=== PATIENT | female | born 1970 | race Caucasian/White ===

== ENCOUNTER 2016-08-20 13:36 | Observation (INO) | payer OTHER ==
[2016-08-20] VITALS (9 sets, daily range): BP systolic 126–146; BP diastolic 61–79; PULSE 78–102; RESP 16–20; TEMP 98–98.3; O2SAT 92–99
[~2016-08-20] VITALS: Ht 182.9 cm; Wt 97.7 kg
[~2016-08-20 13:36] MED LIST: DUONSOL2 NEB; FLUO-1 PO; HYDR7.5T76; PROZ40CA PO; TRAZ100 PO; TRAZ150T75 PO; XANA1TAB6 PO
[2016-08-20] MEDS ORDERED: PROZ40CA PO (14:59)
[2016-08-20] MEDS ORDERED: TRAZ300T2 PO (14:59)
[2016-08-20] MEDS ORDERED: XANA1TAB2 PO (14:59)
[2016-08-20] MEDS ORDERED: SODIUM CHLORIDE 0.9% FLUSH 5 ML FLUSH IVF PRN (16:00)
[2016-08-20] MEDS ORDERED: methylPREDNISolone SOD SUCC 125 MG/2 ML VIAL IVP ONE (16:00)
--- NOTE | 2016-08-20 16:10 | RADRPT ---
EXAM DATE/TIME: 08/20/2016 16:00 [facility] COMPARISON: No previous studies available for comparison. INDICATIONS : Short of breath MEDICAL HISTORY : None. SURGICAL HISTORY : None. ENCOUNTER: Initial ACUITY: 2 months PAIN SCORE: 0/10 LOCATION: Bilateral chest FINDINGS: A single view of the chest demonstrates the lungs to be symmetrically aerated without evidence of mas s, infiltrate or effusion. The cardiomediastinal contours are unremarkable. Osseous structures are intact. CONCLUSION: No evidence of acute cardiopulmonary disease. Jalil Martinez MD on August 20, 2016 at 16:08 Board Certified Radiologist. This report was verified electronically.
--- NOTE | 2016-08-20 16:11 | RADRPT ---
EXAM DATE/TIME: 08/20/2016 16:01 [facility] COMPARISON: No previous studies available for comparison. INDICATIONS : Syncope for two months. RADIATION DOSE: 56.35 CTDIvol (mGy) MEDICAL HISTORY : None SURGICAL HISTORY : None. ENCOUNTER: Initial ACUITY: 1 day PAIN SCALE: 0/10 LOCATION: Bilateral head TECHNIQUE: Multiple contiguous axial images were obtained of the head. Using automated exposure control and adj ustment of the mA and/or kV according to patient size, radiation dose was kept as low as reasonably a chievable to obtain optimal diagnostic quality images. FINDINGS: CEREBRUM: The ventricles are normal for age. No evidence of midline shift, mass lesion, hemorrhage or acute in farction. No extra-axial fluid collections are seen. POSTERIOR FOSSA: The cerebellum and brainstem are intact. The 4th ventricle is midline. The cerebellopontine angle i s unremarkable. EXTRACRANIAL: The visualized portion of the orbits is intact. SKULL: The calvaria is intact. No evidence of skull fracture. CONCLUSION: Negative noncontrast head CT. Jalil Martinez MD on August 20, 2016 at 16:09 Board Certified Radiologist. This report was verified electronically.
[2016-08-20 16:24] LABS: AUTOMATED NEUTROPHIL # 6.7 TH/MM3 (1.8-7.7); BASOPHIL % 0.6 % (0.0-2.0); EOSINOPHIL % 0.1 % (0.0-4.0); HEMATOCRIT 44.2 % (35.0-46.0); HEMO FLAGS DIFF FINAL; LYMPH % 9.1 % (9.0-44.0); LYMPHOCYTE # 0.7 TH/MM3 (1.0-4.8); MEAN CELL VOLUME 101.6 FL (80.0-100.0); MEAN CORPUSCULAR HEMOGLOBIN 34.9 PG (27.0-34.0); MEAN CORPUSCULAR HGB CONC 34.4 % (32.0-36.0); MONO % 1.6 % (0.0-8.0); NEUT % 88.6 % (16.0-70.0); PLATELET COUNT 220 TH/MM3 (150-450); RED BLOOD COUNT 4.35 MIL/MM3 (4.00-5.30); RED CELL DISTRIBUTION WIDTH 15.5 % (11.6-17.2); WHITE BLOOD COUNT 7.5 TH/MM3 (4.0-11.0)
[2016-08-20 16:41] LABS: PROTHROMBIN TIME - PATIENT 11.4 SEC (9.8-11.6)
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
[2016-08-20 16:46] LABS: ALKALINE PHOSPHATASE 168 U/L (45-117); ALT (GPT) 56 U/L (10-53); ANION GAP 16 MEQ/L (5-15); AST (GOT) 105 U/L (15-37); BLOOD UREA NITROGEN 5 MG/DL (7-18); CHLORIDE 95 MEQ/L (98-107); CREATINE KINASE 136 U/L (26-192); GLOMERULAR FILTRATION RATE 122 ML/MIN (>89); POTASSIUM 3.2 MEQ/L (3.5-5.1); SODIUM (NA) 136 MEQ/L (136-145); TOTAL BILIRUBIN ADULT 0.9 MG/DL (0.2-1.0)
[2016-08-20 16:58] LABS: CKMB 1.6 NG/ML (0.5-3.6)
[2016-08-20] MEDS ORDERED: LEVOFLOXACIN 750 MG PREMIX INJ 150 ML IV ONE (17:00)
[2016-08-20] MEDS ORDERED: ASPIRIN 325 MG TAB PO ONE (17:00)
[2016-08-20] MEDS: RESP: ALBUTEROL 2.5 MG/IPRATROPIUM 0.5 MG NEB (SCH) INH (17:09)
[2016-08-20] MEDS ORDERED: ACETAMINOPHEN 325 MG TAB PO PRN (18:00)
[2016-08-20] MEDS ORDERED: NALOXONE HCL 0.4 MG/ML AMP IV PRN (18:00)
[2016-08-20] MEDS ORDERED: MAGNESIUM HYDROXIDE SUSP 30 ML CUP PO PRN (18:00)
[2016-08-20] MEDS ORDERED: ONDANSETRON HCL 4 MG/2 ML VIAL IVP PRN (18:00)
[2016-08-20] MEDS ORDERED: SODIUM CHLORIDE 0.9% FLUSH 5 ML FLUSH FLUSH PRN (18:00)
[2016-08-20] MEDS ORDERED: ENOXAPARIN SODIUM 40 MG/0.4 ML SYRINGE SQ SCH (18:00)
[2016-08-20] MEDS ORDERED: POTASSIUM CHLORIDE 10 MEQ CONTROLLED RELEASE TAB PO ONE (18:00)
[2016-08-20 18:04] LABS: BACTERIA, URINE FEW /hpf; BLOOD, URINE NEG (NEG); COMMENT (UR) CULTURE INDICATED; CULTURE IF INDICATED CULTURE INDICATED; GLUCOSE,URINE NEG (NEG); KETONE, URINE 40 mg/dL (NEG); MUCUS URINE FEW /lpf (OCC); SQUAMOUS EPITHELIAL CELL URINE 5 /hpf (0-5)
[2016-08-20 18:06] LABS: NITRITE,URINE POS (NEG)
[2016-08-20 18:07] LABS: URINE COLOR AMBER (YELLW/STRAW)
[2016-08-20] MEDS ORDERED: RESP: ALBUTEROL 2.5 MG/IPRATROPIUM 0.5 MG NEB (PRN) NEB (18:15)
--- NOTE | 2016-08-20 18:17 | HHI.HP ---
[facility] Unknown Admission Diagnosis syncope Diagnoses: Chief Complaint: Shortness of breath, cough and syncope Travel History International Travel<30 Days: No Contact w/Intl Traveler <30 Da: No Traveled to Known Affected Are: No History of Present Illness This is a 45-year-old obese female patient with a past medical history which includes asthma, COPD, anxiety/depression. Patient reports over the past 2 months she's had multiple syncopal episodes. Patient describes the syncopal episodes as she begins to feel dizzy then her legs get weak and then someone is there to catch her and lower her to the ground or the couch. Patient does report loss of consciousness for a few seconds but is able to be awoken by her . Patient does drive she reports that these episodes never happened while driving and also never happened outside of the home. These syncopal events only occur inside of the home when there is someone present to catch her. Patient also reports that she's had shortness of breath with a productive cough for the past 2 weeks. Patient reports she's been coughing up green phlegm for the past 2-3 days. Patient reports diaphoresis and, "hot sweats." She has not taken her temperature but reports subjective fever, denies chills. Denies sick contacts. The cough has associated vomiting therefore she reports she has not had much to eat in the past 3 days although she is asking when her food tray will arrive. Patient denies chest pain diarrhea constipation. Review of Systems Other All other systems reviewed and negative except as mentioned in history of present illness Past Family Social History Past Medical History asthma, COPD, anxiety/depression Past Surgical History Cholecystectomy, ventral hernia repair, 2 tubal pregnancies with surgical removal, back surgery and skin grafting to person chest and arms Reported Medications Prozac (Fluoxetine HCl) 40 Mg Cap 40 Mg PO DAILY Xanax (Alprazolam) 1 Mg Tab 1 Mg PO HS Trazodone (Trazodone HCl) 300 Mg Tab 300 Mg PO HS Allergies: Coded Allergies: No Known Allergies (Verified , 08/20/16) Active Ordered Medications Current Medications Medications (Trade) Dose Ordered Sig/Ariel Route Start Time Stop Time Status Last Admin IV Flush 2 ml 2 ml UNSCH PRN IVF 08/20/16 16:00 (Levaquin 750 Mg Premix Inj) 150 ml @ 100 mls/hr ONCE ONCE IV 08/20/16 17:00 08/20/16 18:29 08/20/16 17:20 Family History Mother had breast cancer, father is 95 still living and has an irregular heartbeat Social History Patient lives at home with her and father Smokes half a pack of cigarettes a day drinks occasionally does report she drank heavily this weekend as it was New 's brittany. Physical Exam Vital Signs Vital Signs Date Time Temp Pulse Resp B/P Pulse Ox O2 Delivery O2 Flow Rate FiO2 08/20/16 17:12 98 Nasal Cannula 2.00 08/20/16 15:00 18 97 Room Air 08/20/16 13:37 98.2 102 16 137/69 92 Room Air Physical Exam GENERAL: This is an obese female patient with productive cough several times throughout the interview and diaphoresis HEAD: Atraumatic. Normocephalic. No temporal or scalp tenderness. ENT: Nose without bleeding, purulent drainage or septal hematoma. Throat without erythema, tonsillar hypertrophy or exudate. Uvula midline. Airway patent. NECK: Trachea midline. No JVD or lymphadenopathy. Supple, nontender, no meningeal signs. CARDIOVASCULAR: Regular rate and rhythm without murmurs, gallops, or rubs. RESPIRATORY: Coarse with scattered expiratory wheezes GASTROINTESTINAL: Abdomen soft, non-tender, nondistended. No hepato-splenomegaly , or palpable masses. No guarding. MUSCULOSKELETAL: Has bilateral lower extremity edema No calf tenderness. Negative Homans sign bilaterally. NEUROLOGICAL: Awake and alert. No focal deficit identified. Motor and sensory grossly within normal limits. Five out of 5 muscle strength in all muscle groups. Normal speech. Laboratory Laboratory Tests Test 08/20/16 15:30 White Blood Count 7.5 Red Blood Count 4.35 Hemoglobin 15.2 Hematocrit 44.2 Mean Corpuscular Volume 101.6 Mean Corpuscular Hemoglobin 34.9 Mean Corpuscular Hemoglobin 34.4 Concent Red Cell Distribution Width 15.5 Platelet Count 220 Mean Platelet Volume 8.6 Neutrophils (%) (Auto) 88.6 Lymphocytes (%) (Auto) 9.1 Monocytes (%) (Auto) 1.6 Eosinophils (%) (Auto) 0.1 Basophils (%) (Auto) 0.6 Neutrophils # (Auto) 6.7 Lymphocytes # (Auto) 0.7 Monocytes # (Auto) 0.1 Eosinophils # (Auto) 0.0 Basophils # (Auto) 0.0 CBC Comment DIFF FINAL Differential Comment Prothrombin Time 11.4 Prothromb Time International 1.0 Ratio Activated Partial 28.0 Thromboplast Time D-Dimer Quantitative (PE/DVT) 0.34 Sodium Level 136 Potassium Level 3.2 Chloride Level 95 Carbon Dioxide Level 25.0 Anion Gap 16 Blood Urea Nitrogen 5 Creatinine 0.54 Estimat Glomerular Filtration 122 Rate Random Glucose 168 Calcium Level 9.4 Total Bilirubin 0.9 Aspartate Amino Transf 105 (AST/SGOT) Alanine Aminotransferase 56 (ALT/SGPT) Alkaline Phosphatase 168 Total Creatine Kinase 136 Creatine Kinase MB 1.6 Troponin I LESS THAN 0.02 B-Type Natriuretic Peptide 5 Total Protein 8.1 Albumin 3.7 Date/Time Procedure Status Source Growth 08/20/16 16:42 Influenza Types A,B Antigen ([facility]) - Final Complete Nasal Aspirate NEGATIVE FOR FLU A AND B ANTIGEN.... 08/20/16 16:20 Aerobic Blood Culture Received Blood Peripheral Pending 08/20/16 16:20 Anaerobic Blood Culture Received Blood Peripheral Pending Result Diagram: 08/20/16 1530 08/20/16 1530 Assessment and Plan Problem List: (1) COPD exacerbation ICD Code: J44.1 Status: Acute (2) Syncope and collapse ICD Code: R55 Status: Acute Assessment and Plan This is a 45-year-old obese female patient with a past medical history which includes asthma, COPD, anxiety/depression. Patient reports over the past 2 months she's had multiple syncopal episodes also with shortness of breath and productive cough times 2 weeks. COPD exacerbation with productive cough Duo nebs every 6 hours and when necessary Chest x-ray reviewed by myself as well as Dr. Shen no acute process identified Solumedrol 40 mg IV twice a day Azithromycin 250 mg by mouth daily starting tomorrow morning did receive Levaquin IV emergency department Abnormal UA: On Levaquin IV pending urine culture Syncopal episodes- occurring for the past 2 months only occur in patients home will continue to monitor patient on telemetry, bilateral carotid ultrasound, orthostatic vital signs Hypokalemia will replace with 30 meq potassium chloride orally Also check add on magnesium level recheck in AM AST noted to be elevated patient admitted to heavy drinking this prior weekend as it was New Year's Brittany On excessive alcohol use last binge drinking encouraged to abstain CMP in AM Tobacco abuse Patient counseled on tobacco abuse and health risk encouraged to abstain DVT prophylaxis Lovenox Discussed with patient RN and ER provider Written by Henna Gruber, acting as scribe for Dr. Shen on 08/20/16 at 18 :13. The documentation accurately reflects the work performed [id number] by me on at 218:13. Code Status Full code Henna Gruber Aug 20, 2016 18:17 Sanjiv Shen MD Aug 20, 2016 20:42
[2016-08-20] MEDS: RESP: ALBUTEROL 2.5 MG/IPRATROPIUM 0.5 MG NEB (SCH) NEB (20:38)
[2016-08-20] MEDS: methylPREDNISolone SOD SUCC 40 MG/1 ML VIAL IV PUSH SCH (21:51)
[2016-08-20] MEDS: SODIUM CHLORIDE 0.9% FLUSH 5 ML FLUSH FLUSH SCH (21:52)
[2016-08-21] MEDS: RESP: ALBUTEROL 2.5 MG/IPRATROPIUM 0.5 MG NEB (SCH) NEB ×2 (03:03→09:42)
[2016-08-21 04:17] VITALS: BP 137/65; PULSE 85; RESP 20; TEMP 97.4; O2SAT 95
[2016-08-21 08:00] VITALS: BP 139/65; PULSE 75; RESP 20; TEMP 97.6; O2SAT 96
[2016-08-21 08:12] LABS: AUTOMATED NEUTROPHIL # 7.9 TH/MM3 (1.8-7.7); BASOPHIL % 0.3 % (0.0-2.0); HEMATOCRIT 40.9 % (35.0-46.0); HEMO FLAGS DIFF FINAL; LYMPH % 10.5 % (9.0-44.0); MEAN CELL VOLUME 101.3 FL (80.0-100.0); MEAN CORPUSCULAR HGB CONC 34.5 % (32.0-36.0); NEUT % 82.2 % (16.0-70.0); PLATELET COUNT 217 TH/MM3 (150-450); RED BLOOD COUNT 4.03 MIL/MM3 (4.00-5.30); RED CELL DISTRIBUTION WIDTH 15.4 % (11.6-17.2); WHITE BLOOD COUNT 9.6 TH/MM3 (4.0-11.0)
[2016-08-21 08:42] LABS: ALKALINE PHOSPHATASE 144 U/L (45-117); ALT (GPT) 40 U/L (10-53); ANION GAP 12 MEQ/L (5-15); AST (GOT) 45 U/L (15-37); BICARBONATE 30.4 MEQ/L (21.0-32.0); BLOOD UREA NITROGEN 7 MG/DL (7-18); CHLORIDE 95 MEQ/L (98-107); GLOMERULAR FILTRATION RATE 98 ML/MIN (>89); POTASSIUM 3.1 MEQ/L (3.5-5.1); SODIUM (NA) 137 MEQ/L (136-145); TOTAL BILIRUBIN ADULT 0.8 MG/DL (0.2-1.0)
[2016-08-21] MEDS ORDERED: DOXYCYCLINE HYCLATE 100 MG TAB PO SCH (09:00)
[2016-08-21] MEDS ORDERED: AZITHROMYCIN 250 MG TAB PO SCH (09:00)
[2016-08-21] MEDS ORDERED: FLUoxetine HCL 20 MG CAP PO SCH (09:00)
[2016-08-21] MEDS: methylPREDNISolone SOD SUCC 40 MG/1 ML VIAL IV PUSH SCH (09:28)
[2016-08-21] MEDS: SODIUM CHLORIDE 0.9% FLUSH 5 ML FLUSH FLUSH SCH (09:29)
[2016-08-21 09:30] VITALS: PULSE 63
--- NOTE | 2016-08-21 09:42 | HHI.PR ---
Subjective Remarks Follow-up syncope 08/21/16-patient seen and examined; no syncopal episodes since admission. Denies any dizziness or chest pain . Currently afebrile. Objective Vitals Vital Signs Date Time Temp Pulse Resp B/P Pulse Ox O2 Delivery O2 Flow Rate FiO2 08/21/16 04:17 97.4 85 20 137/65 95 08/20/16 23:51 98.0 84 20 126/61 95 126/70 126/79 08/20/16 22:00 91 08/20/16 20:40 96 Nasal Cannula 2.00 08/20/16 20:21 98.3 100 20 146/71 99 08/20/16 19:15 83 18 141/69 97 08/20/16 17:12 98 Nasal Cannula 2.00 08/20/16 16:00 78 18 138/67 97 Nasal Cannula 2 08/20/16 15:00 18 97 Room Air 08/20/16 13:37 98.2 102 16 137/69 92 Room Air I/O 08/20/16 08/20/16 08/20/16 08/21/16 08/21/16 08/21/16 07:00 15:00 23:00 07:00 15:00 23:00 Intake Total 240 ml Balance 240 ml Intake Oral 240 ml # Voids 3 Result Diagram: 08/21/16 0745 08/21/16 0745 Imaging Last Impressions Head CT 08/20/16 1550 Signed Impressions: Service Date/Time: Saturday, August 20, 2016 16:01 - CONCLUSION: Negative noncontrast head CT. Jalil Martinez MD Chest X-Ray 08/20/16 1550 Signed Impressions: Service Date/Time: Saturday, August 20, 2016 16:00 - CONCLUSION: No evidence of acute cardiopulmonary disease. Jalil Martinez MD Objective Remarks GENERAL: NAD SKIN: Warm and dry. HEAD: Normocephalic. EYES: No scleral icterus. No injection or drainage. NECK: Supple, trachea midline. No JVD or lymphadenopathy. CARDIOVASCULAR: Regular rate and rhythm without murmurs, gallops, or rubs. RESPIRATORY: Breath sounds equal bilaterally. No accessory muscle use. GASTROINTESTINAL: Abdomen soft, non-tender, nondistended. MUSCULOSKELETAL: No cyanosis, or edema. BACK: Nontender without obvious deformity. No CVA tenderness. A/P Problem List: (1) COPD exacerbation ICD Code: J44.1 Status: Acute (2) Syncope and collapse ICD Code: R55 Status: Resolved Assessment and Plan This is a 45-year-old obese female patient with a past medical history which includes asthma, COPD, anxiety/depression. Patient reports over the past 2 months she's had multiple syncopal episodes also with shortness of breath and productive cough times 2 weeks. COPD exacerbation with productive cough Duo nebs every 6 hours and when necessary and start Spiriva and Symbicort Chest x-ray reviewed Discontinue Solumedrol 40 mg IV twice a day and start by mouth prednisone s/p Levaquin IV and starts doxy 100 mg by mouth twice a day Abnormal UA: s/p Levaquin IV and starts doxycycline 100 mg by mouth twice a day pending urine culture Syncopal episodes- occurring for the past 2 months only occur in patients home- stable since admission continue to monitor patient on telemetry, bilateral carotid ultrasound, orthostatic vital signs Hypokalemia: Replace electrolyte and monitor AST noted to be elevated patient admitted to heavy drinking this prior weekend as it was New Year's Brittany On excessive alcohol use last binge drinking encouraged to abstain-LFTs improving Tobacco abuse Patient counseled on tobacco abuse and health risk encouraged to abstain DVT prophylaxis Lovenox Discharge Planning Discharge patient to home Condition on discharge: Improved Regular Diet as tolerated Ad Roxanne activity Rx written:see EMR Follow-up with primary care physician in 1 week Sanjiv Shen MD Aug 21, 2016 09:42
[2016-08-21] MEDS ORDERED: DOXY100T PO (09:47)
[2016-08-21] MEDS ORDERED: IPRA17I INH (09:47)
[2016-08-21] MEDS ORDERED: SYMB80AE INH (09:47)
[2016-08-21] MEDS ORDERED: PRED20 PO (09:47)
[2016-08-21] MEDS ORDERED: SPIRCAP INH (09:47)
--- NOTE | 2016-08-21 10:03 | RADRPT ---
EXAM DATE/TIME: 08/21/2016 08:43 [facility] COMPARISON: No previous studies available for comparison. INDICATIONS : Syncope. MEDICAL HISTORY : Chronic obstructive pulmonary disease. Asthma. Asthma. SURGICAL HISTORY : Cholecystectomy. Gynecologic surgery, ectopic x 2. ENCOUNTER: Initial ACUITY: 2 days PAIN SCORE: 0/10 LOCATION: Bilateral neck PEAK SYSTOLIC VELOCITIES (cm/sec): ICA/CCA RATIO: Right: 0.9 Left: 0.8 ICA: Right: 83 Left: 81 CCA: Right: 94 Left: 104 ECA: Right: 132 Left: 102 VERTEBRAL: Right: 47 antegrade Left: 36 antegrade Elevated flow velocities and ICA/CCA ratios have been found to correlate with increased degrees of vessel stenosis, calculated as percentage of diameter relative to a normal segment of distal ICA/CCA FINDINGS: RIGHT CAROTID: Mild eccentric calcific plaque.. The waveforms are within normal limits. LEFT CAROTID: Slightly centered calcific plaque. The waveforms are within normal limits. VERTEBRAL ARTERIES: Antegrade flow is seen in both vertebral arteries. MISCELLANEOUS: None. CONCLUSION: No evidence of flow-limiting carotid stenosis. Jalil Vieira MD on August 21, 2016 at 10:01 Board Certified Radiologist. This report was verified electronically.
[2016-08-21 10:52] VITALS: O2SAT 95
[2016-08-21 12:00] VITALS: BP 135/66; PULSE 86; RESP 20; TEMP 97.7; O2SAT 91
[2016-08-21] MEDS ORDERED: BUDESONIDE-FORMOTEROL 80/4.5 MCG INHALER INH SCH (21:00)
--- NOTE | 2016-08-21 23:56 | EKG ---
Date Performed: 08/20/2016 Time Performed: 16:49:52 PTAGE: 45 years EKG: Sinus rhythm NORMAL ECG PREVIOUS TRACING : 06/30/2008 00.11 DOCTOR: Diandra Grant Interpretating Date/Time 08/21/2016 23:48:38
[2016-08-22] MEDS ORDERED: predniSONE 20 MG TAB PO SCH (09:00)
[2016-08-22] MEDS ORDERED: TIOTROPIUM BROMIDE 18 MCG INH INH SCH (09:00)
== END 2016-08-21 15:53 | disposition home or self-care (01) ==
LOC: NEPA 13:36 → NEDA 17:02 → NEPHCDU 20:09
PROVIDERS: ADMIT Hospitalist; ATTEND Hospitalist
DX: R55 Syncope and collapse (principal); J44.1 Chronic obstructive pulmonary disease with (acute) exacerbation; R06.02 Shortness of breath; R05 Cough; J45.909 Unspecified asthma, uncomplicated; F41.9 Anxiety disorder, unspecified; F17.200 Nicotine dependence, unspecified, uncomplicated; Z79.899 Other long term (current) drug therapy; R11.10 Vomiting, unspecified; E87.6 Hypokalemia; F10.10 Alcohol abuse, uncomplicated
CPT/HCPCS: 70450; 71010; 80053; 81001; 82550; 82552; 83735; 83880; 84484; 85025; 85379; 85610; 85730; 87040; 87086; 87804; 93005; 93880; 94640; 94664; 96374; 99285; G0378; J1650; J1956; J2405; J2920; J2930

== ENCOUNTER 2017-03-26 17:13 | Emergency (ER) | payer SELFPAY ==
[~2017-03-26] VITALS: Ht 182.9 cm; Wt 87.0 kg
[~2017-03-26 17:13] MED LIST changes: +DOXY100T PO; -DUONSOL2 NEB; -FLUO-1 PO; -HYDR7.5T76; +IPRA17I INH; +PRED20 PO; +SPIRCAP INH; +SYMB80AE INH; -TRAZ100 PO; -TRAZ150T75 PO; +TRAZ300T2 PO; +XANA1TAB2 PO; -XANA1TAB6 PO
[2017-03-26 17:15] VITALS: BP 124/62; PULSE 106; RESP 16; TEMP 98.5; O2SAT 95
--- NOTE | 2017-03-26 17:54 | PD ---
Physical Exam Time Seen by Provider: 17:54 Narrative 46 y/o female here with abdominal pain, swelling for the past few months, as well as a cough. Vital signs reviewed. Seen at triage desk. Awaiting bed placement. Data Data Last Documented VS Vital Signs Date Time Temp Pulse Resp B/P Pulse Ox O2 Delivery O2 Flow Rate FiO2 03/26/17 17:15 98.5 106 16 124/62 95 MDM Medical Record Reviewed: Yes Supervised Visit with COLTON: Ronni Long Mar 26, 2017 17:54
[2017-03-26 21:45] VITALS: RESP 22; O2SAT 96
[2017-03-26] MEDS ORDERED: SODIUM CHLORIDE 0.9% FLUSH 10 ML FLUSH IVF PRN (21:45)
[2017-03-26] MEDS ORDERED: methylPREDNISolone SOD SUCC 125 MG/2 ML VIAL IVP ONE (21:45)
[2017-03-26] MEDS: RESP: ALBUTEROL 2.5 MG/IPRATROPIUM 0.5 MG NEB (SCH) INH ×3 (21:54→22:53)
--- NOTE | 2017-03-26 22:04 | PD ---
HPI Chief Complaint: GI Complaint Time Seen by Provider: 21:56 Travel History International Travel<30 days: No Contact w/Intl Traveler<30days: No Traveled to known affect area: No History of Present Illness HPI Patient is a 46-year-old female presenting to emergency department evaluation of shortness of breath and abdominal distention. Patient states she's been short of breath for over one month, she went to her primary doctor on March 11 and was prescribed antibiotics and steroids. She states despite this she continues to feel this way. She reports a productive cough with yellow-brown sputum. Patient smokes one pack per day. She reports that her abdomen is distended for several months, she has had diarrhea several times a day. Patient states she did not discuss this with her primary doctor at her last visit. She denies any fever, chills, nausea, vomiting, headache, chest pain. She presents emergency department today because her symptoms have been exacerbated over the last several days. She states her past medical history significant for COPD. She denies any excessive alcohol use. PFSH Past Medical History Asthma: Yes Blood Disorders: No Anxiety: Yes Depression: Yes Cancer: No Cardiovascular Problems: No COPD: Yes Endocrine: No Genitourinary: No Immune Disorder: No Neurologic: No Reproductive: No Respiratory: Yes Tetanus Vaccination: Unknown Influenza Vaccination: No ?: Not Ectopic : Yes Past Surgical History Abdominal Surgery: Yes (hernia) Cholecystectomy: Yes Gynecologic Surgery: Yes Social History Alcohol Use: No Tobacco Use: Yes (10/20 PPD) Substance Use: No Allergies-Medications (Allergen,Severity, Reaction): Coded Allergies: No Known Allergies (Verified , 03/26/17) Reported Meds & Prescriptions Reported Meds & Active Scripts Active Prednisone 50 Mg Tab 50 Mg PO DAILY 5 Days Cipro (Ciprofloxacin HCl) 500 Mg Tab 500 Mg PO BID 10 Days Percocet (Oxycodone-Acetaminophen) 5-325 mg Tab 1 Tab PO Q6H PRN Atrovent HFA 12.9 GM Inh (Ipratropium [place]) 17 Mcg/Act Aer 2 Puff INH QID Spiriva Handihaler (Tiotropium Inh) 18 Mcg Cap 18 Mcg INH DAILY Symbicort Inh (Budesonide/Formoterol Fumarate) 80-4.5 Mcg/Act Aero 2 Puff INH Q12HR Reported Xanax (Alprazolam) 1 Mg Tab 1 Mg PO HS Trazodone (Trazodone HCl) 300 Mg Tab 300 Mg PO HS Review of Systems Except as stated in HPI: all other systems reviewed are Neg General / Constitutional: No: Fever, Chills Eyes: No: Blurred Vision HENT: No: Headaches Cardiovascular: Positive: Dyspnea on exertion, No: Chest Pain or Discomfort Respiratory: Positive: Cough, Shortness of Breath, Wheezing, Orthopnea, Pleuritic Pain Gastrointestinal: Positive: Diarrhea, Abdominal Pain (distention), No: Nausea , Vomiting Genitourinary: No: Dysuria Musculoskeletal: No: Myalgias Neurologic: No: Weakness, Dizziness, Syncope, Focal Abnormalities Physical Exam Narrative GENERAL: Overweight, well-developed, alert female. Appears older than stated age. Resting comfortably in no acute distress. SKIN: Warm and dry. HEAD: Atraumatic. Normocephalic. EYES: Pupils equal and round. No scleral icterus. No injection or drainage. ENT: No nasal bleeding or discharge. Mucous membranes pink and moist. NECK: Trachea midline. No JVD. CARDIOVASCULAR: Tachycardic RESPIRATORY: No accessory muscle use. Diminished in bases with expiratory wheezes throughout. GASTROINTESTINAL: Abdomen soft, tender to palpation diffusely, mildly distended. Hepatic and splenic margins not palpable. MUSCULOSKELETAL: Extremities without clubbing, cyanosis, or edema. No obvious deformities. NEUROLOGICAL: Awake and alert. No obvious cranial nerve deficits. Motor grossly within normal limits. Five out of 5 muscle strength in the arms and legs. Normal speech. PSYCHIATRIC: Appropriate mood and affect; insight and judgment normal. Data Data Last Documented VS Vital Signs Date Time Temp Pulse Resp B/P Pulse Ox O2 Delivery O2 Flow Rate FiO2 03/26/17 21:45 22 96 Nasal Cannula 2 03/26/17 17:15 98.5 106 124/62 Orders Complete Blood Count With Diff (03/26/17 21:41) Comprehensive Metabolic Panel (03/26/17 21:41) B-Type Natriuretic Peptide (03/26/17 21:41) Iv Access Insert/Monitor (03/26/17 21:41) Electrocardiogram (03/26/17 21:41) Ecg Monitoring (03/26/17 21:41) Oximetry (03/26/17 21:41) Oxygen Administration (03/26/17 21:41) Chest, Single Ap (03/26/17 21:41) Sodium Chloride 0.9% Flush (Ns Flush) (03/26/17 21:45) Methylprednisolone So Succ Inj (Solumedr (03/26/17 21:45) Albuterol-Ipratropium Neb (Duoneb Neb) (03/26/17 21:45) Ct Abd/Pel W Iv Contrast(Rout) (03/26/17 ) Sputum Culture And Gram Stain (03/26/17 21:41) Magnesium (Mg) (03/26/17 22:49) Potassium Chlor 20 Meq Premix (Kcl 20 Me (03/26/17 23:00) Potassium Chloride (Kcl) (03/26/17 23:00) Alcohol (Ethanol) (03/26/17 21:00) Iohexol 350 Inj (Omnipaque 350 Inj) (03/26/17 23:53) Sodium Chlor 0.9% 1000 Ml Inj (Ns 1000 M (03/27/17 00:30) Ciprofloxacin (Cipro) (03/27/17 00:45) Labs Laboratory Tests Test 03/26/17 21:00 White Blood Count 13.4 TH/MM3 Red Blood Count 3.33 MIL/MM3 Hemoglobin 11.3 GM/DL Hematocrit 34.7 % Mean Corpuscular Volume 104.3 FL Mean Corpuscular Hemoglobin 33.9 PG Mean Corpuscular Hemoglobin 32.5 % Concent Red Cell Distribution Width 22.1 % Platelet Count 298 TH/MM3 Mean Platelet Volume 8.1 FL Neutrophils (%) (Auto) 69.7 % Lymphocytes (%) (Auto) 20.4 % Monocytes (%) (Auto) 8.6 % Eosinophils (%) (Auto) 0.8 % Basophils (%) (Auto) 0.5 % Neutrophils # (Auto) 9.4 TH/MM3 Lymphocytes # (Auto) 2.7 TH/MM3 Monocytes # (Auto) 1.2 TH/MM3 Eosinophils # (Auto) 0.1 TH/MM3 Basophils # (Auto) 0.1 TH/MM3 CBC Comment AUTO DIFF Differential Comment AUTO DIFF CONFIRMED Sodium Level 134 MEQ/L Potassium Level 2.4 MEQ/L Chloride Level 94 MEQ/L Carbon Dioxide Level 28.6 MEQ/L Anion Gap 11 MEQ/L Blood Urea Nitrogen 5 MG/DL Creatinine 0.50 MG/DL Estimat Glomerular Filtration 132 ML/MIN Rate Random Glucose 132 MG/DL Calcium Level 8.9 MG/DL Magnesium Level 1.8 MG/DL Total Bilirubin 1.2 MG/DL Aspartate Amino Transf 63 U/L (AST/SGOT) Alanine Aminotransferase 22 U/L (ALT/SGPT) Alkaline Phosphatase 274 U/L B-Type Natriuretic Peptide 13 PG/ML Total Protein 7.9 GM/DL Albumin 3.5 GM/DL Ethyl Alcohol Level 40 MG/DL MDM Medical Decision Making Medical Screen Exam Complete: Yes Emergency Medical Condition: Yes Medical Record Reviewed: Yes Interpretation(s) Vital Signs Date Time Temp Pulse Resp B/P Pulse Ox O2 Delivery O2 Flow Rate FiO2 03/26/17 21:32 24 03/26/17 17:15 98.5 106 16 124/62 95 Differential Diagnosis COPD exacerbation vs pna vs CHF vs ascites vs obstruction vs metabolic abnormality Narrative Course Patient is a 46 year female presenting to emergency for evaluation of shortness of breath as well as abdominal distention. Both complaints have been ongoing for over a month. Patient continues to smoke despite COPD. She is mildly tachycardic on arrival, exam reveals expiratory wheezing throughout. Labs and imaging ordered and pending. IV access established, patient placed on telemetry monitoring and continuous pulse oximetry. DuoNeb and IV Solu-Medrol ordered. Chest x-ray shows no acute disease. CBC with a white count of 13.4 with no left shift. CMP w/ a K+ of 2.4. IV and oral replacement ordered. Magnesium level added on. Total bilirubin 1.2, AST 63. Sputum culture ordered, obtained and pending. Ct scan of the abd/pelvis pending. Care of patient transferred to Dr. Morton at the end of my shift. He will determine patients disposition. Scripts Prednisone 50 Mg Tab50 Mg PO DAILY 5 Days Ref 0 Prov:Pablito Morton MD 03/27/17 Ciprofloxacin (Cipro)500 Mg [id number] Mg PO BID 10 Days Ref 0 Prov:Pablito Morton MD 03/27/17 Oxycodone-Acetaminophen (Percocet)5-325 mg Tab1 Tab PO Q6H PRN (PAIN) #10 TAB Ref 0 Prov:Pablito Morton MD 03/27/17 Heidy Randhawa [facility] Mar 26, 2017 22:04
--- NOTE | 2017-03-26 22:28 | RADRPT ---
EXAM DATE/TIME: 03/26/2017 21:40 [facility] COMPARISON: CHEST SINGLE AP, August 20, 2016, 16:00. INDICATIONS : Shortness of breath. MEDICAL HISTORY : Chronic obstructive pulmonary disease. Smoker. SURGICAL HISTORY : None. ENCOUNTER: Initial ACUITY: 2 weeks PAIN SCORE: 0/10 LOCATION: Bilateral chest FINDINGS: A single view of the chest demonstrates the lungs to be symmetrically aerated without evidence of mas s, infiltrate or effusion. The cardiomediastinal contours are unremarkable. Osseous structures are intact. CONCLUSION: 1. No acute findings. Todd Barber MD on March 26, 2017 at 22:25 Board Certified Radiologist. This report was verified electronically.
[2017-03-26 22:30] LABS: AUTOMATED NEUTROPHIL # 9.4 TH/MM3 (1.8-7.7); BASOPHIL # 0.1 TH/MM3 (0-0.2); BASOPHIL % 0.5 % (0.0-2.0); EOSINOPHIL # 0.1 TH/MM3 (0-0.4); EOSINOPHIL % 0.8 % (0.0-4.0); HEMATOCRIT 34.7 % (35.0-46.0); LYMPH % 20.4 % (9.0-44.0); LYMPHOCYTE # 2.7 TH/MM3 (1.0-4.8); MEAN CELL VOLUME 104.3 FL (80.0-100.0); MEAN CORPUSCULAR HEMOGLOBIN 33.9 PG (27.0-34.0); MEAN CORPUSCULAR HGB CONC 32.5 % (32.0-36.0); MONO % 8.6 % (0.0-8.0); NEUT % 69.7 % (16.0-70.0); PLATELET COUNT 298 TH/MM3 (150-450); RED BLOOD COUNT 3.33 MIL/MM3 (4.00-5.30); RED CELL DISTRIBUTION WIDTH 22.1 % (11.6-17.2); WHITE BLOOD COUNT 13.4 TH/MM3 (4.0-11.0)
[2017-03-26 22:32] LABS: HEMO FLAGS AUTO DIFF
[2017-03-26 22:43] LABS: ALKALINE PHOSPHATASE 274 U/L (45-117); ALT (GPT) 22 U/L (10-53); ANION GAP 11 MEQ/L (5-15); AST (GOT) 63 U/L (15-37); BICARBONATE 28.6 MEQ/L (21.0-32.0); BLOOD UREA NITROGEN 5 MG/DL (7-18); CHLORIDE 94 MEQ/L (98-107); GLOMERULAR FILTRATION RATE 132 ML/MIN (>89); SODIUM (NA) 134 MEQ/L (136-145); TOTAL BILIRUBIN ADULT 1.2 MG/DL (0.2-1.0)
[2017-03-26 22:48] LABS: POTASSIUM 2.4 MEQ/L (3.5-5.1)
[2017-03-26] MEDS ORDERED: POTASSIUM CHLOR 20 MEQ PREMIX 100 ML IV ONE (23:00)
[2017-03-26] MEDS ORDERED: POTASSIUM CHLORIDE 20 MEQ CONTROLLED RELEASE TAB PO ONE (23:00)
[2017-03-26 23:20] LABS: MAGNESIUM 1.8 MG/DL (1.5-2.5)
[2017-03-26 23:24] LABS: SCAN/DIFF AUTO DIFF CONFIRMED
[2017-03-26] MEDS ORDERED: IOHEXOL 350 MG/ML 10 ML VIAL (for RAD DIAG) IV ONE (23:53)
--- NOTE | 2017-03-27 00:02 | RADRPT ---
EXAM DATE/TIME: 03/26/2017 23:40 [facility] COMPARISON: No previous studies available for comparison. INDICATIONS : Abdominal distention and pain. IV CONTRAST: 96 cc Omnipaque 350 (iohexol) IV ORAL CONTRAST: No oral contrast ingested. RADIATION DOSE: 14.92 CTDIvol (mGy) MEDICAL HISTORY : Chronic obstructive pulmonary disease. SURGICAL HISTORY : Cholecystectomy. ENCOUNTER: Initial ACUITY: 1 day PAIN SCALE: 7/10 LOCATION: All quadrants. TECHNIQUE: Volumetric scanning of the abdomen and pelvis was performed. Using automated exposure control and ad justment of the mA and/or kV according to patient size, radiation dose was kept as low as reasonably achievable to obtain optimal diagnostic quality images. DICOM format image data is available electro nically for review and comparison. FINDINGS: There is diffuse inhomogeneous fatty infiltration of the liver and hepatomegaly up to 25 cm in cephal ocaudal dimension. Cholecystectomy clips are noted. The spleen, pancreas, adrenals, kidneys are unrem arkable. Atherosclerotic calcification of the aorta is identified. There is focal ectasia of the infr arenal abdominal aorta at the level of the TIANA takeoff measuring 2.9 x 2.2 cm in transverse and AP di mension. The urinary bladder is normal. There are 2 enhancing masses within the uterus, within the jessica dy of the left atrium 0.2 x 2.9 cm mass, and at the fundus anteriorly a 2.2 x 2.1 cm mass, these are felt to represent uterine fibroids. The ovaries are unremarkable. There is diverticulosis of the sigm oid and descending colon. There is circumferential bowel wall thickening of the large bowel from the transverse colon to the ascending colon with submucosal fat proliferation suggesting a chronic appear ance. There no signs of bowel obstruction, free fluid or free air. Lung bases are clear. Osseous stru ctures are intact. CONCLUSION: 1. Hepatomegaly and inhomogeneous hepatic steatosis. 2. Diverticulosis without diverticulitis. 3. Atherosclerosis with focal ectasia of the infrarenal abdominal aorta up to 2.9 cm. 4. There is chronic appearing bowel wall thickening of the large bowel. Leo Soliz MD on March 26, 2017 at 23:57 Board Certified Radiologist. This report was verified electronically.
[2017-03-27] MEDS ORDERED: SODIUM CHLOR 0.9% 1000 ML INJ 1,000 ML IV ONE (00:30)
[2017-03-27] MEDS ORDERED: PERC5TAB12 PO (00:31)
[2017-03-27] MEDS ORDERED: CIPR-9 PO (00:31)
--- NOTE | 2017-03-27 00:31 | PD ---
Data Data Last Documented VS Vital Signs Date Time Temp Pulse Resp B/P Pulse Ox O2 Delivery O2 Flow Rate FiO2 03/26/17 21:45 22 96 Nasal Cannula 2 03/26/17 17:15 98.5 106 124/62 Orders Complete Blood Count With Diff (03/26/17 21:41) Comprehensive Metabolic Panel (03/26/17 21:41) B-Type Natriuretic Peptide (03/26/17 21:41) Iv Access Insert/Monitor (03/26/17 21:41) Electrocardiogram (03/26/17 21:41) Ecg Monitoring (03/26/17 21:41) Oximetry (03/26/17 21:41) Oxygen Administration (03/26/17 21:41) Chest, Single Ap (03/26/17 21:41) Sodium Chloride 0.9% Flush (Ns Flush) (03/26/17 21:45) Methylprednisolone So Succ Inj (Solumedr (03/26/17 21:45) Albuterol-Ipratropium Neb (Duoneb Neb) (03/26/17 21:45) Ct Abd/Pel W Iv Contrast(Rout) (03/26/17 ) Sputum Culture And Gram Stain (03/26/17 21:41) Magnesium (Mg) (03/26/17 22:49) Potassium Chlor 20 Meq Premix (Kcl 20 Me (03/26/17 23:00) Potassium Chloride (Kcl) (03/26/17 23:00) Alcohol (Ethanol) (03/26/17 21:00) Iohexol 350 Inj (Omnipaque 350 Inj) (03/26/17 23:53) Sodium Chlor 0.9% 1000 Ml Inj (Ns 1000 M (03/27/17 00:30) Ciprofloxacin (Cipro) (03/27/17 00:45) Labs Laboratory Tests Test 03/26/17 21:00 White Blood Count 13.4 TH/MM3 Red Blood Count 3.33 MIL/MM3 Hemoglobin 11.3 GM/DL Hematocrit 34.7 % Mean Corpuscular Volume 104.3 FL Mean Corpuscular Hemoglobin 33.9 PG Mean Corpuscular Hemoglobin 32.5 % Concent Red Cell Distribution Width 22.1 % Platelet Count 298 TH/MM3 Mean Platelet Volume 8.1 FL Neutrophils (%) (Auto) 69.7 % Lymphocytes (%) (Auto) 20.4 % Monocytes (%) (Auto) 8.6 % Eosinophils (%) (Auto) 0.8 % Basophils (%) (Auto) 0.5 % Neutrophils # (Auto) 9.4 TH/MM3 Lymphocytes # (Auto) 2.7 TH/MM3 Monocytes # (Auto) 1.2 TH/MM3 Eosinophils # (Auto) 0.1 TH/MM3 Basophils # (Auto) 0.1 TH/MM3 CBC Comment AUTO DIFF Differential Comment AUTO DIFF CONFIRMED Sodium Level 134 MEQ/L Potassium Level 2.4 MEQ/L Chloride Level 94 MEQ/L Carbon Dioxide Level 28.6 MEQ/L Anion Gap 11 MEQ/L Blood Urea Nitrogen 5 MG/DL Creatinine 0.50 MG/DL Estimat Glomerular Filtration 132 ML/MIN Rate Random Glucose 132 MG/DL Calcium Level 8.9 MG/DL Magnesium Level 1.8 MG/DL Total Bilirubin 1.2 MG/DL Aspartate Amino Transf 63 U/L (AST/SGOT) Alanine Aminotransferase 22 U/L (ALT/SGPT) Alkaline Phosphatase 274 U/L B-Type Natriuretic Peptide 13 PG/ML Total Protein 7.9 GM/DL Albumin 3.5 GM/DL Ethyl Alcohol Level 40 MG/DL MDM Supervised Visit with [facility]: Yes Narrative Course I, Dr. Morton, have reviewed the advance practice practitioner's documentation and am in agreement, met with the patient face to face, made the diagnosis, and the medical decision making was done by me. See her note for further details. Briefly this a 46-year-old female who is here for evaluation of shortness of breath and abdominal distention. The patient smokes cigarettes daily and was noted to have wheezing on exam. Abdominal pain has been going on for the last 2 months. She has been worked up for this by her primary care physician, however she states her discomfort is not getting better. Initial vital signs show heart rate 106, blood pressure 124/62, pulse ox 95% on room air, oral temp of 98.5F. CBC shows WBC 13.4, hemoglobin 11.3, hematocrit 34.7, platelets 298. CMP is remarkable for potassium 2.4 which was replaced parenterally and orally. Alkaline phosphatase is 274. Lactic acid is 1.8. Alcohol level is 40. Chest x-ray shows no acute disease. CT abdomen pelvis: CONCLUSION: 1. Hepatomegaly and inhomogeneous hepatic steatosis. 2. Diverticulosis without diverticulitis. 3. Atherosclerosis with focal ectasia of the infrarenal abdominal aorta up to 2.9 cm. 4. There is chronic appearing bowel wall thickening of the large bowel. Patient's alcohol level is 40. When asked about this she states that she drinks alcohol occasionally maybe 3 or 4 times a week. She is denying daily alcohol use. Patient was given 3 DuoNeb treatments and IV Solu-Medrol. On my assessment she is sleeping comfortably. Lung sounds are clear and equal bilaterally. She is in no respiratory distress. She has mild abdominal tenderness that is diffuse. There are no peritoneal signs. I will treat her for her colitis. Again her potassium has been replaced parenterally and orally. The symptoms have been going on for quite some time now. Patient made aware of all findings. She is stable for discharge home with outpatient follow-up with her primary care physician this week. She was informed on when to return to the emergency department. She was provided a copy of her CT report. She verbalizes understanding and agreement with plan. Diagnosis Primary Impression: COPD exacerbation Additional Impression: Colitis Referrals: Primary Care Physician 3 days Additional Instruction: Follow-up with your primary care physician this week. Return to the emergency department for worsening symptoms or any other concerns. Scripts Prednisone 50 Mg Tab50 Mg PO DAILY 5 Days Ref 0 Prov:Pablito Morton MD 03/27/17 Ciprofloxacin (Cipro)500 Mg [id number] Mg PO BID 10 Days Ref 0 Prov:Pablito Morton MD 03/27/17 Oxycodone-Acetaminophen (Percocet)5-325 mg Tab1 Tab PO Q6H PRN (PAIN) #10 TAB Ref 0 Prov:Pablito Morton MD 03/27/17 Disposition: 01 DISCHARGE HOME Condition: Stable Pablito Morton MD Mar 27, 2017 00:31
[2017-03-27] MEDS ORDERED: PRED50 PO (00:32)
[2017-03-27] MEDS ORDERED: CIPROFLOXACIN 500 MG TAB PO ONE (00:45)
--- NOTE | 2017-03-27 08:23 | EKG ---
Date Performed: 03/26/2017 Time Performed: 22:09:37 PTAGE: 46 years EKG: ECTOPIC ATRIAL TACHYCARDIA NONSPECIFIC ST & T-WAVE ABNORMALITY ABNORMAL RHYTHM ECG PREVIOUS TRACING : 08/20/2016 16.49 DOCTOR: Mati Farris Interpretating Date/Time 03/27/2017 08:22:15
== END 2017-03-27 04:00 | disposition home or self-care (01) ==
LOC: NEPC 17:13
DX: J44.1 Chronic obstructive pulmonary disease with (acute) exacerbation (principal); K52.9 Noninfective gastroenteritis and colitis, unspecified; R16.0 Hepatomegaly, not elsewhere classified; K76.0 Fatty (change of) liver, not elsewhere classified; K57.90 Diverticulosis of intestine, part unspecified, without perforation or abscess without bleeding; R94.31 Abnormal electrocardiogram [ECG] [EKG]; I47.1 Supraventricular tachycardia; F41.9 Anxiety disorder, unspecified; F17.200 Nicotine dependence, unspecified, uncomplicated
CPT/HCPCS: 71010; 74177; 80053; 80307; 83735; 83880; 85025; 87070; 87205; 93005; 94640; 94664; 96374; 96375; 99285; J2930; J3480; J7030; Q9967

== ENCOUNTER 2017-05-29 23:06 | Inpatient (IN) | payer OTHER ==
[~2017-05-29] VITALS: Ht 182.9 cm; Wt 86.0 kg
[~2017-05-29 23:06] MED LIST changes: +CIPR-9 PO; -DOXY100T PO; +PERC5TAB12 PO; -PRED20 PO; +PRED50 PO; -PROZ40CA PO
[2017-05-29 23:14] VITALS: BP 114/58; PULSE 95; RESP 16; TEMP 99.1; O2SAT 95
[2017-05-29 23:37] VITALS: O2SAT 95
[2017-05-29] MEDS: RESP: ALBUTEROL 2.5 MG/IPRATROPIUM 0.5 MG NEB (SCH) INH ×2 (23:42→23:43)
[2017-05-29 23:45] VITALS: O2SAT 95
[2017-05-29] MEDS ORDERED: methylPREDNISolone SOD SUCC 125 MG/2 ML VIAL IV PUSH ONE (23:45)
[2017-05-29] MEDS ORDERED: SODIUM CHLORIDE 0.9% FLUSH 10 ML FLUSH IVF PRN (23:45)
[2017-05-30] VITALS (11 sets, daily range): BP systolic 118–135; BP diastolic 57–72; PULSE 91–108; RESP 16–22; TEMP 98–98.5; O2SAT 91–99
--- NOTE | 2017-05-30 00:16 | RADRPT ---
EXAM DATE/TIME: 05/29/2017 23:39 [facility] COMPARISON: CHEST SINGLE AP, March 26, 2017, 21:40. INDICATIONS : Shortness of breath. MEDICAL HISTORY : Chronic obstructive pulmonary disease. SURGICAL HISTORY : None. ENCOUNTER: Initial ACUITY: 1 day PAIN SCORE: 0/10 LOCATION: Bilateral chest FINDINGS: Mild streaky bibasilar parenchymal opacities. No significant effusion. Cardiac contours are satisfact ory for technique and projection. CONCLUSION: Mild bibasilar parenchymal opacities. Jalil Vieira MD on May 30, 2017 at 0:14 Board Certified Radiologist. This report was verified electronically.
[2017-05-30 00:17] LABS: AUTOMATED NEUTROPHIL # 8.6 TH/MM3 (1.8-7.7); BASOPHIL % 0.4 % (0.0-2.0); EOSINOPHIL # 0.2 TH/MM3 (0-0.4); EOSINOPHIL % 1.3 % (0.0-4.0); HEMO FLAGS DIFF FINAL; LYMPH % 20.3 % (9.0-44.0); LYMPHOCYTE # 2.6 TH/MM3 (1.0-4.8); MEAN CELL VOLUME 118.4 FL (80.0-100.0); MEAN CORPUSCULAR HEMOGLOBIN 39.1 PG (27.0-34.0); MONO % 9.8 % (0.0-8.0); NEUT % 68.2 % (16.0-70.0); PLATELET COUNT 193 TH/MM3 (150-450); RED BLOOD COUNT 3.12 MIL/MM3 (4.00-5.30); RED CELL DISTRIBUTION WIDTH 17.5 % (11.6-17.2); WHITE BLOOD COUNT 12.7 TH/MM3 (4.0-11.0)
--- NOTE | 2017-05-30 00:21 | PD ---
HPI Chief Complaint: OD/ Ingestion Time Seen by Provider: 23:23 Travel History International Travel<30 days: No Contact w/Intl Traveler<30days: No Traveled to known affect area: No History of Present Illness HPI 46yo F with psych history brought in under Combs Act for suicidal attempt. She took 30 pills of acetaminophen-codeine 300-30mg today. Pt states she had an argument with and that's why she took it. Said she is unsure when she took it but maybe an hour. Pt has COPD and said she is always sob. She was found to be wheezing and hypoxic at 88-89% on RA and does not use oxygen at home. +Chronic cough. Denies any fever, n/v, abdominal pain, focal weakness or numbness. PFSH Past Medical History Asthma: Yes Blood Disorders: No Anxiety: Yes Depression: Yes Cancer: No Cardiovascular Problems: No COPD: Yes Diminished Hearing: Yes Endocrine: No Genitourinary: No Immune Disorder: No Medical other: Yes (HERNIA) Neurologic: No Reproductive: No Respiratory: Yes (COPD) Tetanus Vaccination: Unknown ?: Not Menopausal: Yes Ectopic : Yes Past Surgical History Abdominal Surgery: Yes Cholecystectomy: Yes Gynecologic Surgery: Yes Social History Alcohol Use: Yes Tobacco Use: Yes Substance Use: Yes Allergies-Medications (Allergen,Severity, Reaction): Coded Allergies: No Known Allergies (Verified , 03/26/17) Reported Meds & Prescriptions Reported Meds & Active Scripts Active Prednisone 50 Mg Tab 50 Mg PO DAILY 5 Days Cipro (Ciprofloxacin HCl) 500 Mg Tab 500 Mg PO BID 10 Days Percocet (Oxycodone-Acetaminophen) 5-325 mg Tab 1 Tab PO Q6H PRN Atrovent HFA 12.9 GM Inh (Ipratropium [place]) 17 Mcg/Act Aer 2 Puff INH QID Spiriva Handihaler (Tiotropium Inh) 18 Mcg Cap 18 Mcg INH DAILY Symbicort Inh (Budesonide/Formoterol Fumarate) 80-4.5 Mcg/Act Aero 2 Puff INH Q12HR Reported Xanax (Alprazolam) 1 Mg Tab 1 Mg PO HS Trazodone (Trazodone HCl) 300 Mg Tab 300 Mg PO HS Review of Systems Except as stated in HPI: all other systems reviewed are Neg Physical Exam Narrative GENERAL: 46yo F in mild distress. SKIN: Focused skin assessment warm/dry. HEAD: Atraumatic. Normocephalic. EYES: Pupils equal and round. No scleral icterus. No injection or drainage. CARDIOVASCULAR: Regular rate and rhythm. No murmur appreciated. RESPIRATORY: Expiratory wheezing bilaterally. GASTROINTESTINAL: Abdomen softly distended. No rebound tenderness or guarding. MUSCULOSKELETAL: No obvious deformities. No clubbing. No cyanosis. +Bilateral lower ext edema. NEUROLOGICAL: Awake and alert. No obvious cranial nerve deficits. Motor grossly within normal limits. Normal speech. Data Data Last Documented VS Vital Signs Date Time Temp Pulse Resp B/P (MAP) Pulse Ox O2 Delivery O2 Flow Rate FiO2 05/29/17 23:45 95 Nasal Cannula 3.00 05/29/17 23:37 95 05/29/17 23:14 99.1 95 16 114/58 (76) Orders Orders Complete Blood Count With Diff (05/29/17 23:32) Basic Metabolic Panel (Bmp) (05/29/17 23:32) B-Type Natriuretic Peptide (05/29/17 23:32) Magnesium (Mg) (05/29/17 23:32) Troponin I (05/29/17 23:32) Arterial Blood Gas (Abg) (05/29/17 23:32) Iv Access Insert/Monitor (05/29/17 23:32) Electrocardiogram (05/29/17:32) Ecg Monitoring (05/29/17:32) Oximetry (05/29/17 23:32) Oxygen Administration (05/29/17 23:32) Chest, Single Ap (05/29/17 23:32) Sodium Chloride 0.9% Flush (Ns Flush) (05/29/17 23:45) Methylprednisolone So Succ Inj (Solumedr (05/29/17 23:45) Albuterol-Ipratropium Neb (Duoneb Neb) (05/29/17 23:45) Tylenol (Acetaminophen) (05/29/17 23:32) Salicylates (Aspirin) (05/29/17 23:32) Hepatic Functional Panel (05/29/17 23:32) Bhcg Screen Qualitative (05/29/17 23:32) Call Poison Control (05/29/17 23:36) Ceftriaxone Inj (Rocephin Inj) (05/30/17 00:30) Azithromycin (Zithromax) (05/30/17 00:30) Blood Culture (05/30/17 00:22) Lactic Acid Sepsis Protocol (05/30/17 00:22) Alcohol (Ethanol) (05/30/17 01:24) Admit Order (Ed Use Only) (05/30/17 01:41) Labs Laboratory Tests Test 05/29/17 23:49 05/30/17 00:00 05/30/17 00:35 Blood Gas Puncture Site RT RADIAL Blood Gas Patient Temperature 98.6 Blood Gas HCO3 27 mmol/L Blood Gas Base Excess 2.9 mmol/L Blood Gas Oxygen Saturation 89 % Arterial Blood pH 7.42 Arterial Blood Partial Pressure CO2 43 mmHg Arterial Blood Partial Pressure O2 74 mmHG Arterial Blood Oxygen Content 14.9 Vol % Arterial Blood Carboxyhemoglobin 4.8 % Arterial Blood Methemoglobin 0.4 % Blood Gas Hemoglobin 11.9 G/DL Oxygen Delivery Device NASAL CANNULA Blood Gas Liter Flow 3 L/M White Blood Count 12.7 TH/MM3 Red Blood Count 3.12 MIL/MM3 Hemoglobin 12.2 GM/DL Hematocrit 37.0 % Mean Corpuscular Volume 118.4 FL Mean Corpuscular Hemoglobin 39.1 PG Mean Corpuscular Hemoglobin Concent 33.0 % Red Cell Distribution Width 17.5 % Platelet Count 193 TH/MM3 Mean Platelet Volume 8.5 FL Neutrophils (%) (Auto) 68.2 % Lymphocytes (%) (Auto) 20.3 % Monocytes (%) (Auto) 9.8 % Eosinophils (%) (Auto) 1.3 % Basophils (%) (Auto) 0.4 % Neutrophils # (Auto) 8.6 TH/MM3 Lymphocytes # (Auto) 2.6 TH/MM3 Monocytes # (Auto) 1.2 TH/MM3 Eosinophils # (Auto) 0.2 TH/MM3 Basophils # (Auto) 0.0 TH/MM3 CBC Comment DIFF FINAL Differential Comment Blood Urea Nitrogen 3 MG/DL Creatinine 0.35 MG/DL Random Glucose 108 MG/DL Total Protein 7.2 GM/DL Albumin 2.5 GM/DL Calcium Level 8.0 MG/DL Magnesium Level 1.8 MG/DL Alkaline Phosphatase 289 U/L Aspartate Amino Transf (AST/SGOT) 82 U/L Alanine Aminotransferase (ALT/SGPT) 15 U/L Total Bilirubin 2.8 MG/DL Direct Bilirubin 2.2 MG/DL Sodium Level 138 MEQ/L Potassium Level 2.9 MEQ/L Chloride Level 100 MEQ/L Carbon Dioxide Level 27.6 MEQ/L Anion Gap 10 MEQ/L Estimat Glomerular Filtration Rate 200 ML/MIN Indirect Bilirubin 0.6 MG/DL Total Creatine Kinase 26 U/L Troponin I LESS THAN 0.02 NG/ML B-Type Natriuretic Peptide 30 PG/ML Beta HCG, Qualitative 3 MIU/ML Salicylates Level LESS THAN 1.7 MG/DL Acetaminophen Level 32.0 MCG/ML Ethyl Alcohol Level 231 MG/DL Lactic Acid Level 2.2 mmol/L [facility] Medical Decision Making Medical Screen Exam Complete: Yes Emergency Medical Condition: Yes Interpretation(s) EKG: Sinus tachycardia at 106bpm. Normal axis. QRS narrow. QTc 432ms. Differential Diagnosis Suicidal attempt with overdose vs. acetaminophen toxicity Narrative Course 46yo F with COPD and depression here under Combs Act for suicidal attempt with acetaminophen-codeine. Pt is AAOx3, a little sleepy but arousable with voice only. Pt is hypoxic at 87-88% on RA and has wheezing bilaterally. Pt given methylprednisolone and duonebs x3. Pt reevaluated at bedside and feels better. However, when I turn off the oxygen, she is still hypoxic in the high 80s and she does not have oxygen at home. Labs reviewed, mild leukocytosis at 12.7. Lactic acid mildly elevated at 2.2. Mild hypokalemia at 2.9. AST elevated at 82 but pt is a chronic alcoholic and has that before. Troponin negative. BNP 30. Acetaminophen level at 32. Salicylate less than 1.7. Discussed with poison control who recommends repeat acetaminophen level at 4 hours of ingestion. ABG showed O2 sat 89% on 3 L NC. CXR showed mild bibasilar parenchymal opacities. Pt given ceftriaxone and azithromycin. Discussed with Dr. Arriola and accepted to her service. Repeat acetaminophen level is 25.1. Blood alcohol 231. Critical Care Narrative Aggregate critical care time was 45 minutes. Time to perform other separately billable procedures was not included in the critical care time. My time did not include minutes spent treating any other patients simultaneously or on activities that did not directly contribute to the patient's treatment. The services I provided to this patient were to treat and/or prevent clinically significant deterioration that could result in: cardiovascular collapse or . I provided critical care services requiring my management, as noted below: Chart data review, documentation time, medication orders and management, vital sign assessments/reviewing monitor data, ordering and reviewing lab tests, ordering and interpreting/reviewing x-rays and diagnostic studies, care of the patient and discussion of the patient with the admitting physicians. Diagnosis Primary Impression: COPD exacerbation Additional Impressions: Suicide attempt Pneumonia Qualified Codes: J18.9 - Pneumonia, unspecified organism Admitting Information Admitting Physician Requests: Jenny Santana DO May 30, 2017 00:21
[2017-05-30] MEDS ORDERED: AZITHROMYCIN 250 MG TAB PO ONE (00:30)
[2017-05-30] MEDS ORDERED: cefTRIAXone INJ 1,000 MG in SODIUM CHLORIDE 0.9% INJ 100 ML IV ONE (00:30)
[2017-05-30 00:51] LABS: ALKALINE PHOSPHATASE 289 U/L (45-117); ALT (GPT) 15 U/L (10-53); ANION GAP 10 MEQ/L (5-15); AST (GOT) 82 U/L (15-37); BICARBONATE 27.6 MEQ/L (21.0-32.0); BLOOD UREA NITROGEN 3 MG/DL (7-18); CHLORIDE 100 MEQ/L (98-107); GLOMERULAR FILTRATION RATE 200 ML/MIN (>89); INDIRECT BILIRUBIN 0.6 MG/DL (0.0-0.8); MAGNESIUM 1.8 MG/DL (1.5-2.5); SODIUM (NA) 138 MEQ/L (136-145)
[2017-05-30 00:55] LABS: BHCG SCREEN QUALITATIVE 3 MIU/ML (0-5); TOTAL BILIRUBIN ADULT 2.8 MG/DL (0.2-1.0)
[2017-05-30 00:59] LABS: POTASSIUM 2.9 MEQ/L (3.5-5.1)
[2017-05-30 01:36] LABS: BLOOD GAS BASE EXCESS 2.9 mmol/L (-2-2); BLOOD GAS CARBOXYHEMOGLOBIN 4.8 % (0-4); BLOOD GAS HCO3 27 mmol/L (22-26); BLOOD GAS METHEMOGLOBIN 0.4 % (0-2); BLOOD GAS O2 HGB SATURATION 89 % (90-100); BLOOD GAS OXYGEN CONTENT 14.9 Vol % (12.0-20.0); BLOOD GAS PCO2 43 mmHg (38-42); BLOOD GAS PO2 74 mmHG (61-120); BLOOD GAS TOTAL HGB 11.9 G/DL (12.0-16.0); CRITICAL VALUE YES; TEMP CORR TO 98.6
[2017-05-30 01:37] LABS: DRAW SITE RT RADIAL; LITER FLOW 3 L/M; NUMBER OF ARTERIAL PUNCTURES 1; OXYGEN DEVICE NASAL CANNULA; STAT YES; ULNAR PULSE PRESENT
[2017-05-30] MEDS ORDERED: SODIUM CHLOR 0.9% 1000 ML INJ 1,000 ML IV SCH (01:40)
[2017-05-30] MEDS ORDERED: NALOXONE HCL 0.4 MG/ML AMP IV PUSH PRN (01:45)
[2017-05-30] MEDS ORDERED: RESP: ALBUTEROL 2.5 MG/IPRATROPIUM 0.5 MG NEB (PRN) NEB (01:45)
[2017-05-30] MEDS ORDERED: SODIUM CHLORIDE 0.9% FLUSH 10 ML FLUSH IV FLUSH PRN (01:45)
[2017-05-30] MEDS ORDERED: POTASSIUM CHLORIDE 20 MEQ CONTROLLED RELEASE TAB PO ONE (01:45)
[2017-05-30] MEDS ORDERED: SODIUM CHLOR 0.9% 1000 ML INJ 1,000 ML IV ONE (01:45)
[2017-05-30] MEDS ORDERED: FLUMAZENIL 0.5 MG/5 ML VIAL IV PUSH PRN (02:00)
[2017-05-30] MEDS: POTASSIUM CHLOR 20 MEQ PREMIX 100 ML IV SCH ×2 (02:00→04:00)
[2017-05-30] MEDS ORDERED: HALOPERIDOL LACTATE 5 MG/ML AMP IM PRN (02:00)
[2017-05-30] MEDS ORDERED: LORazepam 2 MG/ML VIAL IV PUSH PRN ×4 (02:00)
[2017-05-30] MEDS ORDERED: LORazepam 1 MG TAB PO PRN (02:00)
[2017-05-30] MEDS: POTASSIUM CHLORIDE 20 MEQ CONTROLLED RELEASE TAB PO ONE ×2 (02:08→04:54)
[2017-05-30 02:45] LABS: LACTIC ACID GHOST NOT REPORTABLE
[2017-05-30] MEDS: RESP: ALBUTEROL 2.5 MG/IPRATROPIUM 0.5 MG NEB (SCH) NEB ×4 (03:53→20:41)
--- NOTE | 2017-05-30 04:16 | HHI.HP ---
HPI Service [facility] Primary Care Physician No Primary Care Physician Admission Diagnosis Pneumonia, COPD exacerbation, overdose Diagnoses: Chief Complaint: Ingesting pills Travel History International Travel<30 Days: No Contact w/Intl Traveler <30 Da: No Traveled to Known Affected Are: No History of Present Illness Written by FERNANDO Lemus acting as scribe for [Zeinab] on 05/30/17 at 04: 08. 46 y/o female with history of COPD, and anxiety was brought to the ED under a combs act after ingesting 30 pills of Tylenol #3. Patient states niece saw her take them and called evac. She said it was a suicide attempt at that time, denies feeling that way now. Upon arrival she became short of breath and hypoxic with an o2 sat of 85%. She states she is usually always sob with a cough. She states for the last 2 weeks she has had yellow sputum. She also complains of dysuria and pain with urination, Diarrhea for a few months, and Leg swelling. She denies any history of cirrhosis. She denies any chest pain, fever or chills. Review of Systems Except as stated in HPI: all other systems reviewed are Neg Past Family Social History Past Medical History COPD Anxiety Past Surgical History Cholecystectomy Back Surgery Hernia repair Tubal pregnancies x 2 Reported Medications Reported Meds & Active Scripts Active Prednisone 50 Mg Tab 50 Mg PO DAILY 5 Days Cipro (Ciprofloxacin HCl) 500 Mg Tab 500 Mg PO BID 10 Days Percocet (Oxycodone-Acetaminophen) 5-325 mg Tab 1 Tab PO Q6H PRN Atrovent HFA 12.9 GM Inh (Ipratropium [place]) 17 Mcg/Act Aer 2 Puff INH QID Spiriva Handihaler (Tiotropium Inh) 18 Mcg Cap 18 Mcg INH DAILY Symbicort Inh (Budesonide/Formoterol Fumarate) 80-4.5 Mcg/Act Aero 2 Puff INH Q12HR Reported Xanax (Alprazolam) 1 Mg Tab 1 Mg PO HS Trazodone (Trazodone HCl) 300 Mg Tab 300 Mg PO HS Allergies: Coded Allergies: No Known Allergies (Verified , 03/26/17) Active Ordered Medications Current Medications Medications (Trade) Dose Ordered Sig/Ariel Route Start Time Stop Time Status Last Admin Sodium Chloride 1,000 ml @ 100 mls/hr Q10H IV 05/30/17 01:40 (NS Flush) 2 ml UNSCH PRN IV FLUSH 05/30/17 01:45 (NS Flush) 2 ml BID IV FLUSH 05/30/17 09:00 (Narcan Inj) 0.4 mg UNSCH PRN IV PUSH 05/30/17 01:45 (Duoneb Neb) 1 ampule Q6HR NEB NEB 05/30/17 04:00 05/30/17 03:53 (Duoneb Neb) 1 ampule Q2HR NEB PRN NEB 05/30/17 01:45 (SoluMEDROL INJ) 40 mg Q6HR IV PUSH 05/30/17 06:00 (Protonix) 40 mg DAILY PO 05/30/17 09:00 Potassium Chloride 100 ml @ 50 mls/hr Q2H IV 05/30/17 02:00 05/30/17 05:59 Sodium Chloride 1,000 ml @ 100 mls/hr Q10H IV 05/30/17 02:00 (Romazicon Inj) 0.2 mg Q1M PRN IV PUSH 05/30/17 02:00 (Ativan) 1 mg Q4H PRN PO 05/30/17 02:00 (Ativan Inj) 1 mg Q4H PRN IV PUSH 05/30/17 02:00 (Ativan) 2 mg Q2H PRN PO 05/30/17 02:00 (Ativan Inj) 2 mg Q2H PRN IV PUSH 05/30/17 02:00 (Ativan Inj) 2 mg Q1H PRN IV PUSH 05/30/17 02:00 (Ativan Inj) 2 mg Q15M PRN IV PUSH 05/30/17 02:00 (Haldol Inj) 2 mg Q15M PRN IM 05/30/17 02:00 Family History Father: Irregular HR Mom: Breast cancer Social History Tobacco use: 1 PPD Alcohol use: Daily Illicit drug use: Marijuana Physical Exam Vital Signs Vital Signs Date Time Temp Pulse Resp B/P (MAP) Pulse Ox O2 Delivery O2 Flow Rate FiO2 05/30/17 04:01 101 16 118/60 (79) 95 Nasal Cannula 3.00 05/29/17 23:45 95 Nasal Cannula 3.00 05/29/17 23:37 95 3.00 05/29/17 23:37 Nasal Cannula 3.00 95 05/29/17 23:28 94 Nasal Cannula 3.00 05/29/17 23:14 99.1 95 16 114/58 (76) 95 Physical Exam GENERAL: This is a well-nourished, obese patient in no acute distress. SKIN: No rashes, ecchymoses or lesions. Cool and dry. HEAD: Atraumatic. Normocephalic. EYES: Pupils equal round and reactive. Extraocular motions intact. ENT: Nose without bleeding, purulent drainage or septal hematoma. Airway patent. NECK: Trachea midline. No JVD or lymphadenopathy. CARDIOVASCULAR: Regular rate and rhythm without murmurs, gallops, or rubs. RESPIRATORY: Clear to auscultation. Breath sounds equal bilaterally. No wheezes , rales, or rhonchi. GASTROINTESTINAL: Abdomen soft, non-tender, distended. No guarding. MUSCULOSKELETAL: Bilateral lower extremity +1 edema . No calf tenderness. NEUROLOGICAL: Awake and alert. Motor and sensory grossly within normal limits. Normal speech. Laboratory Laboratory Tests Test 05/29/17 23:49 05/30/17 00:00 05/30/17 00:35 05/30/17 03:30 Blood Gas Puncture Site RT RADIAL Blood Gas Patient Temperature 98.6 Blood Gas HCO3 27 Blood Gas Base Excess 2.9 Blood Gas Oxygen Saturation 89 Arterial Blood pH 7.42 Arterial Blood Partial Pressure CO2 43 Arterial Blood Partial Pressure O2 74 Arterial Blood Oxygen Content 14.9 Arterial Blood Carboxyhemoglobin 4.8 Arterial Blood Methemoglobin 0.4 Blood Gas Hemoglobin 11.9 Oxygen Delivery Device NASAL CANNULA Blood Gas Liter Flow 3 White Blood Count 12.7 Red Blood Count 3.12 Hemoglobin 12.2 Hematocrit 37.0 Mean Corpuscular Volume 118.4 Mean Corpuscular Hemoglobin 39.1 Mean Corpuscular Hemoglobin Concent 33.0 Red Cell Distribution Width 17.5 Platelet Count 193 Mean Platelet Volume 8.5 Neutrophils (%) (Auto) 68.2 Lymphocytes (%) (Auto) 20.3 Monocytes (%) (Auto) 9.8 Eosinophils (%) (Auto) 1.3 Basophils (%) (Auto) 0.4 Neutrophils # (Auto) 8.6 Lymphocytes # (Auto) 2.6 Monocytes # (Auto) 1.2 Eosinophils # (Auto) 0.2 Basophils # (Auto) 0.0 CBC Comment DIFF FINAL Differential Comment Blood Urea Nitrogen 3 Creatinine 0.35 Random Glucose 108 Total Protein 7.2 Albumin 2.5 Calcium Level 8.0 Magnesium Level 1.8 Alkaline Phosphatase 289 Aspartate Amino Transf (AST/SGOT) 82 Alanine Aminotransferase (ALT/SGPT) 15 Total Bilirubin 2.8 Direct Bilirubin 2.2 Sodium Level 138 Potassium Level 2.9 Chloride Level 100 Carbon Dioxide Level 27.6 Anion Gap 10 Estimat Glomerular Filtration Rate 200 Indirect Bilirubin 0.6 Total Creatine Kinase 26 Troponin I LESS THAN 0.02 B-Type Natriuretic Peptide 30 Beta HCG, Qualitative 3 Salicylates Level LESS THAN 1.7 Acetaminophen Level 32.0 Ethyl Alcohol Level 231 Lactic Acid Level 2.2 Date/Time Source Procedure Growth Status 05/30/17 00:35 Blood Peripheral Aerobic Blood Culture Pending Received 05/30/17 00:35 Blood Peripheral Anaerobic Blood Culture Pending Received Result Diagram: 05/30/17 0000 05/30/17 0000 Imaging Last Impressions Chest X-Ray 05/29/17 [id number] Signed Impressions: Service Date/Time: Monday, May 29, 2017 23:39 - CONCLUSION: Mild bibasilar parenchymal opacities. MD Raina Messer VTE Risk Assessment Raina VTE Risk Assessment: No/Low Risk (score <= 1) Caprini Risk Assessment Model Point Value = 1 Point Value = 2 Point Value = 3 Point Value = 5 Age 41-60 Minor surgery BMI > 25 kg/m2 Swollen legs Varicose veins or History of unexplained or recurrent spontaneous Oral contraceptives or hormone replacement Sepsis (< 1 month) Serious lung disease, including pneumonia (< 1 month) Abnormal pulmonary function Acute myocardial infarction Congestive heart failure (< 1 month) History of inflammatory bowel disease Medical patient at bed rest Age 61-74 Arthroscopic surgery Major open surgery (> 45 min) Laparoscopic surgery (> 45 min) Malignancy Confined to bed (> 72 hours) Immobilizing plaster cast Central venous access Age >= 75 History of VTE Family history of VTE Factor V Leiden Prothrombin [id number] Lupus anticoagulant Anticardiolipin antibodies Elevated serum homocysteine Heparin-induced thrombocytopenia Other congenital or acquired thrombophilia Stroke (< 1 month) Elective arthroplasty Hip, pelvis, or leg fracture Acute spinal cord injury (< 1 month) Prophylaxis Regimen Total Risk Factor Score Risk Level Prophylaxis Regimen 0-1 Low Early ambulation 2 Moderate Order ONE of the following: *Sequential Compression Device (SCD) *Heparin 5000 units SQ BID 3-4 Higher Order ONE of the following medications: *Heparin 5000 units SQ TID *Enoxaparin/Lovenox 40 mg SQ daily (WT < 150 kg, CrCl > 30 mL/min) *Enoxaparin/Lovenox 30 mg SQ daily (WT < 150 kg, CrCl > 10-29 mL/min) *Enoxaparin/Lovenox 30 mg SQ BID (WT < 150 kg, CrCl > 30 mL/min) AND/OR *Sequential Compression Device (SCD) 5 or more Highest Order ONE of the following medications: *Heparin 5000 units SQ TID (Preferred with Epidurals) *Enoxaparin/Lovenox 40 mg SQ daily (WT < 150 kg, CrCl > 30 mL/min) *Enoxaparin/Lovenox 30 mg SQ daily (WT < 150 kg, CrCl > 10-29 mL/min) *Enoxaparin/Lovenox 30 mg SQ BID (WT < 150 kg, CrCl > 30 mL/min) AND *Sequential Compression Device (SCD) Assessment and Plan Problem List: (1) COPD exacerbation ICD Code: J44.1 - Chronic obstructive pulmonary disease with (acute) exacerbation Status: Acute (2) Pneumonia ICD Code: J18.9 - Pneumonia, unspecified organism Status: Acute (3) Suicide attempt ICD Code: T14.91XA - Suicide attempt, initial encounter Status: Acute Assessment and Plan 46 y/o female with history of COPD, and anxiety was brought to the ED under a combs act after ingesting 30 pills of Tylenol #3. Acute respiratory failure, on chronic COPD, 85% on room air -DuoNeb's scheduled and when necessary -IV Solu-Medrol -Oxygen 2 L Leukocytosis, suspect pneumonia Chest x-ray reviewed and shows bilateral basilar parenchymal opacity WBCs 12.7 -Levaquin IV -Incentive spirometer -UA ordered Urinary retention, likely due to cirrhosis -BladderScan patient, insert Bar patient is unable to void Drug overdose, patient ingested 30 Tylenol 3's, suicidal thoughts Tylenol level 32 -Continue Combs act -Consult psychiatry -Repeat Tylenol level l Hypo-kalemia, potassium 2.9 -Supplementation ordered, BMP in a.m., will replace as needed Lactic acidosis, lactic acid 2.2-->4.4, patient was in respiratory distress at time of second lactic acid suspect elevated lactic due to liver disease -Abdominal ultrasound ordered -Repeat lactic acid Diarrhea, chronic for 2 months -C. difficile and other stool studies ordered Alcohol abuse, patient does not know the amount that she drinks with states she drinks throughout the day -Encouraged -CIWA protocol -Seizure precautions DVT prophylaxis SCDs Discussed Condition With patient and RN Physician Certification 2 Midnight Certification Type: Admission for Inpatient Services Order for Inpatient Services The services are ordered in accordance with Medicare regulations or non- Medicare payer requirements, as applicable. In the case of services not specified as inpatient-only, they are appropriately provided as inpatient services in accordance with the 2-midnight benchmark. Estimated LOS (days): 3 days is the estimated time the patient will need to remain in the hospital, assuming treatment plan goals are met and no additional complications. Post-Hospital Plan: Not yet determined Problem Qualifiers (1) Pneumonia: Qualified Codes: J18.9 - Pneumonia, unspecified organism Rama Myers May 30, 2017 04:16
[2017-05-30] MEDS: SODIUM CHLOR 0.9% 1000 ML INJ 1,000 ML IV SCH ×3 (05:21→20:53)
[2017-05-30] MEDS: methylPREDNISolone SOD SUCC 40 MG/1 ML VIAL IV PUSH SCH ×3 (05:50→18:18)
[2017-05-30] MEDS ORDERED: THIAMINE HCL 100 MG TAB PO ONE (08:45)
[2017-05-30] MEDS: SODIUM CHLORIDE 0.9% FLUSH 10 ML FLUSH IV FLUSH SCH ×2 (09:00→20:53)
[2017-05-30] MEDS ORDERED: THIAMINE HCL 100 MG TAB PO SCH (09:00)
[2017-05-30] MEDS: LEVOFLOXACIN 750 MG PREMIX INJ 150 ML IV SCH (09:03)
[2017-05-30] MEDS: chlordiazePOXIDE 25 MG CAP PO SCH ×3 (09:03→18:18)
[2017-05-30] MEDS: PANTOPRAZOLE SOD 40 MG DELAYED RELEASE TAB PO SCH (09:03)
--- NOTE | 2017-05-30 10:21 | RADRPT ---
EXAM DATE/TIME: 05/30/2017 09:14 [place] COMPARISON: CT ABDOMEN & PELVIS W CONTRAST, March 26, 2017, 23:40. INDICATIONS : Abdominal pain. Ascites. MEDICAL HISTORY : Chronic obstructive pulmonary disease. Asthma. History of ectopic . Hearing loss. Hernia . Substance use. Depression. Anxiety. SURGICAL HISTORY : Cholecystectomy. Blood transfusions. Ectopic removal. ENCOUNTER: Initial ACUITY: 1 day PAIN SCORE: 2/10 LOCATION: Abdomen. MEASUREMENTS: LIVER: 19.8 cm length COMMON DUCT: 7 mm RIGHT KIDNEY: 12.9 x 5.3 x 6.6 cm LEFT KIDNEY: 12.5 x 5.8 x 5.6 cm SPLEEN: 12.9 cm length AORTA: 1.2cm maximal FINDINGS: Ultrasound of the upper abdomen demonstrates increased echogenicity of the liver compatible with fatt y infiltration or hepatocellular disease. There is hepatopedal flow within the portal vein.there are prominent vessels in the splenic hilum characteristic of varices. The spleen is unremarkable. Moderat e ascites is present. Ultrasound of the kidneys demonstrate normal size shape and echogenicity. No hy dronephrosis or mass lesions are identified. The pancreas is not visualized secondary to overlying jessica wel gas. The gallbladder is normal without wall thickening or pericholecystic fluid. CONCLUSION: 1. Findings of cirrhosis with possible portal hypertension 2. Ascites Doe Moss MD on May 30, 2017 at 10:08 Board Certified Radiologist. This report was verified electronically.
--- NOTE | 2017-05-30 11:11 | PD.PSY.CON ---
Provisional Diagnosis Admission Date May 30, 2017 at 01:45 [place] I. Adjustment disorder with depressed mood Vs MDD, Hx of Anxiety and depression, alcohol use disorder [place] II. Deferred [place] III. COPD, lower back pain [place] IV. Family conflicts [place] V. 40 History of Present Illness Service Psychiatry Consult Requested By Reason for Consult Suicide attempt Primary Care Physician No Primary Care Physician HPI The patient is a 46-year-old woman, domiciled her in [place], unemployed, with psychiatric history of depression, anxiety, alcohol use disorder, no previous psychiatric hospitalizations, one previous suicidal attempt by overdosing, she is on Trazodone 300 and 71 mg in the morning and 2 mg at night prescribed by PCP, with medical history of COPD and lower back pain , who was brought to the ED under a carmona act after ingesting 30 pills of Tylenol #3. Patient states niece saw her take them and called evac. She said it was a suicide attempt at that time, denies feeling that way now. Upon arrival she became short of breath and hypoxic with an o2 sat of 85%. She states she is usually always sob with a cough. She states for the last 2 weeks she has had yellow sputum. She also complains of dysuria and pain with urination, Diarrhea for a few months, and Leg swelling. She denies any history of cirrhosis. She denies any chest pain, fever or chills. On psychiatric evaluation today patient is irritable, oppositional and resistant. She says that she overdosed last night with 30 pill, or even more, of Tylenol 3 with intentions to . Patient says that after an argument with her she felt that she did not want to continue living anymore. Patient refused to provide information about the motivation and content of argument with her . She says that is not in the past and she doesn't want to anymore. Patient reported that she has been stable in current psychotropic regimen for many years, but sometimes she relapsed in her depression by moment "and alcohol doesn't help". She reports the last night she was drinking "as I do almost everyday". He reports daily use of alcohol, but fails to quantify. She also reports occasional use of marijuana. At this moment the patient denies suicidal ideation, homicidal ideation, visual and auditory hallucinations. No paranoia, no delusions, no agitation or aggressive behavior reported or observed. Patient is oriented 3, attention deficit, no fluctuation of consciousness present. Review of Systems Constitutional: DENIES: Diaphoretic episodes, Fatigue, Fever, Weight gain, Weight loss, Chills, Dizziness, Change in appetite, Night Sweats Endocrine: DENIES: Abnorml menstrual pattern, Heat/cold intolerance, Polydipsia , Polyuria, Polyphagia Eyes: DENIES: Blurred vision, Diplopia, Eye inflammation, Eye pain, Vision loss , Photosensitivity, Double Vision Ears, nose, mouth, throat: DENIES: Tinnitus, Hearing loss, Vertigo, Nasal discharge, Oral lesions, Throat pain, Hoarseness, Ear Pain, Running Nose, Epistaxis, Sinus Pain, Toothache, Odynophagia Respiratory: DENIES: Apneas, Cough, Snoring, Wheezing, Hemoptysis, Sputum production, Shortness of breath Cardiovascular: DENIES: Chest pain, Palpitations, Syncope, Dyspnea on Exertion , PND, Lower Extremity Edema, Orthopnea, Claudication Gastrointestinal: DENIES: Abdominal pain, Black stools, Bloody stools, Constipation, Diarrhea, Nausea, Vomiting, Difficulty Swallowing, Anorexia Musculoskeletal: DENIES: Joint pain, Muscle aches, Stiffness, Joint Swelling, Back pain, Neck pain Integumentary: DENIES: Abnormal pigmentation, Pruritus, Rash, Nail changes, Breast masses, Breast skin changes, Nipple discharge Hematologic/lymphatic: DENIES: Bruising, Lymphadenopathy Immunologic/allergic: DENIES: Eczema, Urticaria Neurologic: DENIES: Abnormal gait, Headache, Localized weakness, Paresthesias, Seizures, Speech Problems, Tremor, Poor Balance Psychiatric: DENIES: Anxiety, Confusion, Mood changes, Depression, Hallucinations, Agitation, Suicidal Ideation, Homicidal Ideation, Delusions Past Family Social History Coded Allergies: No Known Allergies (Verified , 03/26/17) Active Scripts Prednisone (Prednisone) 50 Mg Tab, 50 MG PO DAILY for 5 Days, TAB 0 Refills Prov:Pablito Morton MD 03/27/17 Ciprofloxacin (Cipro) 500 Mg Tab, 500 MG PO BID for Infection for 10 Days, TAB 0 Refills Prov:Pablito Morton MD 03/27/17 Oxycodone-Acetaminophen (Percocet) 5-325 mg Tab, 1 TAB PO Q6H Y for PAIN, #10 TAB 0 Refills Prov:Pablito Morton MD 03/27/17 Ipratropium HFA 12.9 GM Inh (Atrovent HFA 12.9 GM Inh) 17 Mcg/Act Aer, 2 PUFF INH QID for Breathing Treatment, #1 INHALER 0 Refills Prov:Sanjiv Shen MD 08/21/16 Tiotropium Inh (Spiriva Handihaler) 18 Mcg Cap, 18 MCG INH DAILY for Breathing Treatment, #30 CAP Prov:Sanjiv Shen MD 08/21/16 Budesonide-Formoterol Inh (Symbicort Inh) 80-4.5 Mcg/Act Aero, 2 PUFF INH Q12HR for Breathing Treatment, #60 INHALER Prov:Sanjiv Shen MD 08/21/16 Reported Medications Alprazolam (Xanax) 1 Mg Tab, 1 MG PO HS for ANXIETY, TAB 0 Refills 08/20/16 Trazodone (Trazodone) 300 Mg Tab, 300 MG PO HS for Control Depression, #30 TAB 0 Refills 08/20/16 Current Medications Medications (Trade) Dose Ordered Sig/Ariel Route Start Time Stop Time Status Last Admin (NS Flush) 2 ml UNSCH PRN IV FLUSH 05/30/17 01:45 (NS Flush) 2 ml BID IV FLUSH 05/30/17 09:00 (Narcan Inj) 0.4 mg UNSCH PRN IV PUSH 05/30/17 01:45 (Duoneb Neb) 1 ampule Q6HR NEB NEB 05/30/17 04:00 05/30/17 10:24 (Duoneb Neb) 1 ampule Q2HR NEB PRN NEB 05/30/17 01:45 (SoluMEDROL INJ) 40 mg Q6HR IV PUSH 05/30/17 06:00 05/30/17 05:50 (Protonix) 40 mg DAILY PO 05/30/17 09:00 05/30/17 09:03 Sodium Chloride 1,000 ml @ 100 mls/hr Q10H IV 05/30/17 02:00 05/30/17 05:21 (Romazicon Inj) 0.2 mg Q1M PRN IV PUSH 05/30/17 02:00 (Ativan) 1 mg Q4H PRN PO 05/30/17 02:00 (Ativan Inj) 1 mg Q4H PRN IV PUSH 05/30/17 02:00 (Ativan) 2 mg Q2H PRN PO 05/30/17 02:00 (Ativan Inj) 2 mg Q2H PRN IV PUSH 05/30/17 02:00 (Ativan Inj) 2 mg Q1H PRN IV PUSH 05/30/17 02:00 (Ativan Inj) 2 mg Q15M PRN IV PUSH 05/30/17 02:00 (Haldol Inj) 2 mg Q15M PRN IM 05/30/17 02:00 (Librium) 25 mg TID PO 05/30/17 09:00 05/30/17 09:03 Levofloxacin/ Dextrose 150 ml @ 100 mls/hr Q24H IV 05/30/17 09:00 05/30/17 09:03 (Vitamin B1) 500 mg ONCE ONCE PO 05/30/17 08:45 05/30/17 08:46 UNV (Vitamin B1) 100 mg DAILY PO 05/30/17 09:00 UNV Family Psych History Her mother was diagnosed with depression Social History Patient was born racing [facility], she lives in [place] with her , she is unemployed, highest level of education is 2 years college Patient's Strengths (min. 2) Verbal communication Physical Exam No tremors, no EPS, no withdrawal symptoms, no psychomotor agitation or retardation, no gait disturbances Vital Signs Vital Signs Date Time Temp Pulse Resp B/P (MAP) Pulse Ox O2 Delivery O2 Flow Rate FiO2 05/30/17 07:39 98.0 106 20 125/64 (84) 92 05/30/17 04:01 Nasal Cannula 3.00 05/29/17 23:37 95 I/O 05/30/17 05/30/17 05/31/17 08:00 16:00 00:00 Intake Total 1100 ml Balance 1100 ml Lab Results Test 05/29/17 23:49 05/30/17 00:00 05/30/17 00:35 05/30/17 03:30 Blood Gas Puncture Site RT RADIAL Blood Gas Patient Temperature 98.6 Blood Gas HCO3 27 mmol/L Blood Gas Base Excess 2.9 mmol/L Blood Gas Oxygen Saturation 89 % Arterial Blood pH 7.42 Arterial Blood Partial Pressure CO2 43 mmHg Arterial Blood Partial Pressure O2 74 mmHG Arterial Blood Oxygen Content 14.9 Vol % Arterial Blood Carboxyhemoglobin 4.8 % Arterial Blood Methemoglobin 0.4 % Blood Gas Hemoglobin 11.9 G/DL Oxygen Delivery Device NASAL CANNULA Blood Gas Liter Flow 3 L/M White Blood Count 12.7 TH/MM3 Red Blood Count 3.12 MIL/MM3 Hemoglobin 12.2 GM/DL Hematocrit 37.0 % Mean Corpuscular Volume 118.4 FL Mean Corpuscular Hemoglobin 39.1 PG Mean Corpuscular Hemoglobin Concent 33.0 % Red Cell Distribution Width 17.5 % Platelet Count 193 TH/MM3 Mean Platelet Volume 8.5 FL Neutrophils (%) (Auto) 68.2 % Lymphocytes (%) (Auto) 20.3 % Monocytes (%) (Auto) 9.8 % Eosinophils (%) (Auto) 1.3 % Basophils (%) (Auto) 0.4 % Neutrophils # (Auto) 8.6 TH/MM3 Lymphocytes # (Auto) 2.6 TH/MM3 Monocytes # (Auto) 1.2 TH/MM3 Eosinophils # (Auto) 0.2 TH/MM3 Basophils # (Auto) 0.0 TH/MM3 CBC Comment DIFF FINAL Differential Comment Blood Urea Nitrogen 3 MG/DL Creatinine 0.35 MG/DL Random Glucose 108 MG/DL Total Protein 7.2 GM/DL Albumin 2.5 GM/DL Calcium Level 8.0 MG/DL Magnesium Level 1.8 MG/DL Alkaline Phosphatase 289 U/L Aspartate Amino Transf (AST/SGOT) 82 U/L Alanine Aminotransferase (ALT/SGPT) 15 U/L Total Bilirubin 2.8 MG/DL Direct Bilirubin 2.2 MG/DL Sodium Level 138 MEQ/L Potassium Level 2.9 MEQ/L Chloride Level 100 MEQ/L Carbon Dioxide Level 27.6 MEQ/L Anion Gap 10 MEQ/L Estimat Glomerular Filtration Rate 200 ML/MIN Indirect Bilirubin 0.6 MG/DL Total Creatine Kinase 26 U/L Troponin I LESS THAN 0.02 NG/ML B-Type Natriuretic Peptide 30 PG/ML Beta HCG, Qualitative 3 MIU/ML Salicylates Level LESS THAN 1.7 MG/DL Acetaminophen Level 32.0 MCG/ML Ethyl Alcohol Level 231 MG/DL Lactic Acid Level 2.2 mmol/L 4.4 mmol/L Test 05/30/17 04:40 05/30/17 10:04 Acetaminophen Level 25.1 MCG/ML Lactic Acid Level 7.5 mmol/L Date/Time Source Procedure Growth Status 05/30/17 00:35 Blood Peripheral Aerobic Blood Culture Pending Received 05/30/17 00:35 Blood Peripheral Anaerobic Blood Culture Pending Received Mental Status Examination Appearance: Appropriate Consciousness: Alert Orientation: x4 Motor Activity: Normal gait Speech: Unremarkable Language: Adequate Fund of Knowledge: Adequate Attention and Concentration: Adequate Memory: Unremarkable Mood: Irritable Affect: Irritable Thought Process & Associations: Intact Thought Content: Appropriate Hallucination Type: None Delusion Type: None Suicidal Ideation: No Suicidal Plan: No Suicidal Intention: No Homicidal Ideation: No Homicidal Plan: No Homicidal Intention: No Insight: Adequate Judgment: Adequate Assessment & Plan Problem List: (1) Adjustment disorder with depressed mood ICD Codes: F43.21 - Adjustment disorder with depressed mood Assessment & Plan: The patient has a psychiatric history of depression, anxiety and alcohol use disorder. She has history of previous suicidal attempts by overdosing. She presents to the ER after a very lethal suicidal attempt by overdosing with over 30 pills of Tylenol 3 with intentions to . Patient seems to be unable to elaborate about the reason, emotions and circumstances that led to suicidal attempt. During the evaluation she didn't mostly resistant, irritable and oppositional. Collateral information could not be reached at this moment. Patient has an elevator recent of danger to herself at this moment and needs psychiatric admission for stabilization, no psychotropics will be recommended at this moment. Patient will be transferred to psychiatry once medically appropriate. Extensive support, motivation psycho education provided. She should remain in [employer] protocol and 1:1 sitter in the ER. Assessment & Plan Estimated LOS: Joseph Kaufman MD May 30, 2017 11:11
[2017-05-30] MEDS ORDERED: ALBUMIN 25% INJ 100 ML IV ONE (11:15)
--- NOTE | 2017-05-30 12:23 | EKG ---
Date Performed: 05/30/2017 Time Performed: 00:39:13 PTAGE: 46 years EKG: SINUS TACHYCARDIA WITH OCCASIONAL SUPRAVENTRICULAR PREMATURE COMPLEXES ST DEVIATION AND MOD ERATE T-WAVE ABNORMALITY, CONSIDER INFERIOR ISCHEMIA ABNORMAL ECG PREVIOUS TRACING : 05/30/2017 00.38 Compared to prior tracing no significant change DOCTOR: Amparo Villegas Interpretating Date/Time 05/30/2017 12:18:17
--- NOTE | 2017-05-30 12:28 | PD.CONS ---
HPI History of Present Illness This is a 46 year old with a history of alcohol abuse and anxiety and depression , who ingested 30 Tylenol with codeine last night in a suicide attempt. She cannot tell me the exact time, but according to the ER report, EVAC was called around 12 mn after her niece witnessed her take the Tylenol. The patient also admits to daily ETOH use and drinking alcohol off and on throughout the day prior to taking the Tylenol. She cannot quantify the amount, but states it was a large amount of ETOH. Her niece witnessed this and called for help and she was brought to the emergency room as a Combs Act. She is currently tachypneic with labored breathing and is getting ready to go down for a paracentesis. She denies any known history of liver disease or cirrhosis, but her US does appreciate findings suggestive of cirrhosis and ascites. She reports that her abdomen has been swollen for "quite a while." She has never had a paracentesis. She reports that she drinks every day, but is not able to quantify the amount. She has vomited twice today- purple color. She states that it did not look like blood and the nurse has not witnessed any vomiting. She denies any abdominal pain, but does have mild diffuse tenderness on exam. She reports that she has a low grade fever in the ambulance, but has not otherwise had any temperatures. She reports "constant diarrhea" x 4 months. She states that she is constantly "running to the toilet" with urgency and loose stools. Again, she cannot quantify the amount but thinks this is more than 10 times in a 24 hour period. She denies any melena or hematochezia. (Giselle Snyder) [facility] Past Medical History Asthma COPD Anxiety/Depression Prior drug overdose ETOH abuse Past Surgical History Cholecystectomy Back Surgery Abdominal hernia repair Tubal pregnancies x 2 (Giselle Snyder) Coded Allergies: No Known Allergies (Verified , 03/26/17) Medications Allergies Coded Allergies Type Severity Reaction Last Updated Verified No Known Allergies 03/26/17 Yes Active Scripts Medications Dose Route/Sig Max Daily Dose Days Date Category Prednisone 50 Mg Tab 50 Mg PO DAILY 5 03/27/17 Rx Cipro- pt denies (Ciprofloxacin HCl) 500 Mg Tab 500 Mg PO BID 10 03/27/17 Rx Percocet- pt denies (Oxycodone-Acetaminophen) 5-325 mg Tab 1 Tab PO Q6H PRN 03/27/17 Rx Atrovent HFA 12.9 GM Inh (Ipratropium [place]) 17 Mcg/Act Aer 2 Puff INH QID 08/21/16 Rx Spiriva Handihaler (Tiotropium Inh) 18 Mcg Cap 18 Mcg INH DAILY 08/21/16 Rx Symbicort Inh (Budesonide/Formoterol Fumarate) 80-4.5 Mcg/Act Aero 2 Puff INH Q12HR 08/21/16 Rx Xanax (Alprazolam) 1 Mg Tab 1 Mg PO HS 08/20/16 Reported Trazodone (Trazodone HCl) 300 Mg Tab 300 Mg PO HS 08/20/16 Reported Pt states she is only taking trazodone and xanax and denies taking the percocet and cipro listed on this list Family History Father with atrial fibrillation Mother with breast cancer Social History Smokes 1 PPD Daily ETOH use, but unable to quantify Marijuana use (Giselle Snyder) Review of Systems Constitutional: COMPLAINS OF: Fatigue, Fever, DENIES: Weight loss, Chills, Change in appetite Respiratory: DENIES: Cough Cardiovascular: DENIES: Chest pain Gastrointestinal: COMPLAINS OF: Abdominal pain, Diarrhea, Nausea, Vomiting, Swelling of Abdomen, DENIES: Black stools, Bloody stools, Constipation, Heartburn, Hematemesis Hematologic/lymphatic: DENIES: Bruising Neurologic: DENIES: Headache Psychiatric: DENIES: Confusion (Giselle Snyder) GI Exam Vitals I&O Vital Signs Date Time Temp Pulse Resp B/P (MAP) Pulse Ox O2 Delivery O2 Flow Rate FiO2 05/30/17 11:29 98.0 97 18 124/60 (81) 91 05/30/17 07:39 98.0 106 20 125/64 (84) 92 05/30/17 05:15 98.2 108 19 118/57 (77) 94 05/30/17 04:01 101 16 118/60 (79) 95 Nasal Cannula 3.00 05/29/17 23:45 95 Nasal Cannula 3.00 05/29/17 23:37 95 3.00 05/29/17 23:37 Nasal Cannula 3.00 95 05/29/17 23:28 94 Nasal Cannula 3.00 05/29/17 23:14 99.1 95 16 114/58 (76) 95 I/O 05/29/17 05/29/17 05/29/17 05/30/17 05/30/17 05/30/17 07:00 15:00 23:00 07:00 15:00 23:00 Intake Total 1100 ml Balance 1100 ml Intake IV Total 1100 ml Imaging Last Impressions Abdomen Ultrasound 05/30/17 0000 Signed Impressions: Service Date/Time: May 09:14 - CONCLUSION: 1. Findings of cirrhosis with possible portal hypertension 2. Ascites Doe Moss MD Chest X-Ray 05/29/17 2332 Signed Impressions: Service Date/Time: Monday, May 29, 2017 23:39 - CONCLUSION: Mild bibasilar parenchymal opacities. Jalil Vieira MD Laboratory Test 05/29/17 23:49 05/30/17 00:00 05/30/17 00:35 05/30/17 03:30 Blood Gas Puncture Site RT RADIAL Blood Gas Patient Temperature 98.6 Blood Gas HCO3 27 mmol/L Blood Gas Base Excess 2.9 mmol/L Blood Gas Oxygen Saturation 89 % Arterial Blood pH 7.42 Arterial Blood Partial Pressure CO2 43 mmHg Arterial Blood Partial Pressure O2 74 mmHG Arterial Blood Oxygen Content 14.9 Vol % Arterial Blood Carboxyhemoglobin 4.8 % Arterial Blood Methemoglobin 0.4 % Blood Gas Hemoglobin 11.9 G/DL Oxygen Delivery Device NASAL CANNULA Blood Gas Liter Flow 3 L/M White Blood Count 12.7 TH/MM3 Red Blood Count 3.12 MIL/MM3 Hemoglobin 12.2 GM/DL Hematocrit 37.0 % Mean Corpuscular Volume 118.4 FL Mean Corpuscular Hemoglobin 39.1 PG Mean Corpuscular Hemoglobin Concent 33.0 % Red Cell Distribution Width 17.5 % Platelet Count 193 TH/MM3 Mean Platelet Volume 8.5 FL Neutrophils (%) (Auto) 68.2 % Lymphocytes (%) (Auto) 20.3 % Monocytes (%) (Auto) 9.8 % Eosinophils (%) (Auto) 1.3 % Basophils (%) (Auto) 0.4 % Neutrophils # (Auto) 8.6 TH/MM3 Lymphocytes # (Auto) 2.6 TH/MM3 Monocytes # (Auto) 1.2 TH/MM3 Eosinophils # (Auto) 0.2 TH/MM3 Basophils # (Auto) 0.0 TH/MM3 CBC Comment DIFF FINAL Differential Comment Blood Urea Nitrogen 3 MG/DL Creatinine 0.35 MG/DL Random Glucose 108 MG/DL Total Protein 7.2 GM/DL Albumin 2.5 GM/DL Calcium Level 8.0 MG/DL Magnesium Level 1.8 MG/DL Alkaline Phosphatase 289 U/L Aspartate Amino Transf (AST/SGOT) 82 U/L Alanine Aminotransferase (ALT/SGPT) 15 U/L Total Bilirubin 2.8 MG/DL Direct Bilirubin 2.2 MG/DL Sodium Level 138 MEQ/L Potassium Level 2.9 MEQ/L Chloride Level 100 MEQ/L Carbon Dioxide Level 27.6 MEQ/L Anion Gap 10 MEQ/L Estimat Glomerular Filtration Rate 200 ML/MIN Indirect Bilirubin 0.6 MG/DL Total Creatine Kinase 26 U/L Troponin I LESS THAN 0.02 NG/ML B-Type Natriuretic Peptide 30 PG/ML Beta HCG, Qualitative 3 MIU/ML Salicylates Level LESS THAN 1.7 MG/DL Acetaminophen Level 32.0 MCG/ML Ethyl Alcohol Level 231 MG/DL Lactic Acid Level 2.2 mmol/L 4.4 mmol/L Test 05/30/17 04:40 05/30/17 10:04 Acetaminophen Level 25.1 MCG/ML Lactic Acid Level 7.5 mmol/L Total Creatine Kinase 22 U/L Date/Time Source Procedure Growth Status 05/30/17 00:35 Blood Peripheral Aerobic Blood Culture Pending Received 05/30/17 00:35 Blood Peripheral Anaerobic Blood Culture Pending Received Physical Examination HEENT: Normocephalic; atraumatic; no jaundice. CHEST: Resp shallow/labored, tachypneic, diminished CARDIAC: ST ABDOMEN: Soft, large amount of ascites, diffuse tenderness; bowel sounds are present in all four quadrants. EXTREMITIES: No clubbing, cyanosis, or edema. SKIN: Normal; no rash; no jaundice. LATRINE CLEANER: No focal deficits; lethargic and oriented times three. (Giselle Snyder) Assessment and Plan Plan ASSESSMENT: - Tylenol Toxicity/Tylenol OD with ETOH in patient with underlying liver cirrhosis and ETOH abuse. Pt took 30 Tyelnol #3 ~ mn along with drinking alcohol throughout the day with underlying liver disease. Acetaminophen level on admission 32.0---> 25.1, Ethyl alcohol 231. LFT T. Bili 2.8, Direct 2.2, indirect 0.6, AST 82, ALT 15, Alk Phosph 289. Stat PT/INR, CMP, Ammonia ordered and then will need to be done q4h. Acetylcysteine IV protocol. - Ascites. US guided paracentesis ordered with fluid analysis. WBC 12.7. Levaquin. - Liver cirrhosis, based on imaging. Pt denies any known history of this. US ( 05/30/17)---> Findings of cirrhosis with possible portal hypertension. Ascites. Reports daily ETOH use, unable to quantify. Denies any hx of hepatitis. Will get liver workup. - Fever, leukocytosis, elevated lactic acid. Pt reports fever in ambulance. WBC 12.7 on admission. No repeat labs. Lactic acid has gone from 2.2---> 7.5. Blood cx pending. ? SBP vs. pna vs. diarrheal infection. - Diarrhea. Pt reports that she "always" has diarrhea with > 10 loose stools per day. Will get stool studies, cdiff. - Resp. Insufficiency with Asthma, COPD. CXR (05/29/17)---> mild bibasilar parenchymal opacities. Levaquin, Solumedrol. Her breathing is shallow/labored/tachypneic, but feel much of this is related to her ascites and will likely improve some after her paracentesis. - SA, Depression. BA per psych. PLAN: - NPO for now - Stat PT, INR, Ammonia, CMP- Spoke to nurse and called and spoke to lab - Start Acetylcysteine IV per protocol - US guided paracentesis with fluid analysis - CMP, PT/INR, Ammonia q4h - CBC in am - Send stool for cdiff, o&p, giardia, and c/s - Cont. Levaquin - AFP level - Hepatitis profile - LIMA, ASMA, AMA - Ceruloplasmin, ALpha 1 antitrypsin - Ferritin, Iron saturation - Follow acetaminophen level - Spoke to nurse, poison control contacted - Tx to intensive care for closer monitoring - Notify GI of any change in mental status/clinical status - Supportive care - Further recommendations to follow based on results of above - Pt seen and examined by Dr. Lobo and myself and this note is written on his behalf (Giselle Snyder) Physician Comments Seen and examined with FITTING ROOM INSPECTOR, acute acetaminophen toxicity in the background of chronic liver disease possible cirrhosis due to etoh. Liver treadwell ordered. IV mucomyst, notify poison control. ICU monitoring. NOt a candidate for liver transplant evaluation due to active etoh and suicide attempt.Will follow. (Brittanie Lobo MD) Giselle Snyder May 30, 2017 12:28 Brittanie Lobo MD May 30, 2017 16:57
[2017-05-30] MEDS ORDERED: SODIUM CHLORIDE 0.9% FLUSH 10 ML FLUSH IVF PRN (12:30)
[2017-05-30 12:58] LABS: INTERNATIONAL NORMALIZED RATIO 1.3 RATIO
[2017-05-30 13:03] LABS: BASOPHIL # 0.1 TH/MM3 (0-0.2); BASOPHIL % 0.7 % (0.0-2.0); EOSINOPHIL % 0.1 % (0.0-4.0); HEMATOCRIT 34.5 % (35.0-46.0); HEMO FLAGS DIFF FINAL; LYMPH % 5.9 % (9.0-44.0); LYMPHOCYTE # 0.7 TH/MM3 (1.0-4.8); MEAN CELL VOLUME 119.6 FL (80.0-100.0); MEAN CORPUSCULAR HEMOGLOBIN 39.2 PG (27.0-34.0); MEAN CORPUSCULAR HGB CONC 32.7 % (32.0-36.0); NEUT % 89.3 % (16.0-70.0); PLATELET COUNT 179 TH/MM3 (150-450); RED BLOOD COUNT 2.88 MIL/MM3 (4.00-5.30); RED CELL DISTRIBUTION WIDTH 17.3 % (11.6-17.2); WHITE BLOOD COUNT 11.2 TH/MM3 (4.0-11.0)
[2017-05-30 13:11] LABS: INTERNATIONAL NORMALIZED RATIO 1.2 RATIO; PROTHROMBIN TIME - PATIENT 13.8 SEC (9.8-11.6)
[2017-05-30 13:12] LABS: BLOOD GAS BASE EXCESS -0.1 mmol/L (-2-2); BLOOD GAS CARBOXYHEMOGLOBIN 2.2 % (0-4); BLOOD GAS HCO3 23 mmol/L (22-26); BLOOD GAS METHEMOGLOBIN 0.4 % (0-2); BLOOD GAS O2 HGB SATURATION 90 % (90-100); BLOOD GAS OXYGEN CONTENT 14.1 Vol % (12.0-20.0); BLOOD GAS PCO2 35 mmHg (38-42); BLOOD GAS PO2 64 mmHG (61-120); BLOOD GAS TOTAL HGB 11.2 G/DL (12.0-16.0); CRITICAL VALUE NO; DRAW SITE LT RADIAL; LITER FLOW 2 L/M; NUMBER OF ARTERIAL PUNCTURES 1; OXYGEN DEVICE NASAL CANNULA; STAT YES; TEMP CORR TO 98.6; ULNAR PULSE PRESENT
[2017-05-30 13:22] LABS: BICARBONATE 22.3 MEQ/L (21.0-32.0); INDIRECT BILIRUBIN 0.6 MG/DL (0.0-0.8); POTASSIUM 3.5 MEQ/L (3.5-5.1); TOTAL BILIRUBIN ADULT 2.5 MG/DL (0.2-1.0)
[2017-05-30] MEDS ORDERED: LIDOCAINE HCL 1% PF 30 ML VIAL ONE (14:50)
--- NOTE | 2017-05-30 15:13 | RADRPT ---
EXAM DATE/TIME: 05/30/2017 13:15 [facility] COMPARISON: No previous studies available for comparison. INDICATIONS : Ascites. MEDICAL HISTORY : Chronic obstructive pulmonary disease. Asthma. History of ectopic . Hearing loss. Hernia. Substance use. Depression. Anxiety. SURGICAL HISTORY : Cholecystectomy Blood transfusions. Ectopic removal. ENCOUNTER: Initial ACUITY: 1 week PAIN SCORE: 7/10 LOCATION: Left lower quadrant FLUID: Total volume of 3800 cc of clear, yellow fluid was removed. Fluid was sent to lab for ordered studies. Post procedure scanning reveals no hematoma or other complication. TECHNIQUE: 1. Ultrasound guidance for abdominal paracentesis. 2. Paracentesis. The risks, benefits, and alternatives to ultrasound guided paracentesis were explained to the patient in detail including the risk of bleeding and infection. Written and verbal informed consent was obt ained. With the patient on the ultrasound table, ultrasound imaging was used to select the most appropriate approach for paracentesis. Overlying skin was prepped and draped in the usual sterile fashion and wi th a local anesthetic, a dermatotomy was made with an 11 blade scalpel. A 6 [place] [id number] ca theter was introduced into the peritoneal cavity and fluid was collected. The patient tolerated the procedure well and left the ultrasound suite in stable condition. CONCLUSION: Uncomplicated ultrasound guided paracentesis. Pipe Sarah Jr., MD on May 30, 2017 at 15:11 Board Certified Radiologist. This report was verified electronically.
[2017-05-30 17:31] LABS: PERITONEAL HISTIOCYTES 7 %; PERITONEAL LYMPHS 14 %; PERITONEAL MESOTHELIAL 31 %; PERITONEAL MONOS 39 %; PERITONEAL POLYS(SEGS) 9 %; PERITONEAL WBC 200 /MM3 (0-10)
[2017-05-30] MEDS ORDERED: CHLORHEXIDINE GLUCONATE 2 % 1 PACK (2 CLOTHS)(extra cloths) TOPICAL PRN (17:45)
[2017-05-30] MEDS ORDERED: WATER IV SCH ×2 (18:00)
[2017-05-30] MEDS ORDERED: DEXTROSE 5% IV SCH ×4 (18:00→20:00)
[2017-05-30] MEDS ORDERED: ACETYLCYSTEINE IV SCH ×4 (18:00→20:00)
[2017-05-30] MEDS ORDERED: WATE IV SCH ×2 (20:00)
[2017-05-30 20:52] LABS: BLOOD, URINE NEG (NEG); COMMENT (UR) CULT NOT INDICATED; CULTURE IF INDICATED CULT NOT INDICATED; GLUCOSE,URINE TRACE mg/dL (NEG); KETONE, URINE 40 mg/dL (NEG); MUCUS URINE FEW /lpf (OCC); NITRITE,URINE NEG (NEG); SQUAMOUS EPITHELIAL CELL URINE 1 /hpf (0-5); URINE COLOR YELLOW (YELLW/STRAW)
[2017-05-30] MEDS: LORazepam 2 MG TAB PO PRN (20:53)
[2017-05-30] MEDS ORDERED: MUPIROCIN 2% OINT 1 APPLIC/GM SYR NASAL SCH (21:00)
[2017-05-30 22:13] LABS: INTERNATIONAL NORMALIZED RATIO 1.4 RATIO; PROTHROMBIN TIME - PATIENT 15.4 SEC (9.8-11.6)
[2017-05-30 22:16] LABS: ALT (GPT) 22 U/L (10-53); ANION GAP 7 MEQ/L (5-15); AST (GOT) 52 U/L (15-37); BICARBONATE 28.9 MEQ/L (21.0-32.0); BLOOD UREA NITROGEN 4 MG/DL (7-18); CHLORIDE 101 MEQ/L (98-107); GLOMERULAR FILTRATION RATE 187 ML/MIN (>89); POTASSIUM 3.5 MEQ/L (3.5-5.1); SODIUM (NA) 137 MEQ/L (136-145)
[2017-05-30 22:24] LABS: ALKALINE PHOSPHATASE 223 U/L (45-117); FERRITIN 208 NG/ML (8-252); TOTAL BILIRUBIN ADULT 2.5 MG/DL (0.2-1.0); TRANSFERRIN IRON PROFILE 129 MG/DL (200-360)
[2017-05-30 22:31] LABS: C. DIFF EPI 027 PRESUMPTIVE NEGATIVE (NEGATIVE)
[2017-05-31] VITALS (16 sets, daily range): BP systolic 131–159; BP diastolic 60–74; PULSE 86–112; RESP 15–28; TEMP 98.1–99.2; O2SAT 93–100
[2017-05-31] MEDS ORDERED: DEXTROSE 5% IV ONE ×2
[2017-05-31] MEDS ORDERED: ACETYLCYSTEINE IV ONE ×2
[2017-05-31] MEDS ORDERED: WATE IV ONE ×2
[2017-05-31] MEDS: methylPREDNISolone SOD SUCC 40 MG/1 ML VIAL IV PUSH SCH ×5 (00:02→23:01)
[2017-05-31] MEDS: LORazepam 2 MG TAB PO PRN ×3 (00:02→23:01)
[2017-05-31 02:05] LABS: INTERNATIONAL NORMALIZED RATIO 1.3 RATIO
[2017-05-31 02:22] LABS: ANION GAP 9 MEQ/L (5-15); AST (GOT) 51 U/L (15-37); BICARBONATE 25.6 MEQ/L (21.0-32.0); BLOOD UREA NITROGEN 5 MG/DL (7-18); CHLORIDE 100 MEQ/L (98-107); GLOMERULAR FILTRATION RATE 166 ML/MIN (>89); POTASSIUM 3.5 MEQ/L (3.5-5.1); SODIUM (NA) 135 MEQ/L (136-145)
[2017-05-31 02:25] LABS: ALKALINE PHOSPHATASE 242 U/L (45-117); ALT (GPT) 20 U/L (10-53); TOTAL BILIRUBIN ADULT 2.7 MG/DL (0.2-1.0)
[2017-05-31] MEDS: RESP: ALBUTEROL 2.5 MG/IPRATROPIUM 0.5 MG NEB (SCH) NEB ×4 (03:26→20:37)
[2017-05-31] MEDS: CHLORHEXIDINE GLUCONATE 2 % 1 PACK (2 CLOTHS)(taper/protocol) TOPICAL SCH ×2 (04:00→23:01)
[2017-05-31 05:20] LABS: INTERNATIONAL NORMALIZED RATIO 1.3 RATIO
[2017-05-31] MEDS: SODIUM CHLOR 0.9% 1000 ML INJ 1,000 ML IV SCH ×2 (05:47→18:00)
[2017-05-31 08:12] LABS: BLOOD UREA NITROGEN 5 MG/DL (7-18)
[2017-05-31 08:13] LABS: GLOMERULAR FILTRATION RATE 308 ML/MIN (>89)
[2017-05-31 08:14] LABS: ALKALINE PHOSPHATASE 230 U/L (45-117); ALT (GPT) 13 U/L (10-53); ANION GAP 11 MEQ/L (5-15); AST (GOT) 50 U/L (15-37); BICARBONATE 21.8 MEQ/L (21.0-32.0); CHLORIDE 101 MEQ/L (98-107); POTASSIUM 3.3 MEQ/L (3.5-5.1); SODIUM (NA) 134 MEQ/L (136-145); TOTAL BILIRUBIN ADULT 2.8 MG/DL (0.2-1.0)
[2017-05-31] MEDS: LEVOFLOXACIN 750 MG PREMIX INJ 150 ML IV SCH (09:23)
[2017-05-31] MEDS: chlordiazePOXIDE 25 MG CAP PO SCH ×3 (09:24→17:22)
[2017-05-31] MEDS: THIAMINE HCL 100 MG TAB PO SCH (09:24)
[2017-05-31] MEDS: PANTOPRAZOLE SOD 40 MG DELAYED RELEASE TAB PO SCH (09:24)
[2017-05-31] MEDS: SODIUM CHLORIDE 0.9% FLUSH 10 ML FLUSH IV FLUSH SCH ×2 (09:24→19:54)
[2017-05-31] MEDS ORDERED: INFLUENZA VIRUS VACCINE (QUADRIVALENT) 0.5 ML SYR IM ONE (10:00)
--- NOTE | 2017-05-31 10:53 | HHI.GIFU ---
Subjective Remarks Continues to have diarrhea. No n/v. Denies abdominal pain, but has some mild diffuse tenderness on exam. Multiple small loose stools. Tolerating diet. Breathing better today. (Giselle Snyder) Objective Vitals I&O Vital Signs Date Time Temp Pulse Resp B/P (MAP) Pulse Ox O2 Delivery O2 Flow Rate FiO2 05/31/17 06:00 95 05/31/17 04:00 108 05/31/17 04:00 98.9 97 20 145/61 (89) 95 05/31/17 02:00 102 05/31/17 00:00 98.9 112 28 149/68 (95) 93 05/31/17 00:00 101 05/30/17 22:00 102 05/30/17 20:41 99 Nasal Cannula 3.00 05/30/17 20:00 Nasal Cannula 3.50 05/30/17 20:00 104 05/30/17 20:00 98.4 100 17 132/63 (86) 94 05/30/17 18:00 101 05/30/17 17:45 98.0 97 21 133/63 (86) 05/30/17 15:10 98.5 92 22 130/65 (86) 94 05/30/17 14:55 98.1 91 22 135/72 (93) 92 05/30/17 11:29 98.0 97 18 124/60 (81) 91 I/O 05/30/17 05/30/17 05/30/17 05/31/17 05/31/17 05/31/17 07:00 15:00 23:00 07:00 15:00 23:00 Intake Total 1100 ml 2143.75 ml 2380.25 ml Output Total 550 ml Balance 1100 ml 1593.75 ml 2380.25 ml Intake Oral 480 ml IV Total 1100 ml 1779.75 ml 1900.25 ml Tube Feeding 364 ml Output Urine Total 550 ml # Voids 3 # Bowel Movements 6 Laboratory Laboratory Tests Test 05/30/17 12:20 05/30/17 12:40 05/30/17 13:00 05/30/17 14:20 Prothrombin Time 14.0 13.8 Prothromb Time International Ratio 1.3 1.2 White Blood Count 11.2 Red Blood Count 2.88 Hemoglobin 11.3 Hematocrit 34.5 Mean Corpuscular Volume 119.6 Mean Corpuscular Hemoglobin 39.2 Mean Corpuscular Hemoglobin Concent 32.7 Red Cell Distribution Width 17.3 Platelet Count 179 Mean Platelet Volume 8.7 Neutrophils (%) (Auto) 89.3 Lymphocytes (%) (Auto) 5.9 Monocytes (%) (Auto) 4.0 Eosinophils (%) (Auto) 0.1 Basophils (%) (Auto) 0.7 Neutrophils # (Auto) 10.0 Lymphocytes # (Auto) 0.7 Monocytes # (Auto) 0.4 Eosinophils # (Auto) 0.0 Basophils # (Auto) 0.1 CBC Comment DIFF FINAL Differential Comment Blood Urea Nitrogen 3 Creatinine 0.51 Random Glucose 223 Total Protein 7.5 Albumin 2.9 Calcium Level 8.3 Alkaline Phosphatase 279 Aspartate Amino Transf (AST/SGOT) 67 Alanine Aminotransferase (ALT/SGPT) 15 Total Bilirubin 2.5 Direct Bilirubin 1.9 Sodium Level 135 Potassium Level 3.5 Chloride Level 101 Carbon Dioxide Level 22.3 Anion Gap 12 Estimat Glomerular Filtration Rate 129 Lactic Acid Level 6.1 Indirect Bilirubin 0.6 Ammonia 20 Acetaminophen Level LESS THAN 2.0 Blood Gas Puncture Site LT RADIAL Blood Gas Patient Temperature 98.6 Blood Gas HCO3 23 Blood Gas Base Excess -0.1 Blood Gas Oxygen Saturation 90 Arterial Blood pH 7.45 Arterial Blood Partial Pressure CO2 35 Arterial Blood Partial Pressure O2 64 Arterial Blood Oxygen Content 14.1 Arterial Blood Carboxyhemoglobin 2.2 Arterial Blood Methemoglobin 0.4 Blood Gas Hemoglobin 11.2 Oxygen Delivery Device NASAL CANNULA Blood Gas Liter Flow 2 Peritoneal Fluid WBC 200 Peritoneal Fluid RBC 50 Peritoneal Fluid Neutrophils 9 Peritoneal Fluid Lymphocytes 14 Peritoneal Fluid Monocytes 39 Peritoneal Fluid Histiocytes 7 Peritoneal Fluid Mesothelial Cells 31 Peritoneal Fluid Albumin 0.8 Test 05/30/17 15:45 05/30/17 20:18 05/30/17 21:36 05/31/17 01:35 Nasal Screen MRSA (PCR) MRSA NOT DETECTED Urine Color YELLOW Urine Turbidity HAZY Urine pH 6.0 Urine Specific [place] 1.023 Urine Protein TRACE Urine Glucose (UA) TRACE Urine Ketones 40 Urine Occult Blood NEG Urine Nitrite NEG Urine Bilirubin NEG Urine Urobilinogen 2.0 Urine Leukocyte Esterase TRACE Urine RBC 1 Urine WBC 3 Urine Squamous Epithelial Cells 1 Urine Mucus FEW Microscopic Urinalysis Comment CULT NOT INDICATED Stool C. difficile Toxin (PCR) POSITIVE Stl C. difficile Toxin Epiderm 027 PRESUMPTIVE NEGATIVE Prothrombin Time 15.4 15.0 Prothromb Time International Ratio 1.4 1.3 Blood Urea Nitrogen 4 5 Creatinine 0.37 0.41 Random Glucose 216 167 Total Protein 6.7 7.0 Albumin 2.5 2.6 Calcium Level 8.1 8.4 Alkaline Phosphatase 223 242 Aspartate Amino Transf (AST/SGOT) 52 51 Alanine Aminotransferase (ALT/SGPT) 22 20 Total Bilirubin 2.5 2.7 Sodium Level 137 135 Potassium Level 3.5 3.5 Chloride Level 101 100 Carbon Dioxide Level 28.9 25.6 Anion Gap 7 9 Estimat Glomerular Filtration Rate 187 166 Iron Level 97 Total Iron Binding Capacity 181 Percent Iron Saturation 53.7 Ferritin 208 Ammonia 51 18 Tumor Marker Alpha Fetoprotein 3.0 Test 05/31/17 05:05 Prothrombin Time 15.0 Prothromb Time International Ratio 1.3 Blood Urea Nitrogen 5 Creatinine 0.24 Random Glucose 179 Total Protein 6.6 Albumin 2.4 Calcium Level 8.8 Alkaline Phosphatase 230 Aspartate Amino Transf (AST/SGOT) 50 Alanine Aminotransferase (ALT/SGPT) 13 Total Bilirubin 2.8 Sodium Level 134 Potassium Level 3.3 Chloride Level 101 Carbon Dioxide Level 21.8 Anion Gap 11 Estimat Glomerular Filtration Rate 308 Ammonia 28 Date/Time Source Procedure Growth Status 05/30/17 00:35 Blood Peripheral Aerobic Blood Culture Pending Received 05/30/17 00:35 Blood Peripheral Anaerobic Blood Culture Pending Received 05/30/17 14:20 Fluid Peritoneal Fluid Gram Stain - Final Resulted 05/30/17 14:20 Fluid Peritoneal Fluid Body Fluid Culture Pending Resulted 05/30/17 20:18 Stool Stool Cryptosporidium Exam - Final NEGATIVE - NO CRYPTOSPORIDIUM ANTIGEN... Complete 05/30/17 20:18 Stool Stool Stool Pus (EDWAR) - Final RARE WBC Complete 05/30/17 20:18 Stool Stool Giardia Antigen (EDWAR) - Final NEGATIVE - NO GIARDIA ANTIGEN DETECTE... Complete Imaging Last Impressions Cyst Biopsy Asp-Paracentesis US 05/30/17 0000 Signed Impressions: Service Date/Time: May 13:15 - CONCLUSION: Uncomplicated ultrasound guided paracentesis. Pipe Sarah Jr., MD Abdomen Ultrasound 05/30/17 0000 Signed Impressions: Service Date/Time: May 09:14 - CONCLUSION: 1. Findings of cirrhosis with possible portal hypertension 2. Ascites Doe Moss MD Chest X-Ray 05/29/17 [id number] Signed Impressions: Service Date/Time: Monday, May 29, 2017 23:39 - CONCLUSION: Mild bibasilar parenchymal opacities. Jalil Vieira MD Physical Exam HEENT: Normocephalic; atraumatic; no jaundice. CHEST: Resp even/unlabored, expiratory wheezing CARDIAC: ST ABDOMEN: Soft, ascites, mild diffuse tenderness; bowel sounds are present in all four quadrants. EXTREMITIES: No clubbing, cyanosis, or edema. SKIN: Normal; no rash; no jaundice. 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 (Giselle Snyder) Assessment and Plan Plan ASSESSMENT: - Tylenol Toxicity/Tylenol OD with ETOH in patient with underlying liver cirrhosis and ETOH abuse. Pt took 30 Tyelnol #3 ~ mn along with drinking alcohol throughout the day with underlying liver disease. Acetaminophen level on admission 32.0---> 25.1, Ethyl alcohol 231. Acetylcysteine IV protocol. Labs stable. PT 15.0, INR 1.3, T. Bili 2.8, AST 50, ALT 13, Alk Phosph 230, Ammonia 28. Cont. Acetylcysteine and recheck labs in am. - Ascites. S/P US guided paracentesis (05/31/17)---> 3,800cc removed. WBC 11.2. Peritoneal WBC 200, RBC 50, Neutrophils 9. Cx pending. Cytology pending. Levaquin. Add Lasix 20mg po daily, Spironolactone 25mg po daily. - Liver cirrhosis, based on imaging. Pt denies any known history of this. US ( 05/30/17)---> Findings of cirrhosis with possible portal hypertension. Ascites. Reports daily ETOH use, unable to quantify. Denies any hx of hepatitis. Hepatitis profile pending, LIMA pending, AMA pending, ASMA pending, AFP 3.0, Iron saturation 53.7%, Ferritin 208, Alpha 1 antitrypsin pending, Ceruloplasmin pending. T. Bili 2.8, AST 50, ALT 13, Alk Phosph 230. Suspect this is related to ETOH abuse, but will await liver workup - Fever, leukocytosis, elevated lactic acid. Pt reports fever in ambulance. WBC 12.7 on admission. No repeat labs. Lactic acid has gone from 2.2---> 7.5. Blood cx pending. ? SBP vs. pna vs. diarrheal infection. - C Difficile diarrhea. 1st episode. CDiff (+). Cryptosporidium negative, stool pus rare wbc, giardia negative. Enteric cx pending. Will add Flagyl. - Resp. Insufficiency with Asthma, COPD. CXR (05/29/17)---> mild bibasilar parenchymal opacities. Levaquin, Solumedrol. This has improved after paracentesis. Still with some wheezing. - SA, Depression. BA per psych. PLAN: - Heart healthy diet - Acetylcysteine IV per protocol - Await cytology from peritoneal culture - Await c/s from peritoneal culture - Add Flagyl 500mg IVPB q8h - Cont. Levaquin - Await Hepatitis profile, LIMA, ASMA, AMA, Ceruloplasmin, ALpha 1 antitrypsin - Notify GI of any change in mental status/clinical status - Supportive care - Further recommendations to follow based on results of above - Pt seen and examined by Dr. Lobo and myself and this note is written on his behalf (Giselle Snyder) Physician Comments Seen and examined with FERNANDO, looking better today. Tested for C . Diff. On antibiotics. S/P paracentesis. Monitor labs (Brittanie Lobo MD) Giselle Snyder May 31, 2017 10:53 Brittanie Lobo MD May 31, 2017 12:51
--- NOTE | 2017-05-31 11:33 | HHI.PR ---
Subjective Remarks 46 y/o female with history of COPD, and anxiety was brought to the ED under a combs act after ingesting 30 pills of Tylenol #3. Patient states niece saw her take them and called evac. She said it was a suicide attempt at that time, denies feeling that way now. Upon arrival she became short of breath and hypoxic with an o2 sat of 85%. She states she is usually always sob with a cough. She states for the last 2 weeks she has had yellow sputum. She also complains of dysuria and pain with urination, Diarrhea for a few months, and Leg swelling. She denies any history of cirrhosis. She denies any chest pain, fever or chills. 05-31 still on iv mucomyst await hepatitis panel still confused- did not know president or year positive CDT STARTED ON FLAGYL Objective Vitals Vital Signs Date Time Temp Pulse Resp B/P (MAP) Pulse Ox O2 Delivery O2 Flow Rate FiO2 05/31/17 10:00 96 05/31/17 09:45 99.2 95 19 142/62 (88) 05/31/17 08:00 96 05/31/17 07:00 99 Nasal Cannula 2.00 05/31/17 06:00 95 05/31/17 04:00 108 05/31/17 04:00 98.9 97 20 145/61 (89) 95 05/31/17 02:00 102 05/31/17 00:00 98.9 112 28 149/68 (95) 93 05/31/17 00:00 101 05/30/17 22:00 102 05/30/17 20:41 99 Nasal Cannula 3.00 05/30/17 20:00 Nasal Cannula 3.50 05/30/17 20:00 104 05/30/17 20:00 98.4 100 17 132/63 (86) 94 05/30/17 18:00 101 05/30/17 17:45 98.0 97 21 133/63 (86) 05/30/17 15:10 98.5 92 22 130/65 (86) 94 05/30/17 14:55 98.1 91 22 135/72 (93) 92 05/30/17 11:29 98.0 97 18 124/60 (81) 91 I/O 05/30/17 05/30/17 05/30/17 05/31/1713/17 10/13/17 07:00 15:00 23:00 07:00 15:00 23:00 Intake Total 1100 ml 2143.75 ml 2380.25 ml Output Total 550 ml Balance 1100 ml 1593.75 ml 2380.25 ml Intake Oral 480 ml IV Total 1100 ml 1779.75 ml 1900.25 ml Tube Feeding 364 ml Output Urine Total 550 ml # Voids 3 # Bowel Movements 6 Result Diagram: 05/30/17 1240 05/31/17 0505 Other Results Laboratory Tests Test 05/29/17 23:49 05/30/17 00:00 05/30/17 00:35 05/30/17 03:30 Blood Gas Puncture Site RT RADIAL Blood Gas Patient Temperature 98.6 Blood Gas HCO3 27 mmol/L Blood Gas Base Excess 2.9 mmol/L Blood Gas Oxygen Saturation 89 % Arterial Blood pH 7.42 Arterial Blood Partial Pressure CO2 43 mmHg Arterial Blood Partial Pressure O2 74 mmHG Arterial Blood Oxygen Content 14.9 Vol % Arterial Blood Carboxyhemoglobin 4.8 % Arterial Blood Methemoglobin 0.4 % Blood Gas Hemoglobin 11.9 G/DL Oxygen Delivery Device NASAL CANNULA Blood Gas Liter Flow 3 L/M White Blood Count 12.7 TH/MM3 Red Blood Count 3.12 MIL/MM3 Hemoglobin 12.2 GM/DL Hematocrit 37.0 % Mean Corpuscular Volume 118.4 FL Mean Corpuscular Hemoglobin 39.1 PG Mean Corpuscular Hemoglobin Concent 33.0 % Red Cell Distribution Width 17.5 % Platelet Count 193 TH/MM3 Mean Platelet Volume 8.5 FL Neutrophils (%) (Auto) 68.2 % Lymphocytes (%) (Auto) 20.3 % Monocytes (%) (Auto) 9.8 % Eosinophils (%) (Auto) 1.3 % Basophils (%) (Auto) 0.4 % Neutrophils # (Auto) 8.6 TH/MM3 Lymphocytes # (Auto) 2.6 TH/MM3 Monocytes # (Auto) 1.2 TH/MM3 Eosinophils # (Auto) 0.2 TH/MM3 Basophils # (Auto) 0.0 TH/MM3 CBC Comment DIFF FINAL Differential Comment Blood Urea Nitrogen 3 MG/DL Creatinine 0.35 MG/DL Random Glucose 108 MG/DL Total Protein 7.2 GM/DL Albumin 2.5 GM/DL Calcium Level 8.0 MG/DL Magnesium Level 1.8 MG/DL Alkaline Phosphatase 289 U/L Aspartate Amino Transf (AST/SGOT) 82 U/L Alanine Aminotransferase (ALT/SGPT) 15 U/L Total Bilirubin 2.8 MG/DL Direct Bilirubin 2.2 MG/DL Sodium Level 138 MEQ/L Potassium Level 2.9 MEQ/L Chloride Level 100 MEQ/L Carbon Dioxide Level 27.6 MEQ/L Anion Gap 10 MEQ/L Estimat Glomerular Filtration Rate 200 ML/MIN Indirect Bilirubin 0.6 MG/DL Total Creatine Kinase 26 U/L Troponin I LESS THAN 0.02 NG/ML B-Type Natriuretic Peptide 30 PG/ML Beta HCG, Qualitative 3 MIU/ML Salicylates Level LESS THAN 1.7 MG/DL Acetaminophen Level 32.0 MCG/ML Ethyl Alcohol Level 231 MG/DL Lactic Acid Level 2.2 mmol/L 4.4 mmol/L Test 05/30/17 04:40 05/30/17 10:04 05/30/17 12:20 05/30/17 12:40 Acetaminophen Level 25.1 MCG/ML LESS THAN 2.0 MCG/ML Lactic Acid Level 7.5 mmol/L 6.1 mmol/L Total Creatine Kinase 22 U/L Prothrombin Time 14.0 SEC 13.8 SEC Prothromb Time International Ratio 1.3 RATIO 1.2 RATIO White Blood Count 11.2 TH/MM3 Red Blood Count 2.88 MIL/MM3 Hemoglobin 11.3 GM/DL Hematocrit 34.5 % Mean Corpuscular Volume 119.6 FL Mean Corpuscular Hemoglobin 39.2 PG Mean Corpuscular Hemoglobin Concent 32.7 % Red Cell Distribution Width 17.3 % Platelet Count 179 TH/MM3 Mean Platelet Volume 8.7 FL Neutrophils (%) (Auto) 89.3 % Lymphocytes (%) (Auto) 5.9 % Monocytes (%) (Auto) 4.0 % Eosinophils (%) (Auto) 0.1 % Basophils (%) (Auto) 0.7 % Neutrophils # (Auto) 10.0 TH/MM3 Lymphocytes # (Auto) 0.7 TH/MM3 Monocytes # (Auto) 0.4 TH/MM3 Eosinophils # (Auto) 0.0 TH/MM3 Basophils # (Auto) 0.1 TH/MM3 CBC Comment DIFF FINAL Differential Comment Blood Urea Nitrogen 3 MG/DL Creatinine 0.51 MG/DL Random Glucose 223 MG/DL Total Protein 7.5 GM/DL Albumin 2.9 GM/DL Calcium Level 8.3 MG/DL Alkaline Phosphatase 279 U/L Aspartate Amino Transf (AST/SGOT) 67 U/L Alanine Aminotransferase (ALT/SGPT) 15 U/L Total Bilirubin 2.5 MG/DL Direct Bilirubin 1.9 MG/DL Sodium Level 135 MEQ/L Potassium Level 3.5 MEQ/L Chloride Level 101 MEQ/L Carbon Dioxide Level 22.3 MEQ/L Anion Gap 12 MEQ/L Estimat Glomerular Filtration Rate 129 ML/MIN Indirect Bilirubin 0.6 MG/DL Ammonia 20 MCMOL/L Test 05/30/17 13:00 05/30/17 14:20 05/30/17 15:45 05/30/17 20:18 Blood Gas Puncture Site LT RADIAL Blood Gas Patient Temperature 98.6 Blood Gas HCO3 23 mmol/L Blood Gas Base Excess -0.1 mmol/L Blood Gas Oxygen Saturation 90 % Arterial Blood pH 7.45 Arterial Blood Partial Pressure CO2 35 mmHg Arterial Blood Partial Pressure O2 64 mmHG Arterial Blood Oxygen Content 14.1 Vol % Arterial Blood Carboxyhemoglobin 2.2 % Arterial Blood Methemoglobin 0.4 % Blood Gas Hemoglobin 11.2 G/DL Oxygen Delivery Device NASAL CANNULA Blood Gas Liter Flow 2 L/M Peritoneal Fluid WBC 200 /MM3 Peritoneal Fluid RBC 50 /MM3 Peritoneal Fluid Neutrophils 9 % Peritoneal Fluid Lymphocytes 14 % Peritoneal Fluid Monocytes 39 % Peritoneal Fluid Histiocytes 7 % Peritoneal Fluid Mesothelial Cells 31 % Peritoneal Fluid Albumin 0.8 G/DL Nasal Screen MRSA (PCR) MRSA NOT DETECTED Urine Color YELLOW Urine Turbidity HAZY Urine pH 6.0 Urine Specific Biddle 1.023 Urine Protein TRACE mg/dL Urine Glucose (UA) TRACE mg/dL Urine Ketones 40 mg/dL Urine Occult Blood NEG Urine Nitrite NEG Urine Bilirubin NEG Urine Urobilinogen 2.0 MG/DL Urine Leukocyte Esterase TRACE Urine RBC 1 /hpf Urine WBC 3 /hpf Urine Squamous Epithelial Cells 1 /hpf Urine Mucus FEW /lpf Microscopic Urinalysis Comment CULT NOT INDICATED Stool C. difficile Toxin (PCR) POSITIVE Stl C. difficile Toxin Epiderm 027 PRESUMPTIVE NEGATIVE Test 05/30/17 21:36 05/31/17 01:35 05/31/17 05:05 Prothrombin Time 15.4 SEC 15.0 SEC 15.0 SEC Prothromb Time International Ratio 1.4 RATIO 1.3 RATIO 1.3 RATIO Blood Urea Nitrogen 4 MG/DL 5 MG/DL 5 MG/DL Creatinine 0.37 MG/DL 0.41 MG/DL 0.24 MG/DL Random Glucose 216 MG/DL 167 MG/DL 179 MG/DL Total Protein 6.7 GM/DL 7.0 GM/DL 6.6 GM/DL Albumin 2.5 GM/DL 2.6 GM/DL 2.4 GM/DL Calcium Level 8.1 MG/DL 8.4 MG/DL 8.8 MG/DL Alkaline Phosphatase 223 U/L 242 U/L 230 U/L Aspartate Amino Transf (AST/SGOT) 52 U/L 51 U/L 50 U/L Alanine Aminotransferase (ALT/SGPT) 22 U/L 20 U/L 13 U/L Total Bilirubin 2.5 MG/DL 2.7 MG/DL 2.8 MG/DL Sodium Level 137 MEQ/L 135 MEQ/L 134 MEQ/L Potassium Level 3.5 MEQ/L 3.5 MEQ/L 3.3 MEQ/L Chloride Level 101 MEQ/L 100 MEQ/L 101 MEQ/L Carbon Dioxide Level 28.9 MEQ/L 25.6 MEQ/L 21.8 MEQ/L Anion Gap 7 MEQ/L 9 MEQ/L 11 MEQ/L Estimat Glomerular Filtration Rate 187 ML/MIN 166 ML/MIN 308 ML/MIN Iron Level 97 MCG/DL Total Iron Binding Capacity 181 MCG/DL Percent Iron Saturation 53.7 % Ferritin 208 NG/ML Ammonia 51 MCMOL/L 18 MCMOL/L 28 MCMOL/L Tumor Marker Alpha Fetoprotein 3.0 NG/ML Imaging Last Impressions Cyst Biopsy Asp-Paracentesis US 05/30/17 0000 Signed Impressions: Service Date/Time: May 13:15 - CONCLUSION: Uncomplicated ultrasound guided paracentesis. Pipe Sarah Jr., MD Abdomen Ultrasound 05/30/17 0000 Signed Impressions: Service Date/Time: May 09:14 - CONCLUSION: 1. Findings of cirrhosis with possible portal hypertension 2. Ascites Doe Moss MD Chest X-Ray 05/29/17 [id number] Signed Impressions: Service Date/Time: Monday, May 29, 2017 23:39 - CONCLUSION: Mild bibasilar parenchymal opacities. Jalil Vieira MD Objective Remarks GENERAL: CONFUSED BUT ALERT SKIN: Warm and dry. HEAD: Atraumatic. Normocephalic. EYES: Pupils equal and round. No scleral icterus. No injection or drainage. EOMI ENT: No nasal bleeding or discharge. Mucous membranes pink and moist.TONGUE MIDLINE NECK: Trachea midline. No JVD. SUPPLE CARDIOVASCULAR: Regular rate and rhythm. S1, S2 NO S3 OR S4 RESPIRATORY: No accessory muscle use. Clear to auscultation. Breath sounds equal bilaterally. GASTROINTESTINAL: Abdomen soft, non-tender, nondistended. Hepatic and splenic margins not palpable. OBESE MUSCULOSKELETAL: Extremities without clubbing, cyanosis, or edema. No obvious deformities. NEUROLOGICAL: Awake and alert. No obvious cranial nerve deficits. Motor grossly within normal limits. 4 out of 5 muscle strength in the arms and legs. Normal speech. PSYCHIATRIC: INAppropriate mood and affect; insight and judgment ABnormal. Procedures NONE Medications and IVs Current Medications Sodium Chloride (NS Flush) 2 ml UNSCH PRN IVF FLUSH AFTER USING IV ACCESS; Start 05/29/17 at 23:45; Stop 05/30/17 at 01:48; Status DC Methylprednisolone Sodium Succinate (SoluMEDROL INJ) 60 mg ONCE ONCE IV PUSH Last administered on 05/29/17 23:56; Start 05/29/17 at 23:45; Stop 05/29/17 at 23:46; Status DC Albuterol/ Ipratropium (Duoneb Neb) 1 ampule Q15M INH Last administered on 23:43; Start 05/29/17 at 23:45; Stop 05/30/17 at 00:16; Status DC Ceftriaxone Sodium 1000 mg/ Sodium Chloride 100 ml @ 200 mls/hr ONCE ONCE IV Last administered on 05/30/17 00:50; Start 05/30/17 at 00:30; Stop 05/30/17 at 00:59; Status DC Azithromycin (Zithromax) 500 mg ONCE ONCE PO Last administered on 05/30/17 00:55; Start 05/30/17 at 00:30; Stop 05/30/17 at 00:31; Status DC Potassium Chloride (KCl) 60 meq ONCE ONCE PO Last administered on 05/30/17 01:59; Start 05/30/17 at 01:45; Stop 05/30/17 at 01:46; Status DC Sodium Chloride 1,000 ml @ 999 mls/hr BOLUS ONCE IV Last administered on 01:59; Start 05/30/17 at 01:45; Stop 05/30/17 at 02:45; Status DC Sodium Chloride 1,000 ml @ 100 mls/hr Q10H IV ; Start 05/30/17 at 01:40; Stop 05/30/17 at 04:23; Status DC Sodium Chloride (NS Flush) 2 ml UNSCH PRN IV FLUSH FLUSH AFTER USING IV ACCESS ; Start 05/30/17 at 01:45 Sodium Chloride (NS Flush) 2 ml BID IV FLUSH Last administered on 05/31/17 09 :24; Start 05/30/17 at 09:00 Naloxone HCl (Narcan Inj) 0.4 mg UNSCH PRN IV PUSH SEE LABEL COMMENTS; Start 05/30/17 at 01:45 Albuterol/ Ipratropium (Duoneb Neb) 1 ampule Q6HR NEB NEB Last administered on 05/31/17 09:03; Start 05/30/17 at 04:00 Albuterol/ Ipratropium (Duoneb Neb) 1 ampule Q2HR NEB PRN NEB wheezing; Start 05/30/17 at 01:45 Methylprednisolone Sodium Succinate (SoluMEDROL INJ) 40 mg Q6HR IV PUSH Last administered on 05/31/17 05:47; Start 05/30/17 at 06:00 Pantoprazole Sodium (Protonix) 40 mg DAILY PO Last administered on 05/31/17 09:24; Start 05/30/17 at 09:00 Potassium Chloride 100 ml @ 50 mls/hr Q2H IV ; Start 05/30/17 at 02:00; Stop 05/30/17 at 05:59; Status DC Potassium Chloride (KCl) 40 meq ONCE ONCE PO Last administered on 05/30/17 04:54; Start 05/30/17 at 02:00; Stop 05/30/17 at 02:01; Status DC Sodium Chloride 1,000 ml @ 100 mls/hr Q10H IV Last administered on 05/31/17 05:47; Start 05/30/17 at 02:00 Flumazenil (Romazicon Inj) 0.2 mg Q1M PRN IV PUSH SEE LABEL COMMENTS; Start at 02:00 Lorazepam (Ativan) 1 mg Q4H PRN PO CIWA 8 - 10 Last administered on 05/30/17 12:35; Start 05/30/17 at 02:00 Lorazepam (Ativan Inj) 1 mg Q4H PRN IV PUSH CIWA 8 - 10; Start 05/30/17 at 02: 00 Lorazepam (Ativan) 2 mg Q2H PRN PO CIWA 11-14 Last administered on 05/31/17 03:03; Start 05/30/17 at 02:00 Lorazepam (Ativan Inj) 2 mg Q2H PRN IV PUSH CIWA 11-14; Start 05/30/17 at 02: 00 Lorazepam (Ativan Inj) 2 mg Q1H PRN IV PUSH CIWA 15-20; Start 05/30/17 at 02: 00 Lorazepam (Ativan Inj) 2 mg Q15M PRN IV PUSH CIWA > 20; Start 05/30/17 at 02: 00 Haloperidol Lactate (Haldol Inj) 2 mg Q15M PRN IM SEE LABEL COMMENTS; Start at 02:00 Chlordiazepoxide (Librium) 25 mg TID PO Last administered on 05/31/17 09:24; Start 05/30/17 at 09:00 Levofloxacin/ Dextrose 150 ml @ 100 mls/hr Q24H IV Last administered on 09:23; Start 05/30/17 at 09:00 Thiamine HCl (Vitamin B1) 500 mg ONCE ONCE PO Last administered on 05/30/17 11:17; Start 05/30/17 at 08:45; Stop 05/30/17 at 11:04; Status DC Thiamine HCl (Vitamin B1) 100 mg DAILY PO ; Start 05/30/17 at 09:00; Stop 08/04 at 11:12; Status DC Albumin Human 100 ml @ 60 mls/hr ONCE ONCE IV Last administered on 11:37; Start 05/30/17 at 11:15; Stop 05/30/17 at 12:54; Status DC Thiamine HCl (Vitamin B1) 100 mg DAILY PO Last administered on 05/31/17 09:24 ; Start 05/31/17 at 09:00 Sodium Chloride (NS Flush) 2 ml UNSCH PRN IVF FLUSH AFTER USING IV ACCESS; Start 05/30/17 at 12:30 Acetylcysteine 42742 mg/Dextrose 263.75 ml @ 200 mls/ hr ONCE IV Last administered on 05/30/17 18:09; Start 05/30/17 at 18:00; Stop 05/30/17 at 18 :01; Status DC Acetylcysteine 4250 mg/Dextrose 521.25 ml @ 125 mls/ hr ONCE IV Last administered on 05/30/17 19:40; Start 05/30/17 at 20:00; Stop 05/30/17 at 20 :01; Status DC Acetylcysteine 8500 mg/Dextrose 1,042.5 ml @ 62.5 mls/ hr ONCE ONCE IV Last administered on 05/31/17 00:02; Start 05/31/17 at 00:00; Stop 05/31/17 at 16 :40 Lidocaine HCl (Xylocaine-Mpf 1% Inj) 30 ml STK-MED ONCE .ROUTE Last administered on 05/30/17 14:50; Start 05/30/17 at 14:50; Stop 05/30/17 at 14 :51; Status DC Miscellaneous Information Patient in critical care unit? Ass... [id number] ; Start 05/30/17 at 17:45 Mupirocin (Bactroban Nasal 2% Oint) 1 applic BID NASAL ; Start 05/30/17 at 21: 00; Stop 05/30/17 at 21:00; Status DC Chlorhexidine Gluconate (Chlorhexidine 2% Cloth) 3 pack DAILY@04 TOPICAL Last administered on 05/31/17 04:00; Start 05/31/17 at 04:00; Stop 06/04/17 at 04 :01 Chlorhexidine Gluconate (Chlorhexidine 2% Cloth) 3 pack UNSCH PRN TOPICAL HYGIENIC CARE; Start 05/30/17 at 17:45; Stop 06/04/17 at 17:39 Influenza Virus Vaccine (Flu (Quadrivalent) Vaccine Inj) 0.5 ml ONCE ONCE IM Last administered on 05/31/17 09:28; Start 05/31/17 at 10:00; Stop 05/31/17 at 10:01; Status DC Metronidazole 100 ml @ 100 mls/hr Q8H IV ; Start 05/31/17 at 10:45 Urinary Catheter: No Vascular Central Line Catheter: No A/P Problem List: (1) COPD exacerbation ICD Code: J44.1 - Chronic obstructive pulmonary disease with (acute) exacerbation Status: Acute (2) Pneumonia ICD Code: J18.9 - Pneumonia, unspecified organism Status: Acute (3) Suicide attempt ICD Code: T14.91XA - Suicide attempt, initial encounter Status: Acute (4) Colitis ICD Code: K52.9 - Noninfective gastroenteritis and colitis, unspecified Status: Acute (5) Mood disorder ICD Code: F39 - Episodic mood disorder Status: Acute Assessment and Plan 46 y/o female with history of COPD, and anxiety was brought to the ED under a combs act after ingesting 30 pills of Tylenol #3. Acute respiratory failure, on chronic COPD, 85% on room air -DuoNeb's scheduled and when necessary -IV Solu-Medrol -Oxygen 2 L Leukocytosis, suspect pneumonia Chest x-ray reviewed and shows bilateral basilar parenchymal opacity WBCs 12.7 -Levaquin IV -Incentive spirometer -UA ordered Urinary retention, likely due to cirrhosis -BladderScan patient, insert Bar patient is unable to void Drug overdose, patient ingested 30 Tylenol 3's, suicidal thoughts Tylenol level 32 -Continue Combs act -Consult psychiatry -Repeat Tylenol level IV MUCOMYST PER GI l Hypo-kalemia, potassium 2.9 -Supplementation ordered, BMP in a.m., will replace as needed Lactic acidosis, lactic acid 2.2-->4.4, patient was in respiratory distress at time of second lactic acid suspect elevated lactic due to liver disease -Abdominal ultrasound ordered -Repeat lactic acid Diarrhea, chronic for 2 months -C. difficile and other stool studies ordered CDT POSITIVE STARTED ON FLAGYL BY GI Alcohol abuse, patient does not know the amount that she drinks with states she drinks throughout the day -Encouraged -CIWA protocol -Seizure precautions DVT prophylaxis SCDs HYPOKALEMIA REPLACE BY PROTOCOLS Discharge Planning NOT MEDICALLY CLEARED YET WILL NEED INPT PSYCHIATRY AT [facility] Problem Qualifiers (1) Pneumonia: Qualified Codes: J18.9 - Pneumonia, unspecified organism Barry Tubbs DO May 31, 2017 11:33
[2017-05-31] MEDS ORDERED: POTASSIUM CHLOR 20 MEQ PREMIX 100 ML IV PRN ×2 (11:45)
[2017-05-31] MEDS ORDERED: SODIUM PHOSPHATE INJ 30 MMOL in SODIUM CHLOR 0.9% 250 ML INJ 240 ML IV PRN (11:45)
[2017-05-31] MEDS ORDERED: POTASSIUM PHOSPHATE INJ 30 MMOL in SODIUM CHLOR 0.9% 250 ML INJ 250 ML IV PRN (11:45)
[2017-05-31] MEDS ORDERED: POTASSIUM PHOSPHATE MONOBASIC 500 MG TAB PO/TUBE PRN (11:45)
[2017-05-31] MEDS ORDERED: POTASSIUM PHOSPHATE MONOBASIC 500 MG TAB PO PRN (11:45)
[2017-05-31] MEDS ORDERED: MAGNESIUM OXIDE 400 MG TAB PO PRN (11:45)
[2017-05-31] MEDS ORDERED: POTASSIUM CHLORIDE 25 MEQ EFFERVESCENT TAB PO PRN (11:45)
[2017-05-31] MEDS ORDERED: MAGNESIUM SULFATE INJ 2 GM in SODIUM CHLORIDE 0.9% INJ 96 ML IV PRN (11:45)
[2017-05-31] MEDS ORDERED: POTASSIUM CHLOR 40 MEQ PREMIX 100 ML IV PRN ×2 (11:45)
[2017-05-31] MEDS ORDERED: MAGNESIUM SULFATE INJ 4 GM in SODIUM CHLORIDE 0.9% INJ 92 ML IV PRN (11:45)
[2017-05-31 11:49] LABS: INTERNATIONAL NORMALIZED RATIO 1.3 RATIO; PROTHROMBIN TIME - PATIENT 14.4 SEC (9.8-11.6)
[2017-05-31 11:54] LABS: ANA SCREEN NEG (NEG)
[2017-05-31 12:03] LABS: ANION GAP 10 MEQ/L (5-15); AST (GOT) 45 U/L (15-37); BICARBONATE 24.7 MEQ/L (21.0-32.0); BLOOD UREA NITROGEN 5 MG/DL (7-18); CHLORIDE 103 MEQ/L (98-107); GLOMERULAR FILTRATION RATE 187 ML/MIN (>89); SODIUM (NA) 138 MEQ/L (136-145)
[2017-05-31 12:05] LABS: ALT (GPT) 13 U/L (10-53)
[2017-05-31 12:07] LABS: ALKALINE PHOSPHATASE 210 U/L (45-117); TOTAL BILIRUBIN ADULT 2.5 MG/DL (0.2-1.0)
[2017-05-31] MEDS: metroNIDAZOLE 500 MG INJ 100 ML IV SCH ×2 (12:17→17:23)
[2017-05-31] MEDS ORDERED: POTASSIUM CHLORIDE 20 MEQ CONTROLLED RELEASE TAB PO ONE (13:30)
[2017-05-31 13:43] LABS: MAGNESIUM 1.7 MG/DL (1.5-2.5)
[2017-05-31] MEDS ORDERED: POTASSIUM CHLORIDE 10 MEQ CONTROLLED RELEASE TAB PO ONE (15:30)
[2017-05-31 19:49] LABS: INTERNATIONAL NORMALIZED RATIO 1.3 RATIO; PROTHROMBIN TIME - PATIENT 15.1 SEC (9.8-11.6)
[2017-05-31 20:01] LABS: ANION GAP 10 MEQ/L (5-15); AST (GOT) 57 U/L (15-37); BICARBONATE 23.9 MEQ/L (21.0-32.0); BLOOD UREA NITROGEN 5 MG/DL (7-18); CHLORIDE 105 MEQ/L (98-107); GLOMERULAR FILTRATION RATE 206 ML/MIN (>89); POTASSIUM 3.7 MEQ/L (3.5-5.1); SODIUM (NA) 139 MEQ/L (136-145)
[2017-05-31 20:05] LABS: ALKALINE PHOSPHATASE 210 U/L (45-117); ALT (GPT) 14 U/L (10-53); TOTAL BILIRUBIN ADULT 2.6 MG/DL (0.2-1.0)
[2017-06-01] VITALS (10 sets, daily range): BP systolic 127–144; BP diastolic 63–73; PULSE 88–99; RESP 15–26; TEMP 97.2–98.6; O2SAT 91–97
[2017-06-01] MEDS: metroNIDAZOLE 500 MG INJ 100 ML IV SCH ×3 (02:23→18:11)
[2017-06-01] MEDS: SODIUM CHLOR 0.9% 1000 ML INJ 1,000 ML IV SCH ×3 (02:41→21:47)
[2017-06-01] MEDS: RESP: ALBUTEROL 2.5 MG/IPRATROPIUM 0.5 MG NEB (SCH) NEB ×4 (03:26→21:17)
[2017-06-01] MEDS: methylPREDNISolone SOD SUCC 40 MG/1 ML VIAL IV PUSH SCH ×3 (04:57→21:41)
[2017-06-01 06:25] LABS: AUTOMATED NEUTROPHIL # 9.4 TH/MM3 (1.8-7.7); BASOPHIL % 0.1 % (0.0-2.0); EOSINOPHIL % 0.3 % (0.0-4.0); HEMATOCRIT 34.7 % (35.0-46.0); LYMPHOCYTE # 0.5 TH/MM3 (1.0-4.8); MEAN CELL VOLUME 119.1 FL (80.0-100.0); MEAN CORPUSCULAR HEMOGLOBIN 39.5 PG (27.0-34.0); MEAN CORPUSCULAR HGB CONC 33.1 % (32.0-36.0); MONO % 6.8 % (0.0-8.0); NEUT % 87.8 % (16.0-70.0); PLATELET COUNT 177 TH/MM3 (150-450); RED BLOOD COUNT 2.92 MIL/MM3 (4.00-5.30); RED CELL DISTRIBUTION WIDTH 17.3 % (11.6-17.2); WHITE BLOOD COUNT 10.7 TH/MM3 (4.0-11.0)
[2017-06-01 06:28] LABS: HEMO FLAGS AUTO DIFF
[2017-06-01 06:32] LABS: INTERNATIONAL NORMALIZED RATIO 1.3 RATIO; PROTHROMBIN TIME - PATIENT 14.5 SEC (9.8-11.6)
[2017-06-01 06:34] LABS: ANION GAP 8 MEQ/L (5-15); AST (GOT) 72 U/L (15-37); BLOOD UREA NITROGEN 6 MG/DL (7-18); CHLORIDE 107 MEQ/L (98-107); GLOMERULAR FILTRATION RATE 206 ML/MIN (>89); MAGNESIUM 1.7 MG/DL (1.5-2.5); POTASSIUM 3.9 MEQ/L (3.5-5.1); SODIUM (NA) 138 MEQ/L (136-145)
[2017-06-01 06:42] LABS: ALKALINE PHOSPHATASE 205 U/L (45-117); ALT (GPT) 15 U/L (10-53); FREE T4 1.45 NG/DL (0.76-1.46); TOTAL BILIRUBIN ADULT 2.7 MG/DL (0.2-1.0)
--- NOTE | 2017-06-01 08:11 | HHI.PR ---
Subjective Remarks in no acute distress. on three liters of oxygen via N/C. no abdominal pain, nausea or vomiting. still with diarrhea. no fever. d/w the RN. Objective Vitals Vital Signs Date Time Temp Pulse Resp B/P (MAP) Pulse Ox O2 Delivery O2 Flow Rate FiO2 06/01/17 07:43 96 Nasal Cannula 3.00 06/01/17 06:00 99 06/01/17 04:00 93 06/01/17 04:00 98.6 93 18 127/68 (87) 97 06/01/17 02:00 90 06/01/17 00:00 98.3 95 15 136/72 (93) 96 06/01/17 00:00 95 05/31/17 22:00 99 05/31/17 20:37 95 Nasal Cannula 3.00 05/31/17 20:00 98.3 92 15 133/60 (84) 96 05/31/17 20:00 92 05/31/17 19:00 96 Nasal Cannula 2.00 05/31/17 18:00 95 05/31/17 17:45 98.1 98 19 131/67 (88) 94 05/31/17 16:00 89 05/31/17 14:00 86 05/31/17 13:45 98.3 99 22 159/74 (102) 94 05/31/17 12:00 89 05/31/17 10:00 96 05/31/17 09:45 99.2 95 19 142/62 (88) I/O 05/31/17 05/31/17 05/31/17 06/01/17 06/01/17 06/01/17 07:00 15:00 23:00 07:00 15:00 23:00 Intake Total 2380.25 ml 250 ml 1275 ml 400 ml Balance 2380.25 ml 250 ml 1275 ml 400 ml Intake Oral 480 ml 675 ml 400 ml IV Total 1900.25 ml 250 ml 600 ml # Voids 3 10 5 # Bowel Movements 6 10 12 Result Diagram: 06/01/17 0606/01/17 06 Imaging Last Impressions Cyst Biopsy Asp-Paracentesis US 05/30/17 0000 Signed Impressions: Service Date/Time: May 13:15 - CONCLUSION: Uncomplicated ultrasound guided paracentesis. Pipe Sarah Jr., MD Abdomen Ultrasound 05/30/17 0000 Signed Impressions: Service Date/Time: May 09:14 - CONCLUSION: 1. Findings of cirrhosis with possible portal hypertension 2. Ascites Doe Moss MD Chest X-Ray 05/29/17 2332 Signed Impressions: Service Date/Time: Monday, May 29, 2017 23:39 - CONCLUSION: Mild bibasilar parenchymal opacities. aJlil Vieira MD Objective Remarks GENERAL: This is a well-nourished, well-developed patient, in no apparent distress. CARDIOVASCULAR: Regular rate and regular rhythm without murmurs, gallops, or rubs. RESPIRATORY:mild wheezing. GASTROINTESTINAL: Abdomen soft, non-tender, mildly distended. Normal, active bowel sounds MUSCULOSKELETAL: Extremities without clubbing, cyanosis, or edema. NEURO: Alert & Oriented x4 to person, place, time, situation. Moves all ext x4 Procedures NONE Medications and IVs Current Medications Sodium Chloride (NS Flush) 2 ml UNSCH PRN IVF FLUSH AFTER USING IV ACCESS; Start 05/29/17 at 23:45; Stop 05/30/17 at 01:48; Status DC Methylprednisolone Sodium Succinate (SoluMEDROL INJ) 60 mg ONCE ONCE IV PUSH Last administered on 05/29/17 23:56; Start 05/29/17 at 23:45; Stop 05/29/17 at 23:46; Status DC Albuterol/ Ipratropium (Duoneb Neb) 1 ampule Q15M INH Last administered on 23:43; Start 05/29/17 at 23:45; Stop 05/30/17 at 00:16; Status DC Ceftriaxone Sodium 1000 mg/ Sodium Chloride 100 ml @ 200 mls/hr ONCE ONCE IV Last administered on 05/30/17 00:50; Start 05/30/17 at 00:30; Stop 05/30/17 at 00:59; Status DC Azithromycin (Zithromax) 500 mg ONCE ONCE PO Last administered on 05/30/17 00:55; Start 05/30/17 at 00:30; Stop 05/30/17 at 00:31; Status DC Potassium Chloride (KCl) 60 meq ONCE ONCE PO Last administered on 05/30/17 01:59; Start 05/30/17 at 01:45; Stop 05/30/17 at 01:46; Status DC Sodium Chloride 1,000 ml @ 999 mls/hr BOLUS ONCE IV Last administered on 01:59; Start 05/30/17 at 01:45; Stop 05/30/17 at 02:45; Status DC Sodium Chloride 1,000 ml @ 100 mls/hr Q10H IV ; Start 05/30/17 at 01:40; Stop 05/30/17 at 04:23; Status DC Sodium Chloride (NS Flush) 2 ml UNSCH PRN IV FLUSH FLUSH AFTER USING IV ACCESS ; Start 05/30/17 at 01:45 Sodium Chloride (NS Flush) 2 ml BID IV FLUSH Last administered on 05/31/17 19 :54; Start 05/30/17 at 09:00 Naloxone HCl (Narcan Inj) 0.4 mg UNSCH PRN IV PUSH SEE LABEL COMMENTS; Start 05/30/17 at 01:45 Albuterol/ Ipratropium (Duoneb Neb) 1 ampule Q6HR NEB NEB Last administered on 06/01/17 07:43; Start 05/30/17 at 04:00 Albuterol/ Ipratropium (Duoneb Neb) 1 ampule Q2HR NEB PRN NEB wheezing; Start 05/30/17 at 01:45 Methylprednisolone Sodium Succinate (SoluMEDROL INJ) 40 mg Q6HR IV PUSH Last administered on 06/01/17 04:57; Start 05/30/17 at 06:00 Pantoprazole Sodium (Protonix) 40 mg DAILY PO Last administered on 05/31/17 09:24; Start 05/30/17 at 09:00 Potassium Chloride 100 ml @ 50 mls/hr Q2H IV ; Start 05/30/17 at 02:00; Stop 05/30/17 at 05:59; Status DC Potassium Chloride (KCl) 40 meq ONCE ONCE PO Last administered on 05/30/17 04:54; Start 05/30/17 at 02:00; Stop 05/30/17 at 02:01; Status DC Sodium Chloride 1,000 ml @ 100 mls/hr Q10H IV Last administered on 06/01/17 02:41; Start 05/30/17 at 02:00 Flumazenil (Romazicon Inj) 0.2 mg Q1M PRN IV PUSH SEE LABEL COMMENTS; Start at 02:00 Lorazepam (Ativan) 1 mg Q4H PRN PO CIWA 8 - 10 Last administered on 05/30/17 12:35; Start 05/30/17 at 02:00 Lorazepam (Ativan Inj) 1 mg Q4H PRN IV PUSH CIWA 8 - 10; Start 05/30/17 at 02: 00 Lorazepam (Ativan) 2 mg Q2H PRN PO CIWA 11-14 Last administered on 05/31/17 23:01; Start 05/30/17 at 02:00 Lorazepam (Ativan Inj) 2 mg Q2H PRN IV PUSH CIWA 11-14; Start 05/30/17 at 02: 00 Lorazepam (Ativan Inj) 2 mg Q1H PRN IV PUSH CIWA 15-20; Start 05/30/17 at 02: 00 Lorazepam (Ativan Inj) 2 mg Q15M PRN IV PUSH CIWA > 20; Start 05/30/17 at 02: 00 Haloperidol Lactate (Haldol Inj) 2 mg Q15M PRN IM SEE LABEL COMMENTS; Start at 02:00 Chlordiazepoxide (Librium) 25 mg TID PO Last administered on 05/31/17 17:22; Start 05/30/17 at 09:00 Levofloxacin/ Dextrose 150 ml @ 100 mls/hr Q24H IV Last administered on 09:23; Start 05/30/17 at 09:00 Thiamine HCl (Vitamin B1) 500 mg ONCE ONCE PO Last administered on 05/30/17 11:17; Start 05/30/17 at 08:45; Stop 05/30/17 at 11:04; Status DC Thiamine HCl (Vitamin B1) 100 mg DAILY PO ; Start 05/30/17 at 09:00; Stop 08/04 at 11:12; Status DC Albumin Human 100 ml @ 60 mls/hr ONCE ONCE IV Last administered on 11:37; Start 05/30/17 at 11:15; Stop 05/30/17 at 12:54; Status DC Thiamine HCl (Vitamin B1) 100 mg DAILY PO Last administered on 05/31/17 09:24 ; Start 05/31/17 at 09:00 Sodium Chloride (NS Flush) 2 ml UNSCH PRN IVF FLUSH AFTER USING IV ACCESS; Start 05/30/17 at 12:30 Acetylcysteine 64533 mg/Dextrose 263.75 ml @ 200 mls/ hr ONCE IV Last administered on 05/30/17 18:09; Start 05/30/17 at 18:00; Stop 05/30/17 at 18 :01; Status DC Acetylcysteine 4250 mg/Dextrose 521.25 ml @ 125 mls/ hr ONCE IV Last administered on 05/30/17 19:40; Start 05/30/17 at 20:00; Stop 05/30/17 at 20 :01; Status DC Acetylcysteine 8500 mg/Dextrose 1,042.5 ml @ 62.5 mls/ hr ONCE ONCE IV Last administered on 05/31/17 00:02; Start 05/31/17 at 00:00; Stop 05/31/17 at 16 :40; Status DC Lidocaine HCl (Xylocaine-Mpf 1% Inj) 30 ml STK-MED ONCE .ROUTE Last administered on 05/30/17 14:50; Start 05/30/17 at 14:50; Stop 05/30/17 at 14 :51; Status DC Miscellaneous Information Patient in critical care unit? Ass... [id number] .XX ; Start 05/30/17 at 17:45 Mupirocin (Bactroban Nasal 2% Oint) 1 applic BID NASAL ; Start 05/30/17 at 21: 00; Stop 05/30/17 at 21:00; Status DC Chlorhexidine Gluconate (Chlorhexidine 2% Cloth) 3 pack DAILY@04 TOPICAL Last administered on 05/31/17 23:01; Start 05/31/17 at 04:00; Stop 06/04/17 at 04 :01 Chlorhexidine Gluconate (Chlorhexidine 2% Cloth) 3 pack UNSCH PRN TOPICAL HYGIENIC CARE; Start 05/30/17 at 17:45; Stop 06/04/17 at 17:39 Influenza Virus Vaccine (Flu (Quadrivalent) Vaccine Inj) 0.5 ml ONCE ONCE IM Last administered on 05/31/17 09:28; Start 05/31/17 at 10:00; Stop 05/31/17 at 10:01; Status DC Metronidazole 100 ml @ 100 mls/hr Q8H IV Last administered on 06/01/17t 02:23 ; Start 05/31/17 at 10:45 Potassium Chloride 100 ml @ 50 mls/hr Q2H PRN IV For Potassium 2.8 - 3.2 mEq/L ; Start 05/31/17 at 11:45 Potassium Chloride 100 ml @ 50 mls/hr Q2H PRN IV For Potassium 2.8 - 3.2 mEq/L ; Start 05/31/17 at 11:45 Potassium Bicarb/ Potassium Chloride (K-Lyte Cl Eff) 50 meq UNSCH PRN PO For Potassium 3.3 - 3.5 mEq/L; Start 05/31/17 at 11:45 Potassium Chloride 100 ml @ 25 mls/hr UNSCH PRN IV For Potassium 3.3 - 3.5 mEq /L; Start 05/31/17 at 11:45 Potassium Chloride 100 ml @ 50 mls/hr Q2H PRN IV For Potassium 3.3 - 3.5 mEq/L ; Start 05/31/17 at 11:45 Magnesium Sulfate 4 gm/Sodium Chloride 100 ml @ 50 mls/hr UNSCH PRN IV For Magnesium 0.9 - 1.1 mg/dL; Start 05/31/17 at 11:45 Magnesium Oxide (Mag-Ox) 800 mg UNSCH PRN PO For Magnesium 1.2 - 1.6 mg/dL; Start 05/31/17 at 11:45 Magnesium Sulfate 2 gm/Sodium Chloride 100 ml @ 50 mls/hr UNSCH PRN IV For Magnesium 1.2 - 1.6 mg/dL; Start 05/31/17 at 11:45 Potassium Phosphate (K-Phos) 2,000 mg Q4H PRN PO For Phosphorus < 2.5 mg/dL; Start 05/31/17 at 11:45 Sodium Phosphate 30 mmol/Sodium Chloride 250 ml @ 42 mls/hr UNSCH PRN IV For Phosphorus < 2.5 mg/dL; Start 05/31/17 at 11:45 Potassium Phosphate (K-Phos) 2,000 mg UNSCH PRN PO/TUBE SEE LABEL COMMENTS; Start 05/31/17 at 11:45 Potassium Phosphate 30 mmol/ Sodium Chloride 260 ml @ 42 mls/hr UNSCH PRN IV SEE LABEL COMMENTS; Start 05/31/17 at 11:45 Potassium Chloride (KCl) 40 meq ONCE ONCE PO Last administered on 05/31/17 13:52; Start 05/31/17 at 13:30; Stop 05/31/17 at 13:38; Status DC Potassium Chloride (KCl) 40 meq ONCE ONCE PO Last administered on 05/31/17 17:23; Start 05/31/17 at 15:30; Stop 05/31/17 at 15:31; Status DC A/P Problem List: (1) COPD exacerbation ICD Code: J44.1 - Chronic obstructive pulmonary disease with (acute) exacerbation Status: Acute (2) Pneumonia ICD Code: J18.9 - Pneumonia, unspecified organism Status: Acute (3) Suicide attempt ICD Code: T14.91XA - Suicide attempt, initial encounter Status: Acute (4) Colitis ICD Code: K52.9 - Noninfective gastroenteritis and colitis, unspecified Status: Acute (5) Mood disorder ICD Code: F39 - Episodic mood disorder Status: Acute Assessment and Plan A/P Acute respiratory failure, on chronic COPD, 85% on room air -DuoNeb's scheduled and when necessary -taper down IV Solu-Medrol -taper down Oxygen to keep O2 sat > 90%. Leukocytosis, suspect pneumonia Chest x-ray reviewed and shows bilateral basilar parenchymal opacity -Levaquin IV -Incentive spirometer Drug overdose, patient ingested 30 Tylenol 3's, suicidal thoughts Tylenol level 32 -Continue Combs act -Consulted psychiatry; recommended psych treatment. -received IV MUCOMYST PER GI Cirrhosis with ascites- s/p paracentesis with removal of 3800 ml of fluid GI following. Hypokalemia-replaced. hypophosphatemia; replace per protocol. Lactic acidosis, lactic acid 2.2-->4.4, patient was in respiratory distress at time of second lactic acid suspect elevated lactic due to liver disease -Abdominal ultrasound with cirrhosis/ascites Diarrhea, chronic for 2 months- c-diff colitis -continue Flagyl -GI following. Alcohol abuse, patient does not know the amount that she drinks with states she drinks throughout the day -Encouraged -CIWA protocol -Seizure precautions DVT prophylaxis SCDs transfer to telemetry. d/w the RN. Discharge Planning dc to psych when stable. Problem Qualifiers (1) Pneumonia: Qualified Codes: J18.9 - Pneumonia, unspecified organism Husam Farley MD Jun 01, 2017 08:11
[2017-06-01] MEDS: LEVOFLOXACIN 750 MG PREMIX INJ 150 ML IV SCH (09:13)
[2017-06-01] MEDS: chlordiazePOXIDE 25 MG CAP PO SCH ×3 (09:13→17:11)
[2017-06-01] MEDS: PANTOPRAZOLE SOD 40 MG DELAYED RELEASE TAB PO SCH (09:13)
[2017-06-01] MEDS: THIAMINE HCL 100 MG TAB PO SCH (09:13)
[2017-06-01] MEDS: SODIUM CHLORIDE 0.9% FLUSH 10 ML FLUSH IV FLUSH SCH ×2 (09:13→21:42)
[2017-06-01 11:07] LABS: TOXIC GRANULATION 2+ (NORMAL)
[2017-06-01 11:08] LABS: SCAN/DIFF AUTO DIFF CONFIRMED
[2017-06-01 12:48] LABS: HEMOGLOBIN A1a 1.6 %; HEMOGLOBIN A1b 0.5 %; HEMOGLOBIN Ao 86.7 %; HEMOGLOBIN F 1.5 %; HEMOGLOBIN LA1C 2.1 %; HEMOGLOBIN P3 4.2 %
--- NOTE | 2017-06-01 16:45 | HHI.GIFU ---
Subjective Remarks Resting in bed. No complaints, feeling much better. She was transferred out of unit today. Hoping to go home soon. Diarrhea less frequent, although still having multiple small loose stools. no bleeding. (Giselle Snyder) Objective Vitals I&O Vital Signs Date Time Temp Pulse Resp B/P (MAP) Pulse Ox O2 Delivery O2 Flow Rate FiO2 06/01/17 12:00 91 06/01/17 12:00 98.4 91 26 140/73 (95) 91 06/01/17 08:00 94 06/01/17 08:00 97.8 94 18 132/65 (87) 94 06/01/17 07:43 96 Nasal Cannula 3.00 06/01/17 07:00 91 Nasal Cannula 2.00 06/01/17 06:00 99 06/01/17 04:00 93 06/01/17 04:00 98.6 93 18 127/68 (87) 97 06/01/17 02:00 90 06/01/17 00:00 98.3 95 15 136/72 (93) 96 06/01/17 00:00 95 05/31/17 22:00 99 05/31/17 20:37 95 Nasal Cannula 3.00 05/31/17 20:00 98.3 92 15 133/60 (84) 96 05/31/17 20:00 92 05/31/17 19:00 96 Nasal Cannula 2.00 05/31/17 18:00 95 05/31/17 17:45 98.1 98 19 131/67 (88) 94 I/O 05/31/17 05/31/17 05/31/17 06/01/17 06/01/17 06/01/17 07:00 15:00 23:00 07:00 15:00 23:00 Intake Total 2380.25 ml 250 ml 1275 ml 400 ml 2449 ml 944 ml Balance 2380.25 ml 250 ml 1275 ml 400 ml 2449 ml 944 ml Intake Oral 480 ml 675 ml 400 ml 944 ml IV Total 1900.25 ml 250 ml 600 ml 2449 ml # Voids 3 10 5 4 # Bowel Movements 6 10 12 8 Laboratory Laboratory Tests Test 05/31/17 19:29 06/01/17 06:00 06/01/17 10:46 Prothrombin Time 15.1 14.5 Prothromb Time International Ratio 1.3 1.3 Blood Urea Nitrogen 5 6 Creatinine 0.34 0.34 Random Glucose 158 133 Total Protein 6.6 6.1 Albumin 2.5 2.3 Calcium Level 9.0 8.6 Alkaline Phosphatase 210 205 Aspartate Amino Transf (AST/SGOT) 57 72 Alanine Aminotransferase (ALT/SGPT) 14 15 Total Bilirubin 2.6 2.7 Sodium Level 139 138 Potassium Level 3.7 3.9 Chloride Level 105 107 Carbon Dioxide Level 23.9 23.0 Anion Gap 10 8 Estimat Glomerular Filtration Rate 206 206 Ammonia LESS THAN 10 28 White Blood Count 10.7 Red Blood Count 2.92 Hemoglobin 11.5 Hematocrit 34.7 Mean Corpuscular Volume 119.1 Mean Corpuscular Hemoglobin 39.5 Mean Corpuscular Hemoglobin Concent 33.1 Red Cell Distribution Width 17.3 Platelet Count 177 Mean Platelet Volume 8.9 Neutrophils (%) (Auto) 87.8 Lymphocytes (%) (Auto) 5.0 Monocytes (%) (Auto) 6.8 Eosinophils (%) (Auto) 0.3 Basophils (%) (Auto) 0.1 Neutrophils # (Auto) 9.4 Lymphocytes # (Auto) 0.5 Monocytes # (Auto) 0.7 Eosinophils # (Auto) 0.0 Basophils # (Auto) 0.0 CBC Comment AUTO DIFF Differential Comment AUTO DIFF CONFIRMED Toxic Granulation 2+ Toxic Vacuolation Red Cell Morphology Comment Phosphorus Level 1.9 Magnesium Level 1.7 Hemoglobin A1c 4.4 Free Thyroxine 1.45 Thyroid Stimulating Hormone 3rd Gen 1.250 Lactic Acid Level 1.8 Date/Time Source Procedure Growth Status 05/30/17 00:35 Blood Peripheral Aerobic Blood Culture - Preliminary NO GROWTH IN 2 DAYS Resulted 05/30/17 00:35 Blood Peripheral Anaerobic Blood Culture - Preliminary NO GROWTH IN 2 DAYS Resulted 05/30/17 14:20 Fluid Peritoneal Fluid Gram Stain - Final Resulted 05/30/17 14:20 Fluid Peritoneal Fluid Body Fluid Culture - Preliminary NO GROWTH IN 48 HOURS. Resulted 05/30/17 20:18 Stool Stool Cryptosporidium Exam - Final NEGATIVE - NO CRYPTOSPORIDIUM ANTIGEN... Complete 05/30/17 20:18 Stool Stool Stool Pus (EDWAR) - Final RARE WBC Complete 05/30/17 20:18 Stool Stool Giardia Antigen (EDWAR) - Final NEGATIVE - NO GIARDIA ANTIGEN DETECTE... Complete Imaging Last Impressions Cyst Biopsy Asp-Paracentesis US 05/30/17 0000 Signed Impressions: Service Date/Time: May 13:15 - CONCLUSION: Uncomplicated ultrasound guided paracentesis. Pipe Sarah Jr., MD Abdomen Ultrasound 05/30/17 0000 Signed Impressions: Service Date/Time: , May 30, 2017 09:14 - CONCLUSION: 1. Findings of cirrhosis with possible portal hypertension 2. Ascites Doe Moss MD Chest X-Ray 05/29/17 2332 Signed Impressions: Service Date/Time: Monday, May 29, 2017 23:39 - CONCLUSION: Mild bibasilar parenchymal opacities. Jalil Vieira MD Physical Exam HEENT: Normocephalic; atraumatic; no jaundice. CHEST: Resp even/unlabored, expiratory wheezing CARDIAC: ST ABDOMEN: Soft, ascites, mild diffuse tenderness; bowel sounds are present in all four quadrants. EXTREMITIES: No clubbing, cyanosis, or edema. SKIN: Normal; no rash; no jaundice. MANAGER INFRASTRUCTURE: No focal deficits; alert and oriented times three. (Giselle Snyder [facility]) Assessment and Plan Plan ASSESSMENT: - Tylenol Toxicity/Tylenol OD with ETOH in patient with underlying liver cirrhosis and ETOH abuse. Pt took 30 Tyelnol #3 ~ mn along with drinking alcohol throughout the day with underlying liver disease. Acetaminophen level on admission 32.0---> 25.1, Ethyl alcohol 231. S/P Acetylcysteine IV protocol. Labs stable. T. Bili 2.7, AST 72, ALT 15, Alk Phosph 205, Ammonia 28. Clinically doing well. Cont. to monitor labs and avoid hepatotoxins. - Ascites. S/P US guided paracentesis (05/31/17)---> 3,800cc removed. WBC 11.2. Peritoneal WBC 200, RBC 50, Neutrophils 9. Cx neg. Cytology pending. Lasix 20mg po daily, Spironolactone 25mg po daily. - Liver cirrhosis, based on imaging. Pt denies any known history of this. US ( 05/30/17)---> Findings of cirrhosis with possible portal hypertension. Ascites. Reports daily ETOH use, unable to quantify. Denies any hx of hepatitis. Hepatitis profile negative, LIMA neg, AMA pending , ASMA neg, AFP 3.0, Iron saturation 53.7%, Ferritin 208, Alpha 1 antitrypsin 247, Ceruloplasmin pending. T. Bili 2.8, AST 50, ALT 13, Alk Phosph 230. Suspect this is related to ETOH abuse, but will await liver workup - Fever, leukocytosis, elevated lactic acid. Pt reports fever in ambulance. WBC 12.7 on admission. No repeat labs. Lactic acid has gone from 2.2---> 7.5. Blood cx pending. ? SBP vs. pna vs. diarrheal infection. - C Difficile diarrhea. 1st episode. CDiff (+). Cryptosporidium negative, stool pus rare wbc, giardia negative. Enteric cx pending. Flagyl. Add probiotic. Pt had 22 bowel movements documented yesterday- although these are very small amounts. - Resp. Insufficiency with Asthma, COPD. CXR (05/29/17)---> mild bibasilar parenchymal opacities. Levaquin, Solumedrol. This has improved after paracentesis. Still with some wheezing. - SA, Depression. BA per psych. PLAN: - Heart healthy diet - S/P Acetylcysteine IV per protocol - Await cytology from peritoneal culture - Cont. Flagyl 500mg IVPB q8h - Add Lactinex - Await AMA, Ceruloplasmin - Monitor stool output - LFT in am - Supportive care - Okay to d/c Levaquin from GI standpoint- no evidence of SBP, but will defer to attending given her COPD exacerbation - Further recommendations to follow based on results of above - Pt seen and examined by Dr. Lobo and myself and this note is written on his behalf (Giselle Snyder) Physician Comments Seen and examined with FERNANDO, doing better. Can dc home with gi fu 1 week. (Brittanie Lobo MD) Giselle Snyder Jun 01, 2017 16:45 Brittanie Lobo MD Jun 02, 2017 10:33
[2017-06-01] MEDS: LACTOBACILLUS ACIDOPHILUS TAB PO SCH (17:11)
[2017-06-02] VITALS (10 sets, daily range): BP systolic 135–149; BP diastolic 69–76; PULSE 77–101; RESP 17–20; TEMP 96.1–97; O2SAT 94–98
[2017-06-02] MEDS: RESP: ALBUTEROL 2.5 MG/IPRATROPIUM 0.5 MG NEB (SCH) NEB ×4 (02:57→21:42)
[2017-06-02] MEDS: metroNIDAZOLE 500 MG INJ 100 ML IV SCH ×3 (03:47→17:10)
[2017-06-02] MEDS: CHLORHEXIDINE GLUCONATE 2 % 1 PACK (2 CLOTHS)(taper/protocol) TOPICAL SCH (03:49)
[2017-06-02] MEDS: methylPREDNISolone SOD SUCC 40 MG/1 ML VIAL IV PUSH SCH ×3 (06:18→21:56)
[2017-06-02 07:25] LABS: ANION GAP 12 MEQ/L (5-15); AST (GOT) 53 U/L (15-37); BICARBONATE 24.9 MEQ/L (21.0-32.0); BLOOD UREA NITROGEN 5 MG/DL (7-18); CHLORIDE 103 MEQ/L (98-107); GLOMERULAR FILTRATION RATE 193 ML/MIN (>89); POTASSIUM 3.4 MEQ/L (3.5-5.1); SODIUM (NA) 140 MEQ/L (136-145)
[2017-06-02 07:27] LABS: ALT (GPT) 16 U/L (10-53)
[2017-06-02 07:29] LABS: ALKALINE PHOSPHATASE 190 U/L (45-117); TOTAL BILIRUBIN ADULT 3.2 MG/DL (0.2-1.0)
[2017-06-02] MEDS: LEVOFLOXACIN 750 MG PREMIX INJ 150 ML IV SCH (08:56)
[2017-06-02] MEDS: chlordiazePOXIDE 25 MG CAP PO SCH ×3 (08:58→17:11)
[2017-06-02] MEDS: THIAMINE HCL 100 MG TAB PO SCH (08:58)
[2017-06-02] MEDS: PANTOPRAZOLE SOD 40 MG DELAYED RELEASE TAB PO SCH (08:58)
[2017-06-02] MEDS: SODIUM CHLORIDE 0.9% FLUSH 10 ML FLUSH IV FLUSH SCH ×2 (08:59→21:59)
[2017-06-02] MEDS: SODIUM CHLOR 0.9% 1000 ML INJ 1,000 ML IV SCH ×2 (09:02→22:02)
[2017-06-02] MEDS: LACTOBACILLUS ACIDOPHILUS TAB PO SCH ×3 (09:03→17:11)
--- NOTE | 2017-06-02 10:14 | HHI.PR ---
Subjective Remarks in no acute distress. still with loose BM. denies abdominal pain, nausea or vomiting. no fever. Objective Vitals Vital Signs Date Time Temp Pulse Resp B/P (MAP) Pulse Ox O2 Delivery O2 Flow Rate FiO2 06/02/17 09:08 98 Nasal Cannula 2.00 06/02/17 08:00 96.4 89 17 141/70 (93) 95 06/02/17 02:57 97 Nasal Cannula 2.00 06/02/17 01:42 101 06/02/17 00:00 97.0 95 20 149/69 (95) 94 06/01/17 21:17 97 Nasal Cannula 2.00 06/01/17 20:00 97.2 94 20 131/63 (85) 94 06/01/17 16:46 Nasal Cannula 2.00 06/01/17 16:00 97.7 88 17 144/73 (96) 97 06/01/17 12:00 91 06/01/17 12:00 98.4 91 26 140/73 (95) 91 I/O 06/01/17 06/01/17 06/01/17 06/02/17 06/02/17 06/02/17 07:00 15:00 23:00 07:00 15:00 23:00 Intake Total 400 ml 2449 ml 2914 ml 600 ml Output Total 950 ml 500 ml Balance 400 ml 2449 ml 1964 ml 100 ml Intake Oral 400 ml 1664 ml 500 ml IV Total 2449 ml 1250 ml 100 ml Output Urine Total 950 ml 500 ml # Voids 5 4 # Bowel Movements 12 13 3 Result Diagram: 06/01/17 0600 06/02/17 0614 Imaging Last Impressions Cyst Biopsy Asp-Paracentesis US 05/30/17 0000 Signed Impressions: Service Date/Time: May 13:15 - CONCLUSION: Uncomplicated ultrasound guided paracentesis. Pipe Sarah Jr., MD Abdomen Ultrasound 05/30/17 0000 Signed Impressions: Service Date/Time: May 09:14 - CONCLUSION: 1. Findings of cirrhosis with possible portal hypertension 2. Ascites Doe Moss MD Chest X-Ray 05/29/17 2631 Signed Impressions: Service Date/Time: Monday, May 29, 2017 23:39 - CONCLUSION: Mild bibasilar parenchymal opacities. Jalil Vieira MD Objective Remarks GENERAL: This is a well-nourished, well-developed patient, in no apparent distress. CARDIOVASCULAR: Regular rate and regular rhythm without murmurs, gallops, or rubs. RESPIRATORY:bilateral air entry present. GASTROINTESTINAL: Abdomen soft, non-tender, mildly distended. Normal, active bowel sounds MUSCULOSKELETAL: Extremities without clubbing, cyanosis, or edema. NEURO: Alert & Oriented x4 to person, place, time, situation. Moves all ext x4 Procedures NONE Medications and IVs Current Medications Sodium Chloride (NS Flush) 2 ml UNSCH PRN IVF FLUSH AFTER USING IV ACCESS; Start 05/29/17 at 23:45; Stop 05/30/17 at 01:48; Status DC Methylprednisolone Sodium Succinate (SoluMEDROL INJ) 60 mg ONCE ONCE IV PUSH Last administered on 05/29/17 23:56; Start 05/29/17 at 23:45; Stop 05/29/17 at 23:46; Status DC Albuterol/ Ipratropium (Duoneb Neb) 1 ampule Q15M INH Last administered on 23:43; Start 05/29/17 at 23:45; Stop 05/30/17 at 00:16; Status DC Ceftriaxone Sodium 1000 mg/ Sodium Chloride 100 ml @ 200 mls/hr ONCE ONCE IV Last administered on 05/30/17 00:50; Start 05/30/17 at 00:30; Stop 05/30/17 at 00:59; Status DC Azithromycin (Zithromax) 500 mg ONCE ONCE PO Last administered on 05/30/17 00:55; Start 05/30/17 at 00:30; Stop 05/30/17 at 00:31; Status DC Potassium Chloride (KCl) 60 meq ONCE ONCE PO Last administered on 05/30/17 01:59; Start 05/30/17 at 01:45; Stop 05/30/17 at 01:46; Status DC Sodium Chloride 1,000 ml @ 999 mls/hr BOLUS ONCE IV Last administered on 01:59; Start 05/30/17 at 01:45; Stop 05/30/17 at 02:45; Status DC Sodium Chloride 1,000 ml @ 100 mls/hr Q10H IV ; Start 05/30/17 at 01:40; Stop 05/30/17 at 04:23; Status DC Sodium Chloride (NS Flush) 2 ml UNSCH PRN IV FLUSH FLUSH AFTER USING IV ACCESS ; Start 05/30/17 at 01:45 Sodium Chloride (NS Flush) 2 ml BID IV FLUSH Last administered on 06/01/17 21 :42; Start 05/30/17 at 09:00 Naloxone HCl (Narcan Inj) 0.4 mg UNSCH PRN IV PUSH SEE LABEL COMMENTS; Start 05/30/17 at 01:45 Albuterol/ Ipratropium (Duoneb Neb) 1 ampule Q6HR NEB NEB Last administered on 06/02/17 09:06; Start 05/30/17 at 04:00 Albuterol/ Ipratropium (Duoneb Neb) 1 ampule Q2HR NEB PRN NEB wheezing; Start 05/30/17 at 01:45 Methylprednisolone Sodium Succinate (SoluMEDROL INJ) 40 mg Q6HR IV PUSH Last administered on 06/01/17 04:57; Start 05/30/17 at 06:00; Stop 06/01/17 at 08 :13; Status DC Pantoprazole Sodium (Protonix) 40 mg DAILY PO Last administered on 06/02/17 08:58; Start 05/30/17 at 09:00 Potassium Chloride 100 ml @ 50 mls/hr Q2H IV ; Start 05/30/17 at 02:00; Stop 05/30/17 at 05:59; Status DC Potassium Chloride (KCl) 40 meq ONCE ONCE PO Last administered on 05/30/17 04:54; Start 05/30/17 at 02:00; Stop 05/30/17 at 02:01; Status DC Sodium Chloride 1,000 ml @ 100 mls/hr Q10H IV Last administered on 06/02/17 09:02; Start 05/30/17 at 02:00 Flumazenil (Romazicon Inj) 0.2 mg Q1M PRN IV PUSH SEE LABEL COMMENTS; Start at 02:00 Lorazepam (Ativan) 1 mg Q4H PRN PO CIWA 8 - 10 Last administered on 05/30/17 12:35; Start 05/30/17 at 02:00 Lorazepam (Ativan Inj) 1 mg Q4H PRN IV PUSH CIWA 8 - 10; Start 05/30/17 at 02: 00 Lorazepam (Ativan) 2 mg Q2H PRN PO CIWA 11-14 Last administered on 05/31/17 23:01; Start 05/30/17 at 02:00 Lorazepam (Ativan Inj) 2 mg Q2H PRN IV PUSH CIWA 11-14; Start 05/30/17 at 02: 00 Lorazepam (Ativan Inj) 2 mg Q1H PRN IV PUSH CIWA 15-20; Start 05/30/17 at 02: 00 Lorazepam (Ativan Inj) 2 mg Q15M PRN IV PUSH CIWA > 20; Start 05/30/17 at 02: 00 Haloperidol Lactate (Haldol Inj) 2 mg Q15M PRN IM SEE LABEL COMMENTS; Start at 02:00 Chlordiazepoxide (Librium) 25 mg TID PO Last administered on 06/02/17 08:58; Start 05/30/17 at 09:00 Levofloxacin/ Dextrose 150 ml @ 100 mls/hr Q24H IV Last administered on 08:56; Start 05/30/17 at 09:00 Thiamine HCl (Vitamin B1) 500 mg ONCE ONCE PO Last administered on 05/30/17 11:17; Start 05/30/17 at 08:45; Stop 05/30/17 at 11:04; Status DC Thiamine HCl (Vitamin B1) 100 mg DAILY PO ; Start 05/30/17 at 09:00; Stop 08/04 at 11:12; Status DC Albumin Human 100 ml @ 60 mls/hr ONCE ONCE IV Last administered on 11:37; Start 05/30/17 at 11:15; Stop 05/30/17 at 12:54; Status DC Thiamine HCl (Vitamin B1) 100 mg DAILY PO Last administered on 06/02/17 08:58 ; Start 05/31/17 at 09:00 Sodium Chloride (NS Flush) 2 ml UNSCH PRN IVF FLUSH AFTER USING IV ACCESS; Start 05/30/17 at 12:30 Acetylcysteine 11708 mg/Dextrose 263.75 ml @ 200 mls/ hr ONCE IV Last administered on 05/30/17 18:09; Start 05/30/17 at 18:00; Stop 05/30/17 at 18 :01; Status DC Acetylcysteine 4250 mg/Dextrose 521.25 ml @ 125 mls/ hr ONCE IV Last administered on 05/30/17 19:40; Start 05/30/17 at 20:00; Stop 05/30/17 at 20 :01; Status DC Acetylcysteine 8500 mg/Dextrose 1,042.5 ml @ 62.5 mls/ hr ONCE ONCE IV Last administered on 05/31/17 00:02; Start 05/31/17 at 00:00; Stop 05/31/17 at 16 :40; Status DC Lidocaine HCl (Xylocaine-Mpf 1% Inj) 30 ml STK-MED ONCE .ROUTE Last administered on 05/30/17 14:50; Start 05/30/17 at 14:50; Stop 05/30/17 at 14 :51; Status DC Miscellaneous Information Patient in critical care unit? Ass... [id number] .XX ; Start 05/30/17 at 17:45 Mupirocin (Bactroban Nasal 2% Oint) 1 applic BID NASAL ; Start 05/30/17 at 21: 00; Stop 05/30/17 at 21:00; Status DC Chlorhexidine Gluconate (Chlorhexidine 2% Cloth) 3 pack DAILY@04 TOPICAL Last administered on 06/02/17 03:49; Start 05/31/17 at 04:00; Stop 06/04/17 at 04 :01 Chlorhexidine Gluconate (Chlorhexidine 2% Cloth) 3 pack UNSCH PRN TOPICAL HYGIENIC CARE; Start 05/30/17 at 17:45; Stop 06/04/17 at 17:39 Influenza Virus Vaccine (Flu (Quadrivalent) Vaccine Inj) 0.5 ml ONCE ONCE IM Last administered on 05/31/17 09:28; Start 05/31/17 at 10:00; Stop 05/31/17 at 10:01; Status DC Metronidazole 100 ml @ 100 mls/hr Q8H IV Last administered on 06/02/17 03:47 ; Start 05/31/17 at 10:45 Potassium Chloride 100 ml @ 50 mls/hr Q2H PRN IV For Potassium 2.8 - 3.2 mEq/L ; Start 05/31/17 at 11:45; Stop 06/01/17 at 15:12; Status DC Potassium Chloride 100 ml @ 50 mls/hr Q2H PRN IV For Potassium 2.8 - 3.2 mEq/L ; Start 05/31/17 at 11:45; Stop 06/01/17 at 15:12; Status DC Potassium Bicarb/ Potassium Chloride (K-Lyte Cl Eff) 50 meq UNSCH PRN PO For Potassium 3.3 - 3.5 mEq/L; Start 05/31/17 at 11:45; Stop 06/01/17 at 15:12; Status DC Potassium Chloride 100 ml @ 25 mls/hr UNSCH PRN IV For Potassium 3.3 - 3.5 mEq /L; Start 05/31/17 at 11:45; Stop 06/01/17 at 15:13; Status DC Potassium Chloride 100 ml @ 50 mls/hr Q2H PRN IV For Potassium 3.3 - 3.5 mEq/L ; Start 05/31/17 at 11:45; Stop 06/01/17 at 15:13; Status DC Magnesium Sulfate 4 gm/Sodium Chloride 100 ml @ 50 mls/hr UNSCH PRN IV For Magnesium 0.9 - 1.1 mg/dL; Start 05/31/17 at 11:45; Stop 06/01/17 at 15:13; Status DC Magnesium Oxide (Mag-Ox) 800 mg UNSCH PRN PO For Magnesium 1.2 - 1.6 mg/dL; Start 05/31/17 at 11:45; Stop 06/01/17 at 15:13; Status DC Magnesium Sulfate 2 gm/Sodium Chloride 100 ml @ 50 mls/hr UNSCH PRN IV For Magnesium 1.2 - 1.6 mg/dL; Start 05/31/17 at 11:45; Stop 06/01/17 at 15:13; Status DC Potassium Phosphate (K-Phos) 2,000 mg Q4H PRN PO For Phosphorus < 2.5 mg/dL; Start 05/31/17 at 11:45; Stop 06/01/17 at 15:13; Status DC Sodium Phosphate 30 mmol/Sodium Chloride 250 ml @ 42 mls/hr UNSCH PRN IV For Phosphorus < 2.5 mg/dL Last administered on 06/01/17t 10:52; Start 05/31/17 at 11:45; Stop 06/01/17 at 15:14; Status DC Potassium Phosphate (K-Phos) 2,000 mg UNSCH PRN PO/TUBE SEE LABEL COMMENTS; Start 05/31/17 at 11:45; Stop 06/01/17 at 15:14; Status DC Potassium Phosphate 30 mmol/ Sodium Chloride 260 ml @ 42 mls/hr UNSCH PRN IV SEE LABEL COMMENTS; Start 05/31/17 at 11:45; Stop 06/01/17 at 15:14; Status DC Potassium Chloride (KCl) 40 meq ONCE ONCE PO Last administered on 05/31/17 13:52; Start 05/31/17 at 13:30; Stop 05/31/17 at 13:38; Status DC Potassium Chloride (KCl) 40 meq ONCE ONCE PO Last administered on 05/31/17 17:23; Start 05/31/17 at 15:30; Stop 05/31/17 at 15:31; Status DC Methylprednisolone Sodium Succinate (SoluMEDROL INJ) 40 mg Q8HR IV PUSH Last administered on 06/02/17 06:18; Start 06/01/17 at 14:00 Lactobacillus Acidophilus (Lactinex) 1 tab TID PO Last administered on 09:03; Start 06/01/17 at 18:00 A/P Problem List: (1) COPD exacerbation ICD Code: J44.1 - Chronic obstructive pulmonary disease with (acute) exacerbation Status: Acute (2) Pneumonia ICD Code: J18.9 - Pneumonia, unspecified organism Status: Acute (3) Suicide attempt ICD Code: T14.91XA - Suicide attempt, initial encounter Status: Acute (4) Colitis ICD Code: K52.9 - Noninfective gastroenteritis and colitis, unspecified Status: Acute (5) Mood disorder ICD Code: F39 - Episodic mood disorder Status: Acute Assessment and Plan A/P Acute respiratory failure, on chronic COPD, 85% on room air -DuoNeb's scheduled and when necessary -change to po prednisone -taper down Oxygen to keep O2 sat > 90%. Leukocytosis, suspect pneumonia Chest x-ray reviewed and shows bilateral basilar parenchymal opacity -change to po Levaquin -Incentive spirometer Drug overdose, patient ingested 30 Tylenol 3's, suicidal thoughts Tylenol level 32 -Continue Combs act -Consulted psychiatry; recommended psych treatment. -received IV MUCOMYST PER GI Cirrhosis with ascites- s/p paracentesis with removal of 3800 ml of fluid Hypokalemia-replaced. hypophosphatemia; replace per protocol. Lactic acidosis, resolved. -Abdominal ultrasound with cirrhosis/ascites Diarrhea, chronic for 2 months- c-diff colitis -continue Flagyl -will add cholestyramine -GI following; cleared for discharge- GI reconsult as needed. Alcohol abuse, patient does not know the amount that she drinks with states she drinks throughout the day -Encouraged -CIWA protocol -Seizure precautions DVT prophylaxis SCDs Discharge Planning dc to psych today. see med list. f/u; pcp , psych and GI- as needed. d/w the patient,RN. d/w GI. time spent 35 min. Problem Qualifiers (1) Pneumonia: Qualified Codes: J18.9 - Pneumonia, unspecified organism Husam Farley MD Jun 02, 2017 10:14
[2017-06-02] MEDS ORDERED: METR-1 PO (10:19)
[2017-06-02] MEDS ORDERED: LEVA500T20 PO (10:19)
[2017-06-02] MEDS ORDERED: PRED5TAB PO (10:19)
[2017-06-02] MEDS ORDERED: CHOL4POW3 PO ×2 (10:19→10:26)
--- NOTE | 2017-06-02 10:20 | HHI.DS ---
Discharge Summary Admission Date May 30, 2017 at 01:45 Discharge Date: Jun 02, 2017 Admitting Diagnosis Pneumonia, COPD exacerbation, overdose (1) COPD exacerbation ICD Code: J44.1 - Chronic obstructive pulmonary disease with (acute) exacerbation Diagnosis: Principal Status: Acute (2) Pneumonia ICD Code: J18.9 - Pneumonia, unspecified organism Diagnosis: Principal Status: Acute (3) Suicide attempt ICD Code: T14.91XA - Suicide attempt, initial encounter Diagnosis: Principal Status: Acute (4) Colitis ICD Code: K52.9 - Noninfective gastroenteritis and colitis, unspecified Diagnosis: Principal Status: Acute (5) Mood disorder ICD Code: F39 - Episodic mood disorder Diagnosis: Principal Status: Acute Procedures NONE Brief History - From Admission Written by FERNANDO Lemus acting as scribe for [Zeinab] on 05/30/17 at 04: 08. 46 y/o female with history of COPD, and anxiety was brought to the ED under a combs act after ingesting 30 pills of Tylenol #3. Patient states niece saw her take them and called evac. She said it was a suicide attempt at that time, denies feeling that way now. Upon arrival she became short of breath and hypoxic with an o2 sat of 85%. She states she is usually always sob with a cough. She states for the last 2 weeks she has had yellow sputum. She also complains of dysuria and pain with urination, Diarrhea for a few months, and Leg swelling. She denies any history of cirrhosis. She denies any chest pain, fever or chills. CBC/BMP: 06/01/17 0600 06/02/17 0614 Significant Findings Laboratory Tests Test 05/30/17 12:20 05/30/17 12:40 05/30/17 13:00 05/30/17 14:20 Prothrombin Time 14.0 SEC (9.8-11.6) 13.8 SEC (9.8-11.6) White Blood Count 11.2 TH/MM3 (4.0-11.0) Red Blood Count 2.88 MIL/MM3 (4.00-5.30) Hemoglobin 11.3 GM/DL (11.6-15.3) Hematocrit 34.5 % (35.0-46.0) Mean Corpuscular Volume 119.6 FL (80.0-100.0) Mean Corpuscular Hemoglobin 39.2 PG (27.0-34.0) Red Cell Distribution Width 17.3 % (11.6-17.2) Neutrophils (%) (Auto) 89.3 % (16.0-70.0) Lymphocytes (%) (Auto) 5.9 % (9.0-44.0) Neutrophils # (Auto) 10.0 TH/MM3 (1.8-7.7) Lymphocytes # (Auto) 0.7 TH/MM3 (1.0-4.8) Blood Urea Nitrogen 3 MG/DL (7-18) Random Glucose 223 MG/DL (74-106) Albumin 2.9 GM/DL (3.4-5.0) Calcium Level 8.3 MG/DL (8.5-10.1) Alkaline Phosphatase 279 U/L (45-117) Aspartate Amino Transf (AST/SGOT) 67 U/L (15-37) Total Bilirubin 2.5 MG/DL (0.2-1.0) Direct Bilirubin 1.9 MG/DL (0.0-0.2) Sodium Level 135 MEQ/L (136-145) Lactic Acid Level 6.1 mmol/L (0.4-2.0) Acetaminophen Level LESS THAN 2.0 MCG/ML Arterial Blood pH 7.45 (7.380-7.420) Arterial Blood Partial Pressure CO2 35 mmHg (38-42) Blood Gas Hemoglobin 11.2 G/DL (12.0-16.0) Peritoneal Fluid WBC 200 /MM3 (0-10) Peritoneal Fluid RBC 50 /MM3 (0-0) Test 05/30/17 15:45 05/30/17 20:18 05/30/17 21:36 05/31/17 01:35 Urine Turbidity HAZY (CLEAR) Urine Ketones 40 mg/dL (NEG) Urine Leukocyte Esterase TRACE (NEG) Urine Mucus FEW /lpf (OCC) Stool C. difficile Toxin (PCR) POSITIVE (NEGATIVE) Prothrombin Time 15.4 SEC (9.8-11.6) 15.0 SEC (9.8-11.6) Blood Urea Nitrogen 4 MG/DL (7-18) 5 MG/DL (7-18) Creatinine 0.37 MG/DL (0.50-1.00) 0.41 MG/DL (0.50-1.00) Random Glucose 216 MG/DL (74-106) 167 MG/DL (74-106) Albumin 2.5 GM/DL (3.4-5.0) 2.6 GM/DL (3.4-5.0) Calcium Level 8.1 MG/DL (8.5-10.1) 8.4 MG/DL (8.5-10.1) Alkaline Phosphatase 223 U/L (45-117) 242 U/L (45-117) Aspartate Amino Transf (AST/SGOT) 52 U/L (15-37) 51 U/L (15-37) Total Bilirubin 2.5 MG/DL (0.2-1.0) 2.7 MG/DL (0.2-1.0) Total Iron Binding Capacity 181 MCG/DL (250-450) Percent Iron Saturation 53.7 % (20-50) Ammonia 51 MCMOL/L (11-32) [id number] 247 mg/dL (100 - 190) Sodium Level 135 MEQ/L (136-145) Test 05/31/17 05:05 05/31/17 11:24 05/31/17 19:29 06/01/17 06:00 Prothrombin Time 15.0 SEC (9.8-11.6) 14.4 SEC (9.8-11.6) 15.1 SEC (9.8-11.6) 14.5 SEC (9.8-11.6) Blood Urea Nitrogen 5 MG/DL (7-18) 5 MG/DL (7-18) 5 MG/DL (7-18) 6 MG/DL (7- 18) Creatinine 0.24 MG/DL (0.50-1.00) 0.37 MG/DL (0.50-1.00) 0.34 MG/DL (0.50-1.00) 0.34 MG/DL (0.50-1.00) Random Glucose 179 MG/DL (74-106) 156 MG/DL (74-106) 158 MG/DL (74-106) 133 MG/DL (74-106) Albumin 2.4 GM/DL (3.4-5.0) 2.5 GM/DL (3.4-5.0) 2.5 GM/DL (3.4-5.0) 2.3 GM/DL (3.4-5.0) Alkaline Phosphatase 230 U/L (45-117) 210 U/L (45-117) 210 U/L (45-117) 205 U/L (45-117) Aspartate Amino Transf (AST/SGOT) 50 U/L (15-37) 45 U/L (15-37) 57 U/L (15-37) 72 U/L (15-37) Total Bilirubin 2.8 MG/DL (0.2-1.0) 2.5 MG/DL (0.2-1.0) 2.6 MG/DL (0.2-1.0) 2.7 MG/DL (0.2-1.0) Sodium Level 134 MEQ/L (136-145) Potassium Level 3.3 MEQ/L (3.5-5.1) 3.0 MEQ/L (3.5-5.1) Phosphorus Level 1.4 MG/DL (2.5-4.9) 1.9 MG/DL (2.5-4.9) Ammonia 10 MCMOL/L (11-32) LESS THAN 10 MCMOL/L Red Blood Count 2.92 MIL/MM3 (4.00-5.30) Hemoglobin 11.5 GM/DL (11.6-15.3) Hematocrit 34.7 % (35.0-46.0) Mean Corpuscular Volume 119.1 FL (80.0-100.0) Mean Corpuscular Hemoglobin 39.5 PG (27.0-34.0) Red Cell Distribution Width 17.3 % (11.6-17.2) Neutrophils (%) (Auto) 87.8 % (16.0-70.0) Lymphocytes (%) (Auto) 5.0 % (9.0-44.0) Neutrophils # (Auto) 9.4 TH/MM3 (1.8-7.7) Lymphocytes # (Auto) 0.5 TH/MM3 (1.0-4.8) Toxic Granulation 2+ (NORMAL) Total Protein 6.1 GM/DL (6.4-8.2) Test 06/01/17 10:46 06/02/17 06:14 Blood Urea Nitrogen 5 MG/DL (7-18) Creatinine 0.36 MG/DL (0.50-1.00) Random Glucose 134 MG/DL (74-106) Total Protein 6.3 GM/DL (6.4-8.2) Albumin 2.7 GM/DL (3.4-5.0) Alkaline Phosphatase 190 U/L (45-117) Aspartate Amino Transf (AST/SGOT) 53 U/L (15-37) Total Bilirubin 3.2 MG/DL (0.2-1.0) Potassium Level 3.4 MEQ/L (3.5-5.1) Imaging Last Impressions Cyst Biopsy Asp-Paracentesis US 05/30/17 0000 Signed Impressions: Service Date/Time: May 13:15 - CONCLUSION: Uncomplicated ultrasound guided paracentesis. Pipe Sarah Jr., MD Abdomen Ultrasound 05/30/17 0000 Signed Impressions: Service Date/Time: May 09:14 - CONCLUSION: 1. Findings of cirrhosis with possible portal hypertension 2. Ascites Doe Moss MD Chest X-Ray 05/29/17 2332 Signed Impressions: Service Date/Time: Monday, May 29, 2017 23:39 - CONCLUSION: Mild bibasilar parenchymal opacities. Jalil Vieira MD PE at Discharge GENERAL: This is a well-nourished, well-developed patient, in no apparent distress. CARDIOVASCULAR: Regular rate and regular rhythm without murmurs, gallops, or rubs. RESPIRATORY:bilateral air entry present. GASTROINTESTINAL: Abdomen soft, non-tender, mildly distended. Normal, active bowel sounds MUSCULOSKELETAL: Extremities without clubbing, cyanosis, or edema. NEURO: Alert & Oriented x4 to person, place, time, situation. Moves all ext x4 Hospital Course Acute respiratory failure, on chronic COPD, 85% on room air -DuoNeb's scheduled and when necessary -change to po prednisone -taper down Oxygen to keep O2 sat > 90%. Leukocytosis, suspect pneumonia Chest x-ray reviewed and shows bilateral basilar parenchymal opacity -change to po Levaquin -Incentive spirometer Drug overdose, patient ingested 30 Tylenol 3's, suicidal thoughts Tylenol level 32 -Continue Combs act -Consulted psychiatry; recommended psych treatment. -received IV MUCOMYST PER GI Cirrhosis with ascites- s/p paracentesis with removal of 3800 ml of fluid Hypokalemia-replaced. hypophosphatemia; replace per protocol. Lactic acidosis, resolved. -Abdominal ultrasound with cirrhosis/ascites Diarrhea, chronic for 2 months- c-diff colitis -continue Flagyl -will add cholestyramine -GI following; cleared for discharge- GI reconsult as needed. Alcohol abuse, patient does not know the amount that she drinks with states she drinks throughout the day -Encouraged -CIWA protocol -Seizure precautions DVT prophylaxis SCDs Pt Condition on Discharge: Fair Discharge Disposition: Disc to Psych Care Fac Discharge Time: > 30 minutes Discharge Instructions DIET: Follow Instructions for: Heart Healthy Diet Activities you can perform: Regular-No Restrictions Follow up Referrals: Gastroenterology PCP Follow-up Psychiatry Adult New Medications: Cholestyramine (Cholestyramine) 4 Gm/Dose Powd 4 GM PO BID for diarrhea for 7 Days, #1 CAN 0 Refills 1 level scoopful of powder contains 4 grams of cholestyramine. Levofloxacin (Levaquin) 500 Mg Tablet 500 MG PO DAILY for Infection for 3 Days, #3 TAB 0 Refills Metronidazole (Flagyl) 500 Mg Tab 500 MG PO TID for Infection for 10 Days, TAB 0 Refills Prednisone (Prednisone) 5 Mg Tab 5 MG PO DIRECTED for copd for 10 Days, TAB 0 Refills 40 mg po daily for two days then 30 mg po daily for two days then 20 mg po daily for two days then 10 mg po daily for two days then 5 mg po daily for two days then stop. Continued Medications: Budesonide-Formoterol Inh (Symbicort Inh) 80-4.5 Mcg/Act Aero 2 PUFF INH Q12HR for Breathing Treatment, #60 INHALER Ipratropium HFA 12.9 GM Inh (Atrovent HFA 12.9 GM Inh) 17 Mcg/Act Aer 2 PUFF INH QID for Breathing Treatment, #1 INHALER 0 Refills Oxycodone-Acetaminophen (Percocet) 5-325 mg Tab 1 TAB PO Q6H PRN for PAIN, #10 TAB 0 Refills Tiotropium Inh (Spiriva Handihaler) 18 Mcg Cap 18 MCG INH DAILY for Breathing Treatment, #30 CAP Discontinued Medications: Alprazolam (Xanax) 1 Mg Tab 1 MG PO HS for ANXIETY, TAB 0 Refills Ciprofloxacin (Cipro) 500 Mg Tab 500 MG PO BID for Infection for 10 Days, TAB 0 Refills Prednisone (Prednisone) 50 Mg Tab 50 MG PO DAILY for 5 Days, TAB 0 Refills Trazodone (Trazodone) 300 Mg Tab 300 MG PO HS for Control Depression, #30 TAB 0 Refills Husam Farley MD Jun 02, 2017 10:20
[2017-06-02] MEDS ORDERED: MULT1TAB46 PO (10:26)
[2017-06-02] MEDS ORDERED: VITA100T54 PO (10:26)
[2017-06-03 01:08] VITALS: BP 140/75; PULSE 91; RESP 20; TEMP 96.9; O2SAT 95
[2017-06-03 01:59] VITALS: PULSE 90
[2017-06-03] MEDS: metroNIDAZOLE 500 MG INJ 100 ML IV SCH ×2 (03:44→11:30)
[2017-06-03] MEDS: CHLORHEXIDINE GLUCONATE 2 % 1 PACK (2 CLOTHS)(taper/protocol) TOPICAL SCH (03:45)
[2017-06-03 04:42] VITALS: BP 139/72; PULSE 92; RESP 18; TEMP 96.4; O2SAT 98
[2017-06-03] MEDS: methylPREDNISolone SOD SUCC 40 MG/1 ML VIAL IV PUSH SCH ×2 (05:43→12:15)
[2017-06-03] MEDS: SODIUM CHLOR 0.9% 1000 ML INJ 1,000 ML IV SCH (05:46)
[2017-06-03 08:00] VITALS: BP 142/76; PULSE 81; RESP 17; TEMP 97; O2SAT 93
[2017-06-03] MEDS: SODIUM CHLORIDE 0.9% FLUSH 10 ML FLUSH IV FLUSH SCH (09:00)
[2017-06-03] MEDS: LACTOBACILLUS ACIDOPHILUS TAB PO SCH ×2 (09:07→12:14)
[2017-06-03] MEDS: LEVOFLOXACIN 750 MG PREMIX INJ 150 ML IV SCH (09:07)
[2017-06-03] MEDS: PANTOPRAZOLE SOD 40 MG DELAYED RELEASE TAB PO SCH (09:07)
[2017-06-03] MEDS: THIAMINE HCL 100 MG TAB PO SCH (09:07)
[2017-06-03] MEDS: chlordiazePOXIDE 25 MG CAP PO SCH ×2 (09:07→12:14)
--- NOTE | 2017-06-03 09:34 | HHI.PR ---
Subjective Remarks In bed, appears in nad. Awaiting to go t psych unit. Says she has no pain at this time. no cough fever ro chills. No n/v/d/c. Objective Vitals Vital Signs Date Time Temp Pulse Resp B/P (MAP) Pulse Ox O2 Delivery O2 Flow Rate FiO2 06/03/17 08:00 97.0 81 17 142/76 (98) 93 06/03/17 04:42 96.4 92 18 139/72 (94) 98 06/03/17 01:59 90 06/03/17 01:08 96.9 91 20 140/75 (96) 95 06/02/17 20:00 96.6 95 18 135/76 (95) 98 06/02/17 16:00 96.1 77 17 136/70 (92) 97 06/02/17 15:48 96 21 06/02/17 12:00 96.9 82 18 138/69 (92) 96 I/O 06/02/17 06/02/17 06/02/17 06/03/17 06/03/17 06/03/17 07:00 15:00 23:00 07:00 15:00 23:00 Intake Total 600 ml 1480 ml 760 ml 100 ml Output Total 500 ml 700 ml Balance 100 ml 780 ml 760 ml 100 ml Intake Oral 500 ml 480 ml 760 ml IV Total 100 ml 1000 ml 100 ml Output Urine Total 500 ml 700 ml # Voids 7 # Bowel Movements 3 4 3 Result Diagram: 06/01/17 0600 06/02/17 0614 Imaging Last Impressions Cyst Biopsy Asp-Paracentesis US 05/30/17 0000 Signed Impressions: Service Date/Time: May 13:15 - CONCLUSION: Uncomplicated ultrasound guided paracentesis. Pipe Sarah Jr., MD Abdomen Ultrasound 05/30/17 0000 Signed Impressions: Service Date/Time: May 09:14 - CONCLUSION: 1. Findings of cirrhosis with possible portal hypertension 2. Ascites Doe Moss MD Chest X-Ray 05/29/17 1827 Signed Impressions: Service Date/Time: Monday, May 29, 2017 23:39 - CONCLUSION: Mild bibasilar parenchymal opacities. Jalil Vieira MD Objective Remarks GENERAL: This is a well-nourished, well-developed patient, in no apparent distress. CARDIOVASCULAR: Regular rate and regular rhythm without murmurs, gallops, or rubs. RESPIRATORY:bilateral air entry present. GASTROINTESTINAL: Abdomen soft, non-tender, mildly distended. Normal, active bowel sounds MUSCULOSKELETAL: Extremities without clubbing, cyanosis, or edema. NEURO: Alert & Oriented x4 to person, place, time, situation. Moves all ext x4 Procedures NONE A/P Problem List: (1) COPD exacerbation ICD Code: J44.1 - Chronic obstructive pulmonary disease with (acute) exacerbation Status: Acute (2) Pneumonia ICD Code: J18.9 - Pneumonia, unspecified organism Status: Acute (3) Suicide attempt ICD Code: T14.91XA - Suicide attempt, initial encounter Status: Acute (4) Colitis ICD Code: K52.9 - Noninfective gastroenteritis and colitis, unspecified Status: Acute (5) Mood disorder ICD Code: F39 - Episodic mood disorder Status: Acute Assessment and Plan Acute respiratory failure, on chronic COPD, 85% on room air -DuoNeb's scheduled and when necessary -change to po prednisone -taper down Oxygen to keep O2 sat > 90%. Leukocytosis, suspect pneumonia Chest x-ray reviewed and shows bilateral basilar parenchymal opacity -change to po Levaquin -Incentive spirometer Drug overdose, patient ingested 30 Tylenol 3's, suicidal thoughts Tylenol level 32 -Continue Combs act -Consulted psychiatry; recommended psych treatment. -received IV MUCOMYST PER GI Cirrhosis with ascites- s/p paracentesis with removal of 3800 ml of fluid Hypokalemia-replaced. hypophosphatemia; replace per protocol. Lactic acidosis, resolved. -Abdominal ultrasound with cirrhosis/ascites Diarrhea, chronic for 2 months- c-diff colitis -continue Flagyl -will add cholestyramine -GI following; cleared for discharge- GI reconsult as needed. Alcohol abuse, patient does not know the amount that she drinks with states she drinks throughout the day -Encouraged -CIWA protocol -Seizure precautions DVT prophylaxis SCDs Discharge Planning dc to psych today. see med list. f/u; pcp , psych and GI- as needed. d/w the patient, nurse Problem Qualifiers (1) Pneumonia: Qualified Codes: J18.9 - Pneumonia, unspecified organism Barbara Duke MD Jun 03, 2017 09:34
[2017-06-03 12:00] VITALS: BP 135/64; PULSE 98; RESP 17; TEMP 96.5; O2SAT 92
--- NOTE | 2017-06-03 13:38 | HHI.PYPN ---
Subjective Remarks Patient was seen today for psychiatric reevaluation, patient reports that she feels much better, that she is looking forward to be discharged her kids and her . When asked about her recent suicidal attempt and reasons and circumstances around it, patient broke into tears stating that she has been very frustrated, overwhelmed and sad "due to issues with my ". At this moment the patient denies suicidal ideation, she denies homicidal ideation, visual and auditory hallucinations. Patient is oriented 3, no attention deficit, no alcohol withdrawal present. Mental Status Examination Appearance: Appropriate Consciousness: Alert Orientation: x4 Motor Activity: Normal gait Speech: Unremarkable Language: Adequate Fund of Knowledge: Adequate Attention and Concentration: Adequate Memory: Unremarkable Mood: Sad, Irritable Affect: Irritable, Sad Thought Process & Associations: Intact Thought Content: Appropriate Hallucination Type: None Delusion Type: None Suicidal Ideation: No Suicidal Plan: No Suicidal Intention: No Homicidal Ideation: No Homicidal Plan: No Homicidal Intention: No Insight: Adequate Judgment: Adequate Results Labs Date/Time Source Procedure Growth Status 05/30/17 00:35 Blood Peripheral Aerobic Blood Culture - Preliminary NO GROWTH IN 4 DAYS Resulted 05/30/17 00:35 Blood Peripheral Anaerobic Blood Culture - Preliminary NO GROWTH IN 4 DAYS Resulted 05/30/17 14:20 Fluid Peritoneal Fluid Gram Stain - Final Complete 05/30/17 14:20 Fluid Peritoneal Fluid Body Fluid Culture - Final NO GROWTH IN 72 HRS.--AEROBICALLY OR ... Complete 05/30/17 20:18 Stool Stool Cryptosporidium Exam - Final NEGATIVE - NO CRYPTOSPORIDIUM ANTIGEN... Complete 05/30/17 20:18 Stool Stool Stool Pus (EDWAR) - Final RARE WBC Complete 05/30/17 20:18 Stool Stool Giardia Antigen (EDWAR) - Final NEGATIVE - NO GIARDIA ANTIGEN DETECTE... Complete Vitals/IOs Vital Signs Date Time Temp Pulse Resp B/P (MAP) Pulse Ox O2 Delivery O2 Flow Rate FiO2 06/03/17 12:00 96.5 98 17 135/64 (87) 92 06/02/17 15:48 21 06/02/17 09:08 Nasal Cannula 2.00 Intake and Output 06/03/17 06/03/17 06/04/17 08:00 16:00 00:00 Intake Total 860 ml 150 ml Balance 860 ml 150 ml Assessment & Plan Problem List: (1) Adjustment disorder with depressed mood ICD Codes: F43.21 - Adjustment disorder with depressed mood Assessment & Plan: Patient continues to show moderate to severe symptoms of depression, unable to elaborate about recent suicidal attempt. Patient poses imminent risk of danger to herself. We will start citalopram 10 mg for depression. Continue Librium 25 mg 3 times a day for alcohol withdrawal. Transfer to psychiatry. Assessment & Plan Estimated LOS: days Justification for Cont. Inpt. Patient needs psychiatric hospitalization for stabilization. Joseph Dumont MD Jun 03, 2017 13:38
[2017-06-03] MEDS ORDERED: CITALOPRAM HYDROBROMIDE 20 MG TAB PO SCH (13:45)
[2017-06-05 03:51] LABS: MITOCHONDRIAL ABS LESS THAN 20.0 U (<=20.0)
== END 2017-06-03 14:18 | DRG 917 ==
LOC: NEPC 23:06 → NEDA 05-30 01:42 → OBSVTOIN 05-30 01:45 → NEPHCDU 05-30 05:14 → HIMN 05-30 15:52 → N07B 06-01 15:26
PROVIDERS: ADMIT Hospitalist; ATTEND Hospitalist
PROC: 0W9G3ZZ Drainage of Peritoneal Cavity, Percutaneous Approach (ICD-10-PCS; principal; 2017-05-30)
DX: T39.1X2A Poisoning by 4-Aminophenol derivatives, intentional self-harm, initial encounter (principal); J18.9 Pneumonia, unspecified organism; J96.01 Acute respiratory failure with hypoxia; E87.2 Acidosis; R18.8 Other ascites; J44.0 Chronic obstructive pulmonary disease with (acute) lower respiratory infection; A04.72 Enterocolitis due to Clostridium difficile, not specified as recurrent; K74.60 Unspecified cirrhosis of liver; J44.1 Chronic obstructive pulmonary disease with (acute) exacerbation; F39 Unspecified mood [affective] disorder; F43.21 Adjustment disorder with depressed mood; F10.10 Alcohol abuse, uncomplicated; Y90.7 Blood alcohol level of 200-239 mg/100 ml; F17.210 Nicotine dependence, cigarettes, uncomplicated; F12.90 Cannabis use, unspecified, uncomplicated; R33.9 Retention of urine, unspecified; E87.6 Hypokalemia; E83.39 Other disorders of phosphorus metabolism; H91.90 Unspecified hearing loss, unspecified ear; Z23 Encounter for immunization
CPT/HCPCS: 36600; 49083; 71010; 76700; 76937; 80048; 80053; 80074; 80076; 80307; 81001; 82042; 82103; 82105; 82140; 82390; 82550; 82728; 82805; 83036; 83520; 83540; 83550; 83605; 83735; 83880; 84100; 84439; 84443; 84484; 84703; 85025; 85610; 86038; 86255; 87040; 87070; 87205; 87328; 87329; 87493; 87506; 87641; 89051; 90686; 93005; 94150; 94640; 94664; 94667; 94668; 96365; 96375; C1729; J0132; J0696; J1956; J2920; J2930; J7030; J7050; J7060; J7070; P9047; Q2038

== ENCOUNTER 2017-06-03 13:15 | Inpatient (IN) | payer SELFPAY ==
[~2017-06-03] VITALS: Ht 182.9 cm; Wt 90.2 kg
[~2017-06-03 13:15] MED LIST changes: +CHOL4POW3 PO; -CIPR-9 PO; +LEVA500T20 PO; +METR-1 PO; +MULT1TAB46 PO; -PRED50 PO; +PRED5TAB PO; -TRAZ300T2 PO; +VITA100T54 PO; -XANA1TAB2 PO
[2017-06-03] MEDS ORDERED: ACETAMINOPHEN 325 MG TAB PO PRN (16:00)
[2017-06-03] MEDS: NICOTINE 21 MG/24 HR PATCH T-DERMAL SCH (16:00)
[2017-06-03] MEDS ORDERED: MAGNESIUM HYDROXIDE SUSP 30 ML CUP PO PRN (16:00)
[2017-06-03] MEDS ORDERED: LORazepam 2 MG/ML VIAL IM PRN ×2 (16:00)
[2017-06-03] MEDS ORDERED: CITALOPRAM HYDROBROMIDE 20 MG TAB PO ONE (16:00)
[2017-06-03] MEDS ORDERED: LORazepam 1 MG TAB PO PRN (16:00)
[2017-06-03] MEDS ORDERED: ALUMINUM/MAGNESIUM/SIMETH 30 ML CUP PO PRN (16:00)
[2017-06-03] MEDS ORDERED: LORazepam 0.5 MG TAB PO PRN (16:00)
[2017-06-03] MEDS ORDERED: PILL SPLITTER OTHER PRN (16:15)
[2017-06-03] MEDS ORDERED: ALBUTEROL SULFATE 90 MCG/ACT HFA 8 GM INHALER INH PRN (17:15)
[2017-06-03 18:06] VITALS: BP 141/67; PULSE 88; RESP 18; TEMP 96.2; O2SAT 98
--- NOTE | 2017-06-03 19:44 | PD.CONS ---
[facility] By [facility] Physician Joseph Dumont MD Diagnoses: History of Present Illness Mrs. Jauregui is a 46-year-old female. She is admitted under psychiatric care. Medical consult placed in regards to patient's COPD. I discussed the COPD with the patient and she says that at baseline she is not well controlled, but this is secondary to inability to access treatments due to financial limitations. When she has used treatments in the past they have helped. Presently she is not on treatment prior to being admitted here. We discussed starting treatment. She has no other complaints at this time. No chest pain. No cough, fever, or chills. Review of Systems Constitutional: DENIES: Diaphoretic episodes, Fatigue, Fever, Chills, Night Sweats Eyes: DENIES: Blurred vision, Diplopia, Eye inflammation, Eye pain Ears, nose, mouth, throat: DENIES: Tinnitus, Hearing loss, Vertigo Respiratory: COMPLAINS OF: Wheezing, Shortness of breath, DENIES: Cough Cardiovascular: DENIES: Chest pain, Palpitations, Syncope Gastrointestinal: DENIES: Abdominal pain, Black stools, Bloody stools Musculoskeletal: DENIES: Joint pain, Muscle aches, Stiffness Integumentary: DENIES: Abnormal pigmentation, Pruritus, Rash, Nail changes Hematologic/lymphatic: DENIES: Bruising, Lymphadenopathy Immunologic/allergic: DENIES: Eczema, Urticaria Neurologic: DENIES: Abnormal gait, Headache, Paresthesias Past Family Social History Allergies: Coded Allergies: No Known Allergies (Verified , 03/26/17) Past Medical History COPD Past Surgical History Patient reports no knowledge of prior surgeries Reported Medications Reported Meds & Active Scripts Active Multi Vitamin Daily (Multiple Vitamin) 1 Tab Tab 1 Tab PO DAILY 30 Days Vitamin B-1 (Thiamine HCl) 100 Mg Tab 100 Mg PO DAILY 30 Days Cholestyramine 4 Gm/Dose Powd 4 Gm PO DAILY 7 Days 1 level scoopful of powder contains 4 grams of cholestyramine. Prednisone 5 Mg Tab 5 Mg PO DIRECTED 10 Days 40 mg po daily for two days then 30 mg po daily for two days then 20 mg po daily for two days then 10 mg po daily for two days then 5 mg po daily for two days then stop. Levaquin (Levofloxacin) 500 Mg Tablet 500 Mg PO DAILY 3 Days Flagyl (Metronidazole) 500 Mg Tab 500 Mg PO TID 10 Days Percocet (Oxycodone-Acetaminophen) 5-325 mg Tab 1 Tab PO Q6H PRN Atrovent HFA 12.9 GM Inh (Ipratropium Gatzke) 17 Mcg/Act Aer 2 Puff INH QID Spiriva Handihaler (Tiotropium Inh) 18 Mcg Cap 18 Mcg INH DAILY Symbicort Inh (Budesonide/Formoterol Fumarate) 80-4.5 Mcg/Act Aero 2 Puff INH Q12HR Family History CVA in father Social History Past history of smoking Heavy alcohol use Patient denies any illicit drug abuse Physical Exam Vital Signs Vital Signs Date Time Temp Pulse Resp B/P (MAP) Pulse Ox O2 Delivery O2 Flow Rate FiO2 06/03/17 18:06 96.2 88 18 141/67 (91) 98 Physical Exam GENERAL: NAD, A&Ox3 HEAD: Normocephalic. NECK: Supple, trachea midline. No lymphadenopathy. EYES: No scleral icterus. No injection or drainage. CARDIOVASCULAR: Regular rate and rhythm without murmurs, gallops, or rubs. RESPIRATORY: Breath sounds equal bilaterally. No accessory muscle use. Coarse breath sounds bilaterally with trace wheezing GASTROINTESTINAL: Abdomen soft, non-tender, nondistended. MUSCULOSKELETAL: No cyanosis, or edema. SKIN: Warm and dry. NEURO: No focal neurological deficitis. Assessment and Plan Problem List: (1) COPD exacerbation ICD Code: J44.1 - Chronic obstructive pulmonary disease with (acute) exacerbation Status: Acute (2) Mood disorder ICD Code: F39 - Episodic mood disorder Status: Acute (3) Panic disorder with agoraphobia ICD Code: F40.01 - Agoraphobia with panic disorder Status: Acute (4) Adjustment disorder with depressed mood ICD Code: F43.21 - Adjustment disorder with depressed mood Assessment and Plan Assessment and plan 46-year-old female admitted under psychiatric care, consult for COPD COPD Not controlled Begin Symbicort twice a day As needed albuterol every 4 hours Will return for repeat evaluation in one to 2 days DVT prophylaxis Patient ambulatory Mark Anthony Pham MD Jun 03, 2017 19:44
[2017-06-03] MEDS: BUDESONIDE-FORMOTEROL 80/4.5 MCG INHALER INH SCH (20:39)
[2017-06-04 06:03] VITALS: BP 104/54; PULSE 89; RESP 17; TEMP 97.6; O2SAT 93
[2017-06-04] MEDS: BUDESONIDE-FORMOTEROL 80/4.5 MCG INHALER INH SCH ×2 (08:34→20:37)
[2017-06-04] MEDS: NICOTINE 21 MG/24 HR PATCH T-DERMAL SCH (08:34)
[2017-06-04] MEDS: REMOVE OLD PATCH T-DERMAL SCH (08:35)
--- NOTE | 2017-06-04 09:58 | HHI.HP ---
Provisional Diagnosis Admission Date Jun 03, 2017 at 13:15 Wilmer I. 1. Adjustment disorder with disturbance of emotions and conduct 2. Alcohol abuse Wilmer II. Deferred Certification of Person's Competence To Provide Express and Informed Consent I have personally examined Soraya Jauregui , a person being served at [facility] on, Jun 04, 2017 09:57. Express and informed consent means consent voluntarily given in writing, by a competent person, after sufficient explanation and disclosure of the subject matter involved to enable the person to make a knowing and willful decision without any element of force, fraud, deceit, duress, or other form of constraint or coercion. This person is 18 years of age or older, is not now known to be incompetent to consent to treatment with a guardian advocate, and does not have a health care surrogate or proxy currently making medical treatment decisions. I have found this person to be one of the following: [] Competent to provide express and informed consent, as defined above, for voluntary admission to this facility and is competent to provide express and informed consent for treatment. He/she has the consistent capacity to make well reasoned, willful, and knowing decisions concerning his or her medical or mental health treatment. The person fully and consistently understands the purpose of the admission for examination/placement and is fully capable of personally exercising all rights assured [place] Incompetent to provide express and informed consent to voluntary admission, and this is incompetent to provide express and informed consent to treatment. The person must be transferred to involuntary status and a petition for a guardian advocate filed with the Circuit Court. [x] Refusing to provide express and informed consent to voluntary admission but is competent to provide express and informed consent for treatment. The person must be discharged or transferred to involuntary status. Form shall be completed within 24 hours of a person's arrival at the receiving facility and filed in the clinical record of each person: 1. Admitted on a voluntary basis 2. Permitted to provide express and informed consent to his/her own treatment 3. Allowed to transfer from involuntary to voluntary status 4. Prior to permitting a person to consent to his or her own treatment after having been previously found incompetent to consent to treatment. History of Present Illness Capacity: Has Capacity Psych Chief Complaint: overdose HPI Ms. Jauregui is a 46-year-old female with reported history of anxiety who presented initially following an overdose on Tylenol No. 3. Patient was admitted to the medical floor for management of her overdose as well as a COPD exacerbation and was seen in consultation on the medical floor by Dr. Dumont. Reviewing the electronic medical record, I note that the patient used to follow in the outpatient clinic with Dr. Berry and more remotely was seen in consultation by Dr. Medina in the mid following an overdose on Xanax and Flexeril in response to psychosocial stressors. Patient seen and examined with counselor. Chart reviewed. Case discussed with nursing staff. On my examination today, the patient says that she made the overdose because "I was so stupid. I was drinking. He [i.e. patient's ] said something, and I took the pills." Patient estimates that she took about 30 Tylenol No. 3 with the goal of "scaring" her . She denies any suicidal intent in the overdose. They had apparently been arguing because said he no longer wished to pursue a sexual relationship with patient. Patient does complain of some generalized anxiety and sleep disturbance, although the latter is also exacerbated by chronic back pain. She has had some losses in the last year. Mood is presently "fine, normal." Patient denies any hopelessness, worthlessness or morbid guilt. She does say that her energy levels are somewhat low, again leaving her back pain. No hypomanic or manic symptoms. She denies any audiovisual hallucinations. I can elicit no delusional beliefs. She denies any suicidal or homicidal ideation, intent or plan at this time. She says that she has discussed the matter with her since the overdose and would like to pursue marital counseling. The remainder of psychiatric ROS is negative. Besides the chronic back pain, patient verbalizes no physical complaints. Past psychiatric history: The patient reports a history of anxiety. She is not currently under the care of a psychiatrist. She denies any history of psychiatric admissions. She reports only one suicide attempt in the past by overdose at age 18 or 19 when she discovered that her first was cheating on her. Review of Systems Except as stated in HPI: all other systems reviewed are Neg Past Psych History Psychological trauma history Patient denies any history of abuse or other trauma Violence risk - others (6 mos) Lower imminent risk. Denies any homicidal ideation. No known history of violence. No evidence of violence on the unit. Violence risk - self (6 mos) Plan to monitor for impairments in safety. Patient now denies that ingestion was suicidal in nature but rather the goal was to scare her as the 2 had been arguing. She denies suicidal ideation now. Alcohol use is a risk factor, as is history of suicide attempt in the past. Denies any access to guns or firearms. Substance Abuse History Drugs/Alcohol past 12 months Patient reports that she has been drinking more heavily in the last year. She has 48 rum drinks daily. She denies any blackouts, DTs or seizures. Denies any history of chem dep treatment. Her longest sober time is on the order of days. She denies any other substance use. She is pre-contemplative with regards to changing pattern of use at this time. Past Family Social History Coded Allergies: No Known Allergies (Verified , 03/26/17) Past Medical History See electronic medical record Active Scripts Multiple Vitamin (Multi Vitamin Daily) 1 Tab Tab, 1 TAB PO DAILY for vitamin for 30 Days, #30 TAB 0 Refills Prov:Husam Farley MD 06/02/17 Thiamine (Vitamin B-1) 100 Mg Tab, 100 MG PO DAILY for Nutritional Supplement for 30 Days, #30 TAB 0 Refills Prov:Husam Farley MD 06/02/17 Cholestyramine (Cholestyramine) 4 Gm/Dose Powd, 4 GM PO DAILY for diarrhea for 7 Days, #1 CAN 0 Refills 1 level scoopful of powder contains 4 grams of cholestyramine. Prov:Husam Farley MD 06/02/17 Prednisone (Prednisone) 5 Mg Tab, 5 MG PO DIRECTED for copd for 10 Days, TAB 0 Refills 40 mg po daily for two days then 30 mg po daily for two days then 20 mg po daily for two days then 10 mg po daily for two days then 5 mg po daily for two days then stop. Prov:Husam Farley MD 06/02/17 Levofloxacin (Levaquin) 500 Mg Tablet, 500 MG PO DAILY for Infection for 3 Days , #3 TAB 0 Refills Prov:Husam Farley MD 06/02/17 Metronidazole (Flagyl) 500 Mg Tab, 500 MG PO TID for Infection for 10 Days, TAB 0 Refills Prov:Husam Farley MD 06/02/17 Oxycodone-Acetaminophen (Percocet) 5-325 mg Tab, 1 TAB PO Q6H Y for PAIN, #10 TAB 0 Refills Prov:Pablito Morton MD 03/27/17 Ipratropium HFA 12.9 GM Inh (Atrovent HFA 12.9 GM Inh) 17 Mcg/Act Aer, 2 PUFF INH QID for Breathing Treatment, #1 INHALER 0 Refills Prov:Sanjiv Shen MD 08/21/16 Tiotropium Inh (Spiriva Handihaler) 18 Mcg Cap, 18 MCG INH DAILY for Breathing Treatment, #30 CAP Prov:Sanjiv Shen MD 08/21/16 Budesonide-Formoterol Inh (Symbicort Inh) 80-4.5 Mcg/Act Aero, 2 PUFF INH Q12HR for Breathing Treatment, #60 INHALER Prov:Sanjiv Shen MD 08/21/16 Discontinued Reported Medications Alprazolam (Xanax) 1 Mg Tab, 1 MG PO HS for ANXIETY, TAB 0 Refills 08/20/16 Trazodone (Trazodone) 300 Mg Tab, 300 MG PO HS for Control Depression, #30 TAB 0 Refills 08/20/16 Discontinued Scripts Prednisone (Prednisone) 50 Mg Tab, 50 MG PO DAILY for 5 Days, TAB 0 Refills Prov:Pablito Morton MD 03/27/17 Ciprofloxacin (Cipro) 500 Mg Tab, 500 MG PO BID for Infection for 10 Days, TAB 0 Refills Prov:Pablito Morton MD 03/27/17 Current Medications Medications (Trade) Dose Ordered Sig/Ariel Route Start Time Stop Time Status Last Admin (Ativan) 1 mg Q6H PRN PO 06/03/17 16:00 (Ativan Inj) 1 mg Q6H PRN IM 06/03/17 16:00 (Ativan) 0.5 mg Q12H PRN PO 06/03/17 16:00 (Ativan Inj) 0.5 mg Q12H PRN IM 06/03/17 16:00 (Tylenol) 650 mg Q4H PRN PO 06/03/17 16:00 (Milk Of Magnesia Liq) 30 ml DAILY PRN PO 06/03/17 16:00 (Mag-Al Plus Susp Liq) 30 ml Q6H PRN PO 06/03/17 16:00 (Habitrol 21 Mg Patch.24 Hr) 1 patch DAILY T-DERMAL 06/03/17 16:00 Miscellaneous Information 1 DAILY T-DERMAL 06/04/17 09:00 (Pill Splitter) 1 ea UNSCH PRN OTHER 06/03/17 16:15 (Symbicort 80-4.5 Mcg Inh) 1 puff Q12HR INH 06/03/17 21:00 06/04/17 08:34 (Proair Hfa Inh) 2 puff Q4H PRN INH 06/03/17 17:15 (Flu (Quadrivalent) Vaccine Inj) 0.5 ml ONCE ONCE IM 06/04/17 10:00 06/04/17 10:01 Family Psych History Patient denies any family history of serious mental illness, substance use disorder or suicide Social History Patient lives with her and niece. This is her second marriage. She has 2 grown children. She has a ninth grade education. She does not work and has no income and says that her supports her. She denies any or legal history. Denies any access to guns or firearms. No particular scientology or spiritual beliefs. Patient's Strengths (min. 2) In a monitored setting. Verbally fluent. Physical Exam Physical exam was completed by the hospitalist organizational development consultant. On my examination today, the patient appears to be in no acute physical distress. No abnormal motor movements noted. No hand tremor, no diaphoresis, no mydriasis, no other signs of alcohol withdrawal noted. Labs and vitals reviewed: Vital Signs Vital Signs Date Time Temp Pulse Resp B/P (MAP) Pulse Ox O2 Delivery O2 Flow Rate FiO2 06/04/17 06:03 97.6 89 17 104/54 (71) 93 Lab Results Item Value Date Time White Blood Count 10.7 TH/MM3 06/01/17 0600 Hemoglobin 11.5 GM/DL L 06/01/17 0600 Platelet Count 177 TH/MM3 06/01/17 0600 Sodium Level 138 MEQ/L 06/04/17 1005 Potassium Level 2.7 MEQ/L *L 06/04/17 1005 Chloride Level 104 MEQ/L 06/04/17 1005 Carbon Dioxide Level 22.7 MEQ/L 06/04/17 1005 Blood Urea Nitrogen 12 MG/DL 06/04/17 1005 Creatinine 0.55 MG/DL 06/04/17 1005 Thyroid Stimulating Hormone 3rd Gen 1.250 uIU/ML 06/01/17 0600 Aspartate Amino Transf (AST/SGOT) 53 U/L H 06/02/17 0614 Iron Level 97 MCG/DL 05/30/17 2136 Total Iron Binding Capacity 181 MCG/DL L 05/30/17 2136 Percent Iron Saturation 53.7 % H 05/30/17 2136 Alanine Aminotransferase (ALT/SGPT) 16 U/L 06/02/17 0614 Alkaline Phosphatase 190 U/L H 06/02/17 0614 Ammonia 28 MCMOL/L 06/01/17 0600 Ethyl Alcohol Level 231 MG/DL H 05/30/17 0000 Beta hCG negative on presentation here. Mental Status Examination Appearance: Appropriate Consciousness: Alert Orientation: x4 Motor Activity: Other (no motor abnormalities noted) Speech: Unremarkable Language: Adequate Fund of Knowledge: Adequate Attention and Concentration: Adequate Memory: Unremarkable (grossly intact on clinical exam) Mood: Anxious (mild) Affect: Blunt Thought Process & Associations: Logical, Linear Thought Content: Appropriate Hallucination Type: None Delusion Type: None Suicidal Ideation: No Suicidal Plan: No Suicidal Intention: No Homicidal Ideation: No Homicidal Plan: No Homicidal Intention: No Insight: Poor Judgment: Poor Assessment & Plan Problem List: (1) Adjustment disorder with mixed disturbance of emotions and conduct ICD Codes: F43.25 - Adjustment disorder with mixed disturbance of emotions and conduct (2) Alcohol abuse ICD Codes: F10.10 - Alcohol abuse, uncomplicated Assessment & Plan 46-year-old female with psychiatric history as detailed above who presents in transfer from the medical floor following Tylenol 3 overdose. On my examination today, the patient denies that the presenting ingestion was suicidal in nature, although her reported this has been somewhat variable from the notes from the medical floor. She denies any suicidal ideation now. My sense of the case is that the patient was experiencing an acute adjustment reaction to her distressing conversation with her . She has a history of similar behavior in response to psychosocial stressors in the past as evidenced by her ingestion when she was seen by Dr. Medina. I do not suspect a severely unstable mood, anxiety or psychotic disorder in this patient at this time, but I do think it is prudent to observe the patient briefly under the Combs act for any ongoing impairments in safety and to allow us to obtain collateral. Admit inpatient. Continue Combs act for now. Continue Celexa 10 mg daily as ordered on medical floor. Atarax as needed for anxiety. Thiamine and folate. No signs of alcohol withdrawal at present; will monitor. Consult to the hospitalist. Hypokalemia repleted by the hospitalist. Check a BMP and magnesium in the morning. Vitals every shift. Counselor to see and obtain collateral from patient's . Disposition planning. Estimated length of stay: 2-3 days. Discharge Planning Home with outpatient psychiatric follow-up. Chemical dependency follow-up recommended, but the patient is pre-contemplative to engaging in chemical dependency treatment at this time. Request HC Surrog/Guard Advoc?: No Doe Colon MD Jun 04, 2017 09:57
[2017-06-04] MEDS ORDERED: INFLUENZA VIRUS VACCINE (QUADRIVALENT) 0.5 ML SYR IM ONE (10:00)
[2017-06-04 11:07] LABS: ANION GAP 11 MEQ/L (5-15); BICARBONATE 22.7 MEQ/L (21.0-32.0); BLOOD UREA NITROGEN 12 MG/DL (7-18); CHLORIDE 104 MEQ/L (98-107); GLOMERULAR FILTRATION RATE 118 ML/MIN (>89); SODIUM (NA) 138 MEQ/L (136-145)
[2017-06-04 11:09] LABS: HDL CHOLESTEROL 23.5 MG/DL (40.0-60.0)
[2017-06-04 11:10] LABS: POTASSIUM 2.7 MEQ/L (3.5-5.1)
[2017-06-04 12:26] LABS: LDL CHOLESTEROL 173 MG/DL (0-99)
[2017-06-04] MEDS ORDERED: POTASSIUM CHLORIDE 20 MEQ PWD PACKET PO ONE (13:00)
[2017-06-04] MEDS ORDERED: hydrOXYzine HCL 50 MG TAB PO PRN (15:15)
[2017-06-04] MEDS ORDERED: PILL SPLITTER OTHER PRN (15:15)
[2017-06-04 15:31] LABS: HEMOGLOBIN A1a 1.2 %; HEMOGLOBIN A1b 0.5 %; HEMOGLOBIN Ao 87.9 %; HEMOGLOBIN F 1.5 %; HEMOGLOBIN LA1C 1.6 %
--- NOTE | 2017-06-04 15:41 | HHI.PR ---
Subjective Remarks Respiratory status has improved. She will benefit from long-term use of as needed albuterol and twice a day Symbicort. She may not be old to afford these. Potassium level this morning is low and replacements have been provided. Follow-up lab levels pending. Objective Vital Signs Date Time Temp Pulse Resp B/P (MAP) Pulse Ox O2 Delivery O2 Flow Rate FiO2 06/04/17 06:03 97.6 89 17 104/54 (71) 93 06/03/17 18:06 96.2 88 18 141/67 (91) 98 Result Diagram: 06/04/17 1005 Objective Remarks GENERAL: NAD, A&Ox3 HEAD: Normocephalic. NECK: Supple, trachea midline. No lymphadenopathy. EYES: No scleral icterus. No injection or drainage. CARDIOVASCULAR: Regular rate and rhythm without murmurs, gallops, or rubs. RESPIRATORY: Breath sounds equal bilaterally. No accessory muscle use. GASTROINTESTINAL: Abdomen soft, non-tender, nondistended. MUSCULOSKELETAL: No cyanosis, or edema. SKIN: Warm and dry. NEURO: No focal neurological deficitis. A/P Problem List: (1) Hypokalemia ICD Code: E87.6 - Hypokalemia (2) increased low back pain secondary to fall Status: Acute (3) Mood disorder ICD Code: F39 - Episodic mood disorder Status: Acute (4) Panic disorder with agoraphobia ICD Code: F40.01 - Agoraphobia with panic disorder Status: Acute (5) COPD exacerbation ICD Code: J44.1 - Chronic obstructive pulmonary disease with (acute) exacerbation Status: Acute Assessment and Plan Assessment and plan 46-year-old female admitted under psychiatric care, consult for COPD Hypokalemia Replace potassium and monitor levels COPD Symptoms have improved thus far Further improvement expected through time Continue Symbicort twice a day As needed albuterol every 4 hours Will return for repeat evaluation in one to 2 days DVT prophylaxis Patient ambulatory Mark Anthony Pham MD Jun 04, 2017 15:41
[2017-06-04] MEDS: CITALOPRAM HYDROBROMIDE 20 MG TAB PO SCH (17:09)
[2017-06-04 18:18] VITALS: BP 128/62; PULSE 98; RESP 17; TEMP 97.7; O2SAT 94
[2017-06-05 06:20] VITALS: BP 105/58; PULSE 86; RESP 18; TEMP 98.3; O2SAT 94
[2017-06-05] MEDS: CITALOPRAM HYDROBROMIDE 20 MG TAB PO SCH (08:03)
[2017-06-05] MEDS: BUDESONIDE-FORMOTEROL 80/4.5 MCG INHALER INH SCH (08:03)
[2017-06-05] MEDS: NICOTINE 21 MG/24 HR PATCH T-DERMAL SCH (08:05)
[2017-06-05] MEDS: REMOVE OLD PATCH T-DERMAL SCH (08:05)
[2017-06-05] MEDS ORDERED: THIAMINE HCL 100 MG TAB PO SCH (09:00)
[2017-06-05] MEDS ORDERED: FOLIC ACID 1 MG TAB PO SCH (09:00)
[2017-06-05] MEDS ORDERED: POTASSIUM CHLORIDE 20 MEQ PWD PACKET PO ONE (09:00)
[2017-06-05] MEDS ORDERED: CELE20TA PO (10:09)
[2017-06-05] MEDS ORDERED: FOLI1TAB6 PO (10:09)
--- NOTE | 2017-06-05 10:09 | HHI.DS ---
Psychiatry Discharge Summary Inpatient Psychiatric care?: Yes Advance Directive: No Reason Not Provided: DECLINED Mental Health AdvanceDirective: No Health Care Proxy: No Admission Admission Date Jun 03, 2017 at 13:15 Admission Diagnosis: (1) Adjustment disorder with mixed disturbance of emotions and conduct ICD Code: F43.25 - Adjustment disorder with mixed disturbance of emotions and conduct (2) Alcohol abuse ICD Code: F10.10 - Alcohol abuse, uncomplicated Brief History Ms. Jauregui is a 46-year-old female with reported history of anxiety who presented initially following an overdose on Tylenol No. 3. Patient was admitted to the medical floor for management of her overdose as well as a COPD exacerbation and was seen in consultation on the medical floor by Dr. Dumont. Reviewing the electronic medical record, I note that the patient used to follow in the outpatient clinic with Dr. Berry and more remotely was seen in consultation by Dr. Medina in the mid 1999s following an overdose on Xanax and Flexeril in response to psychosocial stressors. Patient seen and examined with counselor. Chart reviewed. Case discussed with nursing staff. On my examination today, the patient says that she made the overdose because "I was so stupid. I was drinking. He [i.e. patient's ] said something, and I took the pills." Patient estimates that she took about 30 Tylenol No. 3 with the goal of "scaring" her . She denies any suicidal intent in the overdose. They had apparently been arguing because said he no longer wished to pursue a sexual relationship with patient. Patient does complain of some generalized anxiety and sleep disturbance, although the latter is also exacerbated by chronic back pain. She has had some losses in the last year. Mood is presently "fine, normal." Patient denies any hopelessness, worthlessness or morbid guilt. She does say that her energy levels are somewhat low, again leaving her back pain. No hypomanic or manic symptoms. She denies any audiovisual hallucinations. I can elicit no delusional beliefs. She denies any suicidal or homicidal ideation, intent or plan at this time. She says that she has discussed the matter with her since the overdose and would like to pursue marital counseling. The remainder of psychiatric ROS is negative. Besides the chronic back pain, patient verbalizes no physical complaints. Past psychiatric history: The patient reports a history of anxiety. She is not currently under the care of a psychiatrist. She denies any history of psychiatric admissions. She reports only one suicide attempt in the past by overdose at age 18 or 19 when she discovered that her first was cheating on her. Tobacco Use In Past 30 Days: 5 or More Cigarettes/Day Alcohol Use: 4 or More Times Per Week Hospital Course Patient was admitted to a locked, inpatient psychiatric unit. A general medical consultation was obtained. Appropriate precautions were in place throughout patient's hospital stay. Patient was seen and examined daily on the unit by psychiatry and also visited by counselor. There was no evidence of any suicidality or homicidality on the inpatient unit. The patient remained in good behavioral control and was medication compliant. On the day of discharge: Patient seen and examined with nurse. Chart reviewed. Case discussed with nursing staff. No behavioral issues noted overnight. On my examination today, the patient is insisting upon discharge today. Her Combs act will shortly . She denies any suicidal or homicidal ideation, intent or plan on direct questioning and contracts for safety. I have discussed the case with counselor who has been in contact with the patient's , who unfortunately is not interested in pursuing marital therapy. I have discussed this development with patient, since it was marital stress that led to her presenting ingestion. The patient insists that her is supportive and "all he wants is for me to stop drinking." Her plan for sobriety is to go to , and she declines my recommendation that she pursue a higher level of chemical dependency treatment such as IOP, PHP or residential rehabilitation insisting that she will simply "stop drinking." Mood is fair and I can elicit no depressive or hypomanic/manic symptoms. She denies any audiovisual hallucinations, and I can elicit no delusional material. She denies side effects from medications. Weighing the acute, chronic, and protective factors and based on the available evidence, I epic professional that the patient does not presently meet criteria for involuntary psychiatric hospitalization. That having been said, I do believe that she would benefit from additional inpatient psychiatric stabilization, especially because it seems that the presenting stressor is not likely to be expeditiously resolved given 's reticence to pursue some sort of marital therapy. I have strongly recommended that the patient remain on the unit for additional stabilization. She continues to insist on discharge today, and inasmuch as she does not meet criteria for involuntary psychiatric hospitalization at this time, I will discharge her AGAINST MEDICAL ADVICE. I've explained to the patient that she is leaving against my advice. Psychiatric follow-up and chemical dependency follow-up as arranged by counselor. I have additionally instructed the counselor to contact the patient's to tell him to secure the home environment of all potential means of harm to self or others in advance of the patient's return there. Patient is also to follow-up with primary care, and she reports that she has an upcoming primary care doctor appointment already. I have counseled the patient to abstain from use of drugs or alcohol and to pursue chemical dependency evaluation and treatment. I counseled the patient regarding warning signs for need to return to the psychiatric emergency room as part of the general safety plan. Results Blood Pressure 105 / 58 Vital Signs Date Time Temp Pulse Resp B/P (MAP) Pulse Ox O2 Delivery O2 Flow Rate FiO2 06/05/17 06:20 98.3 86 18 105/58 (74) 94 Laboratory Tests Test 06/04/17 10:05 06/04/17 16:42 Potassium Level 2.7 MEQ/L (3.5-5.1) 3.2 MEQ/L (3.5-5.1) Triglycerides Level 238 MG/DL (42-150) Cholesterol Level 244 MG/DL (120-200) LDL Cholesterol 173 MG/DL (0-99) HDL Cholesterol 23.5 MG/DL (40.0-60.0) Laboratory Results Test 06/04/17 10:05 Cholesterol Level 244 MG/DL (120-200) HDL Cholesterol 23.5 MG/DL (40.0-60.0) Hemoglobin A1c 4.4 % (4.3-6.0) LDL Cholesterol 173 MG/DL (0-99) Triglycerides Level 238 MG/DL (42-150) Summary of Procedures None done Imaging None done Pending results at discharge: No Medications # of Antipsychotic meds at D/C: 0 Approp Antipsych med options 1 - Minimum of three failed multiple trials of monotherapy. 2 - Documented plan to taper to monotherapy due to previous use of multiple meds OR cross-taper in progress at D/C. 3 - Documentation of augmentation of Clozapine. 4 - Justification other than those listed in allowable values 1-3, document here : Discharge Discharge Date: Jun 05, 2017 Discharge Diagnosis: (1) Adjustment disorder with mixed disturbance of emotions and conduct Diagnosis: Principal ICD Code: F43.25 - Adjustment disorder with mixed disturbance of emotions and conduct (2) Alcohol abuse Diagnosis: Secondary ICD Code: F10.10 - Alcohol abuse, uncomplicated Pt Condition on Discharge: Guarded (AMA discharge) Discharge Disposition: Discharge Home Discharge Instructions Diet Instructions: As Tolerated, No Restrictions Activities you can perform: Weight Bearing as Di Scheduled Appointment: as per counselor's notes New Orders: BASIC METABOLIC PROF - 3-5 Days CBC WITH DIFF - 3-5 Days New Medications: Albuterol 18 GM Inh (Ventolin Hfa 18 GM Inh) 90 Mcg/Act Aer 2 PUFF INH Q4H PRN for Dyspnea or Wheezing, #1 INHALER Budesonide-Formoterol Inh (Symbicort Inh) 80-4.5 Mcg/Act Aero 1 PUFF INH Q12HR for Shortness of Breath, #1 INHALER Citalopram (Celexa) 20 Mg Tab 10 MG PO DAILY for Mental Health for 15 Days, #8 TAB 1 Refill Folic Acid (Folic Acid) 1 Mg Tablet 1 MG PO DAILY for Nutritional Supplement for 30 Days, #30 TAB 0 Refills Continued Medications: Budesonide-Formoterol Inh (Symbicort Inh) 80-4.5 Mcg/Act Aero 2 PUFF INH Q12HR for Breathing Treatment, #60 INHALER Cholestyramine (Cholestyramine) 4 Gm/Dose Powd 4 GM PO DAILY for diarrhea for 7 Days, #1 CAN 0 Refills 1 level scoopful of powder contains 4 grams of cholestyramine. Ipratropium HFA 12.9 GM Inh (Atrovent HFA 12.9 GM Inh) 17 Mcg/Act Aer 2 PUFF INH QID for Breathing Treatment, #1 INHALER 0 Refills Levofloxacin (Levaquin) 500 Mg Tablet 500 MG PO DAILY for Infection for 3 Days, #3 TAB 0 Refills Metronidazole (Flagyl) 500 Mg Tab 500 MG PO TID for Infection for 10 Days, TAB 0 Refills Multiple Vitamin (Multi Vitamin Daily) 1 Tab Tab 1 TAB PO DAILY for vitamin for 30 Days, #30 TAB 0 Refills Prednisone (Prednisone) 5 Mg Tab 5 MG PO DIRECTED for copd for 10 Days, TAB 0 Refills 40 mg po daily for two days then 30 mg po daily for two days then 20 mg po daily for two days then 10 mg po daily for two days then 5 mg po daily for two days then stop. Thiamine (Vitamin B-1) 100 Mg Tab 100 MG PO DAILY for Nutritional Supplement for 30 Days, #30 TAB 0 Refills Tiotropium Inh (Spiriva Handihaler) 18 Mcg Cap 18 MCG INH DAILY for Breathing Treatment, #30 CAP Discontinued Medications: Oxycodone-Acetaminophen (Percocet) 5-325 mg Tab 1 TAB PO Q6H PRN for PAIN, #10 TAB 0 Refills Discharge Time > 30 minutes Mental Status Examination Appearance: Appropriate Consciousness: Alert Orientation: x4 Motor Activity: Other (no abnormal motor movements noted. No signs of withdrawal noted.) Speech: Unremarkable Language: Adequate Fund of Knowledge: Adequate Attention and Concentration: Adequate Memory: Unremarkable (intact on clinical exam) Mood: Appropriate Affect: Appropriate, Blunt Thought Process & Associations: Logical, Goal directed, Linear Hallucination Type: None Delusion Type: None Suicidal Ideation: No Suicidal Plan: No Suicidal Intention: No Homicidal Ideation: No Homicidal Plan: No Homicidal Intention: No Insight: Poor Judgment: Poor Discharge/Advance Care Plan Health Problems: (1) Adjustment disorder with mixed disturbance of emotions and conduct (2) Alcohol abuse Goals to promote your health * To prevent worsening of your condition and complications * To maintain your health at the optimal level Directions to meet your goals Take your medications as prescribed Follow your dietary instruction Follow activity as directed Keep your appointments as scheduled Take your immunizations and boosters as scheduled If your symptoms worsen call your PCP, if no PCP go to Urgent Care Center or Emergency Room For 11/03 questions related to your inpatient stay or results of tests pending at discharge, please contact Dr. Doe Colon at Smoking is Dangerous to Your Health. Avoid second hand smoking Doe Colon MD Jun 05, 2017 10:09
[2017-06-05] MEDS ORDERED: POTASSIUM CHLORIDE 10 MEQ CONTROLLED RELEASE TAB PO ONE (10:15)
[2017-06-05 12:53] LABS: MAGNESIUM 1.8 MG/DL (1.5-2.5); POTASSIUM 3.3 MEQ/L (3.5-5.1)
[2017-06-05] MEDS ORDERED: POTASSIUM CHLORIDE 10 MEQ CONTROLLED RELEASE TAB PO SCH (14:00)
[2017-06-05] MEDS ORDERED: VENTAER INH (14:03)
[2017-06-05] MEDS ORDERED: SYMB80AE INH (14:03)
== END 2017-06-05 14:20 | disposition left against medical advice (07) | DRG 882 ==
LOC: H260 13:15
PROVIDERS: ADMIT Psychiatry & Neurology Psychiatry; ATTEND Psychiatry & Neurology Psychiatry
DX: F43.25 Adjustment disorder with mixed disturbance of emotions and conduct (principal); J44.1 Chronic obstructive pulmonary disease with (acute) exacerbation; E87.6 Hypokalemia; F41.1 Generalized anxiety disorder; F10.10 Alcohol abuse, uncomplicated; G89.29 Other chronic pain; M54.5 Low back pain; F17.210 Nicotine dependence, cigarettes, uncomplicated; Z91.5 Personal history of self-harm
CPT/HCPCS: 80048; 80061; 83036; 83735; 84132

== ENCOUNTER 2017-08-06 16:35 | Inpatient (IN) | payer SELFPAY ==
[~2017-08-06] VITALS: Ht 182.9 cm; Wt 79.8 kg
[2017-08-06] VITALS (10 sets, daily range): BP systolic 83–97; BP diastolic 42–46; PULSE 82–91; RESP 18–22; TEMP 98–98.7; O2SAT 82–98
[~2017-08-06 16:35] MED LIST changes: +CELE20TA PO; +FOLI1TAB6 PO; -LEVA500T20 PO; +LEVA500T33 PO; -PERC5TAB12 PO; +VENTAER INH
--- NOTE | 2017-08-06 17:28 | PD ---
HPI Chief Complaint: General Weakness Time Seen by Provider: 17:18 Travel History International Travel<30 days: No Contact w/Intl Traveler<30days: No Traveled to known affect area: No History of Present Illness HPI 46yo F with PMH of alcohol abuse, adjustment disorder, COPD presents to the ED with multiple complaints today. Said she has not eaten for 1 month. Said she last drank alcohol at 10am. Denies any fever, chest pain, vomiting, focal weakness or numbness. Pt said she always have sob but is saturating at 86-88% on RA and wheezing on exam so will give treatments and nasal cannula placed. Pt also with abdominal tenderness on exam. Pt has multiple old bruises on bilateral lower extremities and said she falls all the time. Fell on her head 2 weeks ago. She is a poor historian. PFSH Past Medical History Asthma: Yes Blood Disorders: No Anxiety: Yes Depression: Yes Cancer: No Cardiovascular Problems: No COPD: Yes Cerebrovascular Accident: No Diminished Hearing: Yes Endocrine: No Gastrointestinal Disorders: Yes GERD: Yes Genitourinary: No Headaches: Yes Hiatal Hernia: Yes (repaired) Immune Disorder: No Implanted Vascular Access Dvce: No Musculoskeletal: Yes Neurologic: Yes Psychiatric: Yes Reproductive: No Respiratory: Yes Migraines: No Seizures: Yes (most recent was two years ago, ) Ulcer: No ?: Not Menopausal: Yes Ectopic : Yes Past Surgical History Abdominal Surgery: Yes Cardiac Surgery: No Cholecystectomy: Yes Ear Surgery: No Endocrine Surgery: No Eye Surgery: No Genitourinary Surgery: No Gynecologic Surgery: Yes Neurologic Surgery: No Oral Surgery: No Thoracic Surgery: No Other Surgery: Yes (lumbar 2014, 2 tubular pregs, hiatal hernia repair, gallbladder, skin graft) Social History Alcohol Use: Yes Tobacco Use: Yes Substance Use: Yes (marijuana) Allergies-Medications (Allergen,Severity, Reaction): Coded Allergies: No Known Allergies (Verified Allergy, Unknown, 08/06/17) Reported Meds & Prescriptions Reported Meds & Active Scripts Active Symbicort Inh (Budesonide/Formoterol Fumarate) 80-4.5 Mcg/Act Aero 1 Puff INH Q12HR Ventolin Hfa 18 GM Inh (Albuterol Sulfate) 90 Mcg/Act Aer 2 Puff INH Q4H PRN Folic Acid 1 Mg Tablet 1 Mg PO DAILY 30 Days Celexa (Citalopram Hydrobromide) 20 Mg Tab 10 Mg PO DAILY 15 Days Multi Vitamin Daily (Multiple Vitamin) 1 Tab Tab 1 Tab PO DAILY 30 Days Vitamin B-1 (Thiamine HCl) 100 Mg Tab 100 Mg PO DAILY 30 Days Cholestyramine 4 Gm/Dose Powd 4 Gm PO DAILY 7 Days 1 level scoopful of powder contains 4 grams of cholestyramine. Prednisone 5 Mg Tab 5 Mg PO DIRECTED 10 Days 40 mg po daily for two days then 30 mg po daily for two days then 20 mg po daily for two days then 10 mg po daily for two days then 5 mg po daily for two days then stop. Levaquin (Levofloxacin) 500 Mg Tablet 500 Mg PO DAILY 3 Days Flagyl (Metronidazole) 500 Mg Tab 500 Mg PO TID 10 Days Atrovent HFA 12.9 GM Inh (Ipratropium [place]) 17 Mcg/Act Aer 2 Puff INH QID Spiriva Handihaler (Tiotropium Inh) 18 Mcg Cap 18 Mcg INH DAILY Symbicort Inh (Budesonide/Formoterol Fumarate) 80-4.5 Mcg/Act Aero 2 Puff INH Q12HR Review of Systems Except as stated in HPI: all other systems reviewed are Neg Physical Exam Narrative GENERAL: 46yo F in moderate distress. SKIN: Focused skin assessment warm/dry. Jaundice. HEAD: Atraumatic. Normocephalic. EYES: Pupils equal and round. Positive scleral icterus. ENT: No nasal bleeding or discharge. Mucous membranes pink and moist. NECK: Trachea midline. No JVD. CARDIOVASCULAR: Regular rate and rhythm. No murmur appreciated. RESPIRATORY: No accessory muscle use. Expiratory wheezing bilaterally. O2 sat 86-88% on RA. Nasal cannula placed. GASTROINTESTINAL: Abdomen softly distended. +TTP LUQ. No rebound tenderness or guarding. RECTAL: Yellow diarrhea but hemaprompt positive. MUSCULOSKELETAL: No obvious deformities. No clubbing. No cyanosis. No edema. NEUROLOGICAL: Awake and alert. No obvious cranial nerve deficits. Motor grossly within normal limits. Normal speech. PSYCHIATRIC: Appropriate mood and affect; insight and judgment normal. Data Data Last Documented VS Vital Signs Date Time Temp Pulse Resp B/P (MAP) Pulse Ox O2 Delivery O2 Flow Rate FiO2 08/06/17 17:37 94 Nasal Cannula 2.00 08/06/17 16:50 98.0 88 18 90/42 (58) Orders Orders Complete Blood Count With Diff (08/06/17 17:25) Basic Metabolic Panel (Bmp) (08/06/17 17:25) Act Partial Throm Time (Ptt) (08/06/17 17:25) Prothrombin Time / Inr (Pt) (08/06/17 17:25) Magnesium (Mg) (08/06/17 17:25) Troponin I (08/06/17 17:25) Urinalysis - C+S If Indicated (08/06/17 17:25) Electrocardiogram (08/06/17 17:25) Chest, Single Ap (08/06/17 17:25) Methylprednisolone So Succ Inj (Solumedr (08/06/17 17:30) Albuterol-Ipratropium Neb (Duoneb Neb) (08/06/17 17:30) Ed Urine Pregnancytest Poc (08/06/17 17:25) Thiamine Inj (Thiamine Inj) (08/06/17 17:30) Sodium Chlor 0.9% 1000 Ml Inj (Ns 1000 M (08/06/17 17:30) Ct Abd/Pel W Iv Contrast(Rout) (08/06/17 ) Hepatic Functional Panel (08/06/17 17:26) Ct Brain W/O Iv Contrast(Rout) (08/06/17 ) Alcohol (Ethanol) (08/06/17 17:28) Type And Screen (08/06/17 18:24) Red Blood Cells (Rbc) (08/06/17 18:24) Blood Product Administration (08/06/17 18:24) Sodium Chlor 0.9% 250 Ml Inj (Ns 250 Ml (08/06/17 18:30) Blood Culture (08/06/17 18:24) Lactic Acid Sepsis Protocol (08/06/17 18:24) Potassium Chloride (Kcl) (08/06/17 18:30) Potassium Chlor 20 Meq Premix (Kcl 20 Me (08/06/17 18:30) Urine Culture (08/06/17 18:15) Arterial Blood Gas (Abg) (08/06/17 ) Consult Gastroenterology (08/06/17 ) Budeson-Formot 80-4.5 Mcg Inh (Symbicort (08/06/17 21:00) Citalopram (Celexa) (08/07/17 09:00) Tiotropium Inh (Spiriva Inh) (08/07/17 09:00) (Hub Use Only)Inp Phy Cons/Ref (08/06/17 ) Sodium Chloride 0.9... W/Pantoprazole In (08/06/17 19:45) Sodium Chloride 0.9... W/Pantoprazole In (08/06/17 20:00) Methylprednisolone So Succ Inj (Solumedr (08/06/17 22:00) Admit To Inpatient (08/06/17 ) Code Status (08/06/17 18:45) Vital Signs (Adult) JOSE JUAN.Q1H (08/06/17 18:45) Activity Bed Rest (08/06/17 18:45) Elevate Head Of Bed (08/06/17 18:45) Intake + Output Q1H (08/06/17 18:45) Diet Npo (08/06/17 Dinner) Sodium Chlor 0.9% 1000 Ml Inj (Ns 1000 M (08/06/17 19:00) Sodium Chloride 0.9% Flush (Ns Flush) (08/06/17 18:45) Sodium Chloride 0.9% Flush (Ns Flush) (08/06/17 21:00) Acetaminophen (Tylenol) (08/06/17 18:45) Acetamin-Hydrocod 325-5 Mg ([place] 5-325 (08/06/17 18:45) Ondansetron Inj (Zofran Inj) (08/06/17 18:45) Albuterol-Ipratropium Neb (Duoneb Neb) (08/06/17 20:00) Albuterol Neb (Albuterol Neb) (08/06/17 18:45) Complete Blood Count With Diff (08/07/17 04:00) Comprehensive Metabolic Panel (08/07/17 04:00) Troponin I (08/06/17 18:45) Troponin I (08/07/17 00:45) Act Partial Throm Time (Ptt) (08/07/17 04:00) Prothrombin Time / Inr (Pt) (08/07/17 04:00) Magnesium (Mg) (08/07/17 04:00) Phosphorus (Po4) (08/07/17 04:00) Lactic Acid (08/07/17 04:00) Hgb & Hct (08/06/17 23:59) Resp Incentive Spirometry (08/06/17 ) Resp Oxygen Gerard C Titrat 1-4 L (08/06/17 ) Help Desk Manager / Telemetry JOSE JUAN.Q8H (08/06/17 18:45) Scd Bilateral/Knee High JOSE JUAN.BID (08/06/17 18:45) Pharmacologic Contraindication (08/06/17 18:45) ^ Initiate Protocol (08/06/17 18:45) Instruction (08/06/17 18:45) Misc Nursing Information (08/06/17 18:45) Chlorhexidine 2% Cloth (Chlorhexidine 2% (08/07/17 04:00) Chlorhexidine 2% Cloth (Chlorhexidine 2% (08/06/17 18:45) Mrsa Pcr Surveillance (08/06/17 18:45) Inpatient Certification (08/06/17 ) ^ Medication Admin Instruction (08/06/17 18:47) Notify Dr: Other (08/06/17 18:47) Potassium Chlor 40 Meq Premix (Kcl 40 Me (08/06/17 19:00) Potassium Chlor 20 Meq Premix (Kcl 20 Me (08/06/17 19:00) Potassium Chloride Eff (K-[place] Cl Eff) (08/06/17 19:00) Potassium Chlor 40 Meq Premix (Kcl 40 Me (08/06/17 19:00) Potassium Chlor 20 Meq Premix (Kcl 20 Me (08/06/17 19:00) Magnesium Sulfate Inj (Magnesium Sulfate (08/06/17 19:00) Magnesium Oxide (Mag-Ox) (08/06/17 19:00) Magnesium Sulfate Inj (Magnesium Sulfate (08/06/17 19:00) Potassium Phosphate (K-Phos) (08/06/17 19:00) Sodium Phosphate Inj (Sodium Phosphate I (08/06/17 19:00) Potassium Phosphate (K-Phos) (08/06/17 19:00) Potassium Phosphate Inj (Potassium Phosp (08/06/17 19:00) Hgb & Hct (08/07/17 12:00) Bedside Glucose JOSE JUAN.Q6H (08/06/17 18:49) Blood Glucose Goal (Criteria) (08/06/17 18:49) Hypoglycemia 70 Mg/Dl Or < (08/06/17 18:49) Notify Dr: Other (08/06/17 18:49) Dextrose 50% In [place] (Vial) Inj (D50w (Vi (08/06/17 19:00) Glucagon Inj (Glucagon Inj) (08/06/17 19:00) Insulin Human Reg Supp Scale (Novolin R (08/07/17 00:00) Admit Order (Ed Use Only) (08/06/17 19:02) Pill Splitter (Pill Splitter) (08/06/17 19:15) Morphine Inj (Morphine Inj) (08/06/17 19:15) Labs Laboratory Tests Test 08/06/17 17:25 08/06/17 18:15 White Blood Count 18.6 TH/MM3 Red Blood Count 1.80 MIL/MM3 Hemoglobin 5.8 GM/DL Hematocrit 17.4 % Mean Corpuscular Volume 96.6 FL Mean Corpuscular Hemoglobin 32.5 PG Mean Corpuscular Hemoglobin Concent 33.6 % Red Cell Distribution Width 17.2 % Platelet Count 107 TH/MM3 Mean Platelet Volume 8.7 FL Neutrophils (%) (Auto) 70.1 % Lymphocytes (%) (Auto) 21.0 % Monocytes (%) (Auto) 7.4 % Eosinophils (%) (Auto) 0.5 % Basophils (%) (Auto) 1.0 % Neutrophils # (Auto) 13.1 TH/MM3 Lymphocytes # (Auto) 3.9 TH/MM3 Monocytes # (Auto) 1.4 TH/MM3 Eosinophils # (Auto) 0.1 TH/MM3 Basophils # (Auto) 0.2 TH/MM3 CBC Comment AUTO DIFF Differential Total Cells Counted 100 Neutrophils % (Manual) 77 % Band Neutrophils % 4 % Lymphocytes % 11 % Monocytes % 8 % Neutrophils # (Manual) 15.1 TH/MM3 Nucleated Red Blood Cells 2 /100 WBC Differential Comment FINAL DIFF MANUAL Toxic Granulation 1+ Platelet Estimate LOW Platelet Morphology Comment NORMAL Target Cells 1+ Prothrombin Time 16.0 SEC Prothromb Time International Ratio 1.6 RATIO Activated Partial Thromboplast Time 32.4 SEC Blood Urea Nitrogen 29 MG/DL Creatinine 1.55 MG/DL Random Glucose 123 MG/DL Calcium Level 8.2 MG/DL Magnesium Level 1.6 MG/DL Sodium Level 136 MEQ/L Potassium Level 2.4 MEQ/L Chloride Level 98 MEQ/L Carbon Dioxide Level 26.5 MEQ/L Anion Gap 12 MEQ/L Estimat Glomerular Filtration Rate 36 ML/MIN Phosphorus Level 1.8 MG/DL Total Bilirubin 4.5 MG/DL Direct Bilirubin 2.8 MG/DL Indirect Bilirubin 1.7 MG/DL Aspartate Amino Transf (AST/SGOT) 74 U/L Alanine Aminotransferase (ALT/SGPT) 15 U/L Alkaline Phosphatase 197 U/L Troponin I LESS THAN 0.02 NG/ML Total Protein 7.1 GM/DL Albumin 2.4 GM/DL Human Chorionic Gonadotropin, Quant LESS THAN 1 MIU/ML Salicylates Level LESS THAN 1.7 MG/DL Acetaminophen Level LESS THAN 2.0 MCG/ML Ethyl Alcohol Level LESS THAN 3 MG/DL B-Hydroxybutyrate 0.68 MMOL/L Urine Color YELLOW Urine Turbidity HAZY Urine pH 6.0 Urine Specific [place] 1.013 Urine Protein 30 mg/dL Urine Glucose (UA) NEG mg/dL Urine Ketones NEG mg/dL Urine Occult Blood NEG Urine Nitrite NEG Urine Bilirubin NEG Urine Urobilinogen 2.0 MG/DL Urine Leukocyte Esterase LARGE Urine RBC 2 /hpf Urine WBC 36 /hpf Urine WBC Clumps FEW Urine Squamous Epithelial Cells 1 /hpf Urine Bacteria MANY /hpf Urine Hyaline Casts 2 /lpf Urine Mucus FEW /lpf Microscopic Urinalysis Comment CULTURE INDICATED Urine Opiates Screen NEG Urine Barbiturates Screen NEG Urine Amphetamines Screen NEG Urine Benzodiazepines Screen POS Urine Cocaine Screen NEG Urine Cannabinoids Screen NEG MDM Medical Decision Making Medical Screen Exam Complete: Yes Emergency Medical Condition: Yes Interpretation(s) EKG: Normal axis. TWI diffusely. Differential Diagnosis COPD exacerbation vs. UTI vs. dehydration vs. electrolyte abnormality Narrative Course 46yo F alcohol abuse and cirrhosis here with multiple complaints. Pt wheezing on exam and saturating at 88-90% on RA. Pt given duonebs x3 and methylprednisolone as well as thiamine, NS IVF. Labs reviewed, leukocytosis at 18.6. H/H low at 5.8/17.4. Thrombocytopenic at 107. Hypokalemic at 2.4, replace orally and IV KCl. Troponin negative. Elevated LFTs. CXR negative. Pt has two large bore IVs and 4 units of PRBC ordered. Ordered to transfuse 2 units now. Hemaprompt positive Discussed with Dr. Miller and accepted to his service. Critical Care Narrative Aggregate critical care time was 40 minutes. Time to perform other separately billable procedures was not included in the critical care time. My time did not include minutes spent treating any other patients simultaneously or on activities that did not directly contribute to the patient's treatment. The services I provided to this patient were to treat and/or prevent clinically significant deterioration that could result in: cardiovascular collapse or . I provided critical care services requiring my management, as noted below: Chart data review, documentation time, medication orders and management, vital sign assessments/reviewing monitor data, ordering and reviewing lab tests, ordering and interpreting/reviewing x-rays and diagnostic studies, care of the patient and discussion of the patient with the admitting physicians. [facility] Point of Care Internal Pos. & Neg. Controls: Passed Fecal Specimen Occult Blood: Positive Diagnosis Primary Impression: GI bleed Qualified Codes: K92.2 - Gastrointestinal hemorrhage, unspecified Admitting Information Admitting Physician Requests: Jenny Martinez DO Aug 06, 2017 17:28
[2017-08-06] MEDS ORDERED: SODIUM CHLOR 0.9% 1000 ML INJ 1,000 ML IV ONE (17:30)
[2017-08-06] MEDS ORDERED: THIAMINE INJ 100 MG in SODIUM CHLORIDE 0.9% INJ 100 ML IV ONE (17:30)
[2017-08-06] MEDS ORDERED: methylPREDNISolone SOD SUCC 125 MG/2 ML VIAL IV PUSH ONE (17:30)
[2017-08-06] MEDS: RESP: ALBUTEROL 2.5 MG/IPRATROPIUM 0.5 MG NEB (SCH) INH ×4 (17:36→23:43)
[2017-08-06 17:56] LABS: AUTOMATED NEUTROPHIL # 13.1 TH/MM3 (1.8-7.7); BASOPHIL # 0.2 TH/MM3 (0-0.2); EOSINOPHIL # 0.1 TH/MM3 (0-0.4); EOSINOPHIL % 0.5 % (0.0-4.0); LYMPHOCYTE # 3.9 TH/MM3 (1.0-4.8); MEAN CELL VOLUME 96.6 FL (80.0-100.0); MEAN CORPUSCULAR HEMOGLOBIN 32.5 PG (27.0-34.0); MEAN CORPUSCULAR HGB CONC 33.6 % (32.0-36.0); MONO % 7.4 % (0.0-8.0); NEUT % 70.1 % (16.0-70.0); PLATELET COUNT 107 TH/MM3 (150-450); RED CELL DISTRIBUTION WIDTH 17.2 % (11.6-17.2); WHITE BLOOD COUNT 18.6 TH/MM3 (4.0-11.0)
--- NOTE | 2017-08-06 18:01 | RADRPT ---
EXAM DATE/TIME: 08/06/2017 17:49 [facility] COMPARISON: CHEST SINGLE AP, May 29, 2017, 23:39. INDICATIONS : Short of breath. MEDICAL HISTORY : Chronic obstructive pulmonary disease. SURGICAL HISTORY : None. ENCOUNTER: Initial ACUITY: 3 days PAIN SCORE: 0/10 LOCATION: Bilateral chest FINDINGS: A single view of the chest demonstrates the lungs to be symmetrically aerated without evidence of mas s, infiltrate or effusion. The cardiomediastinal contours are unremarkable. Osseous structures are intact. CONCLUSION: Normal examination. Je Tsai MD on August 06, 2017 at 17:59 Board Certified Radiologist. This report was verified electronically.
[2017-08-06 18:06] LABS: APTT (PATIENT) 32.4 SEC (24.3-30.1); INTERNATIONAL NORMALIZED RATIO 1.6 RATIO
[2017-08-06 18:14] LABS: HEMO FLAGS AUTO DIFF
[2017-08-06 18:15] LABS: HEMATOCRIT 17.4 % (35.0-46.0)
[2017-08-06 18:16] LABS: TOTAL BILIRUBIN ADULT 4.5 MG/DL (0.2-1.0)
[2017-08-06 18:21] LABS: ANION GAP 12 MEQ/L (5-15); BICARBONATE 26.5 MEQ/L (21.0-32.0); BLOOD UREA NITROGEN 29 MG/DL (7-18); CHLORIDE 98 MEQ/L (98-107); GLOMERULAR FILTRATION RATE 36 ML/MIN (>89); INDIRECT BILIRUBIN 1.7 MG/DL (0.0-0.8); MAGNESIUM 1.6 MG/DL (1.5-2.5); SODIUM (NA) 136 MEQ/L (136-145)
[2017-08-06 18:24] LABS: POTASSIUM 2.4 MEQ/L (3.5-5.1)
[2017-08-06] MEDS ORDERED: POTASSIUM CHLOR 20 MEQ PREMIX 100 ML IV ONE (18:30)
[2017-08-06] MEDS ORDERED: POTASSIUM CHLORIDE 20 MEQ CONTROLLED RELEASE TAB PO ONE (18:30)
[2017-08-06] MEDS ORDERED: SODIUM CHLOR 0.9% 250 ML INJ 250 ML IV ONE (18:30)
[2017-08-06 18:33] LABS: BACTERIA, URINE MANY /hpf; BLOOD, URINE NEG (NEG); COMMENT (UR) CULTURE INDICATED; CULTURE IF INDICATED CULTURE INDICATED; GLUCOSE,URINE NEG (NEG); HYALINE CAST, URINE 2 /lpf (RARE); KETONE, URINE NEG (NEG); MUCUS URINE FEW /lpf (OCC); NITRITE,URINE NEG (NEG); SQUAMOUS EPITHELIAL CELL URINE 1 /hpf (0-5); URINE COLOR YELLOW (YELLW/STRAW)
[2017-08-06] MEDS ORDERED: ACETAMINOPHEN 325 MG TAB PO PRN (18:45)
[2017-08-06] MEDS ORDERED: RESP: ALBUTEROL 2.5 MG/3 ML NEB (PRN) INH (18:45)
[2017-08-06] MEDS ORDERED: MISCELLANEOUS NURSING INFORMATION XX SCH (18:45)
[2017-08-06] MEDS ORDERED: SODIUM CHLORIDE 0.9% FLUSH 10 ML FLUSH IV FLUSH PRN (18:45)
[2017-08-06] MEDS ORDERED: CHLORHEXIDINE GLUCONATE 2 % 1 PACK (2 CLOTHS) TOP PRN (18:45)
[2017-08-06] MEDS ORDERED: ONDANSETRON HCL 4 MG/2 ML VIAL IV PUSH PRN (18:45)
[2017-08-06 18:57] LABS: BANDS 4 % (0-6); CORRECTED NUCLEATED RBC 2 /100 WBC (0-0); NEUTROPHIL # MANUAL DIFF 15.1 TH/MM3 (1.8-7.7); POLYS (SEG NEUTROPHILS) 77 % (16-70); WBC DIFF SAMPLE 100
[2017-08-06 18:58] LABS: PLATELET ESTIMATE SMEAR LOW (NORMAL); PLATELET MORPHOLOGY NORMAL (NORMAL); SCAN/DIFF FINAL DIFF MANUAL; TARGET CELLS 1+ (NORMAL); TOXIC GRANULATION 1+ (NORMAL)
[2017-08-06] MEDS ORDERED: POTASSIUM CHLORIDE 25 MEQ EFFERVESCENT TAB PO PRN (19:00)
[2017-08-06] MEDS ORDERED: MAGNESIUM OXIDE 400 MG TAB PO PRN (19:00)
[2017-08-06] MEDS ORDERED: DEXTROSE 50% IN WATER 50 ML VIAL(D50) IV PUSH PRN (19:00)
[2017-08-06] MEDS ORDERED: POTASSIUM PHOSPHATE INJ 30 MMOL in SODIUM CHLOR 0.9% 250 ML INJ 250 ML IV PRN (19:00)
[2017-08-06] MEDS ORDERED: MAGNESIUM SULFATE INJ 2 GM in SODIUM CHLORIDE 0.9% INJ 96 ML IV PRN (19:00)
[2017-08-06] MEDS ORDERED: SODIUM PHOSPHATE INJ 30 MMOL in SODIUM CHLOR 0.9% 250 ML INJ 240 ML IV PRN (19:00)
[2017-08-06] MEDS ORDERED: POTASSIUM PHOSPHATE MONOBASIC 500 MG TAB PO PRN (19:00)
[2017-08-06] MEDS ORDERED: MAGNESIUM SULFATE INJ 4 GM in SODIUM CHLORIDE 0.9% INJ 92 ML IV PRN (19:00)
[2017-08-06] MEDS ORDERED: POTASSIUM CHLOR 20 MEQ PREMIX 100 ML IV PRN ×2 (19:00)
[2017-08-06] MEDS ORDERED: GLUCAGON 1 MG/ML VIAL OTHER PRN (19:00)
[2017-08-06] MEDS ORDERED: POTASSIUM PHOSPHATE MONOBASIC 500 MG TAB PO/TUBE PRN (19:00)
[2017-08-06] MEDS ORDERED: POTASSIUM CHLOR 40 MEQ PREMIX 100 ML IV PRN ×2 (19:00)
--- NOTE | 2017-08-06 19:05 | HHI.HP ---
[facility] Service Critical Care Medicine Primary Care Physician No Primary Care Physician Admission Diagnosis Anemia, severe sepsis Diagnosis: (1) ETOH abuse Diagnosis: Principal (2) Abdominal pain Diagnosis: Principal (3) Adjustment disorder Diagnosis: Secondary (4) Elevated INR Diagnosis: Principal (5) Elevated transaminase level Diagnosis: Principal (6) Leukocytosis Diagnosis: Principal (7) Thrombocytopenia Diagnosis: Secondary (8) Anemia Diagnosis: Principal (9) Hypokalemia Diagnosis: Principal (10) COPD exacerbation Diagnosis: Secondary (11) Adjustment disorder with mixed disturbance of emotions and conduct Diagnosis: Secondary (12) Tobacco abuse (13) Hypotension Diagnosis: Principal (14) Acute kidney injury Diagnosis: Principal (15) Hypoalbuminemia Diagnosis: Secondary (16) Lactic acidosis Diagnosis: Principal (17) Severe sepsis Diagnosis: Principal Chief Complaint: Weakness/left-sided abdominal pain Travel History International Travel<30 Days: No Contact w/Intl Traveler <30 Da: No Traveled to Known Affected Are: No Sepsis Criteria SIRS Criteria (2 or more): RR > 20 or PaCO2 < 32, WBC > 62576, < 4000 or > 10 % bands Sepsis Criteria (SIRS+source): Infect source susp/known Severe Sepsis (+one): Lactate >2 Criteria Outcome: Meets SIRS criteria History of Present Illness This is a 46-year-old female. Date of admission 08/06/2017. Past medical history includes adjustment disorder, seizure disorder, EtOH and THC abuse, tobaccoism COPD. Recent diagnosis C. difficile 06/04 on metronidazole. Patient presents to [facility] multiple complaints including shortness of breath, left sided abdominal pain 2 weeks and generalized weakness. Admission , patient was wheezing on exam and saturating at 88-90% on RA. Pt given her slight therapy x3 and methylprednisolone 125 mg as well as thiamine, 2 L NS IVF. Patient with, leukocytosis at 18.6. H/H low at 5.8/17.4. Elevated transaminases. Thrombocytopenic at 107. Hypokalemia. Been replaced.. Troponin negative. Currently being transfused. She received 2 L normal saline wide open. Placed on pantoprazole drip 8 mg an hour after initial bolus. 2 antecubital peripheral IVs in place. Hemodynamically stable currently after initial hypotension. Resolved with crystalloid bolus. CT abdomen/pelvis pending at time of dictation. She has used ibuprofen and prednisone recently but not within the past week according to patient. Occult positive in ED. Denies hemoptysis. Requesting diet currently. Review of Systems Constitutional: COMPLAINS OF: Fatigue, Fever, Weight loss, DENIES: Weight gain Endocrine: DENIES: Polydipsia, Polyuria Eyes: DENIES: Blurred vision, Vision loss Ears, nose, mouth, throat: DENIES: Tinnitus Respiratory: COMPLAINS OF: Sputum production, Shortness of breath, DENIES: Apneas, Hemoptysis Cardiovascular: DENIES: Chest pain Gastrointestinal: COMPLAINS OF: Abdominal pain, Bloody stools, DENIES: Constipation, Diarrhea, Nausea Genitourinary: DENIES: Urinary frequency Musculoskeletal: DENIES: Joint pain Integumentary: DENIES: Abnormal pigmentation Hematologic/lymphatic: COMPLAINS OF: Bruising Immunologic/allergic: DENIES: Eczema Neurologic: COMPLAINS OF: Headache, DENIES: Abnormal gait Psychiatric: DENIES: Anxiety, Confusion Past Family Social History Allergies: Coded Allergies: No Known Allergies (Verified Allergy, Unknown, 08/06/17) Past Medical History Adjustment disorder NOS Seizure disorder NOS EtOH THC COPD Recent C. difficile Past Surgical History Skin graft from bilateral thighs to bilateral breasts/left wrist and neck Cholecystectomy Ventral hernia repair 2 tubular pregnancies Lumbar surgery NOS Reported Medications Symbicort Inh (Budesonide/Formoterol Fumarate) 80-4.5 Mcg/Act Aero 1 Puff INH Q12HR Ventolin Hfa 18 GM Inh (Albuterol Sulfate) 90 Mcg/Act Aer 2 Puff INH Q4H PRN Folic Acid 1 Mg Tablet 1 Mg PO DAILY 30 Days Celexa (Citalopram Hydrobromide) 20 Mg Tab 10 Mg PO DAILY 15 Days Multi Vitamin Daily (Multiple Vitamin) 1 Tab Tab 1 Tab PO DAILY 30 Days Vitamin B-1 (Thiamine HCl) 100 Mg Tab 100 Mg PO DAILY 30 Days Cholestyramine 4 Gm/Dose Powd 4 Gm PO DAILY 7 Days 1 level scoopful of powder contains 4 grams of cholestyramine. Prednisone 5 Mg Tab 5 Mg PO DIRECTED 10 Days 40 mg po daily for two days then 30 mg po daily for two days then 20 mg po daily for two days then 10 mg po daily for two days then 5 mg po daily for two days then stop. Levaquin (Levofloxacin) 500 Mg Tablet 500 Mg PO DAILY 3 Days Flagyl (Metronidazole) 500 Mg Tab 500 Mg PO TID 10 Days Atrovent HFA 12.9 GM Inh (Ipratropium [place]) 17 Mcg/Act Aer 2 Puff INH QID Spiriva Handihaler (Tiotropium Inh) 18 Mcg Cap 18 Mcg INH DAILY Symbicort Inh (Budesonide/Formoterol Fumarate) 80-4.5 Mcg/Act Aero 2 Puff INH Q12HR Active Ordered Medications Reviewed in EMR Family History Father irregular heart rate. Age 95. Mother with breast cancer. Social History 1 pack per day tobacco. States quit alcohol but drank today. Positive THC use. Physical Exam Vital Signs Vital Signs Date Time Temp Pulse Resp B/P (MAP) Pulse Ox O2 Delivery O2 Flow Rate FiO2 08/06/17 17:37 94 Nasal Cannula 2.00 08/06/17 16:50 98.0 88 18 90/42 (58) 92 Room Air 08/06/17 16:47 98.0 88 18 94 Physical Exam GENERAL: 46-year-old female, resting in bed in no acute distress SKIN: Cool and dry. Skin graft from B/L thight to L neck, L wrist. B/L breasts. Evolving diffuse ecchymoses bilateral upper and lower extremity. HEAD: Atraumatic. Normocephalic. EYES: Pupils equal and round by 3 mm bilaterally and reactive. + scleral icterus. No injection or drainage. ENT: No nasal bleeding or discharge. Mucous membranes pink and moist. NECK: Trachea midline. No JVD. CARDIOVASCULAR: Regular rate and rhythm. S1, S2. No S4. Without murmur RESPIRATORY: Positive end expiratory wheeze. Diminished throughout especially in bases bilaterally. GASTROINTESTINAL: Abdomen soft, distended. Hypoactive bowel sounds appreciable. Tender to palpation left upper lower quadrants. MUSCULOSKELETAL: Extremities without significant peripheral edema. No obvious deformities. NEUROLOGICAL: Awake and alert. No obvious cranial nerve deficits. Motor grossly within normal limits. Five out of 5 muscle strength in the arms and legs. Normal speech. PS Laboratory Laboratory Tests Test 08/06/17 17:25 08/06/17 18:15 White Blood Count 18.6 Red Blood Count 1.80 Hemoglobin 5.8 Hematocrit 17.4 Mean Corpuscular Volume 96.6 Mean Corpuscular Hemoglobin 32.5 Mean Corpuscular Hemoglobin Concent 33.6 Red Cell Distribution Width 17.2 Platelet Count 107 Mean Platelet Volume 8.7 Neutrophils (%) (Auto) 70.1 Lymphocytes (%) (Auto) 21.0 Monocytes (%) (Auto) 7.4 Eosinophils (%) (Auto) 0.5 Basophils (%) (Auto) 1.0 Neutrophils # (Auto) 13.1 Lymphocytes # (Auto) 3.9 Monocytes # (Auto) 1.4 Eosinophils # (Auto) 0.1 Basophils # (Auto) 0.2 CBC Comment AUTO DIFF Differential Total Cells Counted 100 Neutrophils % (Manual) 77 Band Neutrophils % 4 Lymphocytes % 11 Monocytes % 8 Neutrophils # (Manual) 15.1 Nucleated Red Blood Cells 2 Differential Comment FINAL DIFF MANUAL Toxic Granulation 1+ Platelet Estimate LOW Platelet Morphology Comment NORMAL Target Cells 1+ Prothrombin Time 16.0 Prothromb Time International Ratio 1.6 Activated Partial Thromboplast Time 32.4 Blood Urea Nitrogen 29 Creatinine 1.55 Random Glucose 123 Calcium Level 8.2 Magnesium Level 1.6 Sodium Level 136 Potassium Level 2.4 Chloride Level 98 Carbon Dioxide Level 26.5 Anion Gap 12 Estimat Glomerular Filtration Rate 36 Total Bilirubin 4.5 Direct Bilirubin 2.8 Indirect Bilirubin 1.7 Aspartate Amino Transf (AST/SGOT) 74 Alanine Aminotransferase (ALT/SGPT) 15 Alkaline Phosphatase 197 Troponin I LESS THAN 0.02 Total Protein 7.1 Albumin 2.4 Ethyl Alcohol Level LESS THAN 3 Urine Color YELLOW Urine Turbidity HAZY Urine pH 6.0 Urine Specific [place] 1.013 Urine Protein 30 Urine Glucose (UA) NEG Urine Ketones NEG Urine Occult Blood NEG Urine Nitrite NEG Urine Bilirubin NEG Urine Urobilinogen 2.0 Urine Leukocyte Esterase LARGE Urine RBC 2 Urine WBC 36 Urine WBC Clumps FEW Urine Squamous Epithelial Cells 1 Urine Bacteria MANY Urine Hyaline Casts 2 Urine Mucus FEW Microscopic Urinalysis Comment CULTURE INDICATED Date/Time Source Procedure Growth Status 08/06/17 18:15 Urine Clean Catch Urine Culture Pending Received Result Diagram: 08/06/17 1725 08/06/17 1725 Imaging CXR - No acute findings Septic Shock Reassessment Septic shock perfusion: reassessment completed Caprini VTE Risk Assessment Caprini VTE Risk Assessment: Mod/High Risk (score >= 2) VTE Pharm Contraindication: Hemorrhage Caprini Risk Assessment Model Point Value = 1 Point Value = 2 Point Value = 3 Point Value = 5 Age 41-60 Minor surgery BMI > 25 kg/m2 Swollen legs Varicose veins or History of unexplained or recurrent spontaneous Oral contraceptives or hormone replacement Sepsis (< 1 month) Serious lung disease, including pneumonia (< 1 month) Abnormal pulmonary function Acute myocardial infarction Congestive heart failure (< 1 month) History of inflammatory bowel disease Medical patient at bed rest Age 61-74 Arthroscopic surgery Major open surgery (> 45 min) Laparoscopic surgery (> 45 min) Malignancy Confined to bed (> 72 hours) Immobilizing plaster cast Central venous access Age >= 75 History of VTE Family history of VTE Factor V Leiden Prothrombin 48039T Lupus anticoagulant Anticardiolipin antibodies Elevated serum homocysteine Heparin-induced thrombocytopenia Other congenital or acquired thrombophilia Stroke (< 1 month) Elective arthroplasty Hip, pelvis, or leg fracture Acute spinal cord injury (< 1 month) Prophylaxis Regimen Total Risk Factor Score Risk Level Prophylaxis Regimen 0-1 Low Early ambulation 2 Moderate Order ONE of the following: *Sequential Compression Device (SCD) *Heparin 5000 units SQ BID 3-4 Higher Order ONE of the following medications: *Heparin 5000 units SQ TID *Enoxaparin/Lovenox 40 mg SQ daily (WT < 150 kg, CrCl > 30 mL/min) *Enoxaparin/Lovenox 30 mg SQ daily (WT < 150 kg, CrCl > 10-29 mL/min) *Enoxaparin/Lovenox 30 mg SQ BID (WT < 150 kg, CrCl > 30 mL/min) AND/OR *Sequential Compression Device (SCD) 5 or more Highest Order ONE of the following medications: *Heparin 5000 units SQ TID (Preferred with Epidurals) *Enoxaparin/Lovenox 40 mg SQ daily (WT < 150 kg, CrCl > 30 mL/min) *Enoxaparin/Lovenox 30 mg SQ daily (WT < 150 kg, CrCl > 10-29 mL/min) *Enoxaparin/Lovenox 30 mg SQ BID (WT < 150 kg, CrCl > 30 mL/min) AND *Sequential Compression Device (SCD) Assessment and Plan Assessment and Plan Neuro/Psych: Adjustment disorder Seizure disorder NOS EtOH abuse THC use Acetaminophen if indicated for fevers Hydrocodone/acetaminophen pain 1 through 5. Morphine sulfate pain 6-10 Continues citalopram 10 mg by mouth daily States she has not had a seizure in 2 years. Multivitamin/folate/thiamine daily Monitor for DTs EtOH level urine drug screen pending CT brain nl CV: Hypotension secondary to GI bleed is intravascular depletion LA Status post 2 L normal saline in ED. Transfuse 2 units PRBCs. Currently on nornal saline at 84 cc an hour Vasopressors if indicated to maintain mean artery pressure greater than equal to 65 LA 3.2 Recheck in AM after IVF/blood products Resp: COPD Ongoing Tobaccoism Nasal cannula to maintain saturations greater than equal to 92% Incentive spirometry while awake Follow-up on chest x-ray Continue budesonide/formoterol 80/4.5 2 puffs twice a day/home medication Albuterol/ipratropium aerosols every 6 hours with albuterol aerosols every 2 hours. Dyspnea Continue tiotropium 18 mg inhalation daily/home medication Methylprednisolone 40 g IV every 8 hours Tobacco cessation will be encouraged Patient is on cholestyramine 4 g daily at home GI: Elevated transaminases Heme positive stools Abdominal ascites Left upper quadrant abdominal pain Hypoalbuminemia CT abdomen/pelvis without contrast heterogenous liver, SM, ascites Last paracentesis 3 months ago according to patient. Consider paracentesis to rule out SBP Repeat lipase and amylase LFTs and lactate in a.m. ice Chips for now Currently on pantoprazole drip Consult GI for possible endoscopy : No indication for Bar catheter Endo: Sliding-scale insulin with Novulin R to maintain euglycemia/low regimen with Accu-Cheks every 6 hours Renal: Acute kidney injury Status post 2 L IV fluids Monitor urine output Accurate I's and O's Likely secondary to dehydration/intravascular depletion. Heme: Acute blood loss anemia - normocytic Thrombocytopenia Leukocytosis Elevated INR Typed and crossed for 4 units PRBC. Transfuse 2 units now Hemoglobin every 6 hours. ID: History of C. difficile Monitor for infection Blood cultures 2, UA, sputum influenza ordered Cefepime/azithromycin - ? LLL PNA on CT A/P FEN: Hypokalemia Hypomagnesia Replace electrolytes as clinically indicated per ICU electrolyte protocol Potassium and magnesium been replaced currently MSK: PT evaluate and treat Access - Utilize peripheral IV. Central line if indicated Prophylaxis - GI - pantoprazole drip - DVT - SCD/pharmacological prophylaxis contraindicated with active GI bleed Critical Care: The total critical care time was 35 minutes. Time to perform other separately billable procedures was not included in the critical care time. Code Status Full code Discussed Condition With Dr. Ding, ED physician. Patient. Your plan discussed and all questions answered Problem Qualifiers (1) Abdominal pain: Qualified Codes: R10.12 - Left upper quadrant pain (2) Adjustment disorder: Qualified Codes: F43.20 - Adjustment disorder, unspecified (3) Leukocytosis: Qualified Codes: D72.829 - Elevated white blood cell count, unspecified (4) Anemia: Qualified Codes: D64.9 - Anemia, unspecified (5) Hypotension: Qualified Codes: I95.9 - Hypotension, unspecified Je Miller MD Aug 06, 2017 19:04
[2017-08-06] MEDS ORDERED: MULTIVITAMIN INJ 10 ML, THIAMINE INJ 100 MG, FOLIC ACID INJ 1 MG in SODIUM CHLORID 0.9%... IV ONE (19:30)
[2017-08-06 19:38] LABS: BLOOD GAS BASE EXCESS 1.1 mmol/L (-2-2); BLOOD GAS CARBOXYHEMOGLOBIN 3.4 % (0-4); BLOOD GAS HCO3 24 mmol/L (22-26); BLOOD GAS METHEMOGLOBIN 0.6 % (0-2); BLOOD GAS O2 HGB SATURATION 81 % (90-100); BLOOD GAS OXYGEN CONTENT 7.2 Vol % (12.0-20.0); BLOOD GAS PCO2 34 mmHg (38-42); BLOOD GAS PO2 49 mmHG (61-120); BLOOD GAS TOTAL HGB 6.3 G/DL (12.0-16.0); CRITICAL VALUE YES; DRAW SITE LT RADIAL; FIO2 21 %; NUMBER OF ARTERIAL PUNCTURES 1; OXYGEN DEVICE ROOM AIR FOR 5 MIN.; STAT YES; TEMP CORR TO 98.6; ULNAR PULSE PRESENT
[2017-08-06] MEDS: SODIUM CHLOR 0.9% 1000 ML INJ 1,000 ML IV SCH (19:43)
[2017-08-06] MEDS ORDERED: PANTOPRAZOLE INJ 80 MG in SODIUM CHLORIDE 0.9% INJ 35 ML IV ONE (19:45)
[2017-08-06] MEDS ORDERED: IODIXANOL 320 MG/ML 10 ML VIAL (for Rad CT) IVCONTRAST ONE (19:46)
--- NOTE | 2017-08-06 19:58 | RADRPT ---
EXAM DATE/TIME: 08/06/2017 19:38 [facility] COMPARISON: CT BRAIN W/O CONTRAST, August 20, 2016, 16:01. INDICATIONS : Trauma; fall. RADIATION DOSE: 42.81 CTDIvol (mGy) MEDICAL HISTORY : Seizures. SURGICAL HISTORY : Cholecystectomy. ENCOUNTER: Initial ACUITY: 1 day PAIN SCALE: 4/10 LOCATION: cranial TECHNIQUE: Multiple contiguous axial images were obtained of the head. Using automated exposure control and adj ustment of the mA and/or kV according to patient size, radiation dose was kept as low as reasonably a chievable to obtain optimal diagnostic quality images. DICOM format image data is available electro nically for review and comparison. FINDINGS: CEREBRUM: The ventricles are normal for age. No evidence of midline shift, mass lesion, hemorrhage or acute in farction. No extra-axial fluid collections are seen. POSTERIOR FOSSA: The cerebellum and brainstem are intact. The 4th ventricle is midline. The cerebellopontine angle i s unremarkable. EXTRACRANIAL: The visualized portion of the orbits is intact. SKULL: The calvaria is intact. No evidence of skull fracture. CONCLUSION: 1. Negative noncontrast CT brain. Pipe Guy MD on August 06, 2017 at 19:55 Board Certified Radiologist. This report was verified electronically.
[2017-08-06] MEDS ORDERED: cefTRIAXone INJ 1,000 MG in SODIUM CHLORIDE 0.9% INJ 100 ML IV SCH (20:00)
--- NOTE | 2017-08-06 20:08 | RADRPT ---
EXAM DATE/TIME: 08/06/2017 19:42 [facility] COMPARISON: CT ABDOMEN & PELVIS W CONTRAST, March 26, 2017, 23:40. INDICATIONS : Abdomen pain and general weakness. IV CONTRAST: 50 cc Visipaque (iodixanol) IV ORAL CONTRAST: No oral contrast ingested. RADIATION DOSE: 9.24 CTDIvol (mGy) MEDICAL HISTORY : Chronic obstructive pulmonary disease. Cirrhosis. SURGICAL HISTORY : Cholecystectomy. hernia repair ENCOUNTER: Initial ACUITY: 1 day PAIN SCALE: 5/10 LOCATION: Bilateral abdomen TECHNIQUE: Volumetric scanning of the abdomen and pelvis was performed. Using automated exposure control and ad justment of the mA and/or kV according to patient size, radiation dose was kept as low as reasonably achievable to obtain optimal diagnostic quality images. DICOM format image data is available electro nically for review and comparison. FINDINGS: Moderate amount of ascites in the abdomen and pelvis is a new finding from prior examination in 2016. There is inhomogeneous density in the liver with regional areas of decreased attenuation, aleman ving similar characteristics, but different distribution than prior examination (the areas which were of decreased attenuation on the prior examination now demonstrate relatively increased density and v ice versa). The spleen measures 13 cm, similar to prior. Cholecystectomy. The kidneys, pancreas, a drenal glands are unremarkable for contrast technique. Infrarenal abdominal aorta measures 2.3 cm. No dilated loops of small or large bowel. Long segment thickening of the sigmoid wall is similar to prior. Nodular consistency to the uterus with a hyperdense mass in the left body measuring 2.7 cm, u nchanged from prior. Urinary bladder margins are smooth. Inguinal region is stable from prior. The re is a small triangular-shaped infiltrate in the anterior left lower lung, a new finding from prior. Wide windows for bony detail demonstrate the osseous structures to be intact.. CONCLUSION: 1. Interval development of moderate severity ascites. 2. Heterogeneous density to the liver which cannot be further assessed on a noncontrast exam. 3. Stable splenomegaly. 4. New subsegmental infiltrate with consolidation in the anterior left lower lung. Pipe Guy MD on August 06, 2017 at 20:01 Board Certified Radiologist. This report was verified electronically.
[2017-08-06] MEDS: BUDESONIDE-FORMOTEROL 80/4.5 MCG INHALER INH SCH (21:00)
[2017-08-06] MEDS ORDERED: PHYTONADIONE 5 MG TAB PO ONE (21:00)
--- NOTE | 2017-08-06 21:38 | EKG ---
Date Performed: 08/06/2017 Time Performed: 17:33:36 PTAGE: 46 years EKG: Baseline artifact present probable ATRIAL FIBRILLATION WITH ABERRANT CONDUCTION OR VENTRICU LAR PREMATURE COMPLEXES Nonspecific ST and T wave abnormalities ABNORMAL ECG Compared to prior electr ocardiogram, atrial fibrillation has replaced Normal Sinus rhythm and Nonspecific ST and T wave abnormalities are more marked . PREVIOUS TRACING : 05/30/2017 00.39 DOCTOR: Alex Mars Interpretating Date/Time 08/06/2017 21:37:29
[2017-08-06 21:43] LABS: LACTIC ACID GHOST NOT REPORTABLE
[2017-08-06 22:03] LABS: REVIEW FLAG FINAL
[2017-08-06 22:04] LABS: HEMATOCRIT 15.3 % (35.0-46.0)
[2017-08-06] MEDS: SODIUM CHLORIDE 0.9% FLUSH 10 ML FLUSH IV FLUSH SCH (22:15)
[2017-08-06] MEDS: PANTOPRAZOLE INJ 80 MG in SODIUM CHLORIDE 0.9% INJ 100 ML IV SCH (22:15)
[2017-08-06] MEDS: MAGNESIUM SULFATE 1 GM PREMIX 100 ML IV SCH (22:15)
[2017-08-06] MEDS: AZITHROMYCIN INJ 500 MG in SODIUM CHLOR 0.9% 250 ML INJ 250 ML IV SCH (22:15)
[2017-08-06] MEDS: methylPREDNISolone SOD SUCC 40 MG/1 ML VIAL IV PUSH SCH (22:16)
[2017-08-06 23:37] LABS: BETA-HYDROXYBUTYRATE 0.68 MMOL/L (0.00-0.39)
[2017-08-06 23:40] LABS: BETA HCG QUANT LESS THAN 1 MIU/ML (0-5)
[2017-08-06 23:42] LABS: ACETAMINOPHEN LESS THAN 2.0 MCG/ML (10.0-30.0)
[2017-08-07] VITALS (18 sets, daily range): BP systolic 87–105; BP diastolic 41–57; PULSE 72–86; RESP 20–31; TEMP 86–98.7; O2SAT 90–98
[2017-08-07] MEDS: INSULIN NovoLIN REGULAR SUPPLEMENTAL SCALE SQ SCH ×4 (01:57→18:04)
[2017-08-07] MEDS: RESP: ALBUTEROL 2.5 MG/IPRATROPIUM 0.5 MG NEB (SCH) INH ×5 (03:30→20:39)
[2017-08-07] MEDS: CHLORHEXIDINE GLUCONATE 2 % 1 PACK (2 CLOTHS) TOP SCH (04:00)
[2017-08-07] MEDS: methylPREDNISolone SOD SUCC 40 MG/1 ML VIAL IV PUSH SCH ×3 (05:05→21:01)
[2017-08-07] MEDS: MAGNESIUM SULFATE 1 GM PREMIX 100 ML IV SCH (06:41)
[2017-08-07] MEDS: MORPHINE SULFATE 2 MG/ML INJ IV PRN ×2 (06:49→21:09)
[2017-08-07 07:43] LABS: AUTOMATED NEUTROPHIL # 14.4 TH/MM3 (1.8-7.7); BASOPHIL # 0.1 TH/MM3 (0-0.2); BASOPHIL % 0.4 % (0.0-2.0); EOSINOPHIL % 0.1 % (0.0-4.0); HEMATOCRIT 25.4 % (35.0-46.0); LYMPH % 17.1 % (9.0-44.0); LYMPHOCYTE # 3.1 TH/MM3 (1.0-4.8); MEAN CORPUSCULAR HEMOGLOBIN 31.3 PG (27.0-34.0); MEAN CORPUSCULAR HGB CONC 34.7 % (32.0-36.0); MONO % 2.6 % (0.0-8.0); NEUT % 79.8 % (16.0-70.0); PLATELET COUNT 72 TH/MM3 (150-450); RED BLOOD COUNT 2.82 MIL/MM3 (4.00-5.30); RED CELL DISTRIBUTION WIDTH 18.1 % (11.6-17.2); WHITE BLOOD COUNT 18.1 TH/MM3 (4.0-11.0)
[2017-08-07 07:45] LABS: HEMO FLAGS AUTO DIFF
[2017-08-07] MEDS: CITALOPRAM HYDROBROMIDE 20 MG TAB PO SCH (08:18)
[2017-08-07] MEDS: NICOTINE 14 MG/24 HR PATCH T-DERMAL SCH (08:19)
[2017-08-07] MEDS: SODIUM CHLORIDE 0.9% FLUSH 10 ML FLUSH IV FLUSH SCH ×2 (08:20→21:00)
[2017-08-07] MEDS: PANTOPRAZOLE INJ 80 MG in SODIUM CHLORIDE 0.9% INJ 100 ML IV SCH ×2 (08:21→18:14)
[2017-08-07 08:45] LABS: PLATELET ESTIMATE SMEAR LOW (NORMAL); PLATELET MORPHOLOGY ENLARGED (NORMAL); SCAN/DIFF AUTO DIFF CONFIRMED; TARGET CELLS 1+ (NORMAL)
[2017-08-07] MEDS ORDERED: CEFEPIME INJ 2,000 MG in SODIUM CHLORIDE 0.9% INJ 100 ML IV SCH (09:00)
[2017-08-07] MEDS: REMOVE OLD PATCH T-DERMAL SCH (09:00)
[2017-08-07 09:49] LABS: C. DIFF EPI 027 PRESUMPTIVE NEGATIVE (NEGATIVE)
[2017-08-07 10:37] LABS: ALKALINE PHOSPHATASE 177 U/L (45-117); ALT (GPT) 14 U/L (10-53); ANION GAP 13 MEQ/L (5-15); AST (GOT) 61 U/L (15-37); BICARBONATE 22.5 MEQ/L (21.0-32.0); BLOOD UREA NITROGEN 31 MG/DL (7-18); CHLORIDE 102 MEQ/L (98-107); GLOMERULAR FILTRATION RATE 36 ML/MIN (>89); MAGNESIUM 2.1 MG/DL (1.5-2.5); SODIUM (NA) 137 MEQ/L (136-145); TOTAL BILIRUBIN ADULT 6.7 MG/DL (0.2-1.0)
[2017-08-07 10:44] LABS: AMYLASE 280 U/L (25-115); CREATINE KINASE 26 U/L (26-192)
[2017-08-07 10:47] LABS: POTASSIUM 2.4 MEQ/L (3.5-5.1)
--- NOTE | 2017-08-07 11:06 | PD.CONS ---
HPI History of Present Illness This is a 46 year old female with chief compliant of abdominal pain predominantly on the left lower quadrant and right upper quadrant. She also has some epigastric tenderness, nausea, but no vomiting. She does note some blood in her stools, and uncontrolled diarrhea greater than 10 times a day. Patient was in the hospital back in May, with a diagnosis of C. difficile. She was treated but states that the diarrhea never completely went away. Patient has a history of cirrhosis, EtOH abuse, elevated LFTs and GERD/ gastritis. Cord and patient she had her last paracentesis during her hospital stay in May. Patient did drink a quart of rum over the past few days, but states that she has cut back on her drinking a good bit. She notes extreme weakness and fatigue, no hematemesis, patient is being managed in the intensive care setting, she is on IV Protonix drip, IV antibiotics cefepime and azithromycin, IV fluids and IV steroids. Patient denies any acute fever or chills, she is awake and able to give good history. (Loraine Alfredo) PFSH Past Medical History Liver cirrhosis EtOH dependence and abuse Drug abuse Seizure disorders Recent C. difficile COPD, back abuse Bipolar, adjustment disorder Degenerative disc disorder Past Surgical History Tubular 2 Lumbar surgery Ventral hernia repair Cholecystectomy Skin grafts bilateral thighs breast left wrist and neck Paracentesis May, according to patient (Loraine Alfredo) Coded Allergies: No Known Allergies (Verified Allergy, Unknown, 08/06/17) Medications Administered Medications Medications (Trade) Dose Ordered Sig/Ariel Route PRN Reason Start Time Stop Time Status Last Admin Dose Admin Citalopram Hydrobromide (CeleXA) 10 mg DAILY PO 08/07/17 09:00 08/07/17 08:18 Pantoprazole Sodium 80 mg/ Sodium Chloride 100 ml @ 10 mls/hr Q10H IV 08/06/17 20:00 08/07/17 08:21 Methylprednisolone Sodium Succinate (SoluMEDROL INJ) 40 mg Q8HR IV PUSH 08/06/17 22:00 08/07/17 05:05 Sodium Chloride 1,000 ml @ 84 mls/hr [id number] IV 08/06/17 19:00 08/06/17 19:43 Sodium Chloride (NS Flush) 2 ml BID IV FLUSH 08/06/17 21:00 08/07/17 08:20 Morphine Sulfate (Morphine Inj) 2 mg Q2H PRN IV PAIN 6-10 08/06/17 19:15 08/07/17 06:49 Albuterol/ Ipratropium (Duoneb Neb) 1 ampule Q4HR NEB INH 08/06/17 20:00 08/07/17 10:15 Chlorhexidine Gluconate (Chlorhexidine 2% Cloth) 3 pack Taper DAILY@04 TOP 08/07/17 04:00 08/03/18 03:59 08/07/17 04:00 Insulin Human Regular (NovoLIN R SUPPLEMENTAL SCALE) 1 Q6HR SQ 08/07/17 00:00 08/07/17 06:00 Nicotine (Habitrol 14 Mg Patch.24 Hr) 1 patch DAILY T-DERMAL 08/07/17 09:00 08/07/17 08:19 Azithromycin 500 mg/Sodium Chloride 250 ml @ 250 mls/hr Q24H IV 08/06/17 21:00 08/06/17 22:15 Cefepime HCl 2000 mg/Sodium Chloride 100 ml @ 200 mls/hr DAILY IV 08/07/17 09:00 08/07/17 08:18 Social History EtOH is current as yesterday History of drug abuse (Loraine Alfredo) Review of Systems Constitutional: COMPLAINS OF: Fatigue Gastrointestinal: COMPLAINS OF: Abdominal pain, Bloody stools, Diarrhea, Nausea (Loraine Alfredo) GI Exam Vitals I&O Vital Signs Date Time Temp Pulse Resp B/P (MAP) Pulse Ox O2 Delivery O2 Flow Rate FiO2 08/07/17 10:15 94 Nasal Cannula 2.00 08/07/17 06:00 86 08/07/17 04:00 98.0 82 24 92/57 (69) 93 08/07/17 04:00 98.0 82 27 92/57 93 08/07/17 04:00 82 08/07/17 03:30 94 Nasal Cannula 3.00 08/07/17 02:23 98.5 83 31 93/47 94 08/07/17 02:00 83 08/07/17 01:15 98.0 84 28 89/41 98 08/07/17 00:56 98.6 83 20 92/55 95 08/07/17 00:00 84 08/07/17 00:00 98.7 84 23 90/48 (62) 98 08/06/17 23:44 97 Nasal Cannula 3.00 08/06/17 23:20 98.6 85 21 83/42 98 08/06/17 23:01 98.7 82 22 86/46 95 08/06/17 22:00 83 08/06/17 20:32 98.7 91 20 97/46 (63) 93 08/06/17 20:00 94 Nasal Cannula 2.00 08/06/17 19:56 08/06/17 19:25 93 Nasal Cannula 2.00 08/06/17 19:22 98.5 86 22 94/45 (61) 82 Room Air 08/06/17 17:37 94 Nasal Cannula 2.00 08/06/17 16:50 98.0 88 18 90/42 (58) 92 Room Air 08/06/17 16:47 98.0 88 18 94 I/O 08/06/17 08/06/17 08/06/17 08/07/17 08/07/17 08/07/17 07:00 15:00 23:00 07:00 15:00 23:00 Intake Total 1201 ml 1756 ml 100 ml Balance 1201 ml 1756 ml 100 ml Intake IV Total 1201 ml 501 ml 100 ml Packed Cells 1200 ml Blood Product IV Normal Saline Flush 55 ml # Voids 1 # Bowel Movements 8 Imaging Last Impressions Chest X-Ray 08/06/17 1725 Signed Impressions: Service Date/Time: Sunday, August 06, 2017 17:49 - CONCLUSION: Normal examination. Je Tsai MD Head CT 08/06/17 0000 Signed Impressions: Service Date/Time: Sunday, August 06, 2017 19:38 - CONCLUSION: 1. Negative noncontrast CT brain. Pipe Guy MD Abdomen/Pelvis CT 08/06/17 0000 Signed Impressions: Service Date/Time: Sunday, August 06, 2017 19:42 - CONCLUSION: 1. Interval development of moderate severity ascites. 2. Heterogeneous density to the liver which cannot be further assessed on a noncontrast exam. 3. Stable splenomegaly. 4. New subsegmental infiltrate with consolidation in the anterior left lower lung. Pipe Guy MD Laboratory Test 08/06/17 17:25 08/06/17 18:15 08/06/17 19:10 08/06/17 19:25 White Blood Count 18.6 TH/MM3 Red Blood Count 1.80 MIL/MM3 Hemoglobin 5.8 GM/DL Hematocrit 17.4 % Mean Corpuscular Volume 96.6 FL Mean Corpuscular Hemoglobin 32.5 PG Mean Corpuscular Hemoglobin Concent 33.6 % Red Cell Distribution Width 17.2 % Platelet Count 107 TH/MM3 Mean Platelet Volume 8.7 FL Neutrophils (%) (Auto) 70.1 % Lymphocytes (%) (Auto) 21.0 % Monocytes (%) (Auto) 7.4 % Eosinophils (%) (Auto) 0.5 % Basophils (%) (Auto) 1.0 % Neutrophils # (Auto) 13.1 TH/MM3 Lymphocytes # (Auto) 3.9 TH/MM3 Monocytes # (Auto) 1.4 TH/MM3 Eosinophils # (Auto) 0.1 TH/MM3 Basophils # (Auto) 0.2 TH/MM3 CBC Comment AUTO DIFF Differential Total Cells Counted 100 Neutrophils % (Manual) 77 % Band Neutrophils % 4 % Lymphocytes % 11 % Monocytes % 8 % Neutrophils # (Manual) 15.1 TH/MM3 Nucleated Red Blood Cells 2 /100 WBC Differential Comment FINAL DIFF MANUAL Toxic Granulation 1+ Platelet Estimate LOW Platelet Morphology Comment NORMAL Target Cells 1+ Prothrombin Time 16.0 SEC Prothromb Time International Ratio 1.6 RATIO Activated Partial Thromboplast Time 32.4 SEC Blood Urea Nitrogen 29 MG/DL Creatinine 1.55 MG/DL Random Glucose 123 MG/DL Calcium Level 8.2 MG/DL Magnesium Level 1.6 MG/DL Sodium Level 136 MEQ/L Potassium Level 2.4 MEQ/L Chloride Level 98 MEQ/L Carbon Dioxide Level 26.5 MEQ/L Anion Gap 12 MEQ/L Estimat Glomerular Filtration Rate 36 ML/MIN Phosphorus Level 1.8 MG/DL Total Bilirubin 4.5 MG/DL Direct Bilirubin 2.8 MG/DL Indirect Bilirubin 1.7 MG/DL Aspartate Amino Transf (AST/SGOT) 74 U/L Alanine Aminotransferase (ALT/SGPT) 15 U/L Alkaline Phosphatase 197 U/L Troponin I LESS THAN 0.02 NG/ML Total Protein 7.1 GM/DL Albumin 2.4 GM/DL Human Chorionic Gonadotropin, Quant LESS THAN 1 MIU/ML Salicylates Level LESS THAN 1.7 MG/DL Acetaminophen Level LESS THAN 2.0 MCG/ML Ethyl Alcohol Level LESS THAN 3 MG/DL B-Hydroxybutyrate 0.68 MMOL/L Urine Color YELLOW Urine Turbidity HAZY Urine pH 6.0 Urine Specific [place] 1.013 Urine Protein 30 mg/dL Urine Glucose (UA) NEG mg/dL Urine Ketones NEG mg/dL Urine Occult Blood NEG Urine Nitrite NEG Urine Bilirubin NEG Urine Urobilinogen 2.0 MG/DL Urine Leukocyte Esterase LARGE Urine RBC 2 /hpf Urine WBC 36 /hpf Urine WBC Clumps FEW Urine Squamous Epithelial Cells 1 /hpf Urine Bacteria MANY /hpf Urine Hyaline Casts 2 /lpf Urine Mucus FEW /lpf Microscopic Urinalysis Comment CULTURE INDICATED Urine Opiates Screen NEG Urine Barbiturates Screen NEG Urine Amphetamines Screen NEG Urine Benzodiazepines Screen POS Urine Cocaine Screen NEG Urine Cannabinoids Screen NEG Lactic Acid Level 3.2 mmol/L Blood Gas Puncture Site LT RADIAL Blood Gas Patient Temperature 98.6 Blood Gas HCO3 24 mmol/L Blood Gas Base Excess 1.1 mmol/L Blood Gas Oxygen Saturation 81 % Arterial Blood pH 7.48 Arterial Blood Partial Pressure CO2 34 mmHg Arterial Blood Partial Pressure O2 49 mmHG Arterial Blood Oxygen Content 7.2 Vol % Arterial Blood Carboxyhemoglobin 3.4 % Arterial Blood Methemoglobin 0.6 % Blood Gas Hemoglobin 6.3 G/DL Oxygen Delivery Device ROOM AIR FOR 5 MIN. Blood Gas Inspired Oxygen 21 % Test 08/06/17 21:00 08/06/17 21:20 08/06/17 23:04 08/07/17 05:30 Hemoglobin 5.0 GM/DL Hematocrit 15.3 % Troponin I LESS THAN 0.02 NG/ML Nasal Screen MRSA (PCR) MRSA NOT DETECTED Lactic Acid Level 2.1 mmol/L Test 08/07/17 07:00 08/07/17 09:47 White Blood Count 18.1 TH/MM3 Red Blood Count 2.82 MIL/MM3 Hemoglobin 8.8 GM/DL Hematocrit 25.4 % Mean Corpuscular Volume 90.0 FL Mean Corpuscular Hemoglobin 31.3 PG Mean Corpuscular Hemoglobin Concent 34.7 % Red Cell Distribution Width 18.1 % Platelet Count 72 TH/MM3 Mean Platelet Volume 8.7 FL Neutrophils (%) (Auto) 79.8 % Lymphocytes (%) (Auto) 17.1 % Monocytes (%) (Auto) 2.6 % Eosinophils (%) (Auto) 0.1 % Basophils (%) (Auto) 0.4 % Neutrophils # (Auto) 14.4 TH/MM3 Lymphocytes # (Auto) 3.1 TH/MM3 Monocytes # (Auto) 0.5 TH/MM3 Eosinophils # (Auto) 0.0 TH/MM3 Basophils # (Auto) 0.1 TH/MM3 CBC Comment AUTO DIFF Differential Comment AUTO DIFF CONFIRMED Platelet Estimate LOW Platelet Morphology Comment ENLARGED Target Cells 1+ Blood Urea Nitrogen 31 MG/DL Creatinine 1.54 MG/DL Random Glucose 190 MG/DL Total Protein 7.1 GM/DL Albumin 2.4 GM/DL Calcium Level 7.5 MG/DL Phosphorus Level 0.8 MG/DL Magnesium Level 2.1 MG/DL Alkaline Phosphatase 177 U/L Aspartate Amino Transf (AST/SGOT) 61 U/L Alanine Aminotransferase (ALT/SGPT) 14 U/L Total Bilirubin 6.7 MG/DL Sodium Level 137 MEQ/L Potassium Level 2.4 MEQ/L Chloride Level 102 MEQ/L Carbon Dioxide Level 22.5 MEQ/L Anion Gap 13 MEQ/L Estimat Glomerular Filtration Rate 36 ML/MIN Lactic Acid Level 1.7 mmol/L Ammonia 54 MCMOL/L Total Creatine Kinase 26 U/L Troponin I LESS THAN 0.02 NG/ML Amylase Level 280 U/L Lipase 269 U/L Date/Time Source Procedure Growth Status 08/06/17 19:10 Blood Peripheral Aerobic Blood Culture Pending Received 08/06/17 19:10 Blood Peripheral Anaerobic Blood Culture Pending Received 08/06/17 18:15 Urine Clean Catch Urine Culture Pending Received Physical Examination HEENT: Pupils round and reactive to light; normocephalic; atraumatic; sclera icteric Oral cavity dry NECK: Neck is supple, no JVD, no lymphadenopathy. CHEST: Chest is clear to auscultation and percussion. CARDIAC: Regular rate and rhythm with no murmur gallop or rubs. ABDOMEN: Soft, distended , right upper quadrant pain left lower quadrant pain epigastric pain bowel sounds are present in all four quadrants. EXTREMITIES: No clubbing, cyanosis, or edema. SKIN: Normal; no rash; positive for jaundice. 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 (Loraine Alfredo) Assessment and Plan Assessment: (1) GERD (gastroesophageal reflux disease) ICD Codes: K21.9 - Gastro-esophageal reflux disease without esophagitis (2) C. difficile colitis ICD Codes: A04.72 - Enterocolitis due to Clostridium difficile, not specified as recurrent (3) Leukocytosis ICD Codes: D72.829 - Elevated white blood cell count, unspecified (4) Abdominal pain ICD Codes: R10.9 - Unspecified abdominal pain (5) Elevated INR ICD Codes: R79.1 - Abnormal coagulation profile (6) Elevated transaminase level ICD Codes: R74.0 - Nonspecific elevation of levels of transaminase and lactic acid dehydrogenase [LDH] (7) GI bleed ICD Codes: K92.2 - Gastrointestinal hemorrhage, unspecified Status: Acute Plan Plan for EGD and colonoscopy tomorrow, consents Nothing by mouth at bedtime, hold any blood thinners GoLYTELY prep in the morning C. difficile pending Monitor for any acute GI bleed or hemorrhage call GI Monitor labs in the a.m. I&O, monitor diarrhea stools IV antibiotics already on board per attending Course of treatment will be based on symptoms and findings Patient seen and evaluated per myself and Dr. Foley, note written on his behalf (Loraine Alfredo) Physician Comments Plan as above, will proceed with EGD and Colonoscopy, procedure explained to the patient including risk, benefits and possible complications. (Chinmay Foley MD) Problem Qualifiers (1) Leukocytosis: Qualified Codes: D72.829 - Elevated white blood cell count, unspecified (2) Abdominal pain: Qualified Codes: R10.12 - Left upper quadrant pain (3) GI bleed: Qualified Codes: K92.2 - Gastrointestinal hemorrhage, unspecified Loraine Alfredo Aug 07, 2017 11:06 Chinmay Foley MD Aug 08, 2017 06:10
[2017-08-07] MEDS ORDERED: PEG (High)/E-LYTE SOLN 4000 ML BTL PO ONE (11:30)
[2017-08-07 12:31] LABS: HEMATOCRIT 25.1 % (35.0-46.0)
--- NOTE | 2017-08-07 12:32 | HHI.CCPN ---
Subjective Remarks/Hospital Course This is a 46-year-old female. Date of admission 08/06/2017. Past medical history includes adjustment disorder, seizure disorder, EtOH and THC abuse, tobaccoism COPD. Recent diagnosis C. difficile 06/04 on metronidazole. Patient presents to [facility] multiple complaints including shortness of breath, left sided abdominal pain 2 weeks and generalized weakness. Admission , patient was wheezing on exam and saturating at 88-90% on RA. Pt given her slight therapy x3 and methylprednisolone 125 mg as well as thiamine, 2 L NS IVF. Patient with, leukocytosis at 18.6. H/H low at 5.8/17.4. Elevated transaminases. Thrombocytopenic at 107. Hypokalemia. Been replaced.. Troponin negative. Currently being transfused. She received 2 L normal saline wide open. Placed on pantoprazole drip 8 mg an hour after initial bolus. 2 antecubital peripheral IVs in place. Hemodynamically stable currently after initial hypotension. Resolved with crystalloid bolus. CT abdomen/pelvis pending at time of dictation. She has used ibuprofen and prednisone recently but not within the past week according to patient. Occult positive in ED. Denies hemoptysis. Requesting diet currently. Subjective: 08/07: Afebrile. Hemoglobin stable this a.m. at 8.8. Patient continues to have profuse diarrhea resulted C. difficile positive. Fecal containment device placed. Patient previously on by mouth Flagyl at home we'll continue by mouth vancomycin and by mouth metronidazole. ID has been consulted. Upon evaluation patient also was noted to have purulent drainage from left buttocks from a small pustule, sent for culture. Patient remains nothing by mouth pending GI interventions. Objective Vital Signs Date Time Temp Pulse Resp B/P (MAP) Pulse Ox O2 Delivery O2 Flow Rate FiO2 08/07/17 10:15 94 Nasal Cannula 2.00 08/07/17 06:00 86 08/07/17 04:00 98.0 24 92/57 (69) Intake and Output 08/07/17 08/07/17 08/08/17 08:00 16:00 00:00 Intake Total 1856 ml Balance 1856 ml Result Diagram: 08/07/17 0700 08/07/17 0947 Other Results Laboratory Tests Test 08/06/17 19:25 Blood Gas Puncture Site LT RADIAL Blood Gas Patient Temperature 98.6 Blood Gas HCO3 24 mmol/L (22-26) Blood Gas Base Excess 1.1 mmol/L (-2-2) Blood Gas Oxygen Saturation 81 % (90-100) Arterial Blood pH 7.48 (7.380-7.420) Arterial Blood Partial Pressure CO2 34 mmHg (38-42) Arterial Blood Partial Pressure O2 49 mmHG (61-120) Arterial Blood Oxygen Content 7.2 Vol % (12.0-20.0) Arterial Blood Carboxyhemoglobin 3.4 % (0-4) Arterial Blood Methemoglobin 0.6 % (0-2) Blood Gas Hemoglobin 6.3 G/DL (12.0-16.0) Oxygen Delivery Device ROOM AIR FOR 5 MIN. Blood Gas Inspired Oxygen 21 % Imaging CXR - No acute findings Objective Remarks GENERAL: 46-year-old female, resting in bed in no acute distress SKIN: Cool and dry. Skin graft from B/L thigh to L neck, L wrist. B/L breasts. Evolving diffuse ecchymoses bilateral upper and lower extremity. Left buttocks, purulent drainage from pustule lesion. HEAD: Atraumatic. Normocephalic. EYES: Pupils equal and round by 3 mm bilaterally and reactive. + scleral icterus. No injection or drainage. EOMI ENT: No nasal bleeding or discharge. Mucous membranes pink and moist. NECK: Trachea midline. No JVD. Uvula midline CARDIOVASCULAR: Regular rate and rhythm. S1, S2. No S4. Without murmur RESPIRATORY: Positive end expiratory wheeze. Diminished throughout especially in bases bilaterally. GASTROINTESTINAL: Abdomen soft, distended. Hypoactive bowel sounds appreciable. Tender to palpation left upper lower quadrants. MUSCULOSKELETAL: Extremities without significant peripheral edema. No obvious deformities. NEUROLOGICAL: Awake and alert. Cranial nerves II-XII grossly intact. Motor grossly within normal limits. 5/5 muscle strength in the arms and legs. Normal speech. A/P Assessment and Plan Neuro/Psych: Adjustment disorder Seizure disorder NOS EtOH abuse THC use Acetaminophen if indicated for fevers Hydrocodone/acetaminophen pain 1 through 5. Morphine sulfate pain 6-10 Continues citalopram 10 mg by mouth daily States she has not had a seizure in 2 years. Multivitamin/folate/thiamine daily Monitor for DTs Seizure precautions EtOH level urine drug screen pending 08/06 CT brain -no acute abnormality Ammonia level 54 CV: Hypotension secondary to GI bleed is intravascular depletion-resolved LA Status post 2 L normal saline in ED. Transfuse 2 units PRBCs. Continue 0.9 NS at 84 cc an hour Vasopressors if indicated to maintain mean artery pressure greater than equal to 65 Lactic acid 3.2-> 1.7 Resp: COPD Ongoing Tobaccoism Nasal cannula to maintain saturations greater than equal to 92% Incentive spirometry while awake Follow-up on chest x-ray Continue budesonide/formoterol 80/4.5 2 puffs twice a day/home medication Albuterol/ipratropium aerosols every 6 hours with albuterol aerosols every 2 hours. Dyspnea Continue tiotropium 18 mg inhalation daily/home medication Methylprednisolone 40 g IV every 8 hours Tobacco cessation will be encouraged Patient is on cholestyramine 4 g daily at home GI: Elevated transaminases Heme positive stools Abdominal ascites Left upper quadrant abdominal pain Hypoalbuminemia CT abdomen/pelvis without contrast heterogenous liver, SM, ascites Last paracentesis 3 months ago according to patient. Consider paracentesis to rule out SBP Trend lipase and amylase LFTs-amylase 280, lipase 269 There liquid diet per GI recommendations Currently on pantoprazole drip Consult GI for possible endoscopy-planned for 08/08 : No indication for Bar catheter Endo: Sliding-scale insulin with Novulin R to maintain euglycemia/low regimen with Accu-Cheks every 6 hours Renal: Acute kidney injury Status post 2 L IV fluids Monitor urine output Accurate I's and O's Likely secondary to dehydration/intravascular volume depletion. Heme: Acute blood loss anemia - normocytic Thrombocytopenia Leukocytosis Elevated INR Typed and crossed for 4 units PRBC. Transfuse 2 units now Hemoglobin every 6 hours. ID: C. difficile Monitor for infection Blood cultures 2, UA, sputum influenza ordered Cefepime/azithromycin - ? LLL PNA on CT A/P Begin by mouth vancomycin 250 mg 4 times a day and Flagyl 250 mg every 8 hours Consult ID Follow-up on wound culture FEN: Hypokalemia Hypomagnesia Replace electrolytes as clinically indicated per ICU electrolyte protocol Potassium and magnesium been replaced currently MSK: PT evaluate and treat Access - Utilize peripheral IV. Central line if indicated Prophylaxis - GI - pantoprazole drip - DVT - SCD/pharmacological prophylaxis contraindicated with active GI bleed Critical Care: my billing statement This patient remains critically ill with one or more organ systems which are or may become a threat to life. I have spent in excess of 30 minutes discontinuously in the care and management of this patient. This time is exclusive of procedures, and includes, but is not limited to, evaluation of the patient, review of the medical record, discussions with family, consultants, nursing staff, or respiratory therapy, and documentation in the medical record. 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
[2017-08-07 12:34] LABS: REVIEW FLAG FINAL
[2017-08-07 12:48] LABS: APTT (PATIENT) 31.1 SEC (24.3-30.1); INTERNATIONAL NORMALIZED RATIO 1.5 RATIO; PROTHROMBIN TIME - PATIENT 15.5 SEC (9.8-11.6)
[2017-08-07] MEDS: MULTIVITAMIN INJ 10 ML, THIAMINE INJ 100 MG, FOLIC ACID INJ 1 MG in SODIUM CHLORID 0.9%... IV SCH (14:13)
[2017-08-07] MEDS: VANCOMYCIN 500 MG VIAL (FOR ORAL USE ONLY) PO SCH ×3 (14:14→21:00)
[2017-08-07] MEDS ORDERED: POTASSIUM CHLORIDE 25 MEQ EFFERVESCENT TAB PO ONE (15:45)
[2017-08-07] MEDS: SODIUM CHLOR 0.9% 1000 ML INJ 1,000 ML IV SCH (16:06)
[2017-08-07] MEDS: TIOTROPIUM BROMIDE 18 MCG INH INH SCH (17:07)
[2017-08-07] MEDS: BUDESONIDE-FORMOTEROL 80/4.5 MCG INHALER INH SCH ×2 (17:08→21:02)
[2017-08-07] MEDS: metroNIDAZOLE 250 MG TAB PO SCH ×2 (18:14→21:02)
--- NOTE | 2017-08-07 19:42 | PD.ID.CON ---
History of Present Illness Service ID Consult Requested By Dr Layton Reason for Consult C.diff Primary Care Physician No Primary Care Physician Diagnoses: History of Present Illness 46 yo female with h/o C.diff few mos ago presented with generalysed weakness and ongoing severe diarrhea, over 10-15 BMs /day Pt reports failure of C.diff reatment as o/p On presentation pt wa fond to have profound anemia with Hb of 5, severe leukocystosis of 18 K, no fever, mild lactic acosdosis and + C.diff test CT abd/pel showed LLL new density, severe ascites and heterogenesity of liver with recommendation of contrasted study [place] wall thickening Negative CXR, pt denies cough Pt was started on broad specrrum and and oral flagyl for c.diff Review of Systems Constitutional: COMPLAINS OF: Fatigue, Dizziness Gastrointestinal: COMPLAINS OF: Abdominal pain, Diarrhea Except as stated in HPI: all other systems reviewed are Neg Past Family Social History Allergies: Coded Allergies: No Known Allergies (Verified Allergy, Unknown, 08/06/17) Past Medical History Adjustment disorder NOS Seizure disorder NOS EtOH THC COPD Recent C. difficile Past Surgical History Skin graft from bilateral thighs to bilateral breasts/left wrist and neck Cholecystectomy Ventral hernia repair 2 tubular pregnancies Lumbar surgery NOS Active Ordered Medications Medications where reviewed in EMR Antibiotics Include: cefepime azithro po flagyl Family History Father irregular heart rate. Age 95. Mother with breast cancer. Social History 1 pack per day tobacco. States quit alcohol Positive THC use. Physical Exam Vital Signs Vital Signs Date Time Temp Pulse Resp B/P (MAP) Pulse Ox O2 Delivery O2 Flow Rate FiO2 08/07/17 18:00 85 08/07/17 16:00 86.0 86 24 105/55 (72) 95 08/07/17 16:00 86 08/07/17 14:00 78 08/07/17 12:00 80 08/07/17 12:00 98.7 80 21 89/51 (64) 92 08/07/17 10:15 94 Nasal Cannula 2.00 08/07/17 10:00 74 08/07/17 08:00 98.2 75 22 87/53 (64) 93 08/07/17 08:00 72 08/07/17 06:00 86 08/07/17 04:00 98.0 82 24 92/57 (69) 93 08/07/17 04:00 98.0 82 27 92/57 93 08/07/17 04:00 82 08/07/17 03:30 94 Nasal Cannula 3.00 08/07/17 02:23 98.5 83 31 93/47 94 08/07/17 02:00 83 08/07/17 01:15 98.0 84 28 89/41 98 08/07/17 00:56 98.6 83 20 92/55 95 08/07/17 00:00 84 08/07/17 00:00 98.7 84 23 90/48 (62) 98 08/06/17 23:44 97 Nasal Cannula 3.00 08/06/17 23:20 98.6 85 21 83/42 98 08/06/17 23:01 98.7 82 22 86/46 95 08/06/17 22:00 83 08/06/17 20:32 98.7 91 20 97/46 (63) 93 08/06/17 20:00 94 Nasal Cannula 2.00 08/06/17 19:56 Physical Exam CONSTITUTIONAL/GENERAL: This is an adequately nourished patient, in no apparent distress. TUBES/LINES/DRAINS: SKIN: No jaundice, rashes, or lesions. Skin temperature appropriate. Not diaphoretic. HEAD: Atraumatic. Normocephalic. EYES: Pupils equal and round and reactive. Extraocular motions intact. + mild o scleral icterus. No injection or drainage. Fundi not examined. ENT: Hearing grossly normal. Nose without bleeding or purulent drainage. Throat without visible erythema, exudates, masses, or lesions. NECK: Trachea midline. Supple, nontender. CARDIOVASCULAR: Regular rate and rhythm without murmurs, gallops, or rubs. No JVD. Peripheral pulses symmetric. RESPIRATORY/CHEST: Symmetric, unlabored respirations. Clear to auscultation. Breath sounds equal bilaterally. No wheezes, rales, or rhonchi. GASTROINTESTINAL: Abdomen soft, + mildly tender, markedly distended. No hepato- splenomegaly, or palpable masses. No guarding. Bowel sounds present. GENITOURINARY: Without palpable bladder distension. MUSCULOSKELETAL: Extremities without clubbing, cyanosis, or edema. No joint tenderness or effusion noted. No calf tenderness. No mottling or clubbing. LYMPHATICS: No palpable cervical or supraclavicular adenopathy. NEUROLOGICAL: Awake and alert. Motor and sensory grossly within normal limits. Follows commands. Clear speech. Moves all extremities. PSYCHIATRIC: No obvious anxiety/depression. no apparent hallucinations or other psychotic thought process. Laboratory Laboratory Tests Test 08/06/17 21:00 08/06/17 21:20 08/06/17 23:04 08/07/17 05:30 Hemoglobin 5.0 Hematocrit 15.3 Troponin I LESS THAN 0.02 Nasal Screen MRSA (PCR) MRSA NOT DETECTED Lactic Acid Level 2.1 Stool C. difficile Toxin (PCR) POSITIVE Stl C. difficile Toxin Epiderm 027 PRESUMPTIVE NEGATIVE Test 08/07/17 07:00 08/07/17 09:47 08/07/17 11:56 White Blood Count 18.1 Red Blood Count 2.82 Hemoglobin 8.8 8.7 Hematocrit 25.4 25.1 Mean Corpuscular Volume 90.0 Mean Corpuscular Hemoglobin 31.3 Mean Corpuscular Hemoglobin Concent 34.7 Red Cell Distribution Width 18.1 Platelet Count 72 Mean Platelet Volume 8.7 Neutrophils (%) (Auto) 79.8 Lymphocytes (%) (Auto) 17.1 Monocytes (%) (Auto) 2.6 Eosinophils (%) (Auto) 0.1 Basophils (%) (Auto) 0.4 Neutrophils # (Auto) 14.4 Lymphocytes # (Auto) 3.1 Monocytes # (Auto) 0.5 Eosinophils # (Auto) 0.0 Basophils # (Auto) 0.1 CBC Comment AUTO DIFF Differential Comment AUTO DIFF CONFIRMED Platelet Estimate LOW Platelet Morphology Comment ENLARGED Target Cells 1+ Blood Urea Nitrogen 31 Creatinine 1.54 Random Glucose 190 Total Protein 7.1 Albumin 2.4 Calcium Level 7.5 Phosphorus Level 0.8 Magnesium Level 2.1 Alkaline Phosphatase 177 Aspartate Amino Transf (AST/SGOT) 61 Alanine Aminotransferase (ALT/SGPT) 14 Total Bilirubin 6.7 Sodium Level 137 Potassium Level 2.4 Chloride Level 102 Carbon Dioxide Level 22.5 Anion Gap 13 Estimat Glomerular Filtration Rate 36 Lactic Acid Level 1.7 Ammonia 54 Total Creatine Kinase 26 Troponin I LESS THAN 0.02 Amylase Level 280 Lipase 269 Hepatitis A IgM Antibody NEGATIVE Hepatitis B Surface Antigen NEGATIVE Hepatitis B Core IgM Antibody NEGATIVE Hepatitis C Antibody NEGATIVE Prothrombin Time 15.5 Prothromb Time International Ratio 1.5 Activated Partial Thromboplast Time 31.1 Fibrinogen 201 Date/Time Source Procedure Growth Status 12/19/17 19:10 Blood Peripheral Aerobic Blood Culture - Preliminary NO GROWTH IN 1 DAY Resulted 08/06/17 19:10 Blood Peripheral Anaerobic Blood Culture - Preliminary NO GROWTH IN 1 DAY Resulted 08/06/17 18:15 Urine Clean Catch Urine Culture - Preliminary Gram Negative [place] Resulted 08/07/17 09:30 Wound Buttock Gram Stain Pending Received 08/07/17 09:30 Wound Buttock Wound Culture Pending Received Result Diagram: 08/07/17 1156 08/07/17 0947 Imaging Last Impressions Chest X-Ray 08/06/17 1725 Signed Impressions: Service Date/Time: Sunday, August 06, 2017 17:49 - CONCLUSION: Normal examination. Je Tsai MD Head CT 08/06/17 0000 Signed Impressions: Service Date/Time: Sunday, August 06, 2017 19:38 - CONCLUSION: 1. Negative noncontrast CT brain. Pipe Guy MD Abdomen/Pelvis CT 08/06/17 0000 Signed Impressions: Service Date/Time: Sunday, August 06, 2017 19:42 - CONCLUSION: 1. Interval development of moderate severity ascites. 2. Heterogeneous density to the liver which cannot be further assessed on a noncontrast exam. 3. Stable splenomegaly. 4. New subsegmental infiltrate with consolidation in the anterior left lower lung. Pipe Guy MD Assessment and Plan Assessment and Plan C.diff Probable atelectasis, doubt PNA Ascites, related to liver disease Severe anemia on presentation dc azithromycin, cefepime change oral flagyl on po Juliana Fam MD Aug 07, 2017 19:42
[2017-08-07] MEDS: AZITHROMYCIN INJ 500 MG in SODIUM CHLOR 0.9% 250 ML INJ 250 ML IV SCH (21:01)
[2017-08-08] VITALS (12 sets, daily range): BP systolic 97–108; BP diastolic 51–56; PULSE 80–93; RESP 13–24; TEMP 96–98.7; O2SAT 91–98
[2017-08-08] MEDS: RESP: ALBUTEROL 2.5 MG/IPRATROPIUM 0.5 MG NEB (SCH) INH ×6 (00:09→20:00)
[2017-08-08] MEDS: PANTOPRAZOLE INJ 80 MG in SODIUM CHLORIDE 0.9% INJ 100 ML IV SCH ×2 (02:41→13:14)
[2017-08-08] MEDS: CHLORHEXIDINE GLUCONATE 2 % 1 PACK (2 CLOTHS) TOP SCH (02:42)
[2017-08-08] MEDS: SODIUM CHLOR 0.9% 1000 ML INJ 1,000 ML IV SCH ×2 (03:26→14:51)
[2017-08-08] MEDS: INSULIN NovoLIN REGULAR SUPPLEMENTAL SCALE SQ SCH ×3 (06:00→12:00)
[2017-08-08] MEDS: methylPREDNISolone SOD SUCC 40 MG/1 ML VIAL IV PUSH SCH ×3 (06:02→23:06)
[2017-08-08] MEDS: REMOVE OLD PATCH T-DERMAL SCH (09:00)
[2017-08-08] MEDS: BUDESONIDE-FORMOTEROL 80/4.5 MCG INHALER INH SCH (09:09)
[2017-08-08] MEDS: CITALOPRAM HYDROBROMIDE 20 MG TAB PO SCH (09:10)
[2017-08-08] MEDS: TIOTROPIUM BROMIDE 18 MCG INH INH SCH (09:10)
[2017-08-08] MEDS: SODIUM CHLORIDE 0.9% FLUSH 10 ML FLUSH IV FLUSH SCH ×2 (09:10→23:06)
[2017-08-08] MEDS: NICOTINE 14 MG/24 HR PATCH T-DERMAL SCH (09:11)
[2017-08-08] MEDS: VANCOMYCIN 500 MG VIAL (FOR ORAL USE ONLY) PO SCH ×4 (09:12→23:06)
--- NOTE | 2017-08-08 10:49 | GIPROC ---
[facility] [address] [facility]. [facility], [address] EGD PROCEDURE REPORT EXAM DATE: 08/08/2017 PATIENT NAME: Soraya Jauregui MR #: [id number] BIRTHDATE: 1970 ATTENDING: Chinmay Foley MD ORDER #: [id number] DEVULCANIZER TENDER: Twyla Lowe and Kimmie Schmitz STATUS: inpatient INDICATIONS: The patient is a 46 yr old female here for an EGD due to anemia PROCEDURE PERFORMED: EGD w/ biopsy MEDICATIONS: None and Per Anesthesia. TOPICAL ANESTHETIC: none CONSENT: The patient understands the risks and benefits of the procedure and understands that these risks include, but are not limited to: sedation, allergic reaction, infection, perforation and/or bleeding. Alternative means of evaluation and treatment include, among others: physical exam, x-rays, and/or surgical intervention. The patient elects to proceed with this endoscopic procedure. medical equipment was checked for proper function. Hand hygiene and appropriate measures for infection prevention was taken. After the risks, benefits and alternatives of the procedure were thoroughly explained, Informed consent was verified, confirmed and timeout was successfully executed by the treatment team. The patient was anesthetized with topical anesthesia and the EC-[id number] (Pedi C) endoscope was introduced through the mouth and advanced to the second portion of the duodenum. Retroflexion was performed and was normal The gastroscope was then slowly withdrawn and removed. ESOPHAGUS: There were 2 columns of small varices. The varices were not bleeding. There was LA Class B esophagitis noted. STOMACH: There was erythematous severe and erosive gastritis in the entire examined stomach. Multiple biopsies were performed using cold forceps. Sample sent for histology. DUODENUM: Mild duodenal inflammation was found in the duodenal bulb. ADVERSE EVENTS: There were no complications. IMPRESSIONS: 1. There was LA Class B esophagitis noted 2. Small size esophageal varices 3. There was erythematous gastritis in the entire examined stomach; multiple biopsies were performed 4. Duodenal inflammation was found in the duodenal bulb 5. Retroflexion was performed and was normal RECOMMENDATIONS: Await biopsy results. Biopsy results will not be ready for 7-10 days. If you don't hear from us in two weeks, call our office for biopsy results. PATIENT CONDITION: stable DISPOSITION: Observation REPEAT EXAM: NONE Chinmay Foley MD eSigned: Chinmay Foley MD 08/08/2017 10:49 AM cc: PATIENT NAME: Soraya Jauregui MR#: [id number]
--- NOTE | 2017-08-08 10:52 | GIPROC ---
[facility] [address] [facility]. [facility], [address] COLONOSCOPY PROCEDURE REPORT EXAM DATE: 08/08/2017 PATIENT NAME: Soraya Jauregui MR #: [id number] BIRTHDATE: 1970 ENDOSCOPIST: Chinmay Foley MD ORDER #: [id number] ELECTRICAL EXPERIMENTAL MECHANIC: Bernardo Lowe Pat STATUS: inpatient INDICATIONS: The patient is a 46 yr old female here for a colonoscopy due to anemia, non-specific PROCEDURE PERFORMED: Colonoscopy with polypectomy MEDICATIONS: None and Per Anesthesia. PREP QUALITY: fair PREP TYPE:GoLytely ESTIMATED BLOOD LOSS: None CONSENT: The patient understands the risks and benefits of the procedure and understands that these risks include, but are not limited to: sedation, allergic reaction, infection, perforation and/or bleeding. Alternative means of evaluation and treatment include, among others: physical exam, x-rays, and/or surgical intervention. The patient elects to proceed with this endoscopic procedure. medical equipment was checked for proper function. Hand hygiene and appropriate measures for infection prevention was taken. After the risks, benefits and alternatives of the procedure were thoroughly explained, Informed consent was verified, confirmed and timeout was successfully executed by the treatment team. A digital exam was performed The Pentax EC-[id number] endoscope was introduced through the anus and advanced to the cecum, which was identified by both the appendix and ileocecal valve. The instrument was then slowly withdrawn as the colon was fully examined. COLON FINDINGS: A large polypoid shaped pedunculated polyp was found in the transverse colon. A polypectomy was performed using snare cautery. The resection was complete and the polyp tissue was completely retrieved. Retroflexed views revealed internal hemorrhoids and Retroflexed views revealed medium internal hemorrhoids The scope was then completely withdrawn from the patient and the procedure terminated. PROCEDURE WITHDRAWAL TIME:9minutes ADVERSE EVENTS: There were no complications. IMPRESSIONS: 1. A large pedunculated polyp was found in the transverse colon; polypectomy was performed using snare cautery 2. Retroflexed views revealed internal hemorrhoids RECOMMENDATIONS: Await biopsy results. Biopsy results will not be ready for 7-10 days. If you don't hear from us in two weeks, call our office for results. RECALL: Return 3 years Colonoscopy Chinmay Foley MD eSigned: Chinmay Foley MD 08/08/2017 10:52 AM cc:
[2017-08-08] MEDS ORDERED: DO NOT ADM ANY ANTICOAGULANT DRUGS PRN (11:00)
[2017-08-08] MEDS: ACETAMINOPHEN/HYDROcodone 325 MG/5 MG TAB PO PRN (11:47)
[2017-08-08] MEDS ORDERED: ePHEDrine/NS 25 MG/5 ML SYRINGE IV ONE (12:00)
[2017-08-08] MEDS ORDERED: PROPOFOL 200 MG/20 ML AMP IV ONE (12:00)
[2017-08-08] MEDS ORDERED: PHENYLEPH/NS 1000 MCG/10 ML SYR IV ONE (12:00)
[2017-08-08] MEDS: MULTIVITAMIN INJ 10 ML, THIAMINE INJ 100 MG, FOLIC ACID INJ 1 MG in SODIUM CHLORID 0.9%... IV SCH (12:14)
[2017-08-08] MEDS: MORPHINE SULFATE 2 MG/ML INJ IV PRN (14:56)
--- NOTE | 2017-08-08 15:20 | HHI.CCPN ---
Subjective Remarks/Hospital Course This is a 46-year-old female. Date of admission 08/06/2017. Past medical history includes adjustment disorder, seizure disorder, EtOH and THC abuse, tobaccoism COPD. Recent diagnosis C. difficile 06/04 on metronidazole. Patient presents to [facility] multiple complaints including shortness of breath, left sided abdominal pain 2 weeks and generalized weakness. Admission , patient was wheezing on exam and saturating at 88-90% on RA. Pt given her slight therapy x3 and methylprednisolone 125 mg as well as thiamine, 2 L NS IVF. Patient with, leukocytosis at 18.6. H/H low at 5.8/17.4. Elevated transaminases. Thrombocytopenic at 107. Hypokalemia. Been replaced.. Troponin negative. Currently being transfused. She received 2 L normal saline wide open. Placed on pantoprazole drip 8 mg an hour after initial bolus. 2 antecubital peripheral IVs in place. Hemodynamically stable currently after initial hypotension. Resolved with crystalloid bolus. CT abdomen/pelvis pending at time of dictation. She has used ibuprofen and prednisone recently but not within the past week according to patient. Occult positive in ED. Denies hemoptysis. Requesting diet currently. Subjective: 08/07: Afebrile. Hemoglobin stable this a.m. at 8.8. Patient continues to have profuse diarrhea resulted C. difficile positive. Fecal containment device placed. Patient previously on by mouth Flagyl at home we'll continue by mouth vancomycin and by mouth metronidazole. ID has been consulted. Upon evaluation patient also was noted to have purulent drainage from left buttocks from a small pustule, sent for culture. Patient remains nothing by mouth pending GI interventions. 08/08: Afebrile. Hemoglobin labs pending. Patient hemodynamically stable throughout the night. Patient tolerating clear liquid diet. Objective Vital Signs Date Time Temp Pulse Resp B/P (MAP) Pulse Ox O2 Delivery O2 Flow Rate FiO2 08/08/17 11:10 97.8 79 17 95/58 (70) 94 Room Air 08/08/17 10:48 2 Intake and Output 08/08/17 08/08/17 08/09/17 08:00 16:00 00:00 Intake Total 4000 ml 300 ml Output Total 1200 ml Balance 2800 ml 300 ml Result Diagram: 08/07/17 1156 08/07/17 0947 Other Results Microbiology Date/Time Source Procedure Growth Status 08/06/17 18:15 Urine Clean Catch Urine Culture - Final Escherichia Coli Complete Imaging CXR - No acute findings Objective Remarks GENERAL: 46-year-old female, resting in bed in no acute distress SKIN: Cool and dry. Skin graft from B/L thigh to L neck, L wrist. B/L breasts. Evolving diffuse ecchymoses bilateral upper and lower extremity. Left buttocks, purulent drainage from pustule lesion. HEAD: Atraumatic. Normocephalic. EYES: Pupils equal and round by 3 mm bilaterally and reactive. + scleral icterus. No injection or drainage. EOMI ENT: No nasal bleeding or discharge. Mucous membranes pink and moist. NECK: Trachea midline. No JVD. Uvula midline CARDIOVASCULAR: Regular rate and rhythm. S1, S2. No S4. Without murmur RESPIRATORY: Positive end expiratory wheeze. Diminished throughout especially in bases bilaterally. GASTROINTESTINAL: Abdomen soft, distended. Hypoactive bowel sounds appreciable. Tender to palpation left upper lower quadrants. MUSCULOSKELETAL: Extremities without significant peripheral edema. No obvious deformities. NEUROLOGICAL: Awake and alert. Cranial nerves II-XII grossly intact. Motor grossly within normal limits. 5/5 muscle strength in the arms and legs. Normal speech. A/P Assessment and Plan Neuro/Psych: Adjustment disorder Seizure disorder NOS EtOH abuse THC use Acetaminophen if indicated for fevers Hydrocodone/acetaminophen pain 1 through 5. Morphine sulfate pain 6-10 Continues citalopram 10 mg by mouth daily States she has not had a seizure in 2 years. Multivitamin/folate/thiamine daily Monitor for DTs Seizure precautions EtOH level urine drug screen pending 08/06 CT brain -no acute abnormality Ammonia level 54 Ativan 1 mg every 4 hours when necessary for agitation CV: Hypotension secondary to GI bleed is intravascular depletion-resolved LA Status post 2 L normal saline in ED. Transfuse 2 units PRBCs. Continue 0.9 NS at 84 cc an hour Vasopressors if indicated to maintain mean artery pressure greater than equal to 65 08/07 Lactic acid 3.2-> 1.7 Resp: COPD Ongoing Tobaccoism Nasal cannula to maintain saturations greater than equal to 92% Incentive spirometry while awake Follow-up on chest x-ray Continue budesonide/formoterol 80/4.5 2 puffs twice a day/home medication Albuterol/ipratropium aerosols every 6 hours with albuterol aerosols every 2 hours. Dyspnea Continue tiotropium 18 mg inhalation daily/home medication Methylprednisolone 40 g IV every 8 hours Tobacco cessation will be encouraged Patient is on cholestyramine 4 g daily at home GI: Elevated transaminases Heme positive stools Abdominal ascites Left upper quadrant abdominal pain Hypoalbuminemia CT abdomen/pelvis without contrast heterogenous liver, SM, ascites Last paracentesis 3 months ago according to patient. Consider paracentesis to rule out SBP Trend lipase and amylase LFTs-amylase 280, lipase 269 There liquid diet per GI recommendations Currently on pantoprazole drip Consult GI for possible endoscopy-planned for 08/08 : No indication for Bar catheter Endo: Sliding-scale insulin with Novulin R to maintain euglycemia/low regimen with Accu-Cheks every 6 hours Renal: Acute kidney injury Status post 2 L IV fluids Monitor urine output Accurate I's and O's Likely secondary to dehydration/intravascular volume depletion. Normal saline 84 cc/hour Heme: Acute blood loss anemia - normocytic Thrombocytopenia Leukocytosis Elevated INR Typed and crossed for 4 units PRBC. Transfuse 2 units now Hemoglobin every 6 hours. ID: C. difficile Monitor for infection Blood cultures 2, UA, sputum influenza ordered Cefepime/azithromycin - discontinued PO vancomycin 250 mg 4 times a day and Flagyl 250 mg every 8 hours (day 2) Consulted ID-Dr. Avila following Follow-up on wound culture FEN: Electrolyte derangement Replace electrolytes as clinically indicated per ICU electrolyte protocol BMP pending MSK: PT evaluate and treat Access - Utilize peripheral IV. Central line if indicated Prophylaxis - GI - pantoprazole drip - DVT - SCD/pharmacological prophylaxis contraindicated with active GI bleed Dispo: Level 2 [facility] a.m.. Planned transfer to [facility] floor Physician Juliet French MD Aug 08, 2017 15:20
[2017-08-08 15:42] LABS: BASOPHIL # 0.1 TH/MM3 (0-0.2); BASOPHIL % 0.4 % (0.0-2.0); EOSINOPHIL % 0.1 % (0.0-4.0); HEMATOCRIT 25.9 % (35.0-46.0); LYMPH % 4.7 % (9.0-44.0); MEAN CELL VOLUME 90.5 FL (80.0-100.0); MEAN CORPUSCULAR HGB CONC 34.3 % (32.0-36.0); NEUT % 86.8 % (16.0-70.0); PLATELET COUNT 91 TH/MM3 (150-450); RED BLOOD COUNT 2.86 MIL/MM3 (4.00-5.30); RED CELL DISTRIBUTION WIDTH 18.6 % (11.6-17.2); WHITE BLOOD COUNT 20.8 TH/MM3 (4.0-11.0)
[2017-08-08 15:48] LABS: HEMO FLAGS AUTO DIFF
[2017-08-08 16:12] LABS: BICARBONATE 21.1 MEQ/L (21.0-32.0)
[2017-08-08 16:21] LABS: POTASSIUM 2.4 MEQ/L (3.5-5.1)
[2017-08-08] MEDS ORDERED: POTASSIUM CHLORIDE 25 MEQ EFFERVESCENT TAB PO ONE (17:15)
[2017-08-08] MEDS: LORazepam 2 MG/ML VIAL IV PUSH PRN (17:15)
[2017-08-08 17:45] LABS: BANDS 6 % (0-6); CORRECTED NUCLEATED RBC 3 /100 WBC (0-0); NEUTROPHIL # MANUAL DIFF 18.3 TH/MM3 (1.8-7.7); PLATELET ESTIMATE SMEAR LOW (NORMAL); PLATELET MORPHOLOGY ENLARGED (NORMAL); POLYS (SEG NEUTROPHILS) 82 % (16-70); SCAN/DIFF AUTO DIFF CONFIRMED; WBC DIFF SAMPLE 100
[2017-08-08 17:46] LABS: OVALOCYTES 1+ (NORMAL); TARGET CELLS 1+ (NORMAL)
[2017-08-08 17:47] LABS: BURR CELLS 1+ (NORMAL)
[2017-08-08 22:48] LABS: HEMATOCRIT 23.6 % (35.0-46.0)
[2017-08-08 22:53] LABS: REVIEW FLAG FINAL
[2017-08-09] VITALS (8 sets, daily range): BP systolic 98–112; BP diastolic 52–60; PULSE 76–89; RESP 18–20; TEMP 96.7–97.4; O2SAT 94–97
[2017-08-09] MEDS: RESP: ALBUTEROL 2.5 MG/IPRATROPIUM 0.5 MG NEB (SCH) INH ×6 (00:07→21:13)
[2017-08-09] MEDS: PANTOPRAZOLE INJ 80 MG in SODIUM CHLORIDE 0.9% INJ 100 ML IV SCH ×2 (00:17→09:54)
[2017-08-09] MEDS: SODIUM CHLOR 0.9% 1000 ML INJ 1,000 ML IV SCH (02:01)
[2017-08-09] MEDS: INSULIN NovoLIN REGULAR SUPPLEMENTAL SCALE SQ SCH ×5 (02:01→23:29)
[2017-08-09] MEDS: BUDESONIDE-FORMOTEROL 80/4.5 MCG INHALER INH SCH ×3 (02:05→23:32)
[2017-08-09] MEDS: CHLORHEXIDINE GLUCONATE 2 % 1 PACK (2 CLOTHS) TOP SCH ×2 (04:00→23:31)
[2017-08-09] MEDS: methylPREDNISolone SOD SUCC 40 MG/1 ML VIAL IV PUSH SCH ×3 (06:38→23:30)
[2017-08-09] MEDS: REMOVE OLD PATCH T-DERMAL SCH (09:00)
[2017-08-09] MEDS: SODIUM CHLORIDE 0.9% FLUSH 10 ML FLUSH IV FLUSH SCH ×2 (09:00→21:00)
[2017-08-09] MEDS: TIOTROPIUM BROMIDE 18 MCG INH INH SCH (09:00)
--- NOTE | 2017-08-09 09:17 | PD.CONS ---
HPI History of Present Illness This is a 46 year old []. PFSH Past Medical History Liver cirrhosis EtOH dependence and abuse Drug abuse Seizure disorders Recent C. difficile COPD, back abuse Bipolar, adjustment disorder Degenerative disc disorder Past Surgical History Tubular 2 Lumbar surgery Ventral hernia repair Cholecystectomy Skin grafts bilateral thighs breast left wrist and neck Paracentesis May, according to patient Coded Allergies: No Known Allergies (Verified Allergy, Unknown, 08/06/17) Social History EtOH is current as yesterday History of drug abuse GI Exam Vitals I&O Vital Signs Date Time Temp Pulse Resp B/P (MAP) Pulse Ox O2 Delivery O2 Flow Rate FiO2 08/09/17 04:25 96.7 89 20 98/52 (67) 96 08/09/17 04:05 96 08/09/17 00:11 97 08/08/17 20:56 97 08/08/17 20:00 97.2 83 20 99/54 (69) 94 08/08/17 18:48 96.0 93 16 108/52 (70) 98 08/08/17 16:00 97.3 80 13 103/53 (70) 96 08/08/17 16:00 82 08/08/17 12:00 84 08/08/17 12:00 97.9 84 22 100/51 (67) 94 08/08/17 11:10 97.8 79 17 95/58 (70) 94 Room Air 08/08/17 11:00 81 17 84/48 (60) 93 Room Air 08/08/17 10:48 97.8 79 17 94/56 (69) 97 Nasal Cannula 2 I/O 08/08/17 08/08/17 08/08/17 08/09/17 08/09/17 08/09/17 07:00 15:00 23:00 07:00 15:00 23:00 Intake Total 4000 ml 300 ml 1470 ml Output Total 1200 ml Balance 2800 ml 300 ml 1470 ml Intake Oral 4000 ml IV Total 1470 ml Other 300 ml Output Stool Total 1200 ml # Voids 3 Laboratory Test 08/08/17 15:25 08/08/17 22:30 White Blood Count 20.8 TH/MM3 Red Blood Count 2.86 MIL/MM3 Hemoglobin 8.9 GM/DL 8.2 GM/DL Hematocrit 25.9 % 23.6 % Mean Corpuscular Volume 90.5 FL Mean Corpuscular Hemoglobin 31.0 PG Mean Corpuscular Hemoglobin Concent 34.3 % Red Cell Distribution Width 18.6 % Platelet Count 91 TH/MM3 Mean Platelet Volume 8.4 FL Neutrophils (%) (Auto) 86.8 % Lymphocytes (%) (Auto) 4.7 % Monocytes (%) (Auto) 8.0 % Eosinophils (%) (Auto) 0.1 % Basophils (%) (Auto) 0.4 % Neutrophils # (Auto) 18.0 TH/MM3 Lymphocytes # (Auto) 1.0 TH/MM3 Monocytes # (Auto) 1.7 TH/MM3 Eosinophils # (Auto) 0.0 TH/MM3 Basophils # (Auto) 0.1 TH/MM3 CBC Comment AUTO DIFF Differential Total Cells Counted 100 Neutrophils % (Manual) 82 % Band Neutrophils % 6 % Lymphocytes % 10 % Monocytes % 2 % Neutrophils # (Manual) 18.3 TH/MM3 Nucleated Red Blood Cells 3 /100 WBC Differential Comment AUTO DIFF CONFIRMED Platelet Estimate LOW Platelet Morphology Comment ENLARGED Target Cells 1+ Ovalocytes 1+ Bere Cells 1+ Blood Urea Nitrogen 29 MG/DL Creatinine 1.26 MG/DL Random Glucose 159 MG/DL Calcium Level 8.0 MG/DL Sodium Level 142 MEQ/L Potassium Level 2.4 MEQ/L Chloride Level 109 MEQ/L Carbon Dioxide Level 21.1 MEQ/L Anion Gap 12 MEQ/L Estimat Glomerular Filtration Rate 46 ML/MIN Date/Time Source Procedure Growth Status 08/06/17 19:10 Blood Peripheral Aerobic Blood Culture - Preliminary NO GROWTH IN 2 DAYS Resulted 08/06/17 19:10 Blood Peripheral Anaerobic Blood Culture - Preliminary NO GROWTH IN 2 DAYS Resulted 08/06/17 18:15 Urine Clean Catch Urine Culture - Final Escherichia Coli Complete 08/07/17 09:30 Wound Buttock Gram Stain - Final Resulted 08/07/17 09:30 Wound Buttock Wound Culture - Preliminary RARE GROWTH NORMAL SKIN FINA AT 24 HRS Resulted Physical Examination HEENT: Pupils round and reactive to light; normocephalic; atraumatic; no jaundice. Throat is clear. NECK: Neck is supple, no JVD, no lymphadenopathy. CHEST: Chest is clear to auscultation and percussion. CARDIAC: Regular rate and rhythm with no murmur gallop or rubs. ABDOMEN: Soft, nondistended, nontender; no hepatosplenomegaly; bowel sounds are present in all four quadrants. EXTREMITIES: No clubbing, cyanosis, or edema. SKIN: Normal; no rash; no jaundice. MACHINIST AUTOMOTIVE: No focal deficits; alert and oriented times three. Assessment and Plan Assessment: (1) GERD (gastroesophageal reflux disease) ICD Codes: K21.9 - Gastro-esophageal reflux disease without esophagitis (2) C. difficile colitis ICD Codes: A04.72 - Enterocolitis due to Clostridium difficile, not specified as recurrent (3) Leukocytosis ICD Codes: D72.829 - Elevated white blood cell count, unspecified (4) Abdominal pain ICD Codes: R10.9 - Unspecified abdominal pain (5) Elevated INR ICD Codes: R79.1 - Abnormal coagulation profile (6) Elevated transaminase level ICD Codes: R74.0 - Nonspecific elevation of levels of transaminase and lactic acid dehydrogenase [LDH] (7) GI bleed ICD Codes: K92.2 - Gastrointestinal hemorrhage, unspecified Status: Acute Plan Plan for EGD and colonoscopy tomorrow, consents Nothing by mouth at bedtime, hold any blood thinners GoLYTELY prep in the morning C. difficile pending Monitor for any acute GI bleed or hemorrhage call GI Monitor labs in the a.m. I&O, monitor diarrhea stools IV antibiotics already on board per attending Course of treatment will be based on symptoms and findings Patient seen and evaluated per myself and Dr. Foley, note written on his behalf Problem Qualifiers (1) Leukocytosis: Qualified Codes: D72.829 - Elevated white blood cell count, unspecified (2) Abdominal pain: Qualified Codes: R10.12 - Left upper quadrant pain (3) GI bleed: Qualified Codes: K92.2 - Gastrointestinal hemorrhage, unspecified Loraine Alfredo Aug 09, 2017 09:17
[2017-08-09] MEDS: PILL SPLITTER OTHER PRN (09:37)
[2017-08-09] MEDS: CITALOPRAM HYDROBROMIDE 20 MG TAB PO SCH (09:37)
[2017-08-09] MEDS: VANCOMYCIN 500 MG VIAL (FOR ORAL USE ONLY) PO SCH ×4 (09:38→23:30)
[2017-08-09] MEDS: NICOTINE 14 MG/24 HR PATCH T-DERMAL SCH (09:54)
[2017-08-09] MEDS: LORazepam 2 MG/ML VIAL IV PUSH PRN ×2 (09:55→23:32)
[2017-08-09] MEDS: MORPHINE SULFATE 2 MG/ML INJ IV PRN ×2 (09:55→23:32)
--- NOTE | 2017-08-09 10:00 | HHI.GIFU ---
Subjective Remarks Sitting up on the side of the bed drinking coffee, seems to be tolerating full liquid diet Hands shaky, patient is tearful and states that she is through with alcohol Hoping to get out of the hospital soon Still complains of diarrhea every 20-30 minutes (Loraine Alfredo) Objective Vitals I&O Vital Signs Date Time Temp Pulse Resp B/P (MAP) Pulse Ox O2 Delivery O2 Flow Rate FiO2 08/09/17 04:25 96.7 89 20 98/52 (67) 96 08/09/17 04:05 96 08/09/17 00:11 97 08/08/17 20:56 97 08/08/17 20:00 97.2 83 20 99/54 (69) 94 08/08/17 18:48 96.0 93 16 108/52 (70) 98 08/08/17 16:00 97.3 80 13 103/53 (70) 96 08/08/17 16:00 82 08/08/17 12:00 84 08/08/17 12:00 97.9 84 22 100/51 (67) 94 08/08/17 11:10 97.8 79 17 95/58 (70) 94 Room Air 08/08/17 11:00 81 17 84/48 (60) 93 Room Air 08/08/17 10:48 97.8 79 17 94/56 (69) 97 Nasal Cannula 2 I/O 08/08/17 08/08/17 08/08/17 08/09/17 08/09/17 08/09/17 07:00 15:00 23:00 07:00 15:00 23:00 Intake Total 4000 ml 300 ml 1470 ml Output Total 1200 ml Balance 2800 ml 300 ml 1470 ml Intake Oral 4000 ml IV Total 1470 ml Other 300 ml Output Stool Total 1200 ml # Voids 3 Laboratory Last Impressions Chest X-Ray 08/06/17 1725 Signed Impressions: Service Date/Time: Sunday, August 06, 2017 17:49 - CONCLUSION: Normal examination. Je Tsai MD Head CT 08/06/17 0000 Signed Impressions: Service Date/Time: Sunday, August 06, 2017 19:38 - CONCLUSION: 1. Negative noncontrast CT brain. Pipe Guy MD Abdomen/Pelvis CT 08/06/17 0000 Signed Impressions: Service Date/Time: Sunday, August 06, 2017 19:42 - CONCLUSION: 1. Interval development of moderate severity ascites. 2. Heterogeneous density to the liver which cannot be further assessed on a noncontrast exam. 3. Stable splenomegaly. 4. New subsegmental infiltrate with consolidation in the anterior left lower lung. Pipe Guy MD Laboratory Tests Test 08/08/17 15:25 08/08/17 22:30 White Blood Count 20.8 Red Blood Count 2.86 Hemoglobin 8.9 8.2 Hematocrit 25.9 23.6 Mean Corpuscular Volume 90.5 Mean Corpuscular Hemoglobin 31.0 Mean Corpuscular Hemoglobin Concent 34.3 Red Cell Distribution Width 18.6 Platelet Count 91 Mean Platelet Volume 8.4 Neutrophils (%) (Auto) 86.8 Lymphocytes (%) (Auto) 4.7 Monocytes (%) (Auto) 8.0 Eosinophils (%) (Auto) 0.1 Basophils (%) (Auto) 0.4 Neutrophils # (Auto) 18.0 Lymphocytes # (Auto) 1.0 Monocytes # (Auto) 1.7 Eosinophils # (Auto) 0.0 Basophils # (Auto) 0.1 CBC Comment AUTO DIFF Differential Total Cells Counted 100 Neutrophils % (Manual) 82 Band Neutrophils % 6 Lymphocytes % 10 Monocytes % 2 Neutrophils # (Manual) 18.3 Nucleated Red Blood Cells 3 Differential Comment AUTO DIFF CONFIRMED Platelet Estimate LOW Platelet Morphology Comment ENLARGED Target Cells 1+ Ovalocytes 1+ Franc[place] Cells 1+ Blood Urea Nitrogen 29 Creatinine 1.26 Random Glucose 159 Calcium Level 8.0 Sodium Level 142 Potassium Level 2.4 Chloride Level 109 Carbon Dioxide Level 21.1 Anion Gap 12 Estimat Glomerular Filtration Rate 46 Date/Time Source Procedure Growth Status 08/06/17 19:10 Blood Peripheral Aerobic Blood Culture - Preliminary NO GROWTH IN 2 DAYS Resulted 08/06/17 19:10 Blood Peripheral Anaerobic Blood Culture - Preliminary NO GROWTH IN 2 DAYS Resulted 08/06/17 18:15 Urine Clean Catch Urine Culture - Final Escherichia Coli Complete 08/07/17 09:30 Wound Buttock Gram Stain - Final Resulted 08/07/17 09:30 Wound Culture - Preliminary Gram Negative [place] Anaerobic Gram Positive Cocci Resulted Imaging Last Impressions Chest X-Ray 08/06/17 1725 Signed Impressions: Service Date/Time: Sunday, August 06, 2017 17:49 - CONCLUSION: Normal examination. Je Tsai MD Head CT 08/06/17 0000 Signed Impressions: Service Date/Time: Sunday, August 06, 2017 19:38 - CONCLUSION: 1. Negative noncontrast CT brain. Pipe Guy MD Abdomen/Pelvis CT 08/06/17 0000 Signed Impressions: Service Date/Time: Sunday, August 06, 2017 19:42 - CONCLUSION: 1. Interval development of moderate severity ascites. 2. Heterogeneous density to the liver which cannot be further assessed on a noncontrast exam. 3. Stable splenomegaly. 4. New subsegmental infiltrate with consolidation in the anterior left lower lung. Pipe Guy MD Physical Exam HEENT: Pupils round and reactive to light; normocephalic; atraumatic; no jaundice. NECK: Neck is supple, no JVD, no lymphadenopathy. CHEST: Chest is clear to auscultation and percussion. No rhonchi CARDIAC: Regular rate and rhythm ABDOMEN: Soft,taut, nondistended, nontender; no hepatosplenomegaly; bowel sounds are present in all four quadrants. EXTREMITIES: No clubbing, cyanosis, or edema. SKIN: Normal; no rash; no jaundice. 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 difficile colitis ICD Codes: A04.72 - Enterocolitis due to Clostridium difficile, not specified as recurrent (3) Leukocytosis ICD Codes: D72.829 - Elevated white blood cell count, unspecified (4) Abdominal pain ICD Codes: R10.9 - Unspecified abdominal pain (5) Elevated INR ICD Codes: R79.1 - Abnormal coagulation profile (6) Elevated transaminase level ICD Codes: R74.0 - Nonspecific elevation of levels of transaminase and lactic acid dehydrogenase [LDH] (7) GI bleed ICD Codes: K92.2 - Gastrointestinal hemorrhage, unspecified Status: Acute Plan EGD colonoscopy 08-08, showed large polyp in the transverse colon and internal hemorrhoids; small esophageal varices, gastritis, esophagitis, biopsy are pending Diet full liquids, still having increased amounts of diarrhea, will consider advance diet tomorrow C. difficile positive, but C. difficile toxin negative Continue vancomycin by mouth Continue IV steroids Added Flagyl 500 mg by mouth every 8 hours Transition to patient to Protonix 40 mg by mouth every 12 Monitor for any acute GI bleed or hemorrhage call GI Monitor labs in the a.m., CBC hemoglobin currently 8.2, mild decrease but holding I&O, monitor diarrhea stools, continue multiple times a day with cramping IV antibiotics already on board per attending Course of treatment will be based on symptoms and findings Patient seen and evaluated per myself and Dr. Foley, note written on his behalf (Loraine Alfredo) Physician Comments Seen and examine, plan as above, biopsies pending, clinically improving. (Chinmay Foley MD) Problem Qualifiers (1) Leukocytosis: Qualified Codes: D72.829 - Elevated white blood cell count, unspecified (2) Abdominal pain: Qualified Codes: R10.12 - Left upper quadrant pain (3) GI bleed: Qualified Codes: K92.2 - Gastrointestinal hemorrhage, unspecified Loraine Alfredo Aug 09, 2017 10:00 Chinmay Foley MD Aug 09, 2017 15:16
--- NOTE | 2017-08-09 11:49 | HHI.PR ---
Subjective Remarks The patient was resting comfortably in bed. She said that she still had diarrhea. She said that her abdominal distention is improved. She said she was scratching on her skin and she found a tick. Discussed with nursing. Objective Vitals Vital Signs Date Time Temp Pulse Resp B/P (MAP) Pulse Ox O2 Delivery O2 Flow Rate FiO2 08/09/17 04:25 96.7 89 20 98/52 (67) 96 08/09/17 04:05 96 08/09/17 00:11 97 08/08/17 20:56 97 08/08/17 20:00 97.2 83 20 99/54 (69) 94 08/08/17 18:48 96.0 93 16 108/52 (70) 98 08/08/17 16:00 97.3 80 13 103/53 (70) 96 08/08/17 16:00 82 08/08/17 12:00 84 08/08/17 12:00 97.9 84 22 100/51 (67) 94 I/O 08/08/17 08/08/17 08/08/17 08/09/17 08/09/17 08/09/17 07:00 15:00 23:00 07:00 15:00 23:00 Intake Total 4000 ml 300 ml 1470 ml Output Total 1200 ml Balance 2800 ml 300 ml 1470 ml Intake Oral 4000 ml IV Total 1470 ml Other 300 ml Output Stool Total 1200 ml # Voids 3 Result Diagram: 08/08/17 2230 08/08/17 1525 Imaging Last Impressions Chest X-Ray 08/06/17 1725 Signed Impressions: Service Date/Time: Sunday, August 06, 2017 17:49 - CONCLUSION: Normal examination. Je Tsai MD Head CT 08/06/17 0000 Signed Impressions: Service Date/Time: Sunday, August 06, 2017 19:38 - CONCLUSION: 1. Negative noncontrast CT brain. Pipe Guy MD Abdomen/Pelvis CT 08/06/17 0000 Signed Impressions: Service Date/Time: Sunday, August 06, 2017 19:42 - CONCLUSION: 1. Interval development of moderate severity ascites. 2. Heterogeneous density to the liver which cannot be further assessed on a noncontrast exam. 3. Stable splenomegaly. 4. New subsegmental infiltrate with consolidation in the anterior left lower lung. Pipe Guy MD Last Impressions Chest X-Ray 08/06/17 1725 Signed Impressions: Service Date/Time: Sunday, August 06, 2017 17:49 - CONCLUSION: Normal examination. Je Tsai MD Head CT 08/06/17 0000 Signed Impressions: Service Date/Time: Sunday, August 06, 2017 19:38 - CONCLUSION: 1. Negative noncontrast CT brain. Pipe Guy MD Abdomen/Pelvis CT 08/06/17 0000 Signed Impressions: Service Date/Time: Sunday, August 06, 2017 19:42 - CONCLUSION: 1. Interval development of moderate severity ascites. 2. Heterogeneous density to the liver which cannot be further assessed on a noncontrast exam. 3. Stable splenomegaly. 4. New subsegmental infiltrate with consolidation in the anterior left lower lung. Pipe Guy MD Objective Remarks GENERAL: Resting in bed in no acute distress SKIN: Cool and dry. HEAD: Atraumatic. Normocephalic. EYES: Pupils equal and round by 3 mm bilaterally and reactive. + scleral icterus. No injection or drainage. EOMI ENT: No nasal bleeding or discharge. Mucous membranes pink and moist. NECK: Trachea midline. No JVD. Uvula midline CARDIOVASCULAR: Regular rate and rhythm. S1, S2. No S4. Without murmur RESPIRATORY: Positive end expiratory wheezes. Diminished throughout especially in bases bilaterally. GASTROINTESTINAL: Abdomen soft, distended. Hypoactive bowel sounds appreciable. Tender to palpation left upper lower quadrants. MUSCULOSKELETAL: Extremities without significant peripheral edema. No obvious deformities. NEUROLOGICAL: Awake and alert. Cranial nerves II-XII grossly intact. Motor grossly within normal limits. 5/5 muscle strength in the arms and legs. Normal speech. Medications and IVs Current Medications Medications (Trade) Dose Ordered Sig/Ariel Route Start Time Stop Time Status Last Admin (Symbicort 80-4.5 Mcg Inh) 2 puff Q12HR INH 08/06/17 21:00 08/09/17 09:37 (CeleXA) 10 mg DAILY PO 08/07/17 09:00 08/09/17 09:37 (Spiriva Inh) 18 mcg DAILY INH 08/07/17 09:00 08/08/17 09:10 (SoluMEDROL INJ) 40 mg Q8HR IV PUSH 08/06/17 22:00 08/09/17 06:38 Sodium Chloride 1,000 ml @ 84 mls/hr [id number] IV 08/06/17 19:00 08/09/17 02:01 (NS Flush) 2 ml UNSCH PRN IV FLUSH 08/06/17 18:45 08/09/17 06:39 (NS Flush) 2 ml BID IV FLUSH 08/06/17 21:00 08/08/17 23:06 (Tylenol) 650 mg Q6H PRN PO 08/06/17 18:45 ([place] 5-325 Mg) 1 tab Q4H PRN PO 08/06/17 18:45 08/08/17 11:47 (Morphine Inj) 2 mg Q2H PRN IV 08/06/17 19:15 08/09/17 09:55 (Zofran Inj) 4 mg Q6H PRN IV PUSH 08/06/17 18:45 08/08/17 23:07 (Duoneb Neb) 1 ampule Q4HR NEB INH 08/06/17 20:00 08/09/17 11:30 (Albuterol Neb) 2.5 mg Q2HR NEB PRN INH 08/06/17 18:45 Miscellaneous Information 1 Q361D XX 08/06/17 18:45 (Chlorhexidine 2% Cloth) 3 pack Taper DAILY@04 TOP 08/07/17 04:00 08/03/18 03:59 08/09/17 04:00 (Chlorhexidine 2% Cloth) 3 pack UNSCH PRN TOP 08/06/17 18:45 (D50w (Vial) Inj) 50 ml UNSCH PRN IV PUSH 08/06/17 19:00 (Glucagon Inj) 1 mg UNSCH PRN OTHER 08/06/17 19:00 (NovoLIN R SUPPLEMENTAL SCALE) 1 Q6HR SQ 08/07/17 00:00 08/09/17 06:52 (Pill Splitter) 1 ea UNSCH PRN OTHER 08/06/17 19:15 08/09/17 09:37 (Habitrol 14 Mg Patch.24 Hr) 1 patch DAILY T-DERMAL 08/07/17 09:00 08/09/17 09:54 Miscellaneous Information 1 DAILY T-DERMAL 08/07/17 09:00 08/09/17 09:00 (VANCOMYCIN for oral use only) 500 mg QID PO 08/08/17 09:00 08/09/17 09:38 (Ativan Inj) 1 mg Q4H PRN IV PUSH 08/08/17 15:15 08/09/17 09:55 (Protonix) 40 mg Q12HR PO 08/09/17 10:15 (Flagyl) 500 mg Q8HR PO 08/09/17 14:00 A/P Problem List: (1) ETOH abuse ICD Code: F10.10 - Alcohol abuse, uncomplicated (2) Abdominal pain ICD Code: R10.9 - Unspecified abdominal pain (3) Adjustment disorder ICD Code: F43.20 - Adjustment disorder, unspecified (4) Elevated INR ICD Code: R79.1 - Abnormal coagulation profile (5) Elevated transaminase level ICD Code: R74.0 - Nonspecific elevation of levels of transaminase and lactic acid dehydrogenase [LDH] (6) Leukocytosis ICD Code: D72.829 - Elevated white blood cell count, unspecified (7) Thrombocytopenia ICD Code: D69.6 - Thrombocytopenia, unspecified (8) Anemia ICD Code: D64.9 - Anemia, unspecified (9) Hypokalemia ICD Code: E87.6 - Hypokalemia (10) COPD exacerbation ICD Code: J44.1 - Chronic obstructive pulmonary disease with (acute) exacerbation Status: Acute (11) Adjustment disorder with mixed disturbance of emotions and conduct ICD Code: F43.25 - Adjustment disorder with mixed disturbance of emotions and conduct (12) Tobacco abuse ICD Code: Z72.0 - Tobacco use (13) Hypotension ICD Code: I95.9 - Hypotension, unspecified (14) Acute kidney injury ICD Code: N17.9 - Acute kidney failure, unspecified (15) Hypoalbuminemia ICD Code: E88.09 - Other disorders of plasma-protein metabolism, not elsewhere classified (16) Lactic acidosis ICD Code: E87.2 - Acidosis (17) Severe sepsis ICD Code: A41.9 - Sepsis, unspecified organism; R65.20 - Severe sepsis without septic shock Assessment and Plan C. difficile The pt continues to have diarrhea. GI and ID consults appreciated. - PO vancomycin 250 mg 4 times a day and Flagyl 250 mg every 8 hours (day 3). - Diet full liquids. Hepatic encephalopathy Ammonia is 54. Has a seizure history but states she has not had a seizure in 2 years. She has a history of alcohol abuse. 08/06 CT brain -no acute abnormality. - Continues citalopram 10 mg by mouth daily. - Multivitamin/folate/thiamine daily. - Monitor for DTs. - Seizure precautions. - Ativan as needed. - hold off on lactulose in the setting of C diff. Hypotension Secondary to GI bleed, resolved. - fluids. - follow CBC and transfuse as needed. COPD The pt has ongoing tobaccoism. - Nasal cannula as needed. - Incentive spirometry while awake. - Continue budesonide/formoterol 80/4.5 2 puffs twice a day/home medication. - Albuterol/ipratropium aerosols every 6 hours with albuterol aerosols every 2 hours. - Continue tiotropium 18 mg inhalation daily/home medication. - Methylprednisolone 40 g IV every 8 hours. - Tobacco cessation will be encouraged. - PT. GIB CT abdomen/pelvis without contrast heterogenous liver, SM, ascites. Last paracentesis 3 months ago according to patient. GI following. EGD with esophagitis. - PPI. - follow CBC and transfuse as needed. - IVFs. Acute kidney injury Likely secondary to dehydration/intravascular volume depletion. - Monitor urine output - Accurate I's and O's - fluids. Severe hypokalemia S/t diarrhea. - IVFs with KCl. - PO replacement as needed. - telemetry. - follow BMP. PPx: SCD/pharmacological prophylaxis contraindicated with active GI bleed Problem Qualifiers (1) Abdominal pain: Qualified Codes: R10.12 - Left upper quadrant pain (2) Adjustment disorder: Qualified Codes: F43.20 - Adjustment disorder, unspecified (3) Leukocytosis: Qualified Codes: D72.829 - Elevated white blood cell count, unspecified (4) Anemia: Qualified Codes: D64.9 - Anemia, unspecified (5) Hypotension: Qualified Codes: I95.9 - Hypotension, unspecified Emmanuel Lopez DO Aug 09, 2017 11:49
[2017-08-09 12:10] LABS: AUTOMATED NEUTROPHIL # 13.5 TH/MM3 (1.8-7.7); BASOPHIL % 0.2 % (0.0-2.0); EOSINOPHIL % 0.1 % (0.0-4.0); HEMATOCRIT 22.4 % (35.0-46.0); LYMPH % 4.8 % (9.0-44.0); LYMPHOCYTE # 0.8 TH/MM3 (1.0-4.8); MEAN CELL VOLUME 90.5 FL (80.0-100.0); MEAN CORPUSCULAR HEMOGLOBIN 31.7 PG (27.0-34.0); MONO % 17.4 % (0.0-8.0); NEUT % 77.5 % (16.0-70.0); PLATELET COUNT 87 TH/MM3 (150-450); RED BLOOD COUNT 2.48 MIL/MM3 (4.00-5.30); RED CELL DISTRIBUTION WIDTH 18.3 % (11.6-17.2); WHITE BLOOD COUNT 17.4 TH/MM3 (4.0-11.0)
[2017-08-09 12:12] LABS: HEMO FLAGS AUTO DIFF
[2017-08-09 12:30] LABS: BICARBONATE 19.2 MEQ/L (21.0-32.0); MAGNESIUM 1.8 MG/DL (1.5-2.5)
[2017-08-09 12:36] LABS: POTASSIUM 2.6 MEQ/L (3.5-5.1)
[2017-08-09] MEDS ORDERED: POTASSIUM CHLORIDE 20 MEQ CONTROLLED RELEASE TAB PO ONE (12:45)
[2017-08-09] MEDS: metroNIDAZOLE 500 MG TAB PO SCH ×2 (13:04→23:30)
[2017-08-09] MEDS: PANTOPRAZOLE SOD 40 MG DELAYED RELEASE TAB PO SCH ×2 (13:05→23:30)
[2017-08-09 13:16] LABS: BANDS 2 % (0-6); CORRECTED NUCLEATED RBC 2 /100 WBC (0-0); NEUTROPHIL # MANUAL DIFF 16.4 TH/MM3 (1.8-7.7); POLYS (SEG NEUTROPHILS) 92 % (16-70); WBC DIFF SAMPLE 100
[2017-08-09 13:17] LABS: BURR CELLS 1+ (NORMAL); PLATELET ESTIMATE SMEAR LOW (NORMAL); PLATELET MORPHOLOGY ENLARGED (NORMAL)
[2017-08-09 13:18] LABS: OVALOCYTES 1+ (NORMAL); SCAN/DIFF FINAL DIFF MANUAL
--- NOTE | 2017-08-09 14:27 | HHI.FF ---
Face to Face Verification Diagnosis: (1) C. difficile colitis (2) Abdominal pain (3) GI bleed (4) COPD exacerbation Physical Therapy Order: Evaluate and Treat, Improve ambulation, Strength and gait training Home Health Nursing Order: Medical education Signs/symptoms of disease process Medication education-adverse effect Nursing assessment with vital signs I have seen patient Soraya Jauregiu on 08/09/17. My clinical findings support the need for the requested home health care services because: Ltd mobility - disease progression Deconditioned w/ increased weakness Limited ability to care for self Infection w/ risk of complications I certify that my clinical findings support that this patient is homebound because: Unsteady gait/balance Unsafe to leave home unassisted Emmanuel Lopez DO Aug 09, 2017 14:27
[2017-08-09] MEDS: POTASSIUM CHLORIDE INJ 30 MEQ in SODIUM CHLOR 0.45% 1000 ML INJ 1,000 ML IV SCH ×2 (18:20→23:09)
[2017-08-10] VITALS: BP 105/50; PULSE 85; RESP 20; TEMP 97; O2SAT 96
[2017-08-10] MEDS: RESP: ALBUTEROL 2.5 MG/IPRATROPIUM 0.5 MG NEB (SCH) INH ×4 (00:24→11:36)
[2017-08-10 01:36] LABS: HEMATOCRIT 23.3 % (35.0-46.0)
[2017-08-10 01:51] LABS: REVIEW FLAG FINAL
[2017-08-10 02:00] LABS: POTASSIUM 3.2 MEQ/L (3.5-5.1)
[2017-08-10] MEDS: INSULIN NovoLIN REGULAR SUPPLEMENTAL SCALE SQ SCH ×4 (05:12→21:46)
[2017-08-10] MEDS: methylPREDNISolone SOD SUCC 40 MG/1 ML VIAL IV PUSH SCH (05:12)
[2017-08-10] MEDS: metroNIDAZOLE 500 MG TAB PO SCH ×2 (05:12→15:26)
[2017-08-10] MEDS: POTASSIUM CHLORIDE INJ 30 MEQ in SODIUM CHLOR 0.45% 1000 ML INJ 1,000 ML IV SCH ×2 (05:18→18:01)
[2017-08-10 08:00] VITALS: BP 116/56; PULSE 85; RESP 17; TEMP 97.3; O2SAT 95
[2017-08-10 08:35] VITALS: O2SAT 95
[2017-08-10 08:55] LABS: AUTOMATED NEUTROPHIL # 13.6 TH/MM3 (1.8-7.7); BASOPHIL % 0.1 % (0.0-2.0); HEMATOCRIT 24.5 % (35.0-46.0); LYMPH % 2.7 % (9.0-44.0); LYMPHOCYTE # 0.4 TH/MM3 (1.0-4.8); MEAN CELL VOLUME 92.6 FL (80.0-100.0); MEAN CORPUSCULAR HEMOGLOBIN 31.3 PG (27.0-34.0); MEAN CORPUSCULAR HGB CONC 33.8 % (32.0-36.0); MONO % 8.9 % (0.0-8.0); NEUT % 88.3 % (16.0-70.0); PLATELET COUNT 105 TH/MM3 (150-450); RED BLOOD COUNT 2.64 MIL/MM3 (4.00-5.30); RED CELL DISTRIBUTION WIDTH 18.6 % (11.6-17.2); WHITE BLOOD COUNT 15.4 TH/MM3 (4.0-11.0)
[2017-08-10 08:58] LABS: HEMO FLAGS AUTO DIFF
[2017-08-10] MEDS: REMOVE OLD PATCH T-DERMAL SCH (09:00)
[2017-08-10] MEDS: SODIUM CHLORIDE 0.9% FLUSH 10 ML FLUSH IV FLUSH SCH ×2 (09:00→21:00)
[2017-08-10 09:18] LABS: ANION GAP 10 MEQ/L (5-15); AST (GOT) 89 U/L (15-37); BICARBONATE 19.3 MEQ/L (21.0-32.0); BLOOD UREA NITROGEN 30 MG/DL (7-18); CHLORIDE 112 MEQ/L (98-107); GLOMERULAR FILTRATION RATE 47 ML/MIN (>89); POTASSIUM 3.6 MEQ/L (3.5-5.1); SODIUM (NA) 141 MEQ/L (136-145)
[2017-08-10 09:26] LABS: ALKALINE PHOSPHATASE 171 U/L (45-117); ALT (GPT) 48 U/L (10-53); TOTAL BILIRUBIN ADULT 3.8 MG/DL (0.2-1.0)
[2017-08-10 09:59] LABS: BANDS 4 % (0-6); CORRECTED NUCLEATED RBC 1 /100 WBC (0-0); NEUTROPHIL # MANUAL DIFF 14.2 TH/MM3 (1.8-7.7); POLYS (SEG NEUTROPHILS) 88 % (16-70); WBC DIFF SAMPLE 100
[2017-08-10 10:00] LABS: ACANTHOCYTES 1+ (NORMAL); PLATELET ESTIMATE SMEAR LOW (NORMAL); PLATELET MORPHOLOGY NORMAL (NORMAL); SCAN/DIFF FINAL DIFF MANUAL; TARGET CELLS 1+ (NORMAL)
[2017-08-10] MEDS: TIOTROPIUM BROMIDE 18 MCG INH INH SCH (11:09)
[2017-08-10] MEDS: CITALOPRAM HYDROBROMIDE 20 MG TAB PO SCH (11:09)
[2017-08-10] MEDS: VANCOMYCIN 500 MG VIAL (FOR ORAL USE ONLY) PO SCH ×4 (11:09→21:45)
[2017-08-10] MEDS: PANTOPRAZOLE SOD 40 MG DELAYED RELEASE TAB PO SCH ×2 (11:09→21:46)
[2017-08-10] MEDS: NICOTINE 14 MG/24 HR PATCH T-DERMAL SCH (11:10)
[2017-08-10] MEDS: BUDESONIDE-FORMOTEROL 80/4.5 MCG INHALER INH SCH ×2 (11:10→21:00)
[2017-08-10] MEDS: PILL SPLITTER OTHER PRN (11:10)
[2017-08-10 11:46] LABS: HEMATOCRIT 24.5 % (35.0-46.0)
[2017-08-10 12:00] VITALS: BP 108/60; PULSE 82; RESP 17; TEMP 97.5; O2SAT 96
--- NOTE | 2017-08-10 14:04 | HHI.PR ---
Subjective Remarks The patient was resting in bed comfortably. She said her diarrhea was a little bit better. She said her breathing was a lot better. She said she was getting out of bed on her own. Discussed with nursing. Objective Vitals Vital Signs Date Time Temp Pulse Resp B/P (MAP) Pulse Ox O2 Delivery O2 Flow Rate FiO2 08/10/17 12:00 97.5 82 17 108/60 (76) 96 08/10/17 08:35 95 08/10/17 08:00 97.3 85 17 116/56 (76) 95 08/10/17 00:00 97.0 85 20 105/50 (68) 96 08/09/17 21:13 97 08/09/17 20:00 97.1 76 20 112/60 (77) 94 08/09/17 16:00 96.8 87 18 109/57 (74) 95 I/O 08/09/17 08/09/17 08/09/17 08/10/17 08/10/17 08/10/17 07:00 15:00 23:00 07:00 15:00 23:00 Intake Total 1470 ml 485 ml 840 ml 950 ml 720 ml Balance 1470 ml 485 ml 840 ml 950 ml 720 ml Intake Oral 840 ml 720 ml IV Total 1470 ml 485 ml 950 ml # Voids 4 6 # Bowel Movements 5 6 Result Diagram: 08/10/17 1113 08/10/17 0750 Imaging Last Impressions Chest X-Ray 08/06/17 1725 Signed Impressions: Service Date/Time: Sunday, August 06, 2017 17:49 - CONCLUSION: Normal examination. Je Tsai MD Head CT 08/06/17 0000 Signed Impressions: Service Date/Time: Sunday, August 06, 2017 19:38 - CONCLUSION: 1. Negative noncontrast CT brain. Pipe Guy MD Abdomen/Pelvis CT 08/06/17 0000 Signed Impressions: Service Date/Time: Sunday, August 06, 2017 19:42 - CONCLUSION: 1. Interval development of moderate severity ascites. 2. Heterogeneous density to the liver which cannot be further assessed on a noncontrast exam. 3. Stable splenomegaly. 4. New subsegmental infiltrate with consolidation in the anterior left lower lung. Pipe Guy MD Objective Remarks GENERAL: Resting in bed in no acute distress SKIN: Cool and dry. HEAD: Atraumatic. Normocephalic. EYES: Pupils equal and round by 3 mm bilaterally and reactive. + scleral icterus. No injection or drainage. EOMI ENT: No nasal bleeding or discharge. Mucous membranes pink and moist. NECK: Trachea midline. No JVD. Uvula midline CARDIOVASCULAR: Regular rate and rhythm. S1, S2. No S4. Without murmur RESPIRATORY: Diminished throughout especially in bases bilaterally. GASTROINTESTINAL: Abdomen soft. Mildly tender to palpation in the left upper quadrant. MUSCULOSKELETAL: Extremities without significant peripheral edema. No obvious deformities. NEUROLOGICAL: Awake and alert. Cranial nerves II-XII grossly intact. Motor grossly within normal limits. 5/5 muscle strength in the arms and legs. Normal speech. PSYCH: Mood and affect appropriate. Medications and IVs Current Medications Medications (Trade) Dose Ordered Sig/Ariel Route Start Time Stop Time Status Last Admin (Symbicort 80-4.5 Mcg Inh) 2 puff Q12HR INH 08/06/17 21:00 08/10/17 11:10 (CeleXA) 10 mg DAILY PO 08/07/17 09:00 08/10/17 11:09 (Spiriva Inh) 18 mcg DAILY INH 08/07/17 09:00 08/10/17 11:09 (NS Flush) 2 ml UNSCH PRN IV FLUSH 08/06/17 18:45 08/09/17 06:39 (NS Flush) 2 ml BID IV FLUSH 08/06/17 21:00 08/08/17 23:06 (Tylenol) 650 mg Q6H PRN PO 08/06/17 18:45 ([place] 5-325 Mg) 1 tab Q4H PRN PO 08/06/17 18:45 08/08/17 11:47 (Morphine Inj) 2 mg Q2H PRN IV 08/06/17 19:15 08/09/17 23:32 (Zofran Inj) 4 mg Q6H PRN IV PUSH 08/06/17 18:45 08/08/17 23:07 (Albuterol Neb) 2.5 mg Q2HR NEB PRN INH 08/06/17 18:45 Miscellaneous Information 1 Q361D XX 08/06/17 18:45 (Chlorhexidine 2% Cloth) 3 pack Taper DAILY@04 TOP 12/20/17 04:00 08/03/18 03:59 08/09/17 04:00 (Chlorhexidine 2% Cloth) 3 pack UNSCH PRN TOP 08/06/17 18:45 (D50w (Vial) Inj) 50 ml UNSCH PRN IV PUSH 08/06/17 19:00 (Glucagon Inj) 1 mg UNSCH PRN OTHER 08/06/17 19:00 (NovoLIN R SUPPLEMENTAL SCALE) 1 Q6HR SQ 08/07/17 00:00 08/10/17 12:15 (Pill Splitter) 1 ea UNSCH PRN OTHER 08/06/17 19:15 08/10/17 11:10 (Habitrol 14 Mg Patch.24 Hr) 1 patch DAILY T-DERMAL 08/07/17 09:00 08/10/17 11:10 Miscellaneous Information 1 DAILY T-DERMAL 08/07/17 09:00 08/10/17 09:00 (VANCOMYCIN for oral use only) 500 mg QID PO 08/08/17 09:00 08/10/17 11:09 (Ativan Inj) 1 mg Q4H PRN IV PUSH 08/08/17 15:15 08/09/17 23:32 (Protonix) 40 mg Q12HR PO 08/09/17 10:15 08/10/17 11:09 (Flagyl) 500 mg Q8HR PO 08/09/17 14:00 08/10/17 05:12 Potassium Chloride 30 meq/ Sodium Chloride 1,015 ml @ 100 mls/hr Q10H9M IV 08/09/17 13:00 08/11/17 05:35 08/10/17 05:18 (Deltasone) 20 mg BID PO 08/10/17 21:00 A/P Problem List: (1) ETOH abuse ICD Code: F10.10 - Alcohol abuse, uncomplicated (2) Abdominal pain ICD Code: R10.9 - Unspecified abdominal pain (3) Adjustment disorder ICD Code: F43.20 - Adjustment disorder, unspecified (4) Elevated INR ICD Code: R79.1 - Abnormal coagulation profile (5) Elevated transaminase level ICD Code: R74.0 - Nonspecific elevation of levels of transaminase and lactic acid dehydrogenase [LDH] (6) Leukocytosis ICD Code: D72.829 - Elevated white blood cell count, unspecified (7) Thrombocytopenia ICD Code: D69.6 - Thrombocytopenia, unspecified (8) Anemia ICD Code: D64.9 - Anemia, unspecified (9) Hypokalemia ICD Code: E87.6 - Hypokalemia (10) COPD exacerbation ICD Code: J44.1 - Chronic obstructive pulmonary disease with (acute) exacerbation Status: Acute (11) Adjustment disorder with mixed disturbance of emotions and conduct ICD Code: F43.25 - Adjustment disorder with mixed disturbance of emotions and conduct (12) Tobacco abuse ICD Code: Z72.0 - Tobacco use (13) Hypotension ICD Code: I95.9 - Hypotension, unspecified (14) Acute kidney injury ICD Code: N17.9 - Acute kidney failure, unspecified (15) Hypoalbuminemia ICD Code: E88.09 - Other disorders of plasma-protein metabolism, not elsewhere classified (16) Lactic acidosis ICD Code: E87.2 - Acidosis (17) Severe sepsis ICD Code: A41.9 - Sepsis, unspecified organism; R65.20 - Severe sepsis without septic shock Assessment and Plan C. difficile The pt continues to have diarrhea. GI and ID consults appreciated. - PO vancomycin 250 mg 4 times a day and Flagyl 250 mg every 8 hours (day 4). Follow up with ID. - Diet full liquids. Hepatic encephalopathy Ammonia is 54. Has a seizure history but states she has not had a seizure in 2 years. She has a history of alcohol abuse. 08/06 CT brain -no acute abnormality. - Continue citalopram 10 mg by mouth daily. - Multivitamin/folate/thiamine daily. - Seizure precautions. - Ativan as needed. - hold off on lactulose in the setting of C diff. Hypotension Secondary to GI bleed, resolved. - fluids. - follow CBC and transfuse as needed. COPD The pt has ongoing tobaccoism. - Nasal cannula as needed. - Incentive spirometry while awake. - Continue budesonide/formoterol 80/4.5 2 puffs twice a day/home medication. - Albuterol/ipratropium aerosols every 6 hours with albuterol aerosols every 2 hours. - Continue tiotropium 18 mg inhalation daily/home medication. - Methylprednisolone changed to prednisone. - Tobacco cessation will be encouraged. - PT. GIB CT abdomen/pelvis without contrast heterogenous liver, SM, ascites. Last paracentesis 3 months ago according to patient. GI following. EGD with esophagitis. - PPI. - follow CBC and transfuse as needed. - IVFs. Acute kidney injury Likely secondary to dehydration/intravascular volume depletion. Stable. - Monitor urine output - Accurate I's and O's - fluids. Severe hypokalemia S/t diarrhea. - IVFs with KCl. Improved. - PO replacement as needed. - telemetry. - follow BMP. PPx: SCD/pharmacological prophylaxis contraindicated with active GI bleed Problem Qualifiers (1) Abdominal pain: Qualified Codes: R10.12 - Left upper quadrant pain (2) Adjustment disorder: Qualified Codes: F43.20 - Adjustment disorder, unspecified (3) Leukocytosis: Qualified Codes: D72.829 - Elevated white blood cell count, unspecified (4) Anemia: Qualified Codes: D64.9 - Anemia, unspecified (5) Hypotension: Qualified Codes: I95.9 - Hypotension, unspecified Emmanuel Lopez DO Aug 10, 2017 14:04
[2017-08-10] MEDS: LORazepam 2 MG/ML VIAL IV PUSH PRN ×2 (15:26→21:52)
[2017-08-10] MEDS: MORPHINE SULFATE 2 MG/ML INJ IV PRN ×2 (15:26→21:52)
[2017-08-10 16:00] VITALS: BP 110/63; PULSE 90; RESP 17; TEMP 95.9; O2SAT 97
[2017-08-10] MEDS ORDERED: RESP: ALBUTEROL 2.5 MG/IPRATROPIUM 0.5 MG NEB (SCH) INH (16:00)
--- NOTE | 2017-08-10 19:43 | HHI.IDPN ---
Subjective Subjective Remarks cont to have 10+ liquid BMs /days no fever Antibiotics flagyl po vanco po Allergies: Coded Allergies: No Known Allergies (Verified Allergy, Unknown, 08/06/17) Objective . Vital Signs Date Time Temp Pulse Resp B/P (MAP) Pulse Ox O2 Delivery O2 Flow Rate FiO2 08/10/17 16:00 95.9 90 17 110/63 (79) 97 08/10/17 12:00 97.5 82 17 108/60 (76) 96 08/10/17 08:35 95 08/10/17 08:00 97.3 85 17 116/56 (76) 95 08/10/17 00:00 97.0 85 20 105/50 (68) 96 08/09/17 21:13 97 08/09/17 20:00 97.1 76 20 112/60 (77) 94 08/10/17 08/10/17 08/11/17 15:00 23:00 07:00 Intake Total 720 ml 1404 ml Balance 720 ml 1404 ml Intake Oral 720 ml 1404 ml # Voids 6 4 # Bowel Movements 6 10 . Laboratory Tests Test 08/08/17 22:30 08/09/17 11:23 08/10/17 01:23 08/10/17 07:50 Hemoglobin 8.2 GM/DL 7.9 GM/DL 7.9 GM/DL 8.3 GM/DL Hematocrit 23.6 % 22.4 % 23.3 % 24.5 % White Blood Count 17.4 TH/MM3 15.4 TH/MM3 Red Blood Count 2.48 MIL/MM3 2.64 MIL/MM3 Mean Corpuscular Volume 90.5 FL 92.6 FL Mean Corpuscular Hemoglobin 31.7 PG 31.3 PG Mean Corpuscular Hemoglobin Concent 35.0 % 33.8 % Red Cell Distribution Width 18.3 % 18.6 % Platelet Count 87 TH/MM3 105 TH/MM3 Mean Platelet Volume 8.3 FL 9.2 FL Neutrophils (%) (Auto) 77.5 % 88.3 % Lymphocytes (%) (Auto) 4.8 % 2.7 % Monocytes (%) (Auto) 17.4 % 8.9 % Eosinophils (%) (Auto) 0.1 % 0.0 % Basophils (%) (Auto) 0.2 % 0.1 % Neutrophils # (Auto) 13.5 TH/MM3 13.6 TH/MM3 Lymphocytes # (Auto) 0.8 TH/MM3 0.4 TH/MM3 Monocytes # (Auto) 3.0 TH/MM3 1.4 TH/MM3 Eosinophils # (Auto) 0.0 TH/MM3 0.0 TH/MM3 Basophils # (Auto) 0.0 TH/MM3 0.0 TH/MM3 CBC Comment AUTO DIFF AUTO DIFF Differential Total Cells Counted 100 100 Neutrophils % (Manual) 92 % 88 % Band Neutrophils % 2 % 4 % Lymphocytes % 2 % 4 % Monocytes % 4 % 4 % Neutrophils # (Manual) 16.4 TH/MM3 14.2 TH/MM3 Nucleated Red Blood Cells 2 /100 WBC 1 /100 WBC Differential Comment FINAL DIFF MANUAL FINAL DIFF MANUAL Platelet Estimate LOW LOW Platelet Morphology Comment ENLARGED NORMAL Ovalocytes 1+ Bere Cells 1+ Red Cell Morphology Comment Target Cells 1+ Acanthocytes 1+ Test 08/10/17 11:13 Hemoglobin 8.2 GM/DL Hematocrit 24.5 % Laboratory Tests Test 08/09/17 11:23 08/10/17 01:23 08/10/17 07:50 Blood Urea Nitrogen 30 MG/DL 30 MG/DL 30 MG/DL Creatinine 1.09 MG/DL 1.18 MG/DL 1.23 MG/DL Random Glucose 153 MG/DL 161 MG/DL 149 MG/DL Calcium Level 8.2 MG/DL 8.6 MG/DL 8.6 MG/DL Phosphorus Level 1.9 MG/DL Magnesium Level 1.8 MG/DL Sodium Level 142 MEQ/L 144 MEQ/L 141 MEQ/L Potassium Level 2.6 MEQ/L 3.2 MEQ/L 3.6 MEQ/L Chloride Level 112 MEQ/L 114 MEQ/L 112 MEQ/L Carbon Dioxide Level 19.2 MEQ/L 19.0 MEQ/L 19.3 MEQ/L Anion Gap 11 MEQ/L 11 MEQ/L 10 MEQ/L Estimat Glomerular Filtration Rate 54 ML/MIN 49 ML/MIN 47 ML/MIN Total Protein 6.9 GM/DL Albumin 2.7 GM/DL Alkaline Phosphatase 171 U/L Aspartate Amino Transf (AST/SGOT) 89 U/L Alanine Aminotransferase (ALT/SGPT) 48 U/L Total Bilirubin 3.8 MG/DL Imaging Last Impressions Chest X-Ray 08/06/17 3893 Signed Impressions: Service Date/Time: Sunday, August 06, 2017 17:49 - CONCLUSION: Normal examination. Je Tsai MD Head CT 08/06/17 0000 Signed Impressions: Service Date/Time: Sunday, August 06, 2017 19:38 - CONCLUSION: 1. Negative noncontrast CT brain. Pipe Guy MD Abdomen/Pelvis CT 08/06/17 0000 Signed Impressions: Service Date/Time: Sunday, August 06, 2017 19:42 - CONCLUSION: 1. Interval development of moderate severity ascites. 2. Heterogeneous density to the liver which cannot be further assessed on a noncontrast exam. 3. Stable splenomegaly. 4. New subsegmental infiltrate with consolidation in the anterior left lower lung. Pipe uGy MD Physical Exam CONSTITUTIONAL/GENERAL: This is an adequately nourished patient, in no apparent distress. TUBES/LINES/DRAINS: SKIN: No jaundice, rashes, or lesions. Skin temperature appropriate. Not diaphoretic. buttock with small opening but no drainage, redness or swelling CARDIOVASCULAR: Regular rate and rhythm without murmurs, gallops, or rubs. No JVD. Peripheral pulses symmetric. RESPIRATORY/CHEST: Symmetric, unlabored respirations. Clear to auscultation. Breath sounds equal bilaterally. No wheezes, rales, or rhonchi. GASTROINTESTINAL: Abdomen soft, + mildly tender, markedly distended. No hepato- splenomegaly, or palpable masses. No guarding. Bowel sounds present. MUSCULOSKELETAL: Extremities without clubbing, cyanosis, or edema. No joint tenderness or effusion noted. No calf tenderness. No mottling or clubbing. NEUROLOGICAL: Awake and alert. Motor and sensory grossly within normal limits. Follows commands. Clear speech. Moves all extremities. PSYCHIATRIC: No obvious anxiety/depression. no apparent hallucinations or other psychotic thought process. Assessment & Plan Remarks C.diff, persistent, failing - non 027 Probable atelectasis, doubt PNA Ascites, related to liver disease Severe anemia on presentation dc oral flagyl cont po vanco will start Juliana Kwan MD Aug 10, 2017 19:43
[2017-08-10 20:00] VITALS: BP 102/66; PULSE 82; RESP 16; TEMP 96.9; O2SAT 94
[2017-08-10] MEDS: predniSONE 20 MG TAB PO SCH (21:46)
[2017-08-10] MEDS: FIDAXOMICIN 200 MG TAB PO SCH (21:46)
[2017-08-10] MEDS: CHLORHEXIDINE GLUCONATE 2 % 1 PACK (2 CLOTHS) TOP SCH (21:47)
[2017-08-11 00:17] VITALS: BP 103/53; PULSE 82; RESP 20; TEMP 97.6; O2SAT 96
[2017-08-11] MEDS: POTASSIUM CHLORIDE INJ 30 MEQ in SODIUM CHLOR 0.45% 1000 ML INJ 1,000 ML IV SCH (03:58)
[2017-08-11] MEDS: INSULIN NovoLIN REGULAR SUPPLEMENTAL SCALE SQ SCH ×3 (06:00→17:56)
[2017-08-11] MEDS: SODIUM CHLORIDE 0.9% FLUSH 10 ML FLUSH IV FLUSH SCH ×2 (07:59→21:16)
[2017-08-11 08:00] VITALS: BP 101/55; PULSE 75; RESP 18; TEMP 97.6; O2SAT 96
[2017-08-11] MEDS: VANCOMYCIN 500 MG VIAL (FOR ORAL USE ONLY) PO SCH ×4 (08:00→20:30)
[2017-08-11] MEDS: predniSONE 20 MG TAB PO SCH ×2 (08:00→20:30)
[2017-08-11] MEDS: CITALOPRAM HYDROBROMIDE 20 MG TAB PO SCH (08:00)
[2017-08-11] MEDS: PANTOPRAZOLE SOD 40 MG DELAYED RELEASE TAB PO SCH ×2 (08:00→20:30)
[2017-08-11] MEDS: FIDAXOMICIN 200 MG TAB PO SCH ×2 (08:00→20:30)
[2017-08-11] MEDS: REMOVE OLD PATCH T-DERMAL SCH (08:02)
[2017-08-11] MEDS: TIOTROPIUM BROMIDE 18 MCG INH INH SCH (08:02)
[2017-08-11] MEDS: BUDESONIDE-FORMOTEROL 80/4.5 MCG INHALER INH SCH ×2 (08:02→20:28)
[2017-08-11] MEDS: NICOTINE 14 MG/24 HR PATCH T-DERMAL SCH (08:02)
[2017-08-11 08:28] LABS: HEMATOCRIT 25.7 % (35.0-46.0); MEAN CELL VOLUME 94.2 FL (80.0-100.0); MEAN CORPUSCULAR HEMOGLOBIN 31.2 PG (27.0-34.0); MEAN CORPUSCULAR HGB CONC 33.1 % (32.0-36.0); PLATELET COUNT 140 TH/MM3 (150-450); RED BLOOD COUNT 2.72 MIL/MM3 (4.00-5.30); RED CELL DISTRIBUTION WIDTH 19.1 % (11.6-17.2); REVIEW FLAG FINAL; WHITE BLOOD COUNT 17.4 TH/MM3 (4.0-11.0)
[2017-08-11 08:35] LABS: BICARBONATE 18.3 MEQ/L (21.0-32.0); MAGNESIUM 1.9 MG/DL (1.5-2.5); POTASSIUM 4.2 MEQ/L (3.5-5.1)
[2017-08-11 08:39] LABS: TOTAL BILIRUBIN ADULT 3.9 MG/DL (0.2-1.0)
[2017-08-11 12:00] VITALS: BP 130/59; PULSE 86; RESP 18; TEMP 97.3; O2SAT 96
[2017-08-11] MEDS: MORPHINE SULFATE 2 MG/ML INJ IV PRN ×2 (12:07→20:32)
--- NOTE | 2017-08-11 15:27 | HHI.PR ---
Subjective Remarks The patient was starting to feel a little depressed and anxious. Her niece was at the bedside. The patient says she has had up to 10 bowel movements today already. Discussed with nursing. Objective Vitals Vital Signs Date Time Temp Pulse Resp B/P (MAP) Pulse Ox O2 Delivery O2 Flow Rate FiO2 08/11/17 12:00 97.3 86 18 130/59 (82) 96 08/11/17 08:00 97.6 75 18 101/55 (70) 96 08/11/17 00:17 97.6 82 20 103/53 (70) 96 08/10/17 20:00 96.9 82 16 102/66 (78) 94 08/10/17 16:00 95.9 90 17 110/63 (79) 97 I/O 08/10/17 08/10/17 08/10/17 08/11/17 08/11/17 08/11/17 07:00 15:00 23:00 07:00 15:00 23:00 Intake Total 950 ml 720 ml 1404 ml 1795 ml Balance 950 ml 720 ml 1404 ml 1795 ml Intake Oral 720 ml 1404 ml 780 ml IV Total 950 ml 1015 ml # Voids 6 4 5 # Bowel Movements 6 10 5 Result Diagram: 08/11/17 0652 08/11/17 0652 Imaging Last Impressions Chest X-Ray 08/06/17 1725 Signed Impressions: Service Date/Time: Sunday, August 06, 2017 17:49 - CONCLUSION: Normal examination. Je Tsai MD Head CT 08/06/17 0000 Signed Impressions: Service Date/Time: Sunday, August 06, 2017 19:38 - CONCLUSION: 1. Negative noncontrast CT brain. Pipe Guy MD Abdomen/Pelvis CT 08/06/17 0000 Signed Impressions: Service Date/Time: Sunday, August 06, 2017 19:42 - CONCLUSION: 1. Interval development of moderate severity ascites. 2. Heterogeneous density to the liver which cannot be further assessed on a noncontrast exam. 3. Stable splenomegaly. 4. New subsegmental infiltrate with consolidation in the anterior left lower lung. Pipe Guy MD Objective Remarks GENERAL: Resting in bed in no acute distress SKIN: Cool and dry. HEAD: Atraumatic. Normocephalic. EYES: Pupils equal and round by 3 mm bilaterally and reactive. + scleral icterus. No injection or drainage. EOMI ENT: No nasal bleeding or discharge. Mucous membranes pink and moist. NECK: Trachea midline. No JVD. Uvula midline CARDIOVASCULAR: Regular rate and rhythm. S1, S2. No S4. Without murmur RESPIRATORY: Diminished throughout especially in bases bilaterally. GASTROINTESTINAL: Abdomen soft. Mildly tender to palpation in the left upper quadrant. MUSCULOSKELETAL: Extremities without significant peripheral edema. No obvious deformities. NEUROLOGICAL: Awake and alert. Cranial nerves II-XII grossly intact. Motor grossly within normal limits. 5/5 muscle strength in the arms and legs. Normal speech. PSYCH: Slightly flattened affect. Medications and IVs Current Medications Medications (Trade) Dose Ordered Sig/Ariel Route Start Time Stop Time Status Last Admin (Symbicort 80-4.5 Mcg Inh) 2 puff Q12HR INH 08/06/17 21:00 08/11/17 08:02 (CeleXA) 10 mg DAILY PO 08/07/17 09:00 08/11/17 08:00 (Spiriva Inh) 18 mcg DAILY INH 08/07/17 09:00 08/11/17 08:02 (NS Flush) 2 ml UNSCH PRN IV FLUSH 08/06/17 18:45 08/09/17 06:39 (NS Flush) 2 ml BID IV FLUSH 08/06/17 21:00 08/11/17 07:59 (Tylenol) 650 mg Q6H PRN PO 08/06/17 18:45 (Haslet 5-325 Mg) 1 tab Q4H PRN PO 08/06/17 18:45 08/08/17 11:47 (Morphine Inj) 2 mg Q2H PRN IV 08/06/17 19:15 08/11/17 12:07 (Zofran Inj) 4 mg Q6H PRN IV PUSH 08/06/17 18:45 08/08/17 23:07 (Albuterol Neb) 2.5 mg Q2HR NEB PRN INH 08/06/17 18:45 Miscellaneous Information 1 Q361D XX 08/06/17 18:45 (Chlorhexidine 2% Cloth) 3 pack Taper DAILY@04 TOP 08/07/17 04:00 08/03/18 03:59 08/09/17 04:00 (Chlorhexidine 2% Cloth) 3 pack UNSCH PRN TOP 08/06/17 18:45 (D50w (Vial) Inj) 50 ml UNSCH PRN IV PUSH 08/06/17 19:00 (Glucagon Inj) 1 mg UNSCH PRN OTHER 08/06/17 19:00 (NovoLIN R SUPPLEMENTAL SCALE) 1 Q6HR SQ 08/07/17 00:00 08/10/17 18:00 (Pill Splitter) 1 ea UNSCH PRN OTHER 08/06/17 19:15 08/10/17 11:10 (Habitrol 14 Mg Patch.24 Hr) 1 patch DAILY T-DERMAL 08/07/17 09:00 08/11/17 08:02 Miscellaneous Information 1 DAILY T-DERMAL 08/07/17 09:00 08/11/17 08:02 (VANCOMYCIN for oral use only) 500 mg QID PO 08/08/17 09:00 08/11/17 13:13 (Protonix) 40 mg Q12HR PO 08/09/17 10:15 08/11/17 08:00 (Deltasone) 20 mg BID PO 08/10/17 21:00 08/11/17 08:00 (Dificid) 200 mg BID PO 08/10/17 21:00 08/20/17 09:01 08/11/17 08:00 (Xanax) 1 mg Q8H PRN PO 08/11/17 15:30 UNV A/P Problem List: (1) ETOH abuse ICD Code: F10.10 - Alcohol abuse, uncomplicated (2) Abdominal pain ICD Code: R10.9 - Unspecified abdominal pain (3) Adjustment disorder ICD Code: F43.20 - Adjustment disorder, unspecified (4) Elevated INR ICD Code: R79.1 - Abnormal coagulation profile (5) Elevated transaminase level ICD Code: R74.0 - Nonspecific elevation of levels of transaminase and lactic acid dehydrogenase [LDH] (6) Leukocytosis ICD Code: D72.829 - Elevated white blood cell count, unspecified (7) Thrombocytopenia ICD Code: D69.6 - Thrombocytopenia, unspecified (8) Anemia ICD Code: D64.9 - Anemia, unspecified (9) Hypokalemia ICD Code: E87.6 - Hypokalemia (10) COPD exacerbation ICD Code: J44.1 - Chronic obstructive pulmonary disease with (acute) exacerbation Status: Acute (11) Adjustment disorder with mixed disturbance of emotions and conduct ICD Code: F43.25 - Adjustment disorder with mixed disturbance of emotions and conduct (12) Tobacco abuse ICD Code: Z72.0 - Tobacco use (13) Hypotension ICD Code: I95.9 - Hypotension, unspecified (14) Acute kidney injury ICD Code: N17.9 - Acute kidney failure, unspecified (15) Hypoalbuminemia ICD Code: E88.09 - Other disorders of plasma-protein metabolism, not elsewhere classified (16) Lactic acidosis ICD Code: E87.2 - Acidosis (17) Severe sepsis ICD Code: A41.9 - Sepsis, unspecified organism; R65.20 - Severe sepsis without septic shock Assessment and Plan C. difficile The pt continues to have diarrhea. GI and ID consults appreciated. - PO vancomycin 250 mg 4 times a day and Flagyl 250 mg every 8 hours (day 4). Follow up with ID. Difcid added 08/10/17. - ADAT. Hepatic encephalopathy/ Depression/ Anxiety Ammonia is 54. Has a seizure history but states she has not had a seizure in 2 years. She has a history of alcohol abuse. 08/06 CT brain -no acute abnormality. - Continue citalopram 10 mg by mouth daily. - Multivitamin/folate/thiamine daily. - Seizure precautions. - Xanax as needed. - hold off on lactulose in the setting of C diff. Hypotension Secondary to GI bleed, resolved. - fluids. - follow CBC and transfuse as needed. COPD The pt has ongoing tobaccoism. - Nasal cannula as needed. - Incentive spirometry while awake. - Continue budesonide/formoterol 80/4.5 2 puffs twice a day/home medication. - Albuterol/ipratropium aerosols every 6 hours with albuterol aerosols every 2 hours. - Continue tiotropium 18 mg inhalation daily/home medication. - Methylprednisolone changed to prednisone. - Tobacco cessation will be encouraged. - PT. GIB CT abdomen/pelvis without contrast heterogenous liver, SM, ascites. Last paracentesis 3 months ago according to patient. GI following. EGD with esophagitis. - PPI. - follow CBC and transfuse as needed. - IVFs. Acute kidney injury Likely secondary to dehydration/intravascular volume depletion. Improving. - Monitor urine output - Accurate I's and O's - fluids. Severe hypokalemia S/t diarrhea. - IVFs with KCl. Improved. - PO replacement as needed. - telemetry. - follow BMP. PPx: SCD/pharmacological prophylaxis contraindicated with active GI bleed Discharge Planning Awaiting improvement in diarrhea Problem Qualifiers (1) Abdominal pain: Qualified Codes: R10.12 - Left upper quadrant pain (2) Adjustment disorder: Qualified Codes: F43.20 - Adjustment disorder, unspecified (3) Leukocytosis: Qualified Codes: D72.829 - Elevated white blood cell count, unspecified (4) Anemia: Qualified Codes: D64.9 - Anemia, unspecified (5) Hypotension: Qualified Codes: I95.9 - Hypotension, unspecified Emmanuel Lopez DO Aug 11, 2017 15:27
[2017-08-11 16:00] VITALS: BP 106/53; PULSE 83; RESP 18; TEMP 97.4; O2SAT 95
[2017-08-11] MEDS: ACETAMINOPHEN/HYDROcodone 325 MG/5 MG TAB PO PRN (16:54)
[2017-08-11 20:24] VITALS: BP 105/58; PULSE 77; RESP 16; TEMP 97; O2SAT 95
[2017-08-11] MEDS: ALPRAZolam 1 MG TAB PO PRN (21:56)
[2017-08-12] VITALS: BP 109/59; PULSE 77; RESP 17; TEMP 96.8; O2SAT 94
[2017-08-12] MEDS: INSULIN NovoLIN REGULAR SUPPLEMENTAL SCALE SQ SCH ×5 (01:25→23:56)
[2017-08-12] MEDS: CHLORHEXIDINE GLUCONATE 2 % 1 PACK (2 CLOTHS) TOP SCH ×2 (01:31→23:57)
[2017-08-12] MEDS: MORPHINE SULFATE 2 MG/ML INJ IV PRN (04:18)
[2017-08-12] MEDS: diphenhydrAMINE HCL 25 MG CAP PO PRN ×5 (06:15→22:28)
[2017-08-12 07:32] LABS: HEMATOCRIT 24.8 % (35.0-46.0); MEAN CELL VOLUME 94.8 FL (80.0-100.0); MEAN CORPUSCULAR HEMOGLOBIN 31.4 PG (27.0-34.0); MEAN CORPUSCULAR HGB CONC 33.1 % (32.0-36.0); PLATELET COUNT 157 TH/MM3 (150-450); RED BLOOD COUNT 2.61 MIL/MM3 (4.00-5.30); RED CELL DISTRIBUTION WIDTH 19.8 % (11.6-17.2); REVIEW FLAG FINAL; WHITE BLOOD COUNT 15.2 TH/MM3 (4.0-11.0)
[2017-08-12 07:51] LABS: BICARBONATE 17.3 MEQ/L (21.0-32.0); MAGNESIUM 1.9 MG/DL (1.5-2.5); POTASSIUM 4.3 MEQ/L (3.5-5.1)
[2017-08-12 07:52] LABS: TOTAL BILIRUBIN ADULT 3.6 MG/DL (0.2-1.0)
[2017-08-12 08:00] VITALS: BP 100/54; PULSE 76; RESP 17; TEMP 96.7; O2SAT 98
[2017-08-12] MEDS: VANCOMYCIN 500 MG VIAL (FOR ORAL USE ONLY) PO SCH ×4 (08:38→20:29)
[2017-08-12] MEDS: NICOTINE 14 MG/24 HR PATCH T-DERMAL SCH (08:38)
[2017-08-12] MEDS: REMOVE OLD PATCH T-DERMAL SCH (08:38)
[2017-08-12] MEDS: predniSONE 20 MG TAB PO SCH ×2 (08:40→20:29)
[2017-08-12] MEDS: FIDAXOMICIN 200 MG TAB PO SCH ×2 (08:40→20:29)
[2017-08-12] MEDS: CITALOPRAM HYDROBROMIDE 20 MG TAB PO SCH (08:41)
[2017-08-12] MEDS: ALPRAZolam 1 MG TAB PO PRN ×2 (08:42→17:44)
[2017-08-12] MEDS: PANTOPRAZOLE SOD 40 MG DELAYED RELEASE TAB PO SCH ×2 (08:42→20:29)
[2017-08-12] MEDS: ACETAMINOPHEN/HYDROcodone 325 MG/5 MG TAB PO PRN ×2 (08:42→12:00)
[2017-08-12] MEDS: TIOTROPIUM BROMIDE 18 MCG INH INH SCH (08:49)
[2017-08-12] MEDS: BUDESONIDE-FORMOTEROL 80/4.5 MCG INHALER INH SCH ×2 (08:50→20:27)
[2017-08-12] MEDS: SODIUM CHLORIDE 0.9% FLUSH 10 ML FLUSH IV FLUSH SCH ×2 (09:00→20:28)
[2017-08-12 12:00] VITALS: BP 101/53; PULSE 77; RESP 17; TEMP 96.5; O2SAT 96
--- NOTE | 2017-08-12 13:07 | HHI.PR ---
Subjective Remarks patient seen and evaluated today in follow-up for C. difficile colitis. Now on oral Vanco, dificid Reports decreased bowel movements. Less fatigued Objective Vitals Vital Signs Date Time Temp Pulse Resp B/P (MAP) Pulse Ox O2 Delivery O2 Flow Rate FiO2 08/12/17 12:00 96.5 77 17 101/53 (69) 96 08/12/17 09:42 20 08/12/17 08:00 96.7 76 17 100/54 (69) 98 08/12/17 00:00 96.8 77 17 109/59 (76) 94 08/11/17 20:24 97.0 77 16 105/58 (74) 95 08/11/17 16:00 97.4 83 18 106/53 (70) 95 I/O 08/11/17 08/11/17 08/11/17 08/12/17 08/12/17 08/12/17 07:00 15:00 23:00 07:00 15:00 23:00 Intake Total 1795 ml 620 ml 720 ml Balance 1795 ml 620 ml 720 ml Intake Oral 780 ml 620 ml 720 ml IV Total 1015 ml # Voids 5 5 2 # Bowel Movements 5 6 Result Diagram: 08/12/17 0652 08/12/17 0652 Imaging Last Impressions Chest X-Ray 08/06/17 1725 Signed Impressions: Service Date/Time: Sunday, August 06, 2017 17:49 - CONCLUSION: Normal examination. Je Tsai MD Head CT 08/06/17 0000 Signed Impressions: Service Date/Time: Sunday, August 06, 2017 19:38 - CONCLUSION: 1. Negative noncontrast CT brain. Pipe Guy MD Abdomen/Pelvis CT 08/06/17 0000 Signed Impressions: Service Date/Time: Sunday, August 06, 2017 19:42 - CONCLUSION: 1. Interval development of moderate severity ascites. 2. Heterogeneous density to the liver which cannot be further assessed on a noncontrast exam. 3. Stable splenomegaly. 4. New subsegmental infiltrate with consolidation in the anterior left lower lung. Pipe Guy MD Procedures EGD colonoscopy 08-08, showed large polyp in the transverse colon and internal hemorrhoids; small esophageal varices, gastritis, esophagitis, biopsy are pending A/P Problem List: (1) ETOH abuse ICD Code: F10.10 - Alcohol abuse, uncomplicated Plan: Patient with known cirrhosis and ascites cirrhosis, LFTs are usually elevated (2) Leukocytosis ICD Code: D72.829 - Elevated white blood cell count, unspecified Plan: Likely due to C. difficile, improved (3) Acute kidney injury ICD Code: N17.9 - Acute kidney failure, unspecified Plan: Prerenal, likely resolved (4) Severe sepsis ICD Code: A41.9 - Sepsis, unspecified organism; R65.20 - Severe sepsis without septic shock Plan: Secondary to C. difficile, acute kidney injury and hypotension are improved Continue with oral treatment (5) COPD exacerbation ICD Code: J44.1 - Chronic obstructive pulmonary disease with (acute) exacerbation Status: Acute Plan: Improved with nebulized bronchodilators, continue budesonide/formoterol, oral steroids and Spiriva (6) GI bleed ICD Code: K92.2 - Gastrointestinal hemorrhage, unspecified Status: Acute Plan: Secondary to alcoholic cirrhosis and gastritis Currently stable, continue Protonix oral twice a day status post 4 units of packed red blood cells Discharge Planning Likely discharge in a.m. if diarrhea improved Problem Qualifiers (1) Leukocytosis: Qualified Codes: D72.829 - Elevated white blood cell count, unspecified (2) GI bleed: Qualified Codes: K92.2 - Gastrointestinal hemorrhage, unspecified Soraya Bryant MD Aug 12, 2017 13:07
--- NOTE | 2017-08-12 14:45 | HHI.IDPN ---
Subjective Subjective Remarks Less BM still liquid no fever Antibiotics dificid vanco po Allergies: Coded Allergies: No Known Allergies (Verified Allergy, Unknown, 08/06/17) Objective . Vital Signs Date Time Temp Pulse Resp B/P (MAP) Pulse Ox O2 Delivery O2 Flow Rate FiO2 08/12/17 12:00 96.5 77 17 101/53 (69) 96 08/12/17 09:42 20 08/12/17 08:00 96.7 76 17 100/54 (69) 98 08/12/17 00:00 96.8 77 17 109/59 (76) 94 08/11/17 20:24 97.0 77 16 105/58 (74) 95 08/11/17 16:00 97.4 83 18 106/53 (70) 95 08/12/17 08/12/17 08/13/17 15:00 23:00 07:00 Intake Total 821 ml Balance 821 ml IV Total 821 ml . Laboratory Tests Test 08/11/17 06:52 08/12/17 06:52 White Blood Count 17.4 TH/MM3 15.2 TH/MM3 Red Blood Count 2.72 MIL/MM3 2.61 MIL/MM3 Hemoglobin 8.5 GM/DL 8.2 GM/DL Hematocrit 25.7 % 24.8 % Mean Corpuscular Volume 94.2 FL 94.8 FL Mean Corpuscular Hemoglobin 31.2 PG 31.4 PG Mean Corpuscular Hemoglobin Concent 33.1 % 33.1 % Red Cell Distribution Width 19.1 % 19.8 % Platelet Count 140 TH/MM3 157 TH/MM3 Mean Platelet Volume 9.0 FL 9.0 FL Laboratory Tests Test 08/11/17 06:52 08/12/17 06:52 Blood Urea Nitrogen 31 MG/DL 30 MG/DL Creatinine 1.09 MG/DL 1.02 MG/DL Random Glucose 110 MG/DL 133 MG/DL Total Protein 6.8 GM/DL 6.3 GM/DL Albumin 2.8 GM/DL 2.6 GM/DL Calcium Level 8.9 MG/DL 8.7 MG/DL Magnesium Level 1.9 MG/DL 1.9 MG/DL Alkaline Phosphatase 179 U/L 162 U/L Aspartate Amino Transf (AST/SGOT) 101 U/L 92 U/L Alanine Aminotransferase (ALT/SGPT) 65 U/L 71 U/L Total Bilirubin 3.9 MG/DL 3.6 MG/DL Direct Bilirubin 2.9 MG/DL 2.6 MG/DL Sodium Level 139 MEQ/L 139 MEQ/L Potassium Level 4.2 MEQ/L 4.3 MEQ/L Chloride Level 111 MEQ/L 112 MEQ/L Carbon Dioxide Level 18.3 MEQ/L 17.3 MEQ/L Anion Gap 10 MEQ/L 10 MEQ/L Estimat Glomerular Filtration Rate 54 ML/MIN 58 ML/MIN Indirect Bilirubin 1.0 MG/DL 1.0 MG/DL Imaging Last Impressions Chest X-Ray 08/06/17 1725 Signed Impressions: Service Date/Time: Sunday, August 06, 2017 17:49 - CONCLUSION: Normal examination. Je Tsia MD Head CT 08/06/17 0000 Signed Impressions: Service Date/Time: Sunday, August 06, 2017 19:38 - CONCLUSION: 1. Negative noncontrast CT brain. Pipe Guy MD Abdomen/Pelvis CT 08/06/17 0000 Signed Impressions: Service Date/Time: Sunday, August 06, 2017 19:42 - CONCLUSION: 1. Interval development of moderate severity ascites. 2. Heterogeneous density to the liver which cannot be further assessed on a noncontrast exam. 3. Stable splenomegaly. 4. New subsegmental infiltrate with consolidation in the anterior left lower lung. Pipe Guy MD Physical Exam CONSTITUTIONAL/GENERAL: This is an adequately nourished patient, in no apparent distress. TUBES/LINES/DRAINS: SKIN: No jaundice, rashes, or lesions. Skin temperature appropriate. Not diaphoretic. CARDIOVASCULAR: Regular rate and rhythm without murmurs, gallops, or rubs. No JVD. Peripheral pulses symmetric. RESPIRATORY/CHEST: Symmetric, unlabored respirations. Clear to auscultation. Breath sounds equal bilaterally. No wheezes, rales, or rhonchi. GASTROINTESTINAL: Abdomen soft, + still quite tender, remains markedly distended. No hepato-splenomegaly, or palpable masses. No guarding. Bowel sounds present. MUSCULOSKELETAL: Extremities without clubbing, cyanosis, or edema. No joint tenderness or effusion noted. No calf tenderness. No mottling or clubbing. NEUROLOGICAL: Awake and alert. Motor and sensory grossly within normal limits. Follows commands. Clear speech. Moves all extremities. PSYCHIATRIC: No obvious anxiety/depression. no apparent hallucinations or other psychotic thought process. Assessment & Plan Remarks C.diff, persistent, failing - non 027 Probable atelectasis, doubt PNA Ascites, related to liver disease Severe anemia on presentation Leukocytosis - improved Probably worsening ascites ? SBP Persistent leukocytosis dc oral flagyl paracenthesis to r/o SBP cont po vanco x 14 days cont dificid x 10 days avoid systemic abx monitor clinically rechk stool for C.diff Juliana Avila MD Aug 12, 2017 14:45
[2017-08-12 16:00] VITALS: BP 116/58; PULSE 74; RESP 17; TEMP 96.7; O2SAT 97
[2017-08-12 20:00] VITALS: BP 98/51; PULSE 68; RESP 16; TEMP 96.7; O2SAT 98
[2017-08-13] VITALS: BP 114/61; PULSE 76; RESP 16; TEMP 96.4; O2SAT 95
[2017-08-13] MEDS: diphenhydrAMINE HCL 25 MG CAP PO PRN ×3 (03:31→12:26)
[2017-08-13] MEDS: ALPRAZolam 1 MG TAB PO PRN ×2 (03:31→12:26)
[2017-08-13 04:56] LABS: C. DIFF EPI 027 PRESUMPTIVE NEGATIVE (NEGATIVE)
[2017-08-13] MEDS: INSULIN NovoLIN REGULAR SUPPLEMENTAL SCALE SQ SCH ×2 (05:40→11:37)
[2017-08-13 08:00] VITALS: BP 105/59; PULSE 73; RESP 17; TEMP 95.9; O2SAT 96
[2017-08-13] MEDS: FIDAXOMICIN 200 MG TAB PO SCH (08:53)
[2017-08-13] MEDS: PANTOPRAZOLE SOD 40 MG DELAYED RELEASE TAB PO SCH (08:53)
[2017-08-13] MEDS: VANCOMYCIN 500 MG VIAL (FOR ORAL USE ONLY) PO SCH ×2 (08:53→12:23)
[2017-08-13] MEDS: CITALOPRAM HYDROBROMIDE 20 MG TAB PO SCH (08:53)
[2017-08-13] MEDS: NICOTINE 14 MG/24 HR PATCH T-DERMAL SCH (08:53)
[2017-08-13] MEDS: REMOVE OLD PATCH T-DERMAL SCH (08:53)
[2017-08-13] MEDS: predniSONE 20 MG TAB PO SCH (08:53)
[2017-08-13] MEDS: SODIUM CHLORIDE 0.9% FLUSH 10 ML FLUSH IV FLUSH SCH (08:55)
[2017-08-13] MEDS: BUDESONIDE-FORMOTEROL 80/4.5 MCG INHALER INH SCH (08:57)
[2017-08-13] MEDS: TIOTROPIUM BROMIDE 18 MCG INH INH SCH (08:57)
[2017-08-13 09:41] VITALS: BP 107/60; PULSE 71; RESP 16; TEMP 98.1; O2SAT 95
--- NOTE | 2017-08-13 10:15 | PD.RAD ---
Post US Procedure Prog Note Pre Procedure Diagnosis: (1) Ascites Post Procedure Diagnosis: (1) Ascites Procedure Date: Aug 13, 2017 Supervising Radiologist: Rj Ramirez Proceduralist/Assist: Kate Adrian RDMS Anesthesia: Local Plan of Activity Patient to Unit: Nursing Unit Patient Condition: Fair See PACS Report for procedural detail/treatment Drainage Procedure Procedure 1 Imaging Guidance: Ultrasound Procedure Type: Paracentesis Procedure: Removal Drainage: Suction Fluid Description: Rj Goldberg MD Aug 13, 2017 10:15
[2017-08-13 10:30] VITALS: BP 128/52; PULSE 72; RESP 16; TEMP 98; O2SAT 98
[2017-08-13] MEDS ORDERED: LIDOCAINE HCL 1% 20 ML VIAL ONE (10:37)
[2017-08-13 10:44] VITALS: BP 105/60; PULSE 72; RESP 16; TEMP 98; O2SAT 96
--- NOTE | 2017-08-13 10:46 | RADRPT ---
EXAM DATE/TIME: 08/13/2017 09:30 [facility] COMPARISON: US GUIDED ABD PARACENTESIS, May 30, 2017, 13:15. INDICATIONS : Ascites. MEDICAL HISTORY : Chronic obstructive pulmonary disease. Asthma. History of ectopic . Hearing loss. Hernia. Seizures. Dyspnea. GERD. Melena. Liver disease. Cdiff. Substance use. Depression. Anxiety. SURGICAL HISTORY : Cholecystectomy Blood transfusions. Hernia repair. Skin graft. Ectopic removal. ENCOUNTER: Subsequent ACUITY: 2 months PAIN SCORE: 3/10 LOCATION: Left lower quadrant FLUID: Total volume of 4100 cc of clear, yellow fluid was removed. Fluid was sent to lab for ordered studies. Post procedure scanning reveals no hematoma or other complication. TECHNIQUE: 1. Ultrasound guidance for abdominal paracentesis. 2. Paracentesis. The risks, benefits, and alternatives to ultrasound guided paracentesis were explained to the patient in detail including the risk of bleeding and infection. Written and verbal informed consent was obt ained. With the patient on the ultrasound table, ultrasound imaging was used to select the most appropriate approach for paracentesis. Overlying skin was prepped and draped in the usual sterile fashion and wi th a local anesthetic, a dermatotomy was made with an 11 blade scalpel. A 6 [place] [employer] ca theter was introduced into the peritoneal cavity and fluid was collected. The patient tolerated the procedure well and left the ultrasound suite in stable condition. CONCLUSION: Uncomplicated ultrasound guided paracentesis. Rj Ramirez MD on August 13, 2017 at 10:45 Board Certified Radiologist. This report was verified electronically.
[2017-08-13 11:23] LABS: PERITONEAL HISTIOCYTES 21 %; PERITONEAL LYMPHS 44 %; PERITONEAL MESOTHELIAL 8 %; PERITONEAL MONOS 2 %; PERITONEAL POLYS(SEGS) 25 %; PERITONEAL WBC 120 /MM3 (0-10)
[2017-08-13 12:00] VITALS: BP 111/61; PULSE 71; RESP 17; TEMP 96.3; O2SAT 98
[2017-08-13] MEDS ORDERED: DIFI200T PO (12:16)
[2017-08-13] MEDS ORDERED: VANC500I3 PO (12:18)
--- NOTE | 2017-08-13 12:21 | HHI.DS ---
Discharge Summary Admission Date Aug 06, 2017 at 19:04 Discharge Date: Aug 13, 2017 Admitting Diagnosis Anemia, severe sepsis (1) ETOH abuse ICD Code: F10.10 - Alcohol abuse, uncomplicated (2) Leukocytosis ICD Code: D72.829 - Elevated white blood cell count, unspecified (3) Acute kidney injury ICD Code: N17.9 - Acute kidney failure, unspecified (4) Severe sepsis ICD Code: A41.9 - Sepsis, unspecified organism; R65.20 - Severe sepsis without septic shock (5) COPD exacerbation ICD Code: J44.1 - Chronic obstructive pulmonary disease with (acute) exacerbation Status: Acute (6) GI bleed ICD Code: K92.2 - Gastrointestinal hemorrhage, unspecified Status: Acute Procedures Paracentesis 4.1 L EGD colonoscopy 08-08, showed large polyp in the transverse colon and internal hemorrhoids; small esophageal varices, gastritis, esophagitis, biopsy are pending Brief History - From Admission This is a 46-year-old female. Date of admission 08/06/2017. Past medical history includes adjustment disorder, seizure disorder, EtOH and THC abuse, tobaccoism COPD. Recent diagnosis C. difficile 06/04 on metronidazole. Patient presents to [facility] multiple complaints including shortness of breath, left sided abdominal pain 2 weeks and generalized weakness. Admission , patient was wheezing on exam and saturating at 88-90% on RA. Pt given her slight therapy x3 and methylprednisolone 125 mg as well as thiamine, 2 L NS IVF. Patient with, leukocytosis at 18.6. H/H low at 5.8/17.4. Elevated transaminases. Thrombocytopenic at 107. Hypokalemia. Been replaced.. Troponin negative. Currently being transfused. She received 2 L normal saline wide open. Placed on pantoprazole drip 8 mg an hour after initial bolus. 2 antecubital peripheral IVs in place. Hemodynamically stable currently after initial hypotension. Resolved with crystalloid bolus. CT abdomen/pelvis pending at time of dictation. She has used ibuprofen and prednisone recently but not within the past week according to patient. Occult positive in ED. Denies hemoptysis. Requesting diet currently. CBC/BMP: 08/12/17 0652 08/12/17 0652 Significant Findings Laboratory Tests Test 08/11/17 06:52 08/12/17 06:52 08/13/17 03:30 08/13/17 10:06 White Blood Count 17.4 TH/MM3 (4.0-11.0) 15.2 TH/MM3 (4.0-11.0) Red Blood Count 2.72 MIL/MM3 (4.00-5.30) 2.61 MIL/MM3 (4.00-5.30) Hemoglobin 8.5 GM/DL (11.6-15.3) 8.2 GM/DL (11.6-15.3) Hematocrit 25.7 % (35.0-46.0) 24.8 % (35.0-46.0) Red Cell Distribution Width 19.1 % (11.6-17.2) 19.8 % (11.6-17.2) Platelet Count 140 TH/MM3 (150-450) Blood Urea Nitrogen 31 MG/DL (7-18) 30 MG/DL (7-18) Creatinine 1.09 MG/DL (0.50-1.00) 1.02 MG/DL (0.50-1.00) Random Glucose 110 MG/DL (74-106) 133 MG/DL (74-106) Albumin 2.8 GM/DL (3.4-5.0) 2.6 GM/DL (3.4-5.0) Alkaline Phosphatase 179 U/L (45-117) 162 U/L (45-117) Aspartate Amino Transf (AST/SGOT) 101 U/L (15-37) 92 U/L (15-37) Alanine Aminotransferase (ALT/SGPT) 65 U/L (10-53) 71 U/L (10-53) Total Bilirubin 3.9 MG/DL (0.2-1.0) 3.6 MG/DL (0.2-1.0) Direct Bilirubin 2.9 MG/DL (0.0-0.2) 2.6 MG/DL (0.0-0.2) Chloride Level 111 MEQ/L (98-107) 112 MEQ/L (98-107) Carbon Dioxide Level 18.3 MEQ/L (21.0-32.0) 17.3 MEQ/L (21.0-32.0) Estimat Glomerular Filtration Rate 54 ML/MIN (>89) 58 ML/MIN (>89) Indirect Bilirubin 1.0 MG/DL (0.0-0.8) 1.0 MG/DL (0.0-0.8) Total Protein 6.3 GM/DL (6.4-8.2) Peritoneal Fluid WBC 120 /MM3 (0-10) Peritoneal Fluid RBC 110 /MM3 (0-0) Imaging Last Impressions Cyst Biopsy Asp-Paracentesis US 08/13/17 0000 Signed Impressions: Service Date/Time: Sunday, August 13, 2017 09:30 - CONCLUSION: Uncomplicated ultrasound guided paracentesis. Rj Ramirez MD Chest X-Ray 08/06/17 1725 Signed Impressions: Service Date/Time: Sunday, August 06, 2017 17:49 - CONCLUSION: Normal examination. Je Tsai MD Head CT 08/06/17 0000 Signed Impressions: Service Date/Time: Sunday, August 06, 2017 19:38 - CONCLUSION: 1. Negative noncontrast CT brain. Pipe Guy MD Abdomen/Pelvis CT 08/06/17 0000 Signed Impressions: Service Date/Time: Sunday, August 06, 2017 19:42 - CONCLUSION: 1. Interval development of moderate severity ascites. 2. Heterogeneous density to the liver which cannot be further assessed on a noncontrast exam. 3. Stable splenomegaly. 4. New subsegmental infiltrate with consolidation in the anterior left lower lung. Pipe Guy MD PE at Discharge GENERAL: Resting in bed in no acute distress SKIN: Cool and dry. HEAD: Atraumatic. Normocephalic. EYES: Pupils equal and round by 3 mm bilaterally and reactive. + scleral icterus. No injection or drainage. EOMI ENT: No nasal bleeding or discharge. Mucous membranes pink and moist. NECK: Trachea midline. No JVD. Uvula midline CARDIOVASCULAR: Regular rate and rhythm. S1, S2. No S4. Without murmur RESPIRATORY: Diminished throughout especially in bases bilaterally. GASTROINTESTINAL: Abdomen soft. Mildly tender to palpation in the left upper quadrant. MUSCULOSKELETAL: Extremities without significant peripheral edema. No obvious deformities. NEUROLOGICAL: Awake and alert. Cranial nerves II-XII grossly intact. Motor grossly within normal limits. 5/5 muscle strength in the arms and legs. Normal speech. PSYCH: Slightly flattened affect. Pt update on day of discharge Patient doing better. No new complaints overnight. Status post 4.1 L of clear fluid and paracentesis. C. difficile has come back negative Discharge plans discussed with patient and nursing team Hospital Course this is a 46-year-old female who was seen and evaluated for GI bleed, sepsis and hemorrhagic shock. She required 4 units of packed blood cells in transfusion. She was initially admitted to the ICU and then transferred to the medical surgical team. Patient did have endoscopy as well as paracentesis. She did have C. difficile which was treated with administration of current antibiotics. She required dual therapy with vancomycin and deficit. She did well. She was discharged home. Cultures for paracentesis are still pending however the fluid was clear and patient has no other systemic symptoms infection. She was seen by gastroenterology and infectious disease services Pt Condition on Discharge: Good Discharge Disposition: Discharge Home Discharge Time: > 30 minutes Discharge Instructions DIET: Follow Instructions for: Low Sodium Diet Activities you can perform: Regular-No Restrictions Follow up Referrals: Gastroenterology - 2 Weeks with Chinmay Foley MD New Medications: Fidaxomicin (Dificid) 200 Mg Tab 200 MG PO BID for Infection, #20 TAB Vancomycin Inj (Vancomycin Inj) 500 Mg Inj 500 MG PO QID for Infection, #56 INJECTION for oral use Continued Medications: Albuterol 18 GM Inh (Ventolin Hfa 18 GM Inh) 90 Mcg/Act Aer 2 PUFF INH Q4H PRN for Dyspnea or Wheezing, #1 INHALER Budesonide-Formoterol Inh (Symbicort Inh) 80-4.5 Mcg/Act Aero 2 PUFF INH Q12HR for Breathing Treatment, #60 INHALER Budesonide-Formoterol Inh (Symbicort Inh) 80-4.5 Mcg/Act Aero 1 PUFF INH Q12HR for Shortness of Breath, #1 INHALER Citalopram (Celexa) 20 Mg Tab 10 MG PO DAILY for Mental Health for 15 Days, #8 TAB 1 Refill Folic Acid (Folic Acid) 1 Mg Tablet 1 MG PO DAILY for Nutritional Supplement for 30 Days, #30 TAB 0 Refills Ipratropium HFA 12.9 GM Inh (Atrovent HFA 12.9 GM Inh) 17 Mcg/Act Aer 2 PUFF INH QID for Breathing Treatment, #1 INHALER 0 Refills Multiple Vitamin (Multi Vitamin Daily) 1 Tab Tab 1 TAB PO DAILY for vitamin for 30 Days, #30 TAB 0 Refills Thiamine (Vitamin B-1) 100 Mg Tab 100 MG PO DAILY for Nutritional Supplement for 30 Days, #30 TAB 0 Refills Tiotropium Inh (Spiriva Handihaler) 18 Mcg Cap 18 MCG INH DAILY for Breathing Treatment, #30 CAP Discontinued Medications: Cholestyramine (Cholestyramine) 4 Gm/Dose Powd 4 GM PO DAILY for diarrhea for 7 Days, #1 CAN 0 Refills 1 level scoopful of powder contains 4 grams of cholestyramine. Levofloxacin (Levaquin) 500 Mg Tablet 500 MG PO DAILY for Infection for 3 Days, #3 TAB 0 Refills Metronidazole (Flagyl) 500 Mg Tab 500 MG PO TID for Infection for 10 Days, TAB 0 Refills Prednisone (Prednisone) 5 Mg Tab 5 MG PO DIRECTED for copd for 10 Days, TAB 0 Refills 40 mg po daily for two days then 30 mg po daily for two days then 20 mg po daily for two days then 10 mg po daily for two days then 5 mg po daily for two days then stop. Soraay Bryant MD Aug 13, 2017 12:21
--- NOTE | 2017-08-13 13:34 | HHI.GIFU ---
Subjective Remarks Pt sitting up on side of bed, awaiting discharge. She states she is about to be discharged home where her niece will help take care of her. She reports BMs have become more solid in consistency. Denies abdominal pain, nausea, vomiting , blood in stool. (Kianna Anegl) Objective Vitals I&O Vital Signs Date Time Temp Pulse Resp B/P (MAP) Pulse Ox O2 Delivery O2 Flow Rate FiO2 08/13/17 12:00 96.3 71 17 111/61 (78) 98 08/13/17 10:44 98.0 72 16 105/60 (75) 96 08/13/17 10:30 98.0 72 16 128/52 (77) 98 08/13/17 09:41 98.1 71 16 107/60 (76) 95 08/13/17 08:00 95.9 73 17 105/59 (74) 96 08/13/17 00:00 96.4 76 16 114/61 (78) 95 08/12/17 20:00 96.7 68 16 98/51 (67) 98 08/12/17 16:00 96.7 74 17 116/58 (77) 97 08/12/17 14:32 20 I/O 08/12/17 08/12/17 08/12/17 08/13/17 08/13/17 08/13/17 07:00 15:00 23:00 07:00 15:00 23:00 Intake Total 720 ml 821 ml 1524 ml Balance 720 ml 821 ml 1524 ml Intake Oral 720 ml 1524 ml IV Total 821 ml # Voids 2 2 2 # Bowel Movements 4 2 Laboratory Laboratory Tests Test 08/13/17 03:30 08/13/17 10:06 Stool C. difficile Toxin (PCR) NEGATIVE Stl C. difficile Toxin Epiderm 027 PRESUMPTIVE NEGATIVE Peritoneal Fluid WBC 120 Peritoneal Fluid RBC 110 Peritoneal Fluid Neutrophils 25 Peritoneal Fluid Lymphocytes 44 Peritoneal Fluid Monocytes 2 Peritoneal Fluid Histiocytes 21 Peritoneal Fluid Mesothelial Cells 8 Date/Time Source Procedure Growth Status 08/06/17 19:10 Blood Peripheral Aerobic Blood Culture - Final NO GROWTH IN 5 DAYS Complete 08/06/17 19:10 Blood Peripheral Anaerobic Blood Culture - Final NO GROWTH IN 5 DAYS Complete 08/13/17 10:06 Fluid Peritoneal Fluid Gram Stain Pending Received 08/13/17 10:06 Fluid Peritoneal Fluid Body Fluid Culture Pending Received 08/06/17 18:15 Urine Clean Catch Urine Culture - Final Escherichia Coli Complete 08/07/17 09:30 Wound Buttock Gram Stain - Final Complete 08/07/17 09:30 Wound Culture - Final Providencia Rettgeri Anaerobic Gram Positive Cocci Complete Imaging Last Impressions Cyst Biopsy Asp-Paracentesis US 08/13/17 0000 Signed Impressions: Service Date/Time: Sunday, August 13, 2017 09:30 - CONCLUSION: Uncomplicated ultrasound guided paracentesis. Rj Ramirez MD Chest X-Ray 08/06/17 1725 Signed Impressions: Service Date/Time: Sunday, August 06, 2017 17:49 - CONCLUSION: Normal examination. Je Tsai MD Head CT 08/06/17 0000 Signed Impressions: Service Date/Time: Sunday, August 06, 2017 19:38 - CONCLUSION: 1. Negative noncontrast CT brain. Pipe Guy MD Abdomen/Pelvis CT 08/06/17 0000 Signed Impressions: Service Date/Time: Sunday, August 06, 2017 19:42 - CONCLUSION: 1. Interval development of moderate severity ascites. 2. Heterogeneous density to the liver which cannot be further assessed on a noncontrast exam. 3. Stable splenomegaly. 4. New subsegmental infiltrate with consolidation in the anterior left lower lung. Pipe Guy MD Physical Exam HEENT: Normocephalic; atraumatic CHEST: Even/unlabored CARDIAC: RRR ABDOMEN: Soft, nondistended, nontender; bowel sounds active x 4 EXTREMITIES: No clubbing, cyanosis, or edema. DELINQUENCY PREVENTION OFFICER: No focal deficits; alert and oriented times three (Kianna Angel) Assessment and Plan Assessment: (1) GERD (gastroesophageal reflux disease) ICD Codes: K21.9 - Gastro-esophageal reflux disease without esophagitis (2) C. difficile colitis ICD Codes: A04.72 - Enterocolitis due to Clostridium difficile, not specified as recurrent (3) Leukocytosis ICD Codes: D72.829 - Elevated white blood cell count, unspecified (4) Abdominal pain ICD Codes: R10.9 - Unspecified abdominal pain (5) Elevated INR ICD Codes: R79.1 - Abnormal coagulation profile (6) Elevated transaminase level ICD Codes: R74.0 - Nonspecific elevation of levels of transaminase and lactic acid dehydrogenase [LDH] (7) GI bleed ICD Codes: K92.2 - Gastrointestinal hemorrhage, unspecified Status: Acute Plan EGD colonoscopy 08-08, showed large polyp in the transverse colon and internal hemorrhoids; small esophageal varices, gastritis, esophagitis Pathology- Colon polyp- adenoma Gastric- reactive/chemical gastropathy Paracentesis (08/13) --> 4100 cc of clear, yellow fluid was removed. Culture pending. Plan: - Pt is being discharged on Divcid - Paracentesis culture pending - Repeat colonoscopy in 5 years - Repeat EGD as needed - Follow up in GI office in 2 weeks Pt has been seen and examined by myself and Dr. Foley and this note is written on his behalf (Kianna Angel) Physician Comments Agree with plan as above, follow up as outpatient. (Chinmay Foley MD) Problem Qualifiers (1) Leukocytosis: Qualified Codes: D72.829 - Elevated white blood cell count, unspecified (2) Abdominal pain: Qualified Codes: R10.12 - Left upper quadrant pain (3) GI bleed: Qualified Codes: K92.2 - Gastrointestinal hemorrhage, unspecified Kianna Angel Aug 13, 2017 13:34 Chinmay Foley MD Aug 13, 2017 14:48
[2017-08-13 16:19] LABS: AUTOMATED NEUTROPHIL # 12.5 TH/MM3 (1.8-7.7); BASOPHIL # 0.1 TH/MM3 (0-0.2); BASOPHIL % 0.6 % (0.0-2.0); EOSINOPHIL % 0.1 % (0.0-4.0); HEMATOCRIT 28.1 % (35.0-46.0); LYMPH % 3.5 % (9.0-44.0); LYMPHOCYTE # 0.5 TH/MM3 (1.0-4.8); MEAN CELL VOLUME 95.9 FL (80.0-100.0); MEAN CORPUSCULAR HEMOGLOBIN 31.4 PG (27.0-34.0); MEAN CORPUSCULAR HGB CONC 32.7 % (32.0-36.0); NEUT % 84.8 % (16.0-70.0); PLATELET COUNT 213 TH/MM3 (150-450); RED BLOOD COUNT 2.93 MIL/MM3 (4.00-5.30); RED CELL DISTRIBUTION WIDTH 20.8 % (11.6-17.2); WHITE BLOOD COUNT 14.8 TH/MM3 (4.0-11.0)
[2017-08-13 16:20] LABS: HEMO FLAGS AUTO DIFF
[2017-08-13 16:26] LABS: INTERNATIONAL NORMALIZED RATIO 1.3 RATIO; PROTHROMBIN TIME - PATIENT 13.5 SEC (9.8-11.6)
[2017-08-13 17:10] LABS: SCAN/DIFF AUTO DIFF CONFIRMED
[2017-08-13 17:11] LABS: BURR CELLS 1+ (NORMAL); CRENATED RBCS 1+ (NORMAL)
[2017-08-13 17:12] LABS: TARGET CELLS 1+ (NORMAL)
[2017-08-13 17:19] LABS: PLATELET ESTIMATE SMEAR NORMAL (NORMAL); PLATELET MORPHOLOGY NORMAL (NORMAL)
== END 2017-08-13 15:45 | disposition home or self-care (01) | DRG 871 ==
LOC: NEPC 16:35 → NEDA 19:04 → HIME 20:10 → N07B 08-08 18:27
PROVIDERS: ADMIT Hospitalist; ATTEND Hospitalist
PROC: 30233N1 Transfusion of Nonautologous Red Blood Cells into Peripheral Vein, Percutaneous Approach (ICD-10-PCS; principal; 2017-08-06)
PROC: 0DB68ZX Excision of Stomach, Via Natural or Artificial Opening Endoscopic, Diagnostic (ICD-10-PCS; 2017-08-08)
PROC: 0DBL8ZZ Excision of Transverse Colon, Via Natural or Artificial Opening Endoscopic (ICD-10-PCS; 2017-08-08)
PROC: 0W9G3ZX Drainage of Peritoneal Cavity, Percutaneous Approach, Diagnostic (ICD-10-PCS; 2017-08-13)
DX: A41.9 Sepsis, unspecified organism (principal); R57.8 Other shock; N17.9 Acute kidney failure, unspecified; E87.2 Acidosis; I85.00 Esophageal varices without bleeding; A04.71 Enterocolitis due to Clostridium difficile, recurrent; D69.6 Thrombocytopenia, unspecified; J44.0 Chronic obstructive pulmonary disease with (acute) lower respiratory infection; D62 Acute posthemorrhagic anemia; I95.9 Hypotension, unspecified; K92.2 Gastrointestinal hemorrhage, unspecified; J44.1 Chronic obstructive pulmonary disease with (acute) exacerbation; J98.11 Atelectasis; E87.6 Hypokalemia; F10.10 Alcohol abuse, uncomplicated; R74.0 Nonspecific elevation of levels of transaminase and lactic acid dehydrogenase [LDH]; F43.25 Adjustment disorder with mixed disturbance of emotions and conduct; E88.09 Other disorders of plasma-protein metabolism, not elsewhere classified; R65.20 Severe sepsis without septic shock; F17.210 Nicotine dependence, cigarettes, uncomplicated; G40.909 Epilepsy, unspecified, not intractable, without status epilepticus; E86.0 Dehydration; E83.42 Hypomagnesemia; K21.0 Gastro-esophageal reflux disease with esophagitis; K64.8 Other hemorrhoids; K70.31 Alcoholic cirrhosis of liver with ascites; K63.5 Polyp of colon; F32.9 Major depressive disorder, single episode, unspecified; F41.9 Anxiety disorder, unspecified; H91.90 Unspecified hearing loss, unspecified ear; K72.90 Hepatic failure, unspecified without coma
CPT/HCPCS: 36430; 36600; 49083; 70450; 71010; 74177; 80048; 80053; 80074; 80076; 80307; 81001; 82010; 82140; 82150; 82550; 82805; 82948; 83605; 83690; 83735; 84100; 84484; 84702; 84703; 85007; 85014; 85018; 85025; 85027; 85384; 85610; 85730; 86077; 86850; 86870; 86900; 86901; 86920; 86922; 87040; 87070; 87077; 87086; 87185; 87186; 87205; 87493; 87641; 88305; 89051; 93005; 94150; 94640; 94664; 96365; 96375; C1729; C9113; J0456; J0692; J2060; J2270; J2370; J2405; J2920; J2930; J3411; J3475; J3480; J7030; J7040; J7050; J7512; P9016; Q9967

== ENCOUNTER 2017-08-27 13:04 | Emergency (ER) | payer SELFPAY ==
[~2017-08-27 13:04] MED LIST changes: -CHOL4POW3 PO; +DIFI200T PO; -LEVA500T33 PO; -METR-1 PO; -PRED5TAB PO; +VANC500I3 PO
[2017-08-27 13:05] VITALS: BP 117/63; PULSE 98; RESP 14; TEMP 97; O2SAT 99
[2017-08-27 15:27] LABS: INTERNATIONAL NORMALIZED RATIO 1.4 RATIO; PROTHROMBIN TIME - PATIENT 13.9 SEC (9.8-11.6)
[2017-08-27 15:35] LABS: ALBUMIN 2.4 GM/DL (3.4-5.0); ALKALINE PHOSPHATASE 325 U/L (45-117); ALT (GPT) 24 U/L (10-53); AST (GOT) 30 U/L (15-37); BICARBONATE 19.1 MEQ/L (21.0-32.0); BLOOD UREA NITROGEN 7 MG/DL (7-18); CALCIUM 8.2 MG/DL (8.5-10.1); CHLORIDE 109 MEQ/L (98-107); CREATININE 1.14 MG/DL (0.50-1.00); GLOMERULAR FILTRATION RATE 51 ML/MIN (>89); GLUCOSE,RANDOM 109 MG/DL (74-106); LIPASE 127 U/L (73-393); SODIUM (NA) 138 MEQ/L (136-145); TOTAL BILIRUBIN ADULT 1.8 MG/DL (0.2-1.0); TOTAL PROTEIN 7.8 GM/DL (6.4-8.2)
[2017-08-27] MEDS ORDERED: TRAZ300T2 PO (16:55)
[2017-08-27] MEDS ORDERED: XANA1TAB2 PO (16:55)
[2017-08-27 17:14] VITALS: BP 121/80; PULSE 91; RESP 17; O2SAT 99
[2017-08-27] MEDS ORDERED: POTASSIUM CHLORIDE 10 MEQ CONTROLLED RELEASE TAB PO ONE ×2 (17:30)
--- NOTE | 2017-08-27 18:32 | PD ---
HPI Chief Complaint: Abnormal Results Time Seen by Provider: 17:17 Travel History International Travel<30 days: No Contact w/Intl Traveler<30days: No Traveled to known affect area: No History of Present Illness HPI 46-year-old female presents emergency department after she was called to return for C. difficile positive stool. Patient was admitted to our facility on 06 August with GI bleed and hypokalemia. Patient states that she has been feeling nauseous with an numerous amounts of diarrhea daily since she was discharged. Patient denies any blood in her stool. Patient denies any vomiting. Patient does have abdominal pain. She describes it as aching chronic in nature. Ascites is noted to patient's abdomen which is distended. Patient states that she has a history of heavily drinking and a history of cirrhosis. Patient states that she has gotten discharge in July she has not drank at all. Patient has any drug use. Patient does smoke a pack of cigarettes a day. Patient has a history of COPD. PFSH Past Medical History Asthma: Yes Blood Disorders: No Anxiety: Yes Depression: Yes Cancer: No Cardiovascular Problems: No COPD: Yes Cerebrovascular Accident: No Diminished Hearing: No Endocrine: No Gastrointestinal Disorders: Yes GERD: Yes Genitourinary: No Headaches: Yes Hiatal Hernia: Yes (repaired) Immune Disorder: No Implanted Vascular Access Dvce: No Musculoskeletal: Yes Neurologic: Yes Psychiatric: Yes Reproductive: No Respiratory: Yes Migraines: No Seizures: Yes (most recent was two years ago, ) Ulcer: No ?: Not Menopausal: Yes Ectopic : Yes Past Surgical History Abdominal Surgery: Yes Cardiac Surgery: No Cholecystectomy: Yes Ear Surgery: No Endocrine Surgery: No Eye Surgery: No Genitourinary Surgery: No Gynecologic Surgery: Yes Neurologic Surgery: No Oral Surgery: No Thoracic Surgery: No Other Surgery: Yes (lumbar 2014, 2 tubular pregs, hiatal hernia repair, gallbladder, skin graft) Social History Alcohol Use: No Tobacco Use: Yes (1 ppd) Substance Use: No (denies) Allergies-Medications (Allergen,Severity, Reaction): Coded Allergies: No Known Allergies (Verified Allergy, Unknown, 08/06/17) Reported Meds & Prescriptions Reported Meds & Active Scripts Active Vancomycin (Vancomycin HCl) 125 Mg Cap 125 Mg PO QID 10 Days Vancomycin Inj (Vancomycin HCl) 500 Mg Inj 500 Mg PO QID for oral use Spiriva Handihaler (Tiotropium Inh) 18 Mcg Cap 18 Mcg INH DAILY Symbicort Inh (Budesonide/Formoterol Fumarate) 80-4.5 Mcg/Act Aero 2 Puff INH Q12HR Reported Xanax (Alprazolam) 1 Mg Tab 1 Mg PO BID PRN Trazodone (Trazodone HCl) 300 Mg Tab 300 Mg PO HS Review of Systems Except as stated in HPI: all other systems reviewed are Neg Physical Exam Narrative GENERAL: Chronically ill-appearing 46-year-old female patient in no acute distress. SKIN: Focused skin assessment yellow hue to the skin/ warm/dry. HEAD: Normocephalic. Atraumatic. EYES: Mild scleral icterus. No injection or drainage. NECK: Supple, trachea midline. No JVD or lymphadenopathy. CARDIOVASCULAR: Regular rate and rhythm without murmurs, gallops, or rubs. RESPIRATORY: Breath sounds equal bilaterally. No accessory muscle use. GASTROINTESTINAL: Ascites noted to abdomen. Abdomen round, diffusely tender, distended. MUSCULOSKELETAL: No cyanosis, or edema. BACK: Nontender without obvious deformity. No CVA tenderness. Data Data Last Documented VS Vital Signs Date Time Temp Pulse Resp B/P (MAP) Pulse Ox O2 Delivery O2 Flow Rate FiO2 08/27/17 22:33 08/27/17 21:23 77 16 97 Room Air 08/27/17 13:05 97.0 Orders Orders Complete Blood Count With Diff (08/27/17 13:36) Comprehensive Metabolic Panel (08/27/17 13:36) Lipase (08/27/17 13:36) Lactic Acid (08/27/17 13:36) Prothrombin Time / Inr (Pt) (08/27/17 13:36) Act Partial Throm Time (Ptt) (08/27/17 13:36) Electrocardiogram (08/27/17 ) Potassium Chloride (Kcl) (08/27/17 17:30) Potassium Chloride (Kcl) (08/27/17 17:30) Ct Abd/Pel W Iv Contrast(Rout) (08/27/17 18:51) Iohexol 350 Inj (Omnipaque 350 Inj) (08/27/17 19:29) Sodium Chlor 0.9% 1000 Ml Inj (Ns 1000 M (08/27/17 20:30) Ketorolac Inj (Toradol Inj) (08/27/17 21:15) Vancomycin For Oral Use Only (Vancomycin (08/28/17 09:00) Vancomycin For Oral Use Only (Vancomycin (08/27/17 21:20) Ed Discharge Order (08/27/17 22:01) C Diff Toxin Pcr (08/27/17 22:46) Labs Laboratory Tests Test 08/27/17 14:21 08/27/17 22:00 White Blood Count 8.5 TH/MM3 Red Blood Count 2.97 MIL/MM3 Hemoglobin 9.8 GM/DL Hematocrit 29.1 % Mean Corpuscular Volume 97.9 FL Mean Corpuscular Hemoglobin 32.9 PG Mean Corpuscular Hemoglobin Concent 33.6 % Red Cell Distribution Width 22.2 % Platelet Count 128 TH/MM3 Mean Platelet Volume 8.8 FL CBC Comment AUTO DIFF Differential Total Cells Counted 100 Neutrophils % (Manual) 74 % Band Neutrophils % 4 % Lymphocytes % 12 % Monocytes % 7 % Eosinophils % 3 % Neutrophils # (Manual) 6.6 TH/MM3 Differential Comment FINAL DIFF MANUAL Platelet Estimate LOW Platelet Morphology Comment ENLARGED Tear Drop Cells 1+ Bere Cells 1+ Prothrombin Time 13.9 SEC Prothromb Time International Ratio 1.4 RATIO Activated Partial Thromboplast Time 47.4 SEC Blood Urea Nitrogen 7 MG/DL Creatinine 1.14 MG/DL Random Glucose 109 MG/DL Total Protein 7.8 GM/DL Albumin 2.4 GM/DL Calcium Level 8.2 MG/DL Alkaline Phosphatase 325 U/L Aspartate Amino Transf (AST/SGOT) 30 U/L Alanine Aminotransferase (ALT/SGPT) 24 U/L Total Bilirubin 1.8 MG/DL Sodium Level 138 MEQ/L Potassium Level 2.9 MEQ/L Chloride Level 109 MEQ/L Carbon Dioxide Level 19.1 MEQ/L Anion Gap 10 MEQ/L Estimat Glomerular Filtration Rate 51 ML/MIN Lactic Acid Level 1.2 mmol/L Lipase 127 U/L Stool C. difficile Toxin (PCR) NEGATIVE Stl C. difficile Toxin Epiderm 027 PRESUMPTIVE NEGATIVE MDM Medical Decision Making Medical Screen Exam Complete: Yes Emergency Medical Condition: Yes Differential Diagnosis Differential diagnoses include but are not limited to C. difficile colitis, gastritis, IBS, peptic ulcer disease, colitis, electrolyte abnormality, hypokalemia Narrative Course Patient presents monitor, IV obtainable and blood work sent to the lab. CBC, CMP, lipase, lactic acid, PT/INR ordered and pending. EKG ordered and pending. Abd CT ordered and pending. CBC shows hemoglobin 9.8. It is an increase from her discharge hemoglobin of 9.2 with 13 of August. CMP show hypokalemia of 2.9. 60mEq KCL ordered. Lipase 127 Lactic acid 1.2 PT/INR shows elevated PT of 13.9 and elevated APTT of 47.4. INR 1.4. EKG shows sinus rhythm with HR 81. Dr Ding assumes care for this patient. Please see her documentation for further details and disposition. Diagnosis Primary Impression: C. difficile colitis Additional Impression: Hypokalemia Scripts Vancomycin (Vancomycin) 125 Mg Cap 125 MG PO QID for Infection for 10 Days, CAP 0 Refills Prov: Jenny Ding DO 08/27/17 Coco Morales Aug 27, 2017 18:32
[2017-08-27 18:34] VITALS: BP 107/52; PULSE 80; RESP 17; O2SAT 99
[2017-08-27 18:44] LABS: HEMATOCRIT 29.1 % (35.0-46.0); HEMOGLOBIN 9.8 GM/DL (11.6-15.3); MEAN CELL VOLUME 97.9 FL (80.0-100.0); MEAN CORPUSCULAR HEMOGLOBIN 32.9 PG (27.0-34.0); MEAN CORPUSCULAR HGB CONC 33.6 % (32.0-36.0); MEAN PLATELET VOLUME 8.8 FL (7.0-11.0); PLATELET COUNT 128 TH/MM3 (150-450); RED BLOOD COUNT 2.97 MIL/MM3 (4.00-5.30); RED CELL DISTRIBUTION WIDTH 22.2 % (11.6-17.2); WHITE BLOOD COUNT 8.5 TH/MM3 (4.0-11.0)
[2017-08-27 19:11] LABS: BANDS 4 % (0-6); LYMPHOCYTES 12 % (9-44); MONOCYTES 7 % (0-8); NEUTROPHIL # MANUAL DIFF 6.6 TH/MM3 (1.8-7.7); POLYS (SEG NEUTROPHILS) 74 % (16-70)
[2017-08-27 19:13] VITALS: BP 94/51; PULSE 81; RESP 16; O2SAT 97
[2017-08-27 19:13] LABS: BURR CELLS 1+ (NORMAL); TEARDROP RBCS 1+ (NORMAL)
[2017-08-27] MEDS ORDERED: IOHEXOL 350 MG/ML 10 ML VIAL (for RAD DIAG) IVCONTRAST ONE (19:29)
--- NOTE | 2017-08-27 19:46 | RADRPT ---
EXAM DATE/TIME: 08/27/2017 19:25 [facility] COMPARISON: CT ABDOMEN & PELVIS W CONTRAST, August 06, 2017, 19:42. INDICATIONS : Abdomen pain. IV CONTRAST: 80 cc Omnipaque 350 (iohexol) IV ORAL CONTRAST: No oral contrast ingested. RADIATION DOSE: 11.11 CTDIvol (mGy) MEDICAL HISTORY : Seizures. c-diff SURGICAL HISTORY : Cholecystectomy. ENCOUNTER: Initial ACUITY: 1 day PAIN SCALE: 8/10 LOCATION: Bilateral abdomen TECHNIQUE: Volumetric scanning of the abdomen and pelvis was performed. Using automated exposure control and ad justment of the mA and/or kV according to patient size, radiation dose was kept as low as reasonably achievable to obtain optimal diagnostic quality images. DICOM format image data is available electro nically for review and comparison. FINDINGS: Minimally heterogeneous liver and considerably less so in the interim. It measures 22 cm craniocaudal . No focal hepatic lesion demonstrated. Moderate ascites is not significantly changed. Mild splenomeg cassie is not significantly changed. I do see some portosystemic collaterals, including esophageal varic es. No evidence of hemorrhage. Mild wall thickening fairly diffusely of the colon. No abscess, perforation or obstruction. Uterine fibroids are again noted. Trace atelectasis of the lung bases. CONCLUSION: 1. Hepatomegaly, moderate ascites and mild splenomegaly again noted. The liver is less heterogeneous in the interim suggesting some partial resolution of acute hepatocellular disease. 2. Mild colitis, nonspecific but presumably infectious or inflammatory. No abscess, perforation or ob struction. 3. Atherosclerotic aorta. 4. Trace atelectasis of the lung bases. 5. Uterine fibroids again noted. Jalil Martinez MD on August 27, 2017 at 19:40 Board Certified Radiologist. This report was verified electronically.
[2017-08-27] MEDS ORDERED: SODIUM CHLOR 0.9% 1000 ML INJ 1,000 ML IV ONE (20:30)
[2017-08-27] MEDS ORDERED: KETOROLAC TROMETHAMINE 30 MG/ML (IVP) VIAL IV PUSH ONE (21:15)
[2017-08-27] MEDS ORDERED: VANC125C3 PO (21:20)
[2017-08-27] MEDS ORDERED: VANCOMYCIN 500 MG VIAL (FOR ORAL USE ONLY) PO STA (21:20)
--- NOTE | 2017-08-27 21:20 | PD ---
Physical Exam Narrative I, Dr. Ding, have reviewed the advance practice practitioner's documentation and am in agreement, met with the patient face to face, made the diagnosis, and the medical decision making was done by me. *My assessment and Findings: C diff colitis 46yo F with multiple comorbidities here because [facility] called her yesterday to check up on her. She said that she told them she has diarrhea and they told her to come to the ED to get evaluated. Pt was admitted 08/06/17-08/13/17 for GI bleed. Labs reviewed, no leukocytosis. H/H is 9.8/29.1 which is better than prior. Mild thrombocytopenia. Hypokalemia at 2.9, replaced orally with 60mEq KCl. LFTs and bilirubin better than baseline. Lipase normal. Lactic acid normal at 1.2. CT a/p showed mild colitis that is nonspecific. No abscess , perforation, or obstruction. Pt given NS IVF, toradol for pain. Pt had positive cdiff on 08/07/17 but negative cdiff on 08/13/17. Pt said she has been having diarrhea for six months. Pt is hungry and wants to eat. Tolerating PO. Will treat for possible recurrent cdiiff with PO vancomycin. First dose given here. Pt is well appearing, will have pt follow up with PMD. Pt reevaluated at bedside and abdominal pain has improved. Return precautions given. Data Data Last Documented VS Vital Signs Date Time Temp Pulse Resp B/P (MAP) Pulse Ox O2 Delivery O2 Flow Rate FiO2 08/27/17 22:33 08/27/17 21:23 77 16 97 Room Air 08/27/17 13:05 97.0 Orders Orders Complete Blood Count With Diff (08/27/17 13:36) Comprehensive Metabolic Panel (08/27/17 13:36) Lipase (08/27/17 13:36) Lactic Acid (08/27/17 13:36) Prothrombin Time / Inr (Pt) (08/27/17 13:36) Act Partial Throm Time (Ptt) (08/27/17 13:36) Electrocardiogram (08/27/17 ) Potassium Chloride (Kcl) (08/27/17 17:30) Potassium Chloride (Kcl) (08/27/17 17:30) Ct Abd/Pel W Iv Contrast(Rout) (08/27/17 18:51) Iohexol 350 Inj (Omnipaque 350 Inj) (08/27/17 19:29) Sodium Chlor 0.9% 1000 Ml Inj (Ns 1000 M (08/27/17 20:30) Ketorolac Inj (Toradol Inj) (08/27/17 21:15) Vancomycin For Oral Use Only (Vancomycin (08/28/17 09:00) Vancomycin For Oral Use Only (Vancomycin (08/27/17 21:20) Ed Discharge Order (08/27/17 22:01) C Diff Toxin Pcr (08/27/17 22:46) Labs Laboratory Tests Test 08/27/17 14:21 08/27/17 22:00 White Blood Count 8.5 TH/MM3 Red Blood Count 2.97 MIL/MM3 Hemoglobin 9.8 GM/DL Hematocrit 29.1 % Mean Corpuscular Volume 97.9 FL Mean Corpuscular Hemoglobin 32.9 PG Mean Corpuscular Hemoglobin Concent 33.6 % Red Cell Distribution Width 22.2 % Platelet Count 128 TH/MM3 Mean Platelet Volume 8.8 FL CBC Comment AUTO DIFF Differential Total Cells Counted 100 Neutrophils % (Manual) 74 % Band Neutrophils % 4 % Lymphocytes % 12 % Monocytes % 7 % Eosinophils % 3 % Neutrophils # (Manual) 6.6 TH/MM3 Differential Comment FINAL DIFF MANUAL Platelet Estimate LOW Platelet Morphology Comment ENLARGED Tear Drop Cells 1+ Snow Cells 1+ Prothrombin Time 13.9 SEC Prothromb Time International Ratio 1.4 RATIO Activated Partial Thromboplast Time 47.4 SEC Blood Urea Nitrogen 7 MG/DL Creatinine 1.14 MG/DL Random Glucose 109 MG/DL Total Protein 7.8 GM/DL Albumin 2.4 GM/DL Calcium Level 8.2 MG/DL Alkaline Phosphatase 325 U/L Aspartate Amino Transf (AST/SGOT) 30 U/L Alanine Aminotransferase (ALT/SGPT) 24 U/L Total Bilirubin 1.8 MG/DL Sodium Level 138 MEQ/L Potassium Level 2.9 MEQ/L Chloride Level 109 MEQ/L Carbon Dioxide Level 19.1 MEQ/L Anion Gap 10 MEQ/L Estimat Glomerular Filtration Rate 51 ML/MIN Lactic Acid Level 1.2 mmol/L Lipase 127 U/L Stool C. difficile Toxin (PCR) NEGATIVE Stl C. difficile Toxin Epiderm 027 PRESUMPTIVE NEGATIVE MDM Supervised Visit with [facility]: Yes Diagnosis Primary Impression: Colitis Additional Impression: Hypokalemia Patient Instructions: General Instructions, Hypokalemia (ED) Departure Forms: Tests/Procedures Additional Instruction: Please follow up with your primary care physician in 2-3 days. Return to the ED if symptoms worsen. Med/Other Pt SpecificInfo: Prescription(s) given Scripts Vancomycin (Vancomycin) 125 Mg Cap 125 MG PO QID for Infection for 10 Days, CAP 0 Refills Prov: Jenny Ding DO 08/27/17 Disposition: 01 DISCHARGE HOME Condition: Stable Jenny Ding DO Aug 27, 2017 21:20
[2017-08-27 21:23] VITALS: BP 105/51; PULSE 77; RESP 16; O2SAT 97
[2017-08-28] MEDS ORDERED: VANCOMYCIN 500 MG VIAL (FOR ORAL USE ONLY) PO SCH (09:00)
--- NOTE | 2017-08-28 21:55 | EKG ---
Date Performed: 08/27/2017 Time Performed: 17:47:52 PTAGE: 46 years EKG: Sinus rhythm MODERATE ST DEPRESSION ABNORMAL ECG PREVIOUS TRACING : 08/06/2017 17.33 Compared to the previous tracing SR, less ST changes presen t DOCTOR: Michelle Hobbs Interpretating Date/Time 08/28/2017 21:53:47
== END 2017-08-27 22:57 | disposition home or self-care (01) ==
LOC: NEPD 13:04
DX: K52.9 Noninfective gastroenteritis and colitis, unspecified (principal); E87.6 Hypokalemia; J44.9 Chronic obstructive pulmonary disease, unspecified; K74.60 Unspecified cirrhosis of liver; F32.9 Major depressive disorder, single episode, unspecified; K21.9 Gastro-esophageal reflux disease without esophagitis; F17.210 Nicotine dependence, cigarettes, uncomplicated
CPT/HCPCS: 74177; 80053; 83605; 83690; 85007; 85027; 85610; 85730; 87493; 93005; 96361; 96374; 99285; J1885; J7030; Q9967